=== PATIENT | female | born 1960 | race Caucasian/White ===

== ENCOUNTER → 2019-10-19 16:32 | Outpatient (CLI) | payer BC, SELFPAY ==
[2019-10-19 16:33] LABS: Adenovirus F 40/41, stool Not Detected (NotDetected); Astrovirus Not Detected (NotDetected); Campylobacter Not Detected (NotDetected); Clostridium Difficile A/B, PCR Not Detected (NotDetected); Cryptosporidium Not Detected (NotDetected); Cyclospora Cayetanesis Not Detected (NotDetected); Entamoeba histolytica Not Detected (NotDetected); Enteroaggregative E coli Not Detected (NotDetected); Enteropathogenic E coli Not Detected (NotDetected); Enterotoxigenic E coli Not Detected (NotDetected); Giardia lamblia Not Detected (NotDetected); Plesimonas Shigalloides, PCR Not Detected (NotDetected); Rotavirus A Not Detected (NotDetected); Salmonella, PCR Not Detected (NotDetected); Sapovirus Not Detected (NotDetected); Shiga-like toxin E coli Not Detected (NotDetected); Shigella Enterovasive E coli Not Detected (NotDetected); Vibrio Cholerae Not Detected (NotDetected); Vibrio, PCR Not Detected (NotDetected); Yersinia Entercolitica, PCR Not Detected (NotDetected)
[2019-10-19 19:49] LABS: Norovirus Detected (NotDetected)
== END ==
PROVIDERS: Visit Provider Family Medicine
DX: R19.7 Diarrhea, unspecified; A08.2 Adenoviral enteritis
CPT/HCPCS: 87507

== ENCOUNTER 2020-07-26 18:23 | Emergency (ER) | payer BC, SELFPAY ==
[2020-07-26 18:39] VITALS: BP 118/67; PULSE 72; RESP 18; O2SAT 98; BMI 28.3
--- NOTE | 2020-07-26 19:06 | HMH.EDUTC ---
[facility] [place] Clinical Impression: Medication side effects UTI (urinary tract infection) Qualifiers: Urinary tract infection type: site unspecified Hematuria presence: without hematuria Qualified Code(s): N39.0 - Urinary tract infection, site not specified Disposition: Home, Self-Care Condition on Discharge: Good Instructions: Urinary Tract Infection Additional Instructions: Drink plenty of fluids. Water would be best. Drink cranberry juice daily. Take tylenol for pain or fever. Return if you begin to have worsening symptoms. Follow up with your regular doctor. GO TO THE ER FOR ANY WORSENING SYMPTOMS OR CONCERNS Prescriptions: Cefdinir [Omnicef 300mg Capsule] 300 mg PO BID 7 Days #14 cap Transmission Status: Received by [employer] #[id number] Referrals: Benny Stokes MD [Primary Care Provider] - Time of Disposition: 19:23 Medical Decision Making - Medical Records Medical records reviewed: No: I reviewed the patient's medical records. - Pasha Inquiry Pt receiving controlled substance: No Vital Signs: 07/26/20 18:39 07/26/20 19:25 Temperature 98.0 F Temperature Source Oral Pulse Rate 72 Pulse Rate [Radial] 72 Respiratory Rate 18 18 Blood Pressure 118/60 Blood Pressure [Right Arm] 118/67 Blood Pressure Mean [Right Arm] 84 Blood Pressure Source Automatic Cuff Blood Pressure Source [Right Arm] Automatic Cuff Blood Pressure Position Sitting Blood Pressure Position [Right Arm] Sitting 02 Sat by Pulse Oximetry 98 Oxygen Delivery Method Room Air Room Air - Lab Data Lab results reviewed: Yes: I reviewed the patient's lab results. Lab Results 07/26/20 18:26: Urine Color Yellow, Urine Appearance Clear, Urine pH 5.5, Ur Specific [place] 1.015, Urine Protein Negative, Urine Glucose (UA) Negative, Urine Ketones Negative, Urine Blood Negative, Urine Nitrate Negative, Urine Bilirubin Negative, Urine Urobilinogen 0.2, Ur Leukocyte Esterase Negative [facility] [place] - General Stated complaint: pOSSIBLE uti Time Seen by Provider: 07/26/20 19:06 Mode of Arrival: Ambulatory Source of Information: Patient Limitations: No Limitations Description of Symptoms (Recalled from Triage Doc. by RN): possible uti. seen by doctor kike on wednesday and prescribed cipro. states the cipro has started making her sick so she called dr. stokes and they didn't change her medication. Here requesting a medication change HEENT Symptoms (Recalled from RN notes): No Resp Symptoms (Recalled from RN notes): No Skin Symptoms (Recalled from RN notes): No MS Symptoms (Recalled from RN notes): No Functional Status (Recalled from RN notes): wnl - History of Present Illness Provider Complaint: She is here requesting to have her medication switched. She has been on cipro for 2 days for a uti. She states that her uti symptoms are better, but the cipro is causing her to have nausea and vomiting. In the past she has taken cephalexin and did ok with it, so she would like to be switched to that if possible. - Related Data Previous Rx's Medication Instructions Recorded Cefdinir [Omnicef 300mg Capsule] 300 mg PO BID 7 Days #14 cap 07/26/20 Allergies Allergy/AdvReac Type Severity Reaction Status Date / Time acetaminophen [From PERCOCET] Allergy Intermediate I-HIVES Unverified 08/10/17 14:45 oxycodone [From PERCOCET] Allergy Intermediate I-HIVES Unverified 08/10/17 14:45 erythromycin base Allergy Unknown NA-DIARRHEA Unverified 08/10/17 14:45 [ERYTHROMYCIN BASE] morphine [MORPHINE] Allergy Unknown NA-HALLUCIN Unverified 08/10/17 14:45 ATIONS Sulfa (Sulfonamide Allergy Unknown NA-NAUSEA/V Unverified 08/10/17 14:45 Antibiotics) OMITING [SULFA (SULFONAMIDE ANTIBIOTICS)] ciprofloxacin [From Cipro] AdvReac Vomiting Verified 07/26/20 18:44 nitrofurantoin AdvReac Vomiting Verified 07/26/20 18:44 [From Macrobid] - Worker's Comp Is this a Worker's Comp case?: No H
[2020-07-26 19:25] VITALS: BP 118/60; PULSE 72; RESP 18; TEMP 36.7; O2SAT 98
[2020-07-26 19:40] LABS: Apearance,Urine Clear (Clear); Bilirubin,Urine Negative (Negative); Blood, Urine Negative (Negative); Color,Urine Yellow (Yellow); Glucose,Urine (UA) Negative (Negative); Ketones,Urine Negative (Negative); PH,Urine 5.5 (5.0-8.5); Protein,Urine Negative (Negative); Specific Gravity, Urine 1.015 (1.005-1.030)
[2020-07-26 19:41] LABS: UTC Leukocyte Esterase,Urine Negative (Negative); UTC Nitrate,Urine Negative (Negative); Urobilinogen,Urine 0.2 EU/dl (0.2)
== END 2020-07-26 19:26 | disposition home or self-care (01) ==
PROVIDERS: Emergency Provider Nurse Practitioner Family; PCP Family Medicine
DX: N30.00 Acute cystitis without hematuria (principal); R11.2 Nausea with vomiting, unspecified; T36.8X5A Adverse effect of other systemic antibiotics, initial encounter; Z88.2 Allergy status to sulfonamides; Z88.5 Allergy status to narcotic agent; Z88.8 Allergy status to other drugs, medicaments and biological substances
CPT/HCPCS: 81003; 99201

== ENCOUNTER 2021-01-26 15:29 | Emergency (ER) | payer BC, SELFPAY ==
[2021-01-26 15:31] VITALS: BP 197/97; PULSE 74; RESP 22; TEMP 36.5; O2SAT 99; BMI 29.1
--- NOTE | 2021-01-26 15:58 | ECG_ITS ---
APPROVED REPORT Exam: Resting ECG HR:68 bpm ECG Measurements Heart Rate 68 AXES ME 146 P 75 QRSd 68 QRS -4 QT 402 T 15 QTc 427 Conclusion Normal sinus rhythm Nonspecific ST abnormality Abnormal ECG Electronically signed by : Benny Paredes, 01/28/2021 22:05:01
--- NOTE | 2021-01-26 16:03 | HMH.EDGENADL ---
ED Disposition Clinical Impression: Essential hypertension Headache Qualifiers: Headache type: unspecified Headache chronicity pattern: acute headache Intractability: not intractable Qualified Code(s): R51.9 - Headache, unspecified Disposition: Home, Self-Care Condition on Discharge: Good Instructions: DI for Headache Additional Instructions: See your primary care provider tomorrow for further management of your blood pressure. Fioricet as needed for headache. Additional instructions for HEADACHE: See your physician as soon as possible for further evaluation. Return immediately if worsening headache, vomiting, problems with vision or speech, fever, numbness or weakness of the extremities, neck pain or stiffness. Prescriptions: Butalb/Acetaminophen/Caffeine [Fioricet 50-300-40 mg Capsule] 1 each PO Q6HP PRN #8 capsule PRN Reason: Headache Transmission Status: Received by [employer] #[id number] Referrals: Benny Guerrier MD [Primary Care Provider] - - Critical Care Critical Care Time: No Attestation: On 01/26/21, the high probability of a clinically significant, sudden or life threatening deterioration of the following system(s) required my full and direct attention, intervention and personal management. The time I documented below is in addition to time spent performing reported procedures but includes the following listed in this critical care notation. Medical Decision Making - Pasha Inquiry Pt receiving controlled substance: Yes Pasha was queried for this patient: Yes Risks and benefits of using a controlled substance: were discussed with pt by me Vital Signs: 01/26/21 15:31 01/26/21 16:43 Temperature 97.7 F Temperature Source Oral Pulse Rate 64 Pulse Rate [Right] 74 Respiratory Rate 22 16 Blood Pressure 164/81 H Blood Pressure [Right Arm] 197/97 H Blood Pressure Mean 106 Blood Pressure Mean [Right Arm] 130 Blood Pressure Source [Right Arm] Automatic Cuff Blood Pressure Position [Right Arm] Supine 02 Sat by Pulse Oximetry 99 98 Oxygen Delivery Method Room Air - Lab Data Lab Results 01/26/21 16:05: WBC 8.7, RBC 4.41, Hgb 12.1 L, Hct 36.4 L, MCV 82.6, MCH 27.5, MCHC 33.3, RDW 13.1, Plt Count 266, MPV 7.8, Neut % (Auto) 60.3, Lymph % (Auto) 30.6, [place] % (Auto) 3.2, Eos % (Auto) 4.7, Baso % (Auto) 1.2, Neut # (Auto) 5.3, Lymph # (Auto) 2.7, [place] # (Auto) 0.3, Eos # (Auto) 0.4, Baso # (Auto) 0.1 01/26/21 16:05: Sodium 139, Potassium 4.0, Chloride 106, Carbon Dioxide 28, Anion Gap 9.0, BUN 11, Creatinine 0.50 L, Estimated Creat Clear 154, Estimated GFR 127, Est GFR ( Amer) 153, Glucose 88, Calcium 8.7, Total Bilirubin 0.4, AST 24, ALT 21, Alkaline Phosphatase 56, Troponin I < 0.01, Total Protein 6.6, Albumin 4.0, Globulin 2.6, Albumin/Globulin Ratio 1.5 Result diagrams: 01/26/21 16:05 01/26/21 16:05 Orders (Tests/Meds): ED MEDICATIONS Discontinued Medications Generic Name Dose Route Start Last Admin Trade Name Freq PRN Reason Stop Dose Admin Butorphanol Tartrate 0.5 mg 01/26/21 16:49 01/26/21 16:57 Butorphanol Tartrate 1 Mg/Ml Vial IV 01/26/21 16:50 0.5 mg ONCE ONE Administration Ondansetron HCl 4 mg 01/26/21 16:55 01/26/21 16:57 Ondansetron 4mg/2ml Vial IV 01/26/21 16:56 4 mg ONCE ONE Administration ORDERS Category Date Time Status Troponin I Q3H Lab 01/26/21 19:00 Ordered Troponin I Q3H Lab 01/26/21 22:00 Ordered - CT Data CT Scan: Head Time Received: 17:[address] Reviewed: Yes: I have viewed the radiologist's interpretation Findings Narrative: PROCEDURE INFORMATION: Exam: CT Head Without Contrast Exam date and time: 01/26/2021 4:08 PM Age: 60 years old Clinical indication: Pain; Other: Blood pressure 186/88; Patient HX: Headache since noon today. Elevated blood pressure. TECHNIQUE: Imaging protocol: Computed tomography of the head without contrast. Radiation optimization: All CT scans at this [facility]
--- NOTE | 2021-01-26 16:08 | CT_ITS ---
PROCEDURE INFORMATION: Exam: CT Head Without Contrast Exam date and time: 01/26/2021 4:08 PM Age: 60 years old Clinical indication: Pain; Other: Blood pressure 186/88; Patient HX: Headache since noon today. Elevated blood pressure. TECHNIQUE: Imaging protocol: Computed tomography of the head without contrast. Radiation optimization: All CT scans at this facility use at least one of these dose optimization techniques: automated exposure control; mA and/or kV adjustment per patient size (includes targeted exams where dose is matched to clinical indication); or iterative reconstruction. COMPARISON: No relevant prior studies available. FINDINGS: Brain: Normal. Cerebral ventricles: No ventriculomegaly. Paranasal sinuses: Visualized sinuses are unremarkable. No fluid levels. Mastoid air cells: Normal as visualized. Bones/joints: Normal. Soft tissues: Unremarkable. IMPRESSION: No acute intracranial abnormality.
[2021-01-26 16:17] LABS: Basophils # 0.1 K/mm3 (0-0.2); Basophils % 1.2 % (0.1-2.0); Eosinophils # 0.4 K/mm3 (0.0-0.4); Eosinophils % 4.7 % (0.1-12.0); Hematocrit 36.4 % (37.0-47.0); Hemoglobin 12.1 g/dL (12.2-16.2); Lymphocytes # 2.7 K/mm3 (0.7-4.5); Lymphocytes % 30.6 % (10-50); Mean Corpuscular HGB Conc 33.3 g/dL (31.8-35.4); Mean Corpuscular Hemoglobin 27.5 pg (27.0-31.2); Mean Corpuscular Volume 82.6 fl (81-99); Mean Platelet Volume 7.8 fl (7.4-10.4); Monocytes # 0.3 K/mm3 (0.1-1.0); Monocytes % 3.2 % (1.7-9.3); Neutrophils # 5.3 K/mm3 (1.8-7.8); Neutrophils % 60.3 % (37.0-80.0); Platelet Count 266 K/mm3 (142-424); Red Blood Count 4.41 M/mm3 (4.20-5.40); Red Cell Distribution Width 13.1 % (11.5-17.5); White Blood Count 8.7 K/mm3 (4.8-10.8)
[2021-01-26 16:26] LABS: Alanine Aminotransferase 21 U/L (12-78); Albumin/Globulin Ratio 1.5 (1.1-1.8); Alkaline Phosphatase 56 U/L (38-126); Aspartate Amino Transferase 24 U/L (14-36); Bilirubin,Total 0.4 mg/dl (0.2-1.3); Blood Urea Nitrogen 11 mg/dl (7-17); Calcium 8.7 mg/dl (8.4-10.2); Carbon Dioxide 28 mmol/L (22.0-30.0); Chloride 106 mmol/L (98-107); Creatinine Clearance Estimated 154 mL/min (50-200); Estimated Glomerular Filt Rate 127 ml/min (>60); GFR (African American) 153 ML/MIN (>60); Globulin 2.6 g/dL (1.3-3.2); Glucose 88 mg/dl (74-100); Sodium 139 mmol/L (136-145); Total Protein,Serum 6.6 g/dl (6.3-8.2)
[2021-01-26 16:39] LABS: Troponin I < 0.01 ng/ml (0.00-0.034)
[2021-01-26 16:43] VITALS: BP 164/81; PULSE 64; RESP 16; O2SAT 98
[2021-01-26 17:45] VITALS: BP 153/89; PULSE 67; RESP 16; TEMP 36.6; O2SAT 98
== END 2021-01-26 17:46 | disposition home or self-care (01) ==
PROVIDERS: Emergency Provider Emergency Medicine; PCP Family Medicine
DX: R51.9 Headache, unspecified (principal); I10 Essential (primary) hypertension; Z88.2 Allergy status to sulfonamides; Z88.5 Allergy status to narcotic agent; Z79.899 Other long term (current) drug therapy
CPT/HCPCS: 70450; 80053; 84484; 85025; 93005; 96374; 96375; 99282; J0595; J2405

== ENCOUNTER → 2021-05-15 15:26 | Outpatient (CLI) | payer BC, SELFPAY ==
--- NOTE | 2021-05-15 15:30 | XR_ITS ---
PROCEDURE: XR CHEST 2V CLINICAL HISTORY: CHEST WALL PAIN COMPARISON: No exams were available for comparison FINDINGS: The cardiomediastinal silhouette and pulmonary vascularity are within normal limits. The lungs are clear without infiltrates, suspicious nodules, or pleural effusions. There is calcified granuloma in the left suprahilar region. No acute bony findings. No pleural effusion. No evidence of pneumothorax. IMPRESSION: No acute findings. Dictated by: Roderick Sellers MD 05/16/2021 16:09 Roderick Sellers MD in [place] 05/16/2021 16:09
== END ==
PROVIDERS: PCP Nurse Practitioner Family; Visit Provider Nurse Practitioner Family
DX: R07.89 Other chest pain (principal)
CPT/HCPCS: 71046

== ENCOUNTER 2021-05-16 21:56 | Emergency (ER) | payer BC, SELFPAY ==
[2021-05-16 22:18] VITALS: RESP 16; TEMP 36.7; O2SAT 99; BMI 29.9
--- NOTE | 2021-05-16 22:26 | CT_ITS ---
PROCEDURE INFORMATION: Exam: CT Abdomen And Pelvis With Contrast Exam date and time: 05/16/2021 10:26 PM Age: 60 years old Clinical indication: Abdominal pain; Localized; Right upper quadrant (ruq); Additional info: Ruq pain TECHNIQUE: Imaging protocol: Computed tomography of the abdomen and pelvis with contrast. Total images: 318 Radiation optimization: All CT scans at this facility use at least one of these dose optimization techniques: automated exposure control; mA and/or kV adjustment per patient size (includes targeted exams where dose is matched to clinical indication); or iterative reconstruction. Contrast material: ISOVUE; Contrast volume: 75 ml; Contrast route: IV; COMPARISON: CR XR CHEST 2V 05/15/2021 3:42 PM FINDINGS: Lungs: Visualized lung bases are clear. Heart: Heart size normal. Mediastinal space: The visualized distal esophagus is largely contracted without gross abnormality. Liver: Granulomatous calcifications in the liver. Well-circumscribed low-density hepatic lesions demonstrating benign CT features consistent with hepatic cysts. No further imaging evaluation is required based on current consensus criteria. No mass lesions. No intrahepatic biliary ductal dilatation. Gallbladder and bile ducts: Question possible small gallstones in the gallbladder. No overdistention of the gallbladder or gross gallbladder wall thickening was seen. Consider sonographic assessment as clinically indicated. Nondilated bile ducts. Pancreas: Normal. No inflammatory changes or ductal dilation. Spleen: Granulomatous calcifications in the spleen without acute splenic abnormality. Adrenal glands: Normal. No adrenal mass. Kidneys and ureters: No acute abnormalities. No hydronephrosis or hydroureter. No urinary tract stones are identified. Stomach and bowel: The stomach is unremarkable. The small bowel is nondilated with no gross abnormality. Severe diverticulosis involving the distal colon without evidence of acute diverticulitis. Appendix: The appendix is not identified. No secondary signs of appendicitis. Intraperitoneal space: No free fluid or air. Vasculature: Mild atherosclerotic aortoiliac calcification without aneurysm. Lymph nodes: No adenopathy. Urinary bladder: Unremarkable as visualized. Reproductive: Prior hysterectomy. Bones/joints: No acute osseous abnormalities. Soft tissues: Small fatty umbilical hernia . No evidence of associated bowel herniation or strangulation. IMPRESSION: 1. Suspect small gallstones in the gallbladder lumen without gross each changes of cholecystitis. Nondilated bile ducts. Consider sonographic assessment as clinically indicated. 2. Severe distal colonic diverticulosis without evidence of diverticulitis. 3. Additional nonemergent findings detailed above.
[2021-05-16 22:30] VITALS: BP 154/56; PULSE 65; O2SAT 99
[2021-05-16 22:33] LABS: Basophils # 0.1 K/mm3 (0-0.2); Basophils % 1.2 % (0.1-2.0); Eosinophils # 0.4 K/mm3 (0.0-0.4); Eosinophils % 3.6 % (0.1-12.0); Hematocrit 41.1 % (37.0-47.0); Hemoglobin 13.1 g/dL (12.2-16.2); Lymphocytes # 3.4 K/mm3 (0.7-4.5); Mean Corpuscular HGB Conc 31.9 g/dL (31.8-35.4); Mean Corpuscular Hemoglobin 27.7 pg (27.0-31.2); Mean Platelet Volume 8.5 fl (7.4-10.4); Monocytes # 0.4 K/mm3 (0.1-1.0); Monocytes % 4.4 % (1.7-9.3); Neutrophils # 5.7 K/mm3 (1.8-7.8); Neutrophils % 56.7 % (37.0-80.0); Platelet Count 300 K/mm3 (142-424); Red Blood Count 4.72 M/mm3 (4.20-5.40)
[2021-05-16 22:39] LABS: Alanine Aminotransferase 18 U/L (12-78); Albumin Level 4.1 g/dl (3.5-5.0); Albumin/Globulin Ratio 1.2 (1.1-1.8); Alkaline Phosphatase 67 U/L (38-126); Amylase 74 U/L (30-110); Anion Gap 15.1 mEq/L (5-15); Aspartate Amino Transferase 24 U/L (14-36); Bilirubin,Total 0.2 mg/dl (0.2-1.3); Blood Urea Nitrogen 20 mg/dl (7-17); Carbon Dioxide 30 mmol/L (22.0-30.0); Chloride 99 mmol/L (98-107); Creatinine Clearance Estimated 132 mL/min (50-200); Estimated Glomerular Filt Rate 103 ml/min (>60); GFR (African American) 124 ML/MIN (>60); Globulin 3.3 g/dL (1.3-3.2); Glucose 106 mg/dl (74-100); Lipase 206 U/L (23-300); Potassium 3.1 mmoL/L (3.5-5.1); Sodium 141 mmol/L (136-145); Total Protein,Serum 7.4 g/dl (6.3-8.2)
[2021-05-16 22:51] LABS: Troponin I < 0.01 ng/ml (0.00-0.034)
[2021-05-16 23:00] VITALS: BP 138/71; PULSE 61; O2SAT 98
--- NOTE | 2021-05-16 23:09 | HMH.EDNVD ---
ED Disposition Clinical Impression: Abdominal pain Qualifiers: Abdominal location: right upper quadrant Qualified Code(s): R10.11 - Right upper quadrant pain Cholelithiasis Qualifiers: Cholelithiasis location: gallbladder Cholecystitis presence: without cholecystitis Biliary obstruction: without biliary obstruction Qualified Code(s): K80.20 - Calculus of gallbladder without cholecystitis without obstruction Disposition: Home, Self-Care Condition on Discharge: Good Instructions: DI for Acute Abdominal Pain, DI for Gallstones Additional Instructions: see pcp for eval and more testing Referrals: Benny Guerrier MD [Primary Care Provider] - - Critical Care Critical Care Time: No Attestation: On 05/16/21, the high probability of a clinically significant, sudden or life threatening deterioration of the following system(s) required my full and direct attention, intervention and personal management. The time I documented below is in addition to time spent performing reported procedures but includes the following listed in this critical care notation. Medical Decision Making - Medical Records Medical records reviewed: Yes: I reviewed the patient's medical records. - Pasha Inquiry Pt receiving controlled substance: No Vital Signs: 05/16/21 22:18 05/16/21 22:30 05/16/21 23:00 Temperature 98.1 F Temperature Source Oral Pulse Rate 65 61 Respiratory Rate 16 Blood Pressure 154/56 H 138/71 02 Sat by Pulse Oximetry 99 99 98 Oxygen Delivery Method Room Air 05/16/21 23:30 Temperature Temperature Source Pulse Rate 60 Respiratory Rate Blood Pressure 148/73 H 02 Sat by Pulse Oximetry 98 Oxygen Delivery Method - Lab Data Lab results reviewed: Yes: I reviewed the patient's lab results. Lab Results 05/16/21 22:11: WBC 10.0, RBC 4.72, Hgb 13.1, Hct 41.1, MCV 87.0, MCH 27.7, MCHC 31.9, RDW 13.0, Plt Count 300, MPV 8.5, Neut % (Auto) 56.7, Lymph % (Auto) 34.0, [place] % (Auto) 4.4, Eos % (Auto) 3.6, Baso % (Auto) 1.2, Neut # (Auto) 5.7, Lymph # (Auto) 3.4, [place] # (Auto) 0.4, Eos # (Auto) 0.4, Baso # (Auto) 0.1 05/16/21 22:11: Sodium 141, Potassium 3.1 L, Chloride 99, Carbon Dioxide 30, Anion Gap 15.1 H, BUN 20 H, Creatinine 0.60, Estimated Creat Clear 132, Estimated GFR 103, Est GFR ( Amer) 124, Glucose 106 H, Calcium 9.0, Total Bilirubin 0.2, AST 24, ALT 18, Alkaline Phosphatase 67, Troponin I < 0.01, Total Protein 7.4, Albumin 4.1, Globulin 3.3 H, Albumin/Globulin Ratio 1.2, Amylase 74, Lipase 206 Result diagrams: 05/16/21 22:11 05/16/21 22:11 Orders (Tests/Meds): ED MEDICATIONS Discontinued Medications Generic Name Dose Route Start Last Admin Trade Name Freq PRN Reason Stop Dose Admin Iopamidol 75 ml 05/16/21 23:54 05/16/21 23:55 Iopamidol-370 (76%);100ml Bottle IV 05/16/21 23:55 75 ml ONCE ONE Administration Potassium Chloride 40 meq 05/16/21 23:05 05/16/21 23:06 Potassium Chloride 20meq Tab PO 05/16/21 23:06 40 meq ONCE ONE Administration Sodium Chloride 10 ml 05/16/21 23:54 05/16/21 23:55 Sodium Chloride 0.9% 10ml Syr (Rad Only) IV 05/16/21 23:55 10 ml ONCE ONE Administration ORDERS Category Date Time Status Troponin I Q3H Lab 05/17/21 01:30 Ordered Troponin I Q3H Lab 05/17/21 04:30 Ordered Urinalysis and Microscopic Stat Lab 05/16/21 22:25 Ordered - CT Data CT Scan: Abdomen, Pelvis Time Received: 00:[address] Reviewed: Yes: I have viewed the radiologist's interpretation Preliminary Findings: Abnormal (gallstones) - ECG Data Tracing #1 Normal Sinus Rhythm: Yes Ischemic changes: non-specific ST-T wave changes Medical Decision Narrative: tender rt upper abd with abn ct but stable exam Nausea/Vomiting/Diarrhea HPI - General Chief complaint: Abdominal Pain Stated complaint: pain R upper side and heart burn Time Seen by Provider: 05/16/21 23:00 Mode of Arrival: Family Vehicle Source of Information: Patient, Med
[2021-05-16 23:30] VITALS: BP 148/73; PULSE 60; O2SAT 98
--- NOTE | 2021-05-17 00:17 | ECG_ITS ---
APPROVED REPORT Exam: Resting ECG HR:61 bpm ECG Measurements Heart Rate 61 AXES [place] 152 P 44 QRSd 82 QRS 17 QT 430 T 43 QTc 432 Conclusion Normal sinus rhythm Normal ECG Electronically signed by : Benny Paredes MD 05/18/2021 20:54:47
[2021-05-17 00:29] LABS: Microscopic, Urine URINE MICROSCOPIC (MICROSCOPIC)
[2021-05-17 00:43] LABS: Appearance,Urine CLEAR (Clear); Bilirubin,Urine Negative (Negative); Blood, Urine Negative (Negative); Color,Urine YELLOW (Yellow); Glucose,Urine (UA) Negative (Negative); Ketones,Urine Negative (Negative); Leukocyte Esterase,Urine Negative (Negative); Nitrate,Urine Negative (Negative); PH,Urine 5.5 (5.0-8.5); Protein,Urine Negative (Negative); Urobilinogen,Urine 0.2 EU/dl (0.2)
[2021-05-17 01:17] VITALS: BP 138/67; PULSE 79; RESP 16; TEMP 36.7; O2SAT 98
== END 2021-05-17 01:19 | disposition home or self-care (01) ==
PROVIDERS: Emergency Provider Emergency Medicine; PCP Family Medicine
DX: K80.20 Calculus of gallbladder without cholecystitis without obstruction (principal); Z88.2 Allergy status to sulfonamides; Z88.5 Allergy status to narcotic agent
CPT/HCPCS: 74177; 80053; 81001; 82150; 83690; 84484; 85025; 93005; 96374; 96375; 99283; Q9967

== ENCOUNTER 2021-05-21 21:59 | Emergency (ER) | payer BC, SELFPAY ==
[2021-05-21 22:00] VITALS: BP 175/81; PULSE 73; RESP 16; TEMP 36.9; O2SAT 98; BMI 29.9
[2021-05-21 23:37] LABS: Microscopic, Urine URINE MICROSCOPIC (MICROSCOPIC)
[2021-05-21 23:39] LABS: Appearance,Urine SL CLOUDY (Clear); Bilirubin,Urine Negative (Negative); Blood, Urine Negative (Negative); Color,Urine YELLOW (Yellow); Glucose,Urine (UA) Negative (Negative); Ketones,Urine TRACE (Negative); Leukocyte Esterase,Urine Negative (Negative); Nitrate,Urine Negative (Negative); Protein,Urine Negative (Negative); Specific Gravity, Urine 1.025 (1.005-1.030); Urobilinogen,Urine 0.2 EU/dl (0.2)
[2021-05-21 23:40] LABS: Basophils # 0.1 K/mm3 (0-0.2); Basophils % 1.2 % (0.1-2.0); Eosinophils # 0.3 K/mm3 (0.0-0.4); Eosinophils % 2.6 % (0.1-12.0); Hematocrit 35.5 % (37.0-47.0); Hemoglobin 11.9 g/dL (12.2-16.2); Lymphocytes # 3.1 K/mm3 (0.7-4.5); Lymphocytes % 30.3 % (10-50); Mean Corpuscular HGB Conc 33.5 g/dL (31.8-35.4); Mean Corpuscular Hemoglobin 28.2 pg (27.0-31.2); Mean Corpuscular Volume 84.1 fl (81-99); Mean Platelet Volume 7.6 fl (7.4-10.4); Monocytes # 0.3 K/mm3 (0.1-1.0); Monocytes % 2.9 % (1.7-9.3); Neutrophils # 6.4 K/mm3 (1.8-7.8); Neutrophils % 63.1 % (37.0-80.0); Platelet Count 290 K/mm3 (142-424); Red Blood Count 4.22 M/mm3 (4.20-5.40); Red Cell Distribution Width 12.8 % (11.5-17.5); White Blood Count 10.2 K/mm3 (4.8-10.8)
[2021-05-21 23:46] LABS: Alanine Aminotransferase 16 U/L (12-78); Albumin Level 3.5 g/dl (3.5-5.0); Albumin/Globulin Ratio 1.2 (1.1-1.8); Alkaline Phosphatase 54 U/L (38-126); Amylase 62 U/L (30-110); Anion Gap 10.3 mEq/L (5-15); Aspartate Amino Transferase 19 U/L (14-36); Bilirubin,Total 0.2 mg/dl (0.2-1.3); Blood Urea Nitrogen 16 mg/dl (7-17); Calcium 8.1 mg/dl (8.4-10.2); Carbon Dioxide 27 mmol/L (22.0-30.0); Chloride 106 mmol/L (98-107); Creatinine Clearance Estimated 132 mL/min (50-200); Estimated Glomerular Filt Rate 103 ml/min (>60); GFR (African American) 124 ML/MIN (>60); Glucose 102 mg/dl (74-100); Lipase 137 U/L (23-300); Potassium 3.3 mmoL/L (3.5-5.1); Sodium 140 mmol/L (136-145); Total Protein,Serum 6.5 g/dl (6.3-8.2)
[2021-05-21 23:46] LABS: Bacteria,Urine Trace /lpf; RBC,Urine Occasional #/hpf (0-3)
[2021-05-21 23:51] LABS: C-Reactive Protein 5.1 mg/L (0-4)
--- NOTE | 2021-05-22 00:03 | HMH.EDNVD ---
ED Disposition Clinical Impression: Abdominal pain Qualifiers: Abdominal location: right upper quadrant Qualified Code(s): R10.11 - Right upper quadrant pain Cholelithiasis Qualifiers: Cholelithiasis location: gallbladder Cholecystitis presence: without cholecystitis Biliary obstruction: without biliary obstruction Qualified Code(s): K80.20 - Calculus of gallbladder without cholecystitis without obstruction Disposition: Home, Self-Care Condition on Discharge: Good Instructions: DI for Acute Abdominal Pain Additional Instructions: call pcp in am Referrals: Benny Guerrier MD [Primary Care Provider] - Benjamin Boucher MD [Staff Physician] - - Critical Care Critical Care Time: No Attestation: On 05/21/21, the high probability of a clinically significant, sudden or life threatening deterioration of the following system(s) required my full and direct attention, intervention and personal management. The time I documented below is in addition to time spent performing reported procedures but includes the following listed in this critical care notation. Medical Decision Making - Medical Records Medical records reviewed: Yes: I reviewed the patient's medical records. - Pasha Inquiry Pt receiving controlled substance: No Vital Signs: 05/21/21 22:00 Temperature 98.4 F Temperature Source Oral Pulse Rate [Right] 73 Respiratory Rate 16 Blood Pressure [Right Arm] 175/81 H Blood Pressure Mean [Right Arm] 112 02 Sat by Pulse Oximetry 98 - Lab Data Lab results reviewed: Yes: I reviewed the patient's lab results. Lab Results 05/21/21 23:24: Urine Color Yellow, Urine Appearance Sl cloudy, Urine pH 6.0, Ur Specific [place] 1.025, Urine Protein Negative, Urine Glucose (UA) Negative, Urine Ketones Trace, Urine Blood Negative, Urine Nitrate Negative, Urine Bilirubin Negative, Urine Urobilinogen 0.2, Ur Leukocyte Esterase Negative, Urine RBC Occasional, Urine WBC 3-5, Ur Squamous Epith Cells 5-10, Urine Bacteria Trace 05/21/21 23:30: WBC 10.2, RBC 4.22, Hgb 11.9 L, Hct 35.5 L, MCV 84.1, MCH 28.2, MCHC 33.5, RDW 12.8, Plt Count 290, MPV 7.6, Neut % (Auto) 63.1, Lymph % (Auto) 30.3, [place] % (Auto) 2.9, Eos % (Auto) 2.6, Baso % (Auto) 1.2, Neut # (Auto) 6.4, Lymph # (Auto) 3.1, [place] # (Auto) 0.3, Eos # (Auto) 0.3, Baso # (Auto) 0.1 05/21/21 23:30: Sodium 140, Potassium 3.3 L, Chloride 106, Carbon Dioxide 27, Anion Gap 10.3, BUN 16, Creatinine 0.60, Estimated Creat Clear 132, Estimated GFR 103, Est GFR ( Amer) 124, Glucose 102 H, Calcium 8.1 L, Total Bilirubin 0.2, AST 19, ALT 16, Alkaline Phosphatase 54, C-Reactive Protein 5.1 H, Total Protein 6.5, Albumin 3.5, Globulin 3.0, Albumin/Globulin Ratio 1.2, Amylase 62, Lipase 137 Result diagrams: 05/21/21 23:30 05/21/21 23:30 Orders (Tests/Meds): ED MEDICATIONS Generic Name Dose Route Start Last Admin Trade Name Freq PRN Reason Stop Dose Admin Sodium Chloride 1,000 mls @ 999 mls/hr 05/21/21 23:45 05/21/21 23:39 Sod Chlor 0.9% 1000ml Bag IV 05/22/21 00:45 999 mls/hr .Q1H1M RYAN Administration Sodium Chloride 8 ml 05/21/21 23:33 Sodium Chloride 0.9% 10ml Vial IV 06/20/21 23:32 NEEDED PRN dilute pepcid Discontinued Medications Generic Name Dose Route Start Last Admin Trade Name Freq PRN Reason Stop Dose Admin Famotidine 20 mg 05/21/21 23:33 05/21/21 23:36 Famotidine 20mg/2ml Vial IV 05/21/21 23:34 20 mg ONCE ONE Administration Ketorolac Tromethamine 30 mg 05/21/21 23:33 05/21/21 23:36 Ketorolac 30mg/Ml Vial IV 05/21/21 23:34 30 mg ONCE ONE Administration Metoclopramide HCl 10 mg 05/21/21 23:33 05/21/21 23:36 Metoclopramide Hcl 10mg/2ml Vial IVP 05/21/21 23:34 10 mg ONCE ONE Administration Ondansetron HCl 4 mg 05/21/21 23:33 05/21/21 23:36 Ondansetron 4mg/2ml Vial IV 05/21/21 23:34 4 mg ONCE ONE Administration ORDERS Category Date Time Status Amylase Stat Lab 05/21/21 23:30 Results
[2021-05-22 00:17] VITALS: BP 136/73; PULSE 63; RESP 16; TEMP 36.9; O2SAT 98
[2021-05-22 00:19] LABS: Procalcitonin < 0.030 ng/mL (0.0-2.0)
[2021-05-22 00:22] LABS: Erythrocyte Sedimentation Rate 26 mm/hr (0-30)
== END 2021-05-22 00:24 | disposition home or self-care (01) ==
PROVIDERS: Emergency Provider Emergency Medicine; PCP Family Medicine
DX: R10.11 Right upper quadrant pain (principal); K80.20 Calculus of gallbladder without cholecystitis without obstruction; Z88.1 Allergy status to other antibiotic agents; Z88.2 Allergy status to sulfonamides; Z88.5 Allergy status to narcotic agent; Z88.6 Allergy status to analgesic agent; Z79.899 Other long term (current) drug therapy; Z79.890 Hormone replacement therapy
CPT/HCPCS: 80053; 81001; 82150; 83690; 84145; 85025; 85651; 86140; 96365; 96375; 99283; J2405

== ENCOUNTER → 2021-05-23 08:10 | Outpatient (CLI) | payer BC, SELFPAY ==
--- NOTE | 2021-05-23 08:12 | US_ITS ---
PROCEDURE: US ABDOMEN LIMITED CLINICAL INDICATION: ABD PAIN COMPARISON: CT CT ABDOMEN PELVIS W CON from 05/16/2021 FINDINGS: PANCREAS: Pancreas is not well delineated due to overlying bowel gas. CT or MRI without and with contrast with pancreatic protocol may provide further evaluation if clinically desired. LIVER: There is a 15 x 14 mm cyst within the right hepatic lobe with a small septation inferiorly corresponding to the CT abnormality. Homogeneous echogenicity. No intrahepatic biliary ductal dilatation evident. There is appropriate direction of blood flow within a non dilated portal vein RIGHT KIDNEY: No hydronephrosis renal mass or perinephric fluid collection. GALLBLADDER: There are at least 2 gallstones present measuring approximately 2 cm each. No gallbladder wall thickening, pericholecystic fluid or biliary dilatation. Common bile duct is 3 mm. IMPRESSION: Cholelithiasis. Hepatic cyst Dictated by: Roderick Sellers MD 05/23/2021 15:47 Roderick Sellers MD in [place] 05/23/2021 15:47
== END ==
PROVIDERS: PCP Family Medicine; Visit Provider Nurse Practitioner Family
DX: R10.11 Right upper quadrant pain (principal); R11.2 Nausea with vomiting, unspecified
CPT/HCPCS: 76705

== ENCOUNTER 2021-06-26 17:10 | Emergency (ER) | payer BC, SELFPAY ==
[2021-06-26 18:20] VITALS: BP 156/61; PULSE 61; RESP 20; TEMP 36.7; O2SAT 97; BMI 26.6
[2021-06-26 18:27] LABS: Apearance,Urine Clear (Clear); Bilirubin,Urine Negative (Negative); Blood, Urine Negative (Negative); Color,Urine Yellow (Yellow); Glucose,Urine (UA) Negative (Negative); Ketones,Urine Negative (Negative); Protein,Urine Negative (Negative); UTC Leukocyte Esterase,Urine Negative (Negative); UTC Nitrate,Urine Negative (Negative); Urobilinogen,Urine 0.2 EU/dl (0.2)
--- NOTE | 2021-06-26 19:00 | HMH.EDUTC ---
[facility] Disposition Clinical Impression: Frequent urination Disposition: Home, Self-Care Condition on Discharge: Good Additional Instructions: Follow up with Family Doctor if symptoms continue Return if needed Straight to ER if any life threatening symptoms Referrals: Layne Munroe APRN [Primary Care Provider] - As needed Time of Disposition: 19:11 Medical Decision Making - Pasha Inquiry Pt receiving controlled substance: No Pasha was queried for this patient: No Vital Signs: 06/26/21 18:20 Temperature 98.1 F Temperature Source Oral Pulse Rate [Right Brachial] 61 Respiratory Rate 20 Blood Pressure [Left Arm] 156/61 H Blood Pressure Mean [Left Arm] 92 Blood Pressure Source [Left Arm] Automatic Cuff Blood Pressure Position [Left Arm] Sitting 02 Sat by Pulse Oximetry 97 Oxygen Delivery Method Room Air - Lab Data Lab results reviewed: Yes: I reviewed the patient's lab results. Lab Results 06/26/21 18:23: Urine Color Yellow, Urine Appearance Clear, Urine pH 6.0, Ur Specific [place] 1.020, Urine Protein Negative, Urine Glucose (UA) Negative, Urine Ketones Negative, Urine Blood Negative, Urine Nitrate Negative, Urine Bilirubin Negative, Urine Urobilinogen 0.2, Ur Leukocyte Esterase Negative [facility] HPI - General Stated complaint: frequent urniation, pain Time Seen by Provider: 06/26/21 19:00 Mode of Arrival: Ambulatory Source of Information: Patient Limitations: No Limitations Description of Symptoms (Recalled from Triage Doc. by RN): PATIENT C/O FREQUENT URINATION THAT STARTED LAST NIGHT HEENT Symptoms (Recalled from RN notes): No Resp Symptoms (Recalled from RN notes): No Skin Symptoms (Recalled from RN notes): No MS Symptoms (Recalled from RN notes): No Functional Status (Recalled from RN notes): WNL - History of Present Illness Provider Complaint: Patient states that she started having frequent urination yesterday and had a few cephalexin and has taken them States that she is suppose to have surgery next week to remove her gallbladder and she wanted to get checked to make sure she didnt have UTI so it would not delay her surgery denies fever denies abdominal pain reports feeling like she is urinating more frequently than normal - Related Data Home Medications Medication Instructions Recorded Confirmed Buspirone HCl [Buspirone 7.5mg 7.5 mg PO DAILY 01/26/21 05/21/21 tablets] Nebivolol HCl [Bystolic] 10 mg PO DAILY 01/26/21 05/21/21 Omeprazole [Omeprazole 20mg 20 mg PO DAILY 01/26/21 05/21/21 Capsule] estradioL [Estradiol] 1 mg PO DAILY 01/26/21 05/21/21 hydroCHLOROthiazide [HCTZ 25mg 25 mg PO DAILY 01/26/21 05/21/21 tab] Hyoscyamine Sulfate [Levsin] 0.125 mg PO DAILY 05/21/21 05/21/21 Previous Rx's Medication Instructions Recorded Butalb/Acetaminophen/Caffeine 1 each PO Q6HP PRN #8 cap 01/26/21 [Fioricet 50-300-40 mg Capsule] Allergies Allergy/AdvReac Type Severity Reaction Status Date / Time acetaminophen [From PERCOCET] Allergy Intermediate I-HIVES Verified 01/26/21 15:58 oxycodone [From PERCOCET] Allergy Intermediate I-HIVES Verified 01/26/21 15:58 erythromycin base Allergy Unknown NA-DIARRHEA Verified 01/26/21 15:58 [ERYTHROMYCIN BASE] morphine [MORPHINE] Allergy Unknown NA-HALLUCIN Verified 01/26/21 15:58 ATIONS Sulfa (Sulfonamide Allergy Unknown NA-NAUSEA/V Verified 01/26/21 15:58 Antibiotics) OMITING [SULFA (SULFONAMIDE ANTIBIOTICS)] ciprofloxacin [From Cipro] AdvReac Vomiting Verified 01/26/21 15:58 nitrofurantoin AdvReac Vomiting Verified 01/26/21 15:58 [From Macrobid] - Worker's Comp Is this a Worker's Comp case?: No [facility] History - Hepatitis A Screen Drug use history?: No High risk sexual behaviors?: No History of sexually transmitted infection?: No Currently employed?: No Childcare worker?: No Do you have indoor plumbing?: Yes Do you have electricity?: Yes Attestation statement:: This patient has
[2021-06-26 19:07] VITALS: BP 156/61; PULSE 61; RESP 20; TEMP 36.7; O2SAT 97
== END 2021-06-26 19:19 | disposition home or self-care (01) ==
PROVIDERS: Emergency Provider Nurse Practitioner; PCP Nurse Practitioner Family
DX: R35.0 Frequency of micturition (principal)
CPT/HCPCS: 81003; 99202; G0463

== ENCOUNTER 2021-07-07 18:17 | Emergency (ER) | payer BC, SELFPAY ==
[2021-07-07 19:23] VITALS: BP 197/84; PULSE 68; RESP 18; TEMP 36.9; O2SAT 97; BMI 29.9
--- NOTE | 2021-07-07 20:11 | HMH.EDUTC ---
[facility] [place] Clinical Impression: Otitis media Qualifiers: Otitis media type: unspecified Laterality: left Qualified Code(s): H66.92 - Otitis media, unspecified, left ear Disposition: Home, Self-Care Condition on Discharge: Good Instructions: Sore Throat, Middle Ear Infection Additional Instructions: *Monitor Temp, Over the counter Motrin or Tylenol as directed/as needed Tylenol every 4 hours and Motrin every 6 hours (as long as your family doctor has told you that you can take it) for fever or pain. and straight to ER if unable to lower temp less than 101.0 after medication given *Warm salt water gargles may help to soothe the throat *Throat Lozenges *Warm fluids like tea with honey may help to soothe the throat *Sleep elevated *Humidifier/Vaporizer Your throat swab was sent for culture. Those results are typically sent to your primary care. Be sure to follow up in 2-3 days with your family doctor/primary care physician if no improvement so they can review those result and treat if necessary. If you don?t have a primary care doctor, I recommend you get one but in the mean time, you will have to return to a walk in clinic Follow up IMMEDIATELY for new or worsening symptoms or no Noticeable improvement over the next 48-72 hours. 911 for difficulty breathing or swallowing Prescriptions: Amoxicillin [Amoxicillin 500mg Cap] 500 mg PO TID #21 cap Transmission Status: Pending to [facility] # Fluticasone Propionate [Flonase 50mcg nasal spray 16gm] 1 spr NS DAILY #1 each Transmission Status: Pending to [facility] # Referrals: Benny Guerrier MD [Primary Care Provider] - Medical Decision Making - Pasha Inquiry Pt receiving controlled substance: No Pasha was queried for this patient: No Vital Signs: 07/07/21 19:23 Temperature 98.4 F Temperature Source Oral Pulse Rate [Left] 68 Respiratory Rate 18 Blood Pressure [Right Arm] 197/84 H Blood Pressure Mean [Right Arm] 121 02 Sat by Pulse Oximetry 97 - Lab Data Lab results reviewed: Yes: I reviewed the patient's lab results. Lab Results 07/07/21 20:16: Strep Scn Rapid Clinic Negative Medical Decision Narrative: Patient states that she has taken amoxicillin in the past without complications or reactions [facility] [place] - General Stated complaint: diego EAR PAIN Time Seen by Provider: 07/07/21 20:11 Mode of Arrival: Ambulatory Source of Information: Patient Limitations: No Limitations Description of Symptoms (Recalled from Triage Doc. by RN): pt c/o L ear pain and a DIEGO since yesterday. HEENT Symptoms (Recalled from RN notes): Yes (L ear pain and DIEGO) Resp Symptoms (Recalled from RN notes): No Skin Symptoms (Recalled from RN notes): No MS Symptoms (Recalled from RN notes): No Functional Status (Recalled from RN notes): na - History of Present Illness Provider Complaint: Patient states that she had her gallbladder removed last week and is doing good fromthat but since then she has started to have sore throat, pain in her left ear and headache States that she was worried that she may have strep or ear infection so she came in to get checked - Related Data Home Medications Medication Instructions Recorded Confirmed Buspirone HCl [Buspirone 7.5mg 7.5 mg PO DAILY 01/26/21 05/21/21 tablets] Nebivolol HCl [Bystolic] 10 mg PO DAILY 01/26/21 05/21/21 Omeprazole [Omeprazole 20mg 20 mg PO DAILY 01/26/21 05/21/21 Capsule] estradioL [Estradiol] 1 mg PO DAILY 01/26/21 05/21/21 hydroCHLOROthiazide [HCTZ 25mg 25 mg PO DAILY 01/26/21 05/21/21 tab] Hyoscyamine Sulfate [Levsin] 0.125 mg PO DAILY 05/21/21 05/21/21 Previous Rx's Medication Instructions Recorded Butalb/Acetaminophen/Caffeine 1 each PO Q6HP PRN #8 cap 01/26/21 [Fioricet 50-300-40 mg Capsule] Amoxicillin [Amoxicillin 500mg 500 mg PO TID #21 cap 07/07/21 Cap] Fluticasone Propionate [Flonase 1 spr NS DAILY #1 each 07/07/21 50mcg nasal
[2021-07-07 20:29] LABS: UTC Strep Screen (Rapid) Negative (Negative)
[2021-07-07 20:39] VITALS: BP 168/71; PULSE 72; RESP 18; TEMP 36.9
== END 2021-07-07 20:41 | disposition home or self-care (01) ==
PROVIDERS: Emergency Provider Nurse Practitioner; PCP Family Medicine
DX: H66.92 Otitis media, unspecified, left ear (principal); J02.9 Acute pharyngitis, unspecified; Z88.2 Allergy status to sulfonamides
CPT/HCPCS: 87880; 99202; G0463

== ENCOUNTER 2022-10-04 20:51 | Emergency (ER) | payer BC, SELFPAY ==
[2022-10-04 21:10] VITALS: BMI 29.9
--- NOTE | 2022-10-04 21:11 | ECG_ITS ---
APPROVED REPORT Exam: Resting ECG HR:72 bpm ECG Measurements Heart Rate 72 AXES NJ 153 P 48 QRSd 78 QRS 51 QT 386 T 35 QTc 411 Conclusion SINUS RHYTHM NORMAL ECG UNCONFIRMED REPORT Electronically signed by : Benny Paredes MD 10/05/2022 19:50:10
--- NOTE | 2022-10-04 21:11 | XR_ITS ---
PROCEDURE INFORMATION: Exam: XR Chest Exam date and time: 10/04/2022 9:09 PM Age: 62 years old Clinical indication: Chest wall pain; Additional info: Bilateral pleuratic pain TECHNIQUE: Imaging protocol: Radiologic exam of the chest. Views: 2 views. COMPARISON: CR XR CHEST 2V 05/15/2021 3:42 PM FINDINGS: Lungs: Subtle interstitial haziness could reflect interstitial pneumonia. No consolidation. Pleural spaces: Unremarkable. No pleural effusion. No pneumothorax. Heart/Mediastinum: Unremarkable. No cardiomegaly. Bones/joints: Unremarkable. IMPRESSION: Subtle interstitial haziness could reflect interstitial pneumonia. Correlate clinically.
[2022-10-04 21:14] VITALS: BP 145/67; PULSE 77; RESP 18; TEMP 37.1; O2SAT 96; BMI 29.9
--- NOTE | 2022-10-04 21:18 | PC.NURSE ---
Pt walked to [facility] at this time.
[2022-10-04 21:30] VITALS: BP 149/72; PULSE 69; O2SAT 95
[2022-10-04 21:49] LABS: Basophils # 0.1 K/mm3 (0-0.2); Basophils % 1.1 % (0.1-2.0); Eosinophils # 0.2 K/mm3 (0.0-0.4); Eosinophils % 1.6 % (0.1-12.0); Hematocrit 39.8 % (37.0-47.0); Hemoglobin 13.3 g/dL (12.2-16.2); Lymphocytes # 1.3 K/mm3 (0.7-4.5); Lymphocytes % 12.4 % (10-50); Mean Corpuscular HGB Conc 33.4 g/dL (31.8-35.4); Mean Corpuscular Hemoglobin 27.2 pg (27.0-31.2); Mean Corpuscular Volume 81.3 fl (81-99); Mean Platelet Volume 8.2 fl (7.4-10.4); Monocytes # 0.2 K/mm3 (0.1-1.0); Neutrophils # 8.9 K/mm3 (1.8-7.8); Neutrophils % 82.8 % (37.0-80.0); Platelet Count 308 K/mm3 (142-424); White Blood Count 10.8 K/mm3 (4.8-10.8)
--- NOTE | 2022-10-04 21:55 | PC.NURSE ---
While entering patients meds it was noted that she had a recent rx for an antibiotic. Patient was asked about it and she said that she forgot that she had been being treated for a sore throat and runny nose. notified.
[2022-10-04 21:56] LABS: Anion Gap 9.9 mEq/L (5-15); Blood Urea Nitrogen 12 mg/dl (7-17); Calcium 8.6 mg/dl (8.4-10.2); Carbon Dioxide 26 mmol/L (22.0-30.0); Chloride 106 mmol/L (98-107); Creatinine Clearance Estimated 154 mL/min (50-200); Estimated Glomerular Filt Rate 126 ml/min (>60); GFR (African American) 152 ML/MIN (>60); Glucose 101 mg/dl (74-100); Magnesium 1.6 mg/dl (1.6-2.3); Potassium 3.9 mmoL/L (3.5-5.1); Sodium 138 mmol/L (136-145)
[2022-10-04 22:01] VITALS: BP 148/76; PULSE 72; O2SAT 97
[2022-10-04 22:01] LABS: C-Reactive Protein 2.2 mg/L (0-4)
[2022-10-04 22:10] LABS: Troponin I < 0.01 ng/ml (0.00-0.034)
[2022-10-04 22:13] LABS: Erythrocyte Sedimentation Rate 21 mm/hr (0-30)
[2022-10-04 22:17] LABS: Procalcitonin < 0.030 ng/mL (0.0-2.0)
--- NOTE | 2022-10-04 22:43 | CT_ITS ---
PROCEDURE INFORMATION: Exam: CT Abdomen And Pelvis With Contrast Exam date and time: 10/04/2022 11:02 PM Age: 62 years old Clinical indication: Abdominal pain; Additional info: Abd pain TECHNIQUE: Imaging protocol: Computed tomography of the abdomen and pelvis with contrast. Radiation optimization: All CT scans at this facility use at least one of these dose optimization techniques: automated exposure control; mA and/or kV adjustment per patient size (includes targeted exams where dose is matched to clinical indication); or iterative reconstruction. Contrast material: ISOVUE; Contrast volume: 75 ml; Contrast route: IV; Other protocol: This patient has received 0 known CTs and 0 known cardiac nuclear medicine studies in the 12 months prior to the current study. COMPARISON: CT ABDOMEN PELVIS W CON 05/16/2021 11:45 PM FINDINGS: Liver: Tiny simple cyst right lobe of the liver 5 mm. Tiny probable cyst in the left lobe of the liver. Gallbladder and bile ducts: Cholecystectomy. Pancreas: Normal. No ductal dilation. Spleen: Normal. No splenomegaly. Adrenal glands: Normal. No mass. Kidneys and ureters: Normal. No hydronephrosis. Stomach and bowel: Diverticulosis without diverticulitis. No colitis or small bowel obstruction. Appendix: No evidence of appendicitis. Intraperitoneal space: Unremarkable. No free air. No significant fluid collection. Vasculature: Unremarkable. No abdominal aortic aneurysm. Lymph nodes: Unremarkable. No enlarged lymph nodes. Urinary bladder: Unremarkable as visualized. Reproductive: Hysterectomy. Bones/joints: Unremarkable. No acute fracture. Soft tissues: Unremarkable. IMPRESSION: No acute findings.
--- NOTE | 2022-10-04 22:44 | HMH.EDGENADL ---
Discharge Plan Disposition Patient Disposition: Home, Self-Care Chief Complaint: PAIN Prescriptions Prescriptions: No Action prednisone 10 mg tablet 10 mg PO DAILY Label Comments: TAKE 1 TABLET BY MOUTH ONCE DAILY IN AM WITH FOOD colestipol 1 gram tablet 1 g PO DAILY amoxicillin-pot clavulanate 875-125 mg tablet 1 tab PO BID Label Comments: TAKE 1 TABLET BY MOUTH EVERY 12 HOURS FOR 10 DAYS OR UNTIL DIRECTED TO STOP levocetirizine 5 mg tablet 5 mg PO DAILY estradiol 1 MG tablet 1 mg PO DAILY hydrochlorothiazide 25 MG tablet 25 mg PO DAILY nebivolol 10 MG tablet 10 mg PO DAILY Referrals Follow up/Referrals: Hansa Momin DO [Primary Care Provider] - See instructions Clinical Impressions Clinical Impression: Abdominal pain Instructions Patient Instructions: DI for Abdominal Pain-Adult Discharge ED Provider: Keerthi (ED)[facility] HPI General Chief complaint: PAIN Stated complaint: UPPER ABD AROUND TO R SIDE BACK Time Seen by Provider: 10/04/22 22:44 Mode of Arrival: Ambulatory Source of Information: Patient and Medical Record Limitations: No Limitations Description of Symptoms (Recalled from ER Triage Doc. by RN): Patient arrives to er via pov. C/O bilateral chest pain under breasts for prior week. States that the pain in the right side radiates into her right upper back for prior week, states that it was mild until two days ago. States that the pain is now a 7/10 with ambulation and a 10/10 when laying flat. Denies any other symptoms. Denies any known injury. Does report she was recently diagnosed with osteoarthritis and started on prednisone 2 days ago. History of Present Illness HPI narrative: pt with upper abd pain under ribs over the last week pt on steroids - denied sob or pleurisy - Onset (ago): day(s) Location: abdomen Severity: moderate Associated symptoms: denies other symptoms Related Data Home Medications Medication Instructions Recorded Confirmed estradiol 1 mg tablet 1 mg PO DAILY hormones 01/26/21 10/04/22 hydrochlorothiazide 25 mg tablet 25 mg PO DAILY Hypertension 01/26/21 10/04/22 nebivolol 10 mg tablet 10 mg PO DAILY Hypertension 01/26/21 10/04/22 amoxicillin 875 mg-potassium 1 tab PO BID upper respiratory 10/04/22 10/04/22 clavulanate 125 mg tablet infection colestipol 1 gram tablet 1 g PO DAILY diarrhea 10/04/22 10/04/22 levocetirizine 5 mg tablet 5 mg PO DAILY Allergy symptoms 10/04/22 10/04/22 prednisone 10 mg tablet 10 mg PO DAILY arthritis pain 10/04/22 10/04/22 Allergies Allergy/AdvReac Type Severity Reaction Status Date / Time acetaminophen [From PERCOCET] Allergy Intermediate I-HIVES Verified 01/26/21 15:58 oxycodone [From PERCOCET] Allergy Intermediate I-HIVES Verified 01/26/21 15:58 erythromycin base Allergy Unknown NA-DIARRHEA Verified 01/26/21 15:58 [ERYTHROMYCIN BASE] morphine [MORPHINE] Allergy Unknown NA-HALLUCIN Verified 01/26/21 15:58 ATIONS Sulfa (Sulfonamide Allergy Unknown NA-NAUSEA/V Verified 01/26/21 15:58 Antibiotics) OMITING [SULFA (SULFONAMIDE ANTIBIOTICS)] ciprofloxacin [From Cipro] AdvReac Vomiting Verified 01/26/21 15:58 nitrofurantoin AdvReac Vomiting Verified 01/26/21 15:58 [From Macrobid] PFSH [facility] Disclaimer: The information contained in this section may have been updated after the patient was seen, as this information can be updated by other users. Social History Smoking Status: Current every day smoker alcohol intake: never current occupational status: other Travel in the last 8 weeks: None ROS Obtained: Yes All systems reviewed & no additional complaints except as documented Physical Exam General General appearance: alert Head Head exam: normocephalic Eye Eye exam: Present PERRL and EOMI; Absent scleral icterus ENT ENT exam: Present mucous membranes moist Neck Neck exam: Present trachea midline Chest Chest i
[2022-10-05 00:25] VITALS: BP 145/72; PULSE 70; RESP 18; TEMP 36.6; O2SAT 98
[2022-10-05 00:28] LABS: Amylase 49 U/L (30-110); Lipase 91 U/L (23-300)
== END 2022-10-05 00:41 | disposition home or self-care (01) ==
PROVIDERS: Emergency Provider Emergency Medicine; PCP Family Medicine
DX: R07.89 Other chest pain (principal); M54.6 Pain in thoracic spine; F17.210 Nicotine dependence, cigarettes, uncomplicated
CPT/HCPCS: 71046; 74177; 80048; 82150; 83690; 83735; 84145; 84484; 85025; 85651; 86140; 93005; 96374; 96375; 99285; Q9967

== ENCOUNTER → 2023-01-15 23:30 | Outpatient (CLI) | payer BC, SELFPAY | PROVIDERS: PCP Student in an Organized Health Care Education/Training Program; Visit Provider Student in an Organized Health Care Education/Training Program | DX: N39.0 Urinary tract infection, site not specified (principal) | CPT/HCPCS: 87086 ==

== ENCOUNTER 2024-04-16 17:03 | Emergency (ER) | payer BC, SELFPAY ==
--- NOTE | 2024-04-16 17:42 | EXP.UTC ---
Discharge Plan Disposition Patient Disposition: Home, Self-Care Condition: Good Prescriptions Prescriptions: New Emverm 100 mg tablet,chewable 100 mg PO BID 3 Days Qty: 6 0RF Zyrtec 10 mg capsule 10 mg PO DAILY 30 Days Qty: 30 5RF No Action omeprazole 20 mg capsule,delayed release(DR/EC) 20 mg PO DAILY Patient Comments: TAKE 1 CAPSULE BY MOUTH EVERY DAY nebivolol [Bystolic] 5 mg tablet 5 mg PO DAILY 30 Days Qty: 30 6RF desvenlafaxine succinate 50 mg tablet extended release 24 hr 50 mg PO DAILY Qty: 30 2RF hydroxyzine HCl 25 mg tablet 25 mg PO BID PRN (Reason: anxiety) Qty: 60 0RF levocetirizine 5 mg tablet 5 mg PO DAILY estradiol 1 MG tablet 1 mg PO DAILY hydrochlorothiazide 25 MG tablet 25 mg PO DAILY Referrals Follow up/Referrals: Layne Munroe APRN [Primary Care Provider] - See instructions Activity Restrictions/Add. Instructions Additional Instructions/Restrictions: Drink plenty of fluids. Take tylenol or ibuprofen for pain or fever. Take the medications as directed. Follow up with your regular doctor. GO TO THE ER FOR ANY WORSENING SYMPTOMS Clinical Impressions Clinical Impression: Pinworms, Serous otitis media Instructions Patient Instructions: Mebendazole, Cetirizine Print Language Print Language: [place] Zealander Discharge ED Provider: Navid Parks [facility] General Stated complaint: worms in bowel movement Time Seen by Provider: 04/16/24 17:42 History of Present Illness Provider Complaint: She has been exposed to pinworms in her home by a family member having it. Yesterday she states that she noted small white worms in her stool. Related Data Home Medications ?Medication ?Instructions ?Recorded ?Confirmed estradiol 1 mg tablet 1 mg PO DAILY hormones 01/26/21 04/13/23 hydrochlorothiazide 25 mg tablet 25 mg PO DAILY Hypertension 01/26/21 04/13/23 levocetirizine 5 mg tablet 5 mg PO DAILY Allergy symptoms 10/04/22 04/13/23 omeprazole 20 mg capsule,delayed 20 mg PO DAILY 01/26/24 01/26/24 release Previous Rx's ?Medication ?Instructions ?Recorded Bystolic 5 mg tablet (nebivolol) 5 mg PO DAILY 30 days #30 tabs 01/26/24 desvenlafaxine succinate 50 mg 50 mg PO DAILY #30 tabs 02/29/24 tablet,extended release 24 hr hydroxyzine HCl 25 mg tablet 25 mg PO BID PRN anxiety #60 tabs 03/31/24 cetirizine 10 mg capsule (Zyrtec) 10 mg PO DAILY 30 days #30 caps 04/16/24 mebendazole 100 mg chewable tablet 100 mg PO BID 3 days #6 tabs 04/16/24 (Emverm) Allergies Allergy/AdvReac Type Severity Reaction Status Date / Time acetaminophen [From PERCOCET] Allergy Intermediate I-HIVES Verified 01/26/24 11:56 oxycodone [From PERCOCET] Allergy Intermediate I-HIVES Verified 01/26/24 11:56 erythromycin base Allergy Unknown NA-DIARRHEA Verified 01/26/24 11:56 [ERYTHROMYCIN BASE] morphine [MORPHINE] Allergy Unknown NA-HALLUCIN Verified 01/26/24 11:56 ATIONS Sulfa (Sulfonamide Allergy Unknown NA-NAUSEA/V Verified 01/26/24 11:56 Antibiotics) OMITING [SULFA (SULFONAMIDE ANTIBIOTICS)] ciprofloxacin [From Cipro] AdvReac Vomiting Verified 01/26/24 11:56 nitrofurantoin AdvReac Vomiting Verified 01/26/24 11:56 [From Macrobid] PFSH [facility] Disclaimer: The information contained in this section may have been updated after the patient was seen, as this information can be updated by other users. Social History Smoking Status: Current every day smoker alcohol intake: never current occupational status: other Travel in the last 8 weeks: None ROS Obtained: Yes All systems reviewed & no additional complaints except as documented Constitutional Constitutional: Denies chills and Denies fever(s) Eyes Eyes: Denies eye discharge ENT Ears, Nose, Mouth, and Throat: Denies dizziness, Denies otalgia and Denies sore throat Cardiovascular Cardiovascular: Denies chest
[2024-04-16 17:44] VITALS: BP 143/69; PULSE 84; RESP 16; TEMP 37.1; O2SAT 100; BMI 22.6
[2024-04-16 18:05] VITALS: BP 143/69; PULSE 84; RESP 16; TEMP 37.1; O2SAT 100
== END 2024-04-16 18:06 | disposition home or self-care (01) ==
PROVIDERS: Emergency Provider Nurse Practitioner Family; PCP Nurse Practitioner Family
DX: B80 Enterobiasis (principal)
CPT/HCPCS: 99212; 99214; G0463

== ENCOUNTER 2024-07-27 15:31 | Emergency (ER) | payer BC, SELFPAY ==
--- NOTE | 2024-07-27 15:40 | ED_ITS ---
<Statement entered by Jordan Milner MD - 07/27/24 23:14> I was consulted by the EMMA, and we discussed the complexity of the problems being addressed. I approved the treatment and management plan for this patient's care in the emergency department, thus performing a substantive portion of the medical decision making. Jordan Milner MD, JANIA, FACEP Discharge Plan Disposition Patient Disposition: Home, Self-Care Condition: Good Prescriptions Prescriptions: No Action omeprazole 20 mg capsule,delayed release(DR/EC) 20 mg PO DAILY Patient Comments: TAKE 1 CAPSULE BY MOUTH EVERY DAY nebivolol [Bystolic] 5 mg tablet 5 mg PO DAILY 30 Days Qty: 30 6RF nicotine 21 mg/24 hr patch 24 hour 1 patch transdermal DAILY Qty: 28 0RF methylprednisolone [Medrol (Forest)] 4 mg tablets,dose pack 4 mg PO DAILY Qty: 21 0RF Rx Instructions: Take as directed desvenlafaxine succinate 50 mg tablet extended release 24 hr 50 mg PO DAILY Qty: 30 2RF hydroxyzine HCl 25 mg tablet See Rx Instructions .ROUTE .COMPLEX Qty: 60 0RF Dose Instruction: TAKE 1 TABLET BY MOUTH TWICE DAILY NEEDED FOR ANXIETY Rx Instructions: TAKE 1 TABLET BY MOUTH TWICE DAILY NEEDED FOR ANXIETY levocetirizine 5 mg tablet 5 mg PO DAILY estradiol 1 MG tablet 1 mg PO DAILY hydrochlorothiazide 25 MG tablet 25 mg PO DAILY Zyrtec 10 mg capsule 10 mg PO DAILY 30 Days Qty: 30 5RF albendazole 200 mg tablet 400 mg PO ONCE 1 Days Qty: 4 0RF Rx Instructions: take 400mg (2 tablets) now and repeat dosing in 2 weeks Referrals Follow up/Referrals: Layne Munroe APRN [Primary Care Provider] - See instructions Activity Restrictions/Add. Instructions Additional Instructions/Restrictions: As we discussed if you have no improvement changing or worsening symptoms follow-up with your PCP or return to the ER as needed. Continue to stay hydrated. Clinical Impressions Clinical Impression: Abdominal pain, right lower quadrant Print Language Print Language: German Discharge ED Provider: Jordan Milner General Adult HPI General Chief complaint: Urogenital-Female Stated complaint: frequent urination abd pain Time Seen by Provider: 07/27/24 15:39 History of Present Illness HPI narrative: Patient presents for evaluation of dysuria. Patient reports that she has been having right lower quadrant pain and feeling of inadequate voiding and having to strain to void. She denies any fever chills hemoptysis hematochezia melena nausea vomiting diarrhea hematuria. Related Data Home Medications ?Medication ?Instructions ?Recorded ?Confirmed estradiol 1 mg tablet 1 mg PO DAILY hormones 01/26/21 07/27/24 hydrochlorothiazide 25 mg tablet 25 mg PO DAILY Hypertension 01/26/21 07/27/24 levocetirizine 5 mg tablet 5 mg PO DAILY Allergy symptoms 10/04/22 07/27/24 omeprazole 20 mg capsule,delayed 20 mg PO DAILY 01/26/24 07/27/24 release Previous Rx's ?Medication ?Instructions ?Recorded Bystolic 5 mg tablet (nebivolol) 5 mg PO DAILY 30 days #30 tabs 01/26/24 cetirizine 10 mg capsule (Zyrtec) 10 mg PO DAILY 30 days #30 caps 04/16/24 albendazole 200 mg tablet 400 mg (2 x 200 mg) PO ONCE 1 day 04/17/24 #4 tabs methylprednisolone 4 mg tablets in 4 mg PO DAILY #21 tabs 05/24/24 a dose pack (Medrol (Forest)) nicotine 21 mg/24 hr daily 1 patch transdermal DAILY #28 ea 05/24/24 transdermal patch desvenlafaxine succinate 50 mg 50 mg PO DAILY #30 tabs 06/05/24 tablet,extended release 24 hr hydroxyzine HCl 25 mg tablet See Rx Instructions .Route 07/03/24 .COMPLEX #60 tabs Allergies Allergy/AdvReac Type Severity Reaction Status Date / Time acetaminophen (From PERCOCET) Allergy Intermediate I-HIVES Verified 05/24/24 13:19 oxycodone (From PERCOCET) Allergy Intermediate I-HIVES Verified 05/24/24 13:19 erythromycin base Allergy Unknown NA-DIARRHEA Verified 05/24/24 13:19 (ERYTHROMYCIN BASE) morphine (MORPHINE) Allergy Unknown NA-HALLUCIN Verified 05/24/24 13:19 ATIONS Sulfa (Sulfonamide Allergy Unknown NA-NAUSEA/V Verified 05/24/24 13:19 Antibiotics) (SULFA OMITING (SULFONAMIDE ANTIBIOTICS)) ciprofloxacin (From Cipro) AdvReac Vomiting Verified 05/24/24 13:19 nitrofurantoin (From AdvReac Vomiting Verified 05/24/24 13:19 Macrobid) [facility] Disclaimer: The information contained in this section may have been updated after the patient was seen, as this information can be updated by other users. Medical History (Updated 07/27/24 @ 17:44 by ROJELIO Ding) Otitis media Abdominal pain Medication side effects UTI (urinary tract infection) Pinworms Serous otitis media Social History Smoking Status: Former smoker alcohol intake: never current occupational status: other Travel in the last 8 weeks: None Other Medical History Have you received the Flu Vaccine for this season: Yes Have you received the Pneumonia Vaccine: Yes ROS Obtained: Yes Systems reviewed as appropriate & no additional complaints except as documented Physical Exam General General appearance: alert and in no apparent distress ENT ENT exam: Absent TM's normal bilaterally Chest Chest inspection: Present tenderness Respiratory Respiratory exam: Present normal lung sounds bilaterally and respiratory distress Cardiovascular Cardiovascular exam: Present regular rate; Absent JVD Neurological Exam Neurological exam: Present alert Medical Decision Making Medical Records Medical records reviewed: Yes I reviewed the patient's medical records. Screening: Per USPSTF and CDC recommendations, given the prevalence of disease in our region, it is our hospital?s policy to screen for HIV and viral Hepatitis for all patients aged 18 and over and those with ongoing risk factors. [place]asha Inquiry Pt receiving controlled substance: No Vital Signs: 07/27/24 15:45 07/27/24 15:48 07/27/24 16:17 Temperature 98.0 F Temperature Source Oral Pulse Rate 70 62 Pulse Rate [Left Brachial] 71 Respiratory Rate 16 Blood Pressure 172/82 H Blood Pressure [Left Arm] 158/79 H Blood Pressure Mean [Left Arm] 105 Blood Pressure Source Blood Pressure Source [Left Arm] Automatic Cuff Blood Pressure Position Blood Pressure Position [Left Arm] Sitting 02 Sat by Pulse Oximetry 97 98 100 Oxygen Delivery Method Room Air 07/27/24 16:45 07/27/24 17:30 07/27/24 17:46 Temperature 98.0 F Temperature Source Oral Pulse Rate 65 61 62 Pulse Rate [Left Brachial] Respiratory Rate 16 Blood Pressure 148/66 H 133/70 133/70 Blood Pressure [Left Arm] Blood Pressure Mean [Left Arm] Blood Pressure Source Automatic Cuff Blood Pressure Source [Left Arm] Blood Pressure Position Sitting Blood Pressure Position [Left Arm] 02 Sat by Pulse Oximetry 100 100 Oxygen Delivery Method Room Air Lab Data Lab results reviewed: Yes I reviewed the patient's lab results. Lab Results 07/27/24 15:40: Urine Color Yellow, Urine Appearance Clear, Urine pH 6.5, Ur Specific [place] 1.015, Urine Protein Negative, Urine Glucose (UA) Negative, Urine Ketones Negative, Urine Blood Negative, Urine Nitrate Negative, Urine Bilirubin Negative, Urine Urobilinogen 0.2, Ur Leukocyte Esterase Negative, Urine RBC None, Urine WBC Occasional, Ur Squamous Epith Cells 3-5, Urine Bacteria Trace 07/27/24 16:00: WBC 6.6, RBC 4.44, Hgb 12.5, Hct 37.5, MCV 84.5, MCH 28.1, MCHC 33.3, RDW 14.2, Plt Count 259, MPV 7.8, Neut % (Auto) 64.3, Lymph % (Auto) 28.8, Thomas % (Auto) 3.6, Eos % (Auto) 2.1, Baso % (Auto) 1.2, Neut # (Auto) 4.3, Lymph # (Auto) 1.9, Thomas # (Auto) 0.2, Eos # (Auto) 0.1, Baso # (Auto) 0.1, Sodium 139, Potassium 4.0, Chloride 107, Carbon Dioxide 29, Anion Gap 7.0, BUN 18 H, Creatinine 0.70, Estimated Creat Clear 54, Estimated GFR 85, Est GFR ( Amer) 103, Glucose 79, Calcium 8.9, Total Bilirubin 0.4, AST 36, ALT 46, Alkaline Phosphatase 58, Total Protein 6.6, Albumin 4.0, Globulin 2.6, Albumin/Globulin Ratio 1.5 07/27/24 16:00 07/27/24 16:00 Orders (Tests/Meds): ED MEDICATIONS Discontinued Medications Generic Name Dose Route Start Last Admin Trade Name Freq PRN Reason Stop Dose Admin Iopamidol 75 ml 07/27/24 16:50 07/27/24 16:51 Iopamidol-370 (76%);100ml Bottle IV 07/27/24 16:51 75 ml ONCE ONE Administration Ketorolac Tromethamine 15 mg 07/27/24 15:43 07/27/24 16:14 Ketorolac 30mg/Ml Vial IV 07/27/24 15:44 15 mg ONCE ONE Administration Ondansetron HCl 4 mg 07/27/24 15:43 07/27/24 16:13 Ondansetron 4mg/2ml Vial IV 07/27/24 15:44 4 mg ONCE ONE Administration Sodium Chloride 10 ml 07/27/24 16:50 07/27/24 16:51 Sodium Chloride 0.9% 10ml Syr (Rad Only) IV 07/27/24 16:51 10 ml ONCE ONE Administration ORDERS Category Date Time Status CT abdomen pelvis w con Stat Cat Scan 07/27/24 15:43 Completed CBC w/Auto Diff [Complete Blood Count Auto Diff] Stat Lab 07/27/24 16:00 Completed CMP [Comprehensive Metabolic Panel] Stat Lab 07/27/24 16:00 Completed HIV (1&2) Antibody Rapid Stat Lab 07/27/24 16:00 Received Hep C Ab with Reflex to RNA Stat Lab 07/27/24 16:00 Received UA [Urinalysis and Microscopic] Stat Lab 07/27/24 15:40 Completed Medical Decision Narrative: In summary patient is a 64-year-old female who presents to the emergency department for evaluation of right lower quadrant pain and dysuria. Patient is hemodynamically stable upon arrival, afebrile. Physical exam is remarkable for mild right lower quadrant/suprapubic tenderness on palpation without rebound or guarding or rigidity. Patient is a status post appendectomy. Differential diagnosis includes cystitis versus constipation versus complicated urinary tract infection etc. Initial workup will be conducted with hematologic labs urinalysis CT scan abdomen pelvis. Initial interventions include Toradol Tylenol. Initial workup reviewed by me shows her hematologic labs are nonactionable including normal white count with no shift normal chemistries GFR and creatinine and her urinalysis shows nitrite negative leukocyte Estrace negative protein negative on the dipstick and microscopic shows no red blood cells occasional white blood cells 3-5 squamous epithelial cells and trace bacteria and my informal interpretation of her CT scan abdomen pelvis no acute processes in the abdomen including any that could explain her symptoms.. Upon repeat evaluation patient actually reported improvement in her symptoms after initial intervention. Given this patient is appropriate for discharge with follow-up with her PCP and strict return precautions. Procedures Risk/Benefits of Procedure(s) Were Explained: Yes Critical Care Critical Care Time Critical Care Time: No
--- NOTE | 2024-07-27 15:43 | CT_ITS ---
PROCEDURE INFORMATION: Exam: CT Abdomen And Pelvis With Contrast Exam date and time: 07/27/2024 4:50 PM Age: 64 years old Clinical indication: Nausea and vomiting; Abdominal pain; Additional info: Dysuria nausea vomiting flank pain TECHNIQUE: Imaging protocol: Computed tomography of the abdomen and pelvis with contrast. Radiation optimization: All CT scans at this facility use at least one of these dose optimization techniques: automated exposure control; mA and/or kV adjustment per patient size (includes targeted exams where dose is matched to clinical indication); or iterative reconstruction. Contrast material: ISOVUE; Contrast volume: 75 ml; Contrast route: IV; COMPARISON: CT ABDOMEN PELVIS W CON 10/04/2022 11:02 PM FINDINGS: Lungs: Lung bases are clear. Liver: Small hypodensity right lobe of the liver likely benign otherwise liver is unremarkable. Gallbladder and biliary ducts: Gallbladder has been removed. Bile ducts are not appreciably dilated. Pancreas: Unremarkable. Main pancreatic duct is not significantly dilated. Spleen: There are scattered calcified granulomas within the spleen, longstanding, otherwise spleen is unremarkable. Adrenal glands: Normal. No mass. Kidneys and ureters: Normal. No hydronephrosis. Stomach and bowel: There are multiple diverticuli throughout the large bowel without evidence of diverticulitis. Appendix: No evidence of appendicitis. Intraperitoneal space: Unremarkable. No free air. No significant fluid collection. Vasculature: Scattered atherosclerotic changes of the abdominal aorta and iliac vessels. No aortic aneurysm. Lymph nodes: Unremarkable. No enlarged lymph nodes. Urinary bladder: Unremarkable as visualized. Reproductive: Uterus has been removed. Bones/joints: Unremarkable. No acute fracture. Soft tissues: Unremarkable. IMPRESSION: No acute findings within the abdomen and pelvis. Vacuum effect (Anette foot can break
--- OUTSIDE RECORDS SUMMARY | 2024-07-27 15:43 | XMS_ITS | Encounter Summary ---
Author Organization [facility] Address [address] [place] [address] Care Team Providers Care Talent Acquisition Associate Name Role Phone MunroeLayne miller ALYSSA Primary Care Provider Encounter Details Date Type Department Care Team (Late st Contact Info) Description 07/19/2024 Telephone [facility] OBGYN [address] [facility] [address] [place], [place] [id number] Shayy Shin MD [address] [place] [address] Social History Tobacco Use Types Packs/Day Years [...] on file documented as of this encounter Miscellaneous Notes * Telephone Encounter - Kourtney Aguirre RN - 07/19/2024 1:47 PM EST Informed pt that I have sent a message to Dr. Shin to review her labs. Pt notified that she will hear from us as soon as Dr. Shin reviews them. Pt v/u. * Telephone Encounter - Kandi Crandall - 07/19/2024 1:34 PM EST Pt called in request to review lab results documented in this encounter Plan of Treatment Not on file documented as of this encounter Visit Diagnoses Not on filedocumented in this encounter Care Teams Talent Acquisition Associate Relationship Specialty Start Date End Date Layne Munroe APRN [address] [place] [address] PCP - General Internal Medicine 05/23/24 documented as of this encounter
--- OUTSIDE RECORDS SUMMARY | 2024-07-27 15:43 | XMS_ITS | Encounter Summary ---
[facility] Address [address] [place] [address] Care Team Providers Care Steel Handler Name Role Phone Layne Munroe APRN Primary Care Provider [phone] Reason for Referral * Diagnostic Imaging (Routine) - Closed Specialty Diagnoses / Procedures Referred By Contac t Referred To Contact Diagnoses Breast cancer screening by mammogram Procedures Mammo Screening Digital Tomosynthesis Bilateral With CAD Shayy Shin MD [address] [facility] [address] [place] [address] Phone: tel: fax: [facility] [address] [place] [address] Phone: tel: fax: Referral ID Status Reason Start Date Expiration Date Visits Re quested Visits Authorized [id number] Closed 07/17/2024 07/17/2025 1 1 Reason for Visit * Reason Comments Gynecologic Exam Encounter Details Date Type Department Care Team (Late st Contact Info) Description 07/17/2024 1:00 PM EST Office Visit [facility] [address] [place] [address] Shayy Shin MD [address] [facility] [address] [place] [address] Encounter for gynecological examination without abnormal finding (Primary Dx); Breast cancer screening by mammogram; Encounter for repeat Pap smear due to previous insufficient cervical cells; Other fatigue; Lipid screening; Thyroid disorder screen; Diabetes mellitus screening Social History Tobacco Use Types Packs/Day Years [...] on file documented as of this encounter Last Filed Vital Signs Vital Sign Reading Time Taken Comments Blood Pressure 118/70 07/17/2024 1:21 PM EST Pulse - - Temperature - - Respiratory Rate - - Oxygen Saturation - - Inhaled Oxygen Concentration - - Weight 58.9 kg (129 lb 12.8 oz) 07/17/2024 1:21 PM EST Height 165.1 cm (5' 5 ) 07/17/2024 1:21 PM EST Body Mass Index 21.6 07/17/2024 1:21 PM EST documented in this encounter Progress Notes * Shayy Shin MD - 07/17/2024 1:00 PM EST Images from the original note were not included. Gynecologic Annual Exam Note CC - Here for Annual Exam. Subjective HPI Aleja Figueroa is a 64 y.o. female, , who presents for annual well woman exam. She is postmenopausal and has had a hysterectomy. Patient reports problems with: none. Partner Status: MaritalStatus: . New Partners since last visit: no. She Denies vasomotor symptoms. She denies issues with urinary incontinence. Patient would like refill of HRT. The patient c/o skin tags in groin area that get irritated. She has concerns about domestic violence: no. 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 03/23/2022 Negative, HPV- Last Completed Pap Smear Ordered - PAP SMEAR (Every 2 Years) Ordered on 07/17/2024 05/03/2023 LIQUID-BASED PAP SMEAR WITH HPV GENOTYPING IF ASCUS ([facility]) 03/23/2022 LIQUID-BASED PAP SMEAR, [facility] ([facility]) 03/20/2021 Pap IG, Rfx HPV ASCU 01/01/2020 Done - in [place] (negative) Last mammogram: 2023 Done at [facility]. No report in chart. Per Patient results were normal Last Completed Mammogram Ordered - MAMMOGRAM (Every 2 Years) Ordered on 07/17/2024 05/12/2023 SCANNED - MAMMO 05/12/2023 SCANNED - MAMMO 02/04/2021 SCANNED - MAMMO Last colonoscopy: has had a colonoscopy 2 year(s) ago. Repeat in 10 years Last Completed Colonoscopy This patient has no relevant Health Maintenance data. Last DEXA: 09/03/2023 Normal Tobacco Usage?: No OB History 4 Para 3 Term 3 AB 1 Living SAB 1 IAB Ectopic Molar Multiple Live Births Health Maintenance Topic Date Due COLORECTAL CANCER SCREENING Never done ZOSTER VACCINE (1 of 2) Never done HEPATITIS C SCREENING Never done ANNUAL PHYSICAL Never done INFLUENZA VACCINE 02/21/2024 COVID-19 Vaccine ( season) 2024 PAP SMEAR 05/03/2025 MAMMOGRAM 05/12/2025 Annual Gynecologic Pelvic and Breast Exam 07/18/2025 TDAP/TD VACCINES (2 - Td or Tdap) 03/30/2033 Pneumococcal Vaccine 0-64 Aged Out The additional following portions of the patient's history were reviewed and updated as appropriate: allergies, current medications, past family history, past medical history, past social history, past surgical history, and problem list. Past Medical History: Diagnosis Date Anxiety Glaucoma suspected, not yet diagnosed 2021 Hypertension Past Surgical History: Procedure Laterality Date APPENDECTOMY OPEN BILATERAL BREAST REDUCTION BILATERAL SALPINGO OOPHORECTOMY COLONOSCOPY HERNIA REPAIR LAPAROSCOPIC TUBAL LIGATION VAGINAL HYSTERECTOMY WISDOM TOOTH EXTRACTION WRIST SURGERY Review of Systems All other systems reviewed and are negative. I have reviewed and agree with the HPI, ROS, and historical information as entered above. Shayy Shin MD Objective BP 118/70 Ht 165.1 cm (65 ) Wt 58.9 kg (129 lb 12.8 oz) BMI 21.60 kg/m?? Physical Exam Vitals and nursing note reviewed. Exam conducted with a auto salvage worker present. Constitutional: General: She is awake. Appearance: Normal appearance. HENT: Head: Normocephalic and atraumatic. Neck: Thyroid: No thyroid mass, thyromegaly or thyroid tenderness. Cardiovascular: Rate and Rhythm: Normal rate and regular rhythm. Heart sounds: Normal heart sounds. No murmur heard. No friction rub. No gallop. Pulmonary: Effort: Pulmonary effort is normal. No respiratory distress or retractions. Breath sounds: Normal breath sounds. No stridor. No wheezing, rhonchi or rales. Chest: Chest wall: No mass. Breasts: Right: Normal. No swelling, bleeding, mass, nipple discharge, skin change or tenderness. Left: Normal. No swelling, bleeding, mass, nipple discharge, skin change or tenderness. Abdominal: General: There is no distension. Palpations: Abdomen is soft. There is no mass. Tenderness: There is no abdominal tenderness. There is no guarding or rebound. Genitourinary: Exam position: Lithotomy position. Pubic Area: No rash. Labia: Right: No rash, tenderness, lesion or injury. Left: No rash, tenderness, lesion or injury. Urethra: No prolapse, urethral pain, urethral swelling or urethral lesion. Vagina: No vaginal discharge, erythema, tenderness, bleeding or lesions. Uterus: Absent. Adnexa: Right adnexa normal and left adnexa normal. Right: No mass, tenderness or fullness. Left: No mass, tenderness or fullness. Rectum: No external hemorrhoid. Comments: Cervix Absent Musculoskeletal: Cervical back: Normal range of motion. Lymphadenopathy: Upper Body: Right upper body: No supraclavicular or axillary adenopathy. Left upper body: No supraclavicular or axillary adenopathy. Lower Body: No right inguinal adenopathy. No left inguinal adenopathy. Skin: General: Skin is warm. Findings: No lesion or rash. Neurological: Mental Status: She is alert and oriented to person, place, and time. Psychiatric: Mood and Affect: Mood and affect normal. Speech: Speech normal. Gynecologic Procedure Note Indications: The patient is a 64 y.o. , who presents today for removal of skin tags. The patient was noted to have a 2 mm size skin tags on the vulva and genitocrural fold. After being presented with the risk, benefits, and specific detail of the procedure, the patient wished to proceed. Verbal consent was obtained from patient. A time out was performed. Procedure Details The patient was placed in the dorsal lithotomy position and the areas were prepped with betadine. The skin tag was grasped with pickups and the base was transected with the scissors. The same procedure was repeated on the second skin tag. The specimens were not sent to pathology for evaluation. Silver nitrate was applied to the biopsy site to control bleeding. Hemostasis was adequate. There was minimal bleeding. The patient tolerated the procedure well. Complications: none. Shayy Shin MD 07/17/2024 Assessment & Plan Assessment Problem List Items Addressed This Visit None Visit Diagnoses Encounter for gynecological examination without abnormal finding - Primary Relevant Orders CBC & Differential (Completed) Comprehensive Metabolic Panel (Completed) Breast cancer screening by mammogram Relevant Orders Mammo Screening Digital Tomosynthesis Bilateral With CAD Encounter for repeat Pap smear due to previous insufficient cervical cells Relevant Orders LIQUID-BASED PAP SMEAR WITH HPV GENOTYPING IF ASCUS ([facility]) Other fatigue Relevant Orders Vitamin D,25-Hydroxy (Completed) Iron Profile (Completed) Ferritin (Completed) Lipid screening Relevant Orders Lipid Panel (Completed) Thyroid disorder screen Relevant Orders TSH (Completed) T4, Free (Completed) Diabetes mellitus screening Relevant Orders Hemoglobin A1c (Completed) Plan Reviewed monthly self breast exams. Instructed to call with lumps, pain, or breast discharge. Yearly mammograms ordered. Ordered mammogram today. Recommended use of Vitamin D and getting adequate calcium in her diet. (1500mg) Reviewed exercise as a preventative health measures. RTC in 1 year or PRN with problems. Shayy Shin MD 07/17/2024 * Shayy Shin MD - 07/17/2024 1:00 PM EST Please call patient about results. Normal thyroid. Her ALT (liver function) is slightly high. Will need to repeat this in few months. Her cholesterol and LDL are slightly elevated--continue healthy diet, low saturated fats, lots of veggies. Her Vit D is too high, needs to stop her supplementation for a while and repeat this level as well. Her ferritin is high--stop iron supplements and repeat in 3 months. She is not diabetic documented in this encounter Plan of Treatment Scheduled Orders Name Type Priority Associated Diagnoses Orde r Schedule Mammo Screening Digital Tomosynthesis Bilateral With CAD Imaging Routine Breast cancer screening by mammogram Expected: 07/17/2025, Expires: 07/17/2025 LIQUID-BASED PAP SMEAR WITH HPV GENOTYPING IF ASCUS ([facility]) Pathology and Cytology Routine Encounter for repeat Pap smear due to previous insufficient cervical cells Expected: 07/17/2024 (Approximate), Expires: 07/17/2025 documented as of this encounter Procedures Procedure Name Priority Date/Time Associated Diagnosis Comments IRON PROFILEC Routine 07/17/2024 2:26 PM EST Other fatigue VITAMIN D,25-HYDROXY Routine 07/17/2024 2:26 PM EST Other fatigue CBC AND DIFFERENTIAL Routine 07/17/2024 2:26 PM EST Encounter for gynecological examination without abnormal finding TSH Routine 07/17/2024 2:26 PM EST Thyroid disorder screen T4, FREE Routine 07/17/2024 2:26 PM EST Thyroid disorder screen HEMOGLOBIN A1C Routine 07/17/2024 2:26 PM EST Diabetes mellitus screening FERRITIN Routine 07/17/2024 2:26 PM EST Other fatigue LIPID PANEL Routine 07/17/2024 2:26 PM EST Lipid screening COMPREHENSIVE METABOLIC PANEL Routine 07/17/2024 2:26 PM EST Encounter for gynecological examination without abnormal finding documented in this encounter Results * (ABNORMAL) Ferritin (07/17/2024 2:26 PM EST) Ferritin 161(H) 15 - 150 ng/mL [facility] Blood 07/17/2024 2:26 PM EST 07/17/2024 Narrative [facility] (AMBULATORY) - 07/18/2024 1:09 PM EST Performed at: ??01 - [facility] [address] [place] [address] ??[id number] Retail Cashier Associate: Norris iLm PhD, Phone: ??[phone] Patient Fasting: ??N Shayy Shin MD LAB BLOOD ORDERABLES Final Resul t Performing Organization Address [facility] Co de Phone Number [facility] (AMBULATORY) [address] [place] [address], [place] [phone] [facility] [address] [place] [address], [place] [phone] * Iron Profile (07/17/2024 2:26 PM EST) TIBC 311 250 - 450 ug/dL [facility] UIBC 228 118 - 369 ug/dL [facility] Iron 83 27 - 139 ug/dL [facility] Iron Saturation 27 15 - 55 % [facility] Blood 07/17/2024 2:26 PM EST 07/17/2024 Narrative [facility] ([facility]) - 07/18/2024 1:09 PM EST Performed at: ??01 - [facility] [address] [place], [place] ??[id number] Retail Cashier Associate: Norris Lim PhD, Phone: ??[phone] Patient Fasting: ??N Shayy Shin MD LAB BLOOD ORDERABLES Final Resul t Performing Organization Address [facility] Co de Phone Number [facility] (AMBULATORY) [address] [place] [address], [place] [phone] [facility] [address] [place] [address], * Hemoglobin A1c (07/17/2024 2:26 PM EST) Pathologist [facility] Hemoglobin A1C 5.1 4.8 - 5.6 % [facility] Comment: ? Prediabetes: 5.7 - 6.4 ? Diabetes: >6.4 ? Glycemic control for adults with diabetes: <7.0 Blood 07/17/2024 2:26 PM EST 07/17/2024 Narrative [facility] (AMBULATORY) - 07/18/2024 1:09 PM EST Performed at: ??01 - [address] ??[id number] Retail Cashier Associate: Norris Lim PhD, Phone: ??[phone] Patient Fasting: ??N us Shayy Shin MD LAB BLOOD ORDERABLES Final Resul t [facility] [address] [place] [address], [facility] [address] [place] [address], * (ABNORMAL) Lipid Panel (07/17/2024 2:26 PM EST) Pathologist [facility] Total Cholesterol 218(H) 100 - 199 mg/dL [facility] Triglycerides 72 0 - 149 mg/dL [facility] HDL Cholesterol 47 >39 mg/dL [facility] VLDL Cholesterol Deep 13 5 - 40 mg/dL [facility] LDL Chol Calc (NIH) 158(H) 0 - 99 mg/dL [facility] Blood 07/17/2024 2:26 PM EST 07/17/2024 Narrative [facility] (AMBUL[facility]ORY) - 07/18/2024 1:09 PM EST Performed at: ??01 - [facility] ??[id number] Retail Cashier Associate: Norris Lim PhD, Phone: ??[phone] Patient Fasting: ??N Shayy Shin MD LAB BLOOD ORDERABLES Final Resul t Performing Organization Address [facility] Co de Phone Number [facility] (AMBULATORY) [address] [place] [address], [place] [phone] [facility] [address] [place] [address], [place] [phone] * T4, Free (07/17/2024 2:26 PM EST) Free T4 1.23 0.82 - 1.77 ng/dL [facility] Blood 07/17/2024 2:26 PM EST 07/17/2024 Narrative [facility] ([facility]) - 07/18/2024 1:09 PM EST Performed at: ??01 - [facility] [address] ??[id number] Retail Cashier Associate: Norris Lim PhD, Phone: ??[phone] Patient Fasting: ??N Shayy Shin MD LAB BLOOD ORDERABLES Final Resul t Performing Organization Address [facility] Co de Phone Number [facility] (AMBULATORY) [address] [place] [address], [place] [phone] [facility] [address] [place] [address], [place] [phone] * TSH (07/17/2024 2:26 PM EST) TSH 3.350 0.450 - 4.500 uIU/mL [facility] Blood 07/17/2024 2:26 PM EST 07/17/2024 Narrative [facility] ([facility]) - 07/18/2024 1:09 PM EST Performed at: ??01 - [facility] [address] [place] [address] ??[id number] Retail Cashier Associate: Norris Lim PhD, Phone: ??[phone] Patient Fasting: ??N Shayy Shin MD LAB BLOOD ORDERABLES Final Resul t [facility] [address] [place] [address], [facility] [address] [place] [address], * (ABNORMAL) Vitamin D,25-Hydroxy (07/17/2024 2:26 PM EST) 25 Hydroxy, Vitamin D 149.0(H) 30.0 - 100.0 ng/mL [facility] Comment: Vitamin D deficiency has been defined by the [place] of Medicine and an Endocrine Society practice guideline as a level of serum 25-OH vitamin D less than 20 ng/mL (1,2). The Endocrine Society went on to further define vitamin D insufficiency as a level between 21 and 29 ng/mL (2). 1. IOM ([place] of Medicine). 2010. Dietary reference ?? intakes for calcium and D. [place]: The ?? [employer]. 2. Brooke MF, Dulce NC, Adalgisa BACA, et al. ?? Evaluation, treatment, and prevention of vitamin D ?? deficiency: an Endocrine Society clinical practice ?? guideline. JCEM. 2011 Feb; 96(7):1911-30. Blood 07/17/2024 2:26 PM EST 07/17/2024 Narrative [facility] (AMBULATORY) - 07/18/2024 1:09 PM EST Performed at: ??01 - [facility] [address] ??[id number] Retail Cashier Associate: Norris Lim PhD, Phone: ??[phone] Patient Fasting: ??N Shayy Shin MD LAB BLOOD ORDERABLES Final Resul t Performing Organization Address City/[facility]/ZIP Co de Phone Number [facility] [address] [place] [address], [place] [phone] [facility] [address] [place] [address], * (ABNORMAL) Comprehensive Metabolic Panel (07/17/2024 2:26 PM EST) Glucose 67(L) 70 - 99 mg/dL [facility] BUN 20 8 - 27 mg/dL [facility] Creatinine 0.59 0.57 - 1.00 mg/dL [facility] EGFR Result 102 >59 mL/min/1.7 3 [facility] BUN/Creatinine Ratio 34(H) 12 - 28 [facility] Sodium 142 134 - 144 mmol/L [facility] Potassium 4.2 3.5 - 5.2 mmol/L [facility] Chloride 104 96 - 106 mmol/L [facility] Total CO2 26 20 - 29 mmol/L [facility] Calcium 9.3 8.7 - 10.3 mg/dL [facility] Total Protein 6.5 6.0 - 8.5 g/dL [facility] Albumin 4.1 3.9 - 4.9 g/dL [facility] Globulin 2.4 1.5 - 4.5 g/dL [facility] Total Bilirubin 0.3 0.0 - 1.2 mg/dL [facility] Alkaline Phosphatase 57 44 - 121 IU/L [facility] AST (SGOT) 22 0 - 40 IU/L [facility] ALT (SGPT) 38(H) 0 - 32 IU/L [facility] Blood 07/17/2024 2:26 PM EST 07/17/2024 Narrative [facility] - 07/18/2024 1:09 PM EST Performed at: ??01 - [facility] [address] ??[id number] Retail Cashier Associate: Norris Lim PhD, Phone: ??[phone] Patient Fasting: ??N us Shayy Shin MD LAB BLOOD ORDERABLES Final Resul t [facility] (AMBULATORY) [address] [place] [address], [facility] [address] [place] [address], * (ABNORMAL) CBC & Differential (07/17/2024 2:26 PM EST) WBC 6.6 3.4 - 10.8 x10E3/uL [facility] Comment: Effective July 24, 2024 profile [id number] WBC will be made ??non-orderable as a stand-alone order code. RBC 4.60 3.77 - 5.28 x10E6/uL [facility] Hemoglobin 12.4 11.1 - 15.9 g/dL [facility] Hematocrit 39.5 34.0 - 46.6 % [facility] MCV 86 79 - 97 fL [facility] MCH 27.0 26.6 - 33.0 pg [facility] MCHC 31.4(L) 31.5 - 35.7 g/dL [facility] RDW 12.7 11.7 - 15.4 % [facility] Platelets 262 150 - 450 x10E3/uL [facility] Neutrophil Rel % 62 Not Estab. % [facility] Lymphocyte Rel % 29 Not Estab. % [facility] Monocyte Rel % 7 Not Estab. % [facility] Eosinophil Rel % 1 Not Estab. % [facility] Basophil Rel % 1 Not Estab. % [facility] Neutrophils Absolute 4.1 1.4 - 7.0 x10E3/uL [facility] Lymphocytes Absolute 1.9 0.7 - 3.1 x10E3/uL [facility] Monocytes Absolute 0.4 0.1 - 0.9 x10E3/uL [facility] Eosinophils Absolute 0.1 0.0 - 0.4 x10E3/uL [facility] Basophils Absolute 0.1 0.0 - 0.2 x10E3/uL [facility] Immature Granulocyte Rel % 0 Not Estab. % [facility] Immature Grans Absolute 0.0 0.0 - 0.1 x10E3/uL [facility] Blood 07/17/2024 2:26 PM EST 07/17/2024 Narrative [facility] ([facility]) - 07/18/2024 1:09 PM EST Performed at: ??01 - [facility] [address] ??[id number] Retail Cashier Associate: Norris Lim PhD, Phone: ??[phone] Patient Fasting: ??N us Shayy Shin MD LAB BLOOD ORDERABLES Final Resul t [facility] ([facility]) [address] [place] [address], [place] [phone] [facility] [address] [place] [address], [place] [phone] documented in this encounter Visit Diagnoses Diagnosis Encounter for gynecological examination without abnormal finding- Primary Breast cancer screening by mammogram Encounter for repeat Pap smear due to previous insufficient cervical cells Other fatigue Lipid screening Screening for lipoid disorders Thyroid disorder screen Screening for thyroid disorder Diabetes mellitus screening Screening for diabetes mellitus documented in this encounter Care Teams Steel Handler Relationship Specialty Start Date End Date Layne Munroe APRN [address] [place] [address] PCP - General Internal Medicine 05/23/24 documented as of this encounter
--- OUTSIDE RECORDS SUMMARY | 2024-07-27 15:43 | XMS_ITS | Encounter Summary ---
[facility] Address [address] [place] [address] Care Team Providers Care Microbiology Lab Technician Name Role Phone Layne Munroe PAPER CUTTING MACHINE OPERATOR Primary Care Provider [phone] Encounter Details Date Type Department Care Team (Late st Contact Info) Description 07/24/2024 Telephone [facility] OBGYN [address] [place] [phone] Shayy Shin MD [address] [place] [address] Social History Tobacco Use Types Packs/Day Years [...] encounter Miscellaneous Notes * Telephone Encounter - Kandy García MA - 07/24/2024 3:[address] Shin: We did not check B12 levels. I would stop vit d and iron for a few months and when normal, can restart a lower dose. It would be lab only visit for us. Labs in 3 months. Just let Pamella know about the interaction. S/w pt she v/u and states she will come back to the office for repeat labs in 3 months. * Telephone Encounter - Shayy Shin MD - 07/24/2024 2:15 PM EST We did not check B12 levels. I would stop vit d and iron for a few months and when normal, can restart a lower dose. It would be lab only visit for us. Labs in 3 months. Just let Pamella know about the interaction. * Telephone Encounter - Kandy García MA - 07/24/2024 1:[address] Shin pt. S/w pt she v/u lab results and Dr. Shin recommendations. Patient states she s/w someone from our office earlier this morning trying to speak with someone about her lab results and that person was rude to her and told the patient everyone was busy and did not know when she would receive a call back. (There is no telephone encounter in regards to that phone call) Pt. Did want to know if she should still be taking Vitamin B12 injections? Should she completely stop taking Vitamin D supplements and iron supplements? Do you want the patient to come back to the office for SEAM STAYER follow up visit with labs or just come back for labs only? When would you like for her to come? I told the patient I would discuss this with Dr. Shin and CB with plan of care. She v/u * Telephone Encounter - Kandi Crandall - 07/24/2024 1:17 PM EST Pt called to review labs documented in this encounter Plan of Treatment Not on file documented as of this encounter Visit Diagnoses Not on filedocumented in this encounter Care Teams Microbiology Lab Technician Relationship Specialty Start Date End Date Layne Munroe APRN [address] [place] [address] PCP - General Internal Medicine 05/23/24 documented as of this encounter
--- OUTSIDE RECORDS SUMMARY | 2024-07-27 15:43 | XMS_ITS | Encounter Summary ---
Author Organization [facility] Address [address] [place] [address] Care Team Providers Care Fence Erector Supervisor Name Role Phone Lucille Momin APRN Primary Care Provider [phone] Reason for Visit * Reason Comments Med Refill Encounter Details Date Type Department Care Team (Late st Contact Info) Description 11/29/2023 Refill [facility] OBGYN [address] [place] [address] Shayy Shin MD [address] [place] [address] Hormone replacement therapy (HRT) Social History Tobacco Use Types Packs/Day Years [...] documented as of this encounter Visit Diagnoses Diagnosis Hormone replacement therapy (HRT) documented in this encounter Care Teams Fence Erector Supervisor Relationship Specialty Start Date End Date Lucille Momin, ALYSSA [address] [place] [phone] PCP - General Nurse Practitioner 03/22/23 05/22/24 documented as of this encounter
--- OUTSIDE RECORDS SUMMARY | 2024-07-27 15:43 | XMS_ITS | Encounter Summary ---
Author Organization [facility] Address [address] [place] [address] Care Team Providers Care Ibm Websphere Commerce Developer Name Role Phone Layne Munroe APRN Primary Care Provider [phone] Encounter Details Date Type Department Care Team (Latest Contact Info) Description 07/17/2024 Travel Social History Tobacco Use Types Packs/Day Years [...] on filedocumented in this encounter Care Teams Ibm Websphere Commerce Developer Relationship Specialty Start Date End Date Layne Munroe APRN [address] [place] [address] [place] [phone] PCP - General Internal Medicine 05/23/24 documented as of this encounter
--- OUTSIDE RECORDS SUMMARY | 2024-07-27 15:43 | XMS_ITS | Encounter Summary ---
[facility] Organization [facility] Address [address] [place] [address] Care Team Providers Care Pastry Sous Chef Name Role Phone Layne Munroe APRN Primary Care Provider [phone] Reason for Visit * Reason Comments Med Refill Encounter Details Date Type Department Care Team (Late st Contact Info) Description 05/23/2024 Refill [facility] OBGYN [address] [place] [address] [place] [address] [place] [address] Hormone replacement therapy (HRT) Social History Tobacco [...] (HRT) documented in this encounter Care Teams Pastry Sous Chef Relationship Specialty Start Date End Date Layne Munroe APRN [facility] [place] [address] [place] [address] PCP - General Internal Medicine 05/23/24 documented as of this encounter
--- OUTSIDE RECORDS SUMMARY | 2024-07-27 15:43 | XMS_ITS | Encounter Summary ---
[facility] Organization [facility] Address [address] [place] [address] Care Team Providers Care Wireless Manager Name Role Phone Layne Munroe ALYSSA Primary Care Provider [phone] Encounter Details Date Type Department Care Team (Late st Contact Info) Description 07/19/2024 Telephone [facility] OBGYN [address] [place] [phone] Shayy Shin MD [address] [place] [address] Social History Tobacco Use Types Packs/Day Years [...] Encounter - Kourtney Aguirre RN - 07/19/2024 10:46 AM EST Informed pt that Dr. Shin has not reviewed her labs yet but as soon as she does, she will get a call from someone from our office. Pt v/u. * Telephone Encounter - Alyson Kaye RegSched Rep - 07/19/2024 10:41 AM EST PT CALLED ASKING TO SPEAK WITH A NURSE TO GO OVER HER TEST RESULTS documented in this encounter Plan of Treatment Not on file documented as of this encounter Visit Diagnoses Not on filedocumented in this encounter Care Teams Wireless Manager Relationship Specialty Start Date End Date Layne Munroe APRN [facility] [place] [address] PCP - General Internal Medicine 05/23/24 documented as of this encounter
--- OUTSIDE RECORDS SUMMARY | 2024-07-27 15:43 | XMS_ITS | Encounter Summary ---
[facility] Organization [facility] Address [address] [place] [address] Care Team Providers Care Hospitality Ambassador Name Role Phone Layne Munroe PLUM PACKER Primary Care Provider [phone] Reason for Visit * Reason Onset Date Comments Results 07/24/2024 Encounter Details Date Type Department Care Team (Late st Contact Info) Description 07/24/2024 Telephone [facility] OBGYN [address] [place] [address] Shayy Mike MD [address] [place] [address] Results Social History Tobacco Use Types Packs/Day Years [...] encounter Miscellaneous Notes * Telephone Encounter - Snow Goldsmith MA - 07/24/2024 1:36 PM EST See other TE * Telephone Encounter - Nguyen Ross RegSched Rep - 07/24/2024 11:26 AM EST Caller: Aleja Figueroa Relationship: Self Best call back number: [phone] Caller requesting test results: YES What test was performed: BLOOD TEST RESULTS When was the test performed: 07-17 Where was the test performed: [address] Additional notes: SEE OFFICE NOTES LOOKS LIKE DR. MIKE UPDATED THE NOTES TO CALL PT ABOUT RESULTS documented in this encounter Plan of Treatment Not on file documented as of this encounter Visit Diagnoses Not on filedocumented in this encounter Care Teams Hospitality Ambassador Relationship Specialty Start Date End Date Layne Munroe APRN [address] [place] [address] [place] [address] PCP - General Internal Medicine 05/23/24 documented as of this encounter
--- OUTSIDE RECORDS SUMMARY | 2024-07-27 15:43 | XMS_ITS | Encounter Summary ---
[facility] Address [address] [place] [address] Care Team Providers Care Hearings Reporter Name Role Phone Layne Munroe APRN Primary Care Provider [phone] Reason for Visit * Reason Comments Med Refill Encounter Details Date Type Department Care Team (Late st Contact Info) Description 06/24/2024 Refill [facility] OBGYN [address] [place] [address] [place] [address] [place] [address] Hormone replacement therapy (HRT) Social History Tobacco [...] (HRT) documented in this encounter Care Teams Hearings Reporter Relationship Specialty Start Date End Date Layne Munroe APRN [facility]0 [place] [address] [place] [address] PCP - General Internal Medicine 05/23/24 documented as of this encounter
--- OUTSIDE RECORDS SUMMARY | 2024-07-27 15:43 | XMS_ITS | Encounter Summary ---
Author Organization [facility] Address [address] [place] [address] Care Team Providers Care Process Machine Operator Name Role Phone Kodi Mominlayne Khoury APRN Primary Care Provider [phone] Reason for Visit * Reason Onset Date Comments DR. MIKE- RESULTS 09/08/2023 Encounter Details Date Type Department Care Team (Late st Contact Info) Description 09/08/2023 Telephone [facility] OBGYN [address] [address] Shayy Mike MD [address] [place] [phone] MIKE- RESULTS Social History Tobacco Use Types Packs/Day Years [...] Telephone Encounter - Snow Goldsmith MA - 09/08/2023 4:00 PM EST Patient returned call- reviewed recommendations with patient. She verified and voiced understanding * Telephone Encounter - Snow Goldsmith MA - 09/08/2023 3:43 PM EST [facility] Recommendations are for 1200 mg Calcium and 800-1,000 IU of Vitamin D per Dexa report * Telephone Encounter - Daniela Shah RegSched Rep - 09/08/2023 11:10 AM EST Caller: Aleja Figueroa Relationship to patient: Self Best call back number: [phone] Patient is needing: PT IS EST W/ DR. MIKE. HAD BONE DENSITY SCAN ON 09/03/23. PT RECEIVED RESULTS THROUGH [facility] ON THE NOTES THERE WAS A SUGGESTION FOR PATIENT TO TAKE CALCIUM AND VITAMIN D3.SHE HAS QUESTIONS ABOUT WHICH CALCIUM SUPPLEMENT TO TAKE documented in this encounter Plan of Treatment Not on file documented as of this encounter Visit Diagnoses Not on filedocumented in this encounter Care Teams Process Machine Operator Relationship Specialty Start Date End Date Lucille Momin APRN [address] [place], [place] [id number] PCP - General Nurse Practitioner 03/22/23 05/22/24 documented as of this encounter
--- OUTSIDE RECORDS SUMMARY | 2024-07-27 15:43 | XMS_ITS | Clinical Summary ---
Author Organization [facility] Address [address] [place] [address] Care Team Providers Care Ground Crewman Aircraft Support Name Role Phone MunroeLayne ALYSSA Primary Care Provider [phone] Allergies Active Allergy Reactions Criticality Noted Date Comments Erythromycin Diarrhea Low 01/14/2007 Fentanyl GI Intolerance,Hallucinations Low 11/01/2018 Hydrocodone-Acetaminophen Hallucinations Low Nitrofurantoin Macrocrystal GI Intolerance Low 10/21 Morphine GI Intolerance,Hallucinations Low 11/01/2018 Oxycodone-Acetaminophen Itching Low 07/01/2011 Sulfa Antibiotics GI Intolerance Low Medications omeprazole (priLOSEC) 20 MG capsule Take 1 capsule by mouth Every Morning Before Breakfast. 1 Active levocetirizine (XYZAL) 5 MG tablet Take 1 tablet by mouth Daily. 1 Active hydroCHLOROthia zide (HYDRODIURIL) 25 MG tablet Take 1 tablet by mouth 2 (Two) Times a Day. 1 Active Acetaminophen (TYLENOL ARTHRITIS EXT RELIEF PO) Tylenol Arthritis Pain 650 mg tablet,extended release Daily Active desvenlafaxine (PRISTIQ) 50 MG 24 hr tablet Take 1 tablet by mouth Daily. 3 Active estradiol (ESTRACE) 1 MG tabletIndicatio ns:Hormone replacement therapy (HRT) TAKE 1 AND 1/2 TABLETS BY MOUTH EVERY OTHER NIGHT THEN TAKE 1 TABLET ON ALTERNATE NIGHTS 45 tablet 4 Active nebivolol (BYSTOLIC) 5 MG tablet Take 1 tablet by mouth Daily. 4 Active hydrOXYzine (ATARAX) 25 MG tablet Take 1 tablet by mouth 2 (Two) Times a Day As Needed. for anxiety 4 Active Tirzepatide (Mounjaro) 10 MG/0.5ML solution auto-injector Inject 10 mg under the skin into the appropriate area as directed Every 7 (Seven) Days. Active Bystolic 10 MG tablet Take 1 tablet by mouth Daily. 1 024 Discontin ued(*Ther apy completed ) Active Problems No known active problems Encounters Date Type Department Care Team Description 07/24/2024 [facility] OBGYN [address] [address] Shayy Mike MD 07/24/2024 [facility] OBGYN [address] [place] [phone] Shayy Mike MD Results 07/19/2024 [facility] OBGYN [address] [address] Shayy Mike MD 07/19/2024 [facility] OBGYN [address] [address] Shayy Mike MD 07/17/2024 1:00 PM EST Office Visit [facility] OBGYN [address] [place] [phone] Shayy Mike MD Encounter for gynecological examination without abnormal finding (Primary Dx); Breast cancer screening by mammogram; Encounter for repeat Pap smear due to previous insufficient cervical cells; Other fatigue; Lipid screening; Thyroid disorder screen; Diabetes mellitus screening 07/17/2024 Travel 06/24/2024 [facility] OBGYN [address] [place] [address] Shayy Mike MD Hormone replacement therapy (HRT) 05/23/2024 [facility] OBGYN [address] [place] [address] Shayy Mike MD Hormone replacement therapy (HRT) 05/20/2024 Refill [facility] OBGYN [address] [place] [address] Shayy Mike MD Hormone replacement therapy (HRT) from Last 3 Months Family History Medical History Relation Name Comments Diabetes Father Hypertension Father Stroke Father Lung cancer Mother Ovarian cancer Mother Thyroid disease Mother Relation Name Status Comments Father Mother Social History Tobacco Use Types Packs/Day Years Used Date Smoking Tobacco: Former Cigarettes Smokeless Tobacco: Never Tobacco Cessation:Counseling Given: Not Answered Alcohol Use Standard Drinks/Week Comments Never 0 [...] on file Sexual Orientation Not on file Last Filed Vital Signs Vital Sign Reading Time Taken Comments Blood Pressure 118/70 07/17/2024 1:21 PM EST Pulse 69 11/01/2018 10:54 PM EDT Temperature 36.3 ??C (97.4 ??F) 11/01/2018 1 0:54 PM EDT Respiratory Rate 18 11/01/2018 10:5 4 PM EDT Oxygen Saturation 96% 11/01/2018 10: 54 PM EDT Inhaled Oxygen Concentration - - Weight 58.9 kg (129 lb 12.8 oz) 07/17/2024 1:21 PM EST Height 165.1 cm (5' 5 ) 07/17/2024 1:21 PM EST Body Mass Index 21.6 07/17/2024 1:21 PM EST Plan of Treatment Health Maintenance Due Date Last Done Comments COLOGUARD 1960 COLON CANCER SCREENING 5 YEAR SIGMOIDOSCOPY 1960 COLONOSCOPY 1962 [address]AL CANCER SCREENING 1962 CT COLONOGRAPHY 1960 FECAL OCCULT BLOOD TEST 1960 FIT Testing (1 year) 1960 ZOSTER VACCINE (1 of 2) 2012 ANNUAL PHYSICAL 11/07/2020 HEPATITIS C SCREENING 11/07/2020 INFLUENZA VACCINE 02/21/2024 05/01/2022, , 05/03/2020, Additional history exists COVID-19 Vaccine ( season) 2024 11/21/2021, 05/22/2021, 11/21/2020, Additional history exists PAP SMEAR 05/03/2025 05/03/2023, 0808/2021, 03/20/2021, Additional history exists MAMMOGRAM 05/12/2025 05/12/2023, 04/24, 02/04/2021 Annual Gynecologic Pelvic and Breast Exam 07/18/2025 07/17/2024 TDAP/TD VACCINES (2 - Td or Tdap) 03/30/2033 03/30/2023 Pneumococcal Vaccine 0-64 Aged Out No longer eligible based on patient's age to complete this topic Procedures Procedure Name Priority Date/Time Associated Diagnosis Comments CBC AND DIFFERENTIAL Routine 07/17/2024 2:26 PM EST Encounter for gynecological examination without abnormal finding FERRITIN Routine 07/17/2024 2:26 PM EST Other fatigue IRON PROFILEC Routine 07/17/2024 2:26 PM EST Other fatigue HEMOGLOBIN A1C Routine 07/17/2024 2:26 PM EST Diabetes mellitus screening LIPID PANEL Routine 07/17/2024 2:26 PM EST Lipid screening T4, FREE Routine 07/17/2024 2:26 PM EST Thyroid disorder screen TSH Routine 07/17/2024 2:26 PM EST Thyroid disorder screen VITAMIN D,25-HYDROXY Routine 07/17/2024 2:26 PM EST Other fatigue COMPREHENSIVE METABOLIC PANEL Routine 07/17/2024 2:26 PM EST Encounter for gynecological examination without abnormal finding SCANNED - MAMMO 05/12/2023 LIQUID-BASED PAP SMEAR WITH HPV GENOTYPING IF ASCUS, [facility]) Routine 05/03/2023 11:01 AM EDT Encounter for gynecological examination without abnormal finding from Last 3 Months or Most Recently Relevant to Health Maintenance Results * Iron Profile (07/17/2024 2:26 PM EST) TIBC 311 250 - 450 ug/dL [facility] UIBC 228 118 - 369 ug/dL [facility] Iron 83 27 - 139 ug/dL [facility] Iron Saturation 27 15 - 55 % [facility] Blood 07/17/2024 2:26 PM EST 07/17/2024 Narrative [facility] (AMBULATORY) - 07/18/2024 1:09 PM EST Performed at: ??01 - [facility] [address] ??[id number] Examination Supervisor: Norris Lim PhD, Phone: ??[phone] Patient Fasting: ??N us Shayy Mike MD LAB BLOOD ORDERABLES Final Resul t [facility] [address] [place] [address], [facility] [address] [place] [address], * (ABNORMAL) Vitamin D,25-Hydroxy (07/17/2024 2:26 PM EST) 25 Hydroxy, Vitamin D 149.0(H) 30.0 - 100.0 ng/mL [facility] Comment: Vitamin D deficiency has been defined by the [place] of Medicine and an Endocrine Society practice guideline as a level of serum 25-OH vitamin D less than 20 ng/mL (1,2). The Endocrine Society went on to further define vitamin D insufficiency as a level between 21 and 29 ng/mL (2). 1. IOM ([place] of Medicine). 2010. Dietary reference ?? intakes for calcium and D. [place]: The ?? National Academies Press. 2. Brooke MF, [place], Adalgisa BACA, et al. ?? Evaluation, treatment, and prevention of vitamin D ?? deficiency: an Endocrine Society clinical practice ?? guideline. JCEM. 2010; 96(7):1911-30. Blood 07/17/2024 2:26 PM EST 07/17/2024 Narrative [facility] (AMBULATORY) - 07/18/2024 1:09 PM EST Performed at: ??01 - [address] ??[id number] Examination Supervisor: Norris Lim PhD, Phone: ??[phone] Patient Fasting: ??N us Shayy Mike MD LAB BLOOD ORDERABLES Final Resul t [facility] (AMBULATORY) [address] [place] [address], [place] [phone] [facility] [address] [place] [address], * (ABNORMAL) CBC & Differential (07/17/2024 2:26 PM EST) WBC 6.6 3.4 - 10.8 x10E3/uL [facility] Comment: Effective July 24, 2024 profile [id number] WBC will be made ??non-orderable as a [...] - 07/18/2024 1:09 PM EST Performed at: ?? - [address] ??[id number] Examination Supervisor: Norris Lim PhD, Phone: ??[phone] Patient Fasting: ??N us Shayy Mike MD LAB BLOOD ORDERABLES Final Resul t [facility] ([facility]) [address] [place] [address], [facility] [address] [place] [address], * TSH (07/17/2024 2:26 PM EST) TSH 3.350 0.450 - 4.500 uIU/mL [facility] Blood 07/17/2024 2:26 PM EST 07/17/2024 Narrative [facility] ([facility]ORY) - 07/18/2024 1:09 PM EST Performed at: ??01 - [facility] [place] [address] [place], [place] ??[id number] Examination Supervisor: Norris Lim PhD, Phone: ??[phone] Patient Fasting: ??N Shayy Mike MD LAB BLOOD ORDERABLES Final Resul t Performing Organization Address [facility] de Phone Number [facility] [address] [place] [address], [facility] [address] [place] [address], * T4, Free (07/17/2024 2:26 PM EST) Free T4 1.23 0.82 - 1.77 ng/dL [facility] Blood 07/17/2024 2:26 PM EST 07/17/2024 Narrative [facility] (AMBULATORY) - 07/18/2024 1:09 PM EST Performed at: ??01 - [facility] [place] [address] [place], [place] ??[id number] Examination Supervisor: Norris Lim PhD, Phone: ??[phone] Patient Fasting: ??N Shayy Mike MD LAB BLOOD ORDERABLES Final Resul t Performing Organization Address [facility] de Phone Number [facility] [address] [place] [address], [facility] [address] [place] [address], * Hemoglobin A1c (07/17/2024 2:26 PM EST) Hemoglobin A1C 5.1 4.8 - 5.6 % [facility] Comment: ? Prediabetes: 5.7 - 6.4 ? Diabetes: >6.4 ? Glycemic control for adults with diabetes: <7.0 Blood 07/17/2024 2:26 PM EST 07/17/2024 Narrative [facility] ([facility]) - 07/18/2024 1:09 PM EST Performed at: ??01 - [facility] [place] [address] [place], [place] ??[id number] Examination Supervisor: Norris Lim PhD, Phone: ??[phone] Patient Fasting: ??N Shayy Mike MD LAB BLOOD ORDERABLES Final Resul t Performing Organization Address [facility] de Phone Number [facility] (AMBULATORY) [address] [place] [address], [facility] [address] [place] [address], [place] [phone] * (ABNORMAL) Ferritin (07/17/2024 2:26 PM EST) Pathologist [facility] Ferritin 161(H) 15 - 150 ng/mL [facility] Blood 07/17/2024 2:26 PM EST 07/17/2024 Narrative [facility] ([facility]) - 07/18/2024 1:09 PM EST Performed at: ??01 - [facility] [address] [place] [address] ??[id number] Examination Supervisor: Norris Lim PhD, Phone: ??[phone] Patient Fasting: ??N Shayy Mike MD LAB BLOOD ORDERABLES Final Resul t Performing Organization Address [facility] de Phone Number [facility] (AMBULATORY) [address] [place] [address], [place] [phone] [facility] [address] [place] [address], [place] [phone] * (ABNORMAL) Lipid Panel (07/17/2024 2:26 PM EST) Total Cholesterol 218(H) 100 - 199 mg/dL [facility] Triglycerides 72 0 - 149 mg/dL [facility] HDL Cholesterol 47 >39 mg/dL [facility] VLDL Cholesterol Deep 13 5 - 40 mg/dL [facility] LDL Chol Calc (NIH) 158(H) 0 - 99 mg/dL [facility] Blood 07/17/2024 2:26 PM EST 07/17/2024 Narrative [facility] (AMBULATORY) - 07/18/2024 1:09 PM EST Performed at: ??01 - [facility] [address] [facility], [place], [place] ??[id number] Examination Supervisor: Norris Lim PhD, Phone: ??[phone] Patient Fasting: ??N us Shayy Mike MD LAB BLOOD ORDERABLES Final Resul t [facility] (AMBULATORY) [address] [place] [address], [place] [phone] [facility] [address] [place] [address], * (ABNORMAL) Comprehensive Metabolic Panel (07/17/2024 2:26 [...] 07/17/2024 2:26 PM EST 07/17/2024 Narrative [facility] (AMBULATORY) - 07/18/2024 1:09 PM EST Performed at: ??01 - [facility] [place] [address] [facility], [place], [place] ??[id number] Examination Supervisor: Norris Lim PhD, Phone: ??[phone] Patient Fasting: ??N Shayy Mike MD LAB BLOOD ORDERABLES Final Resul t [facility] (AMBULATORY) [address] [place] [address], [facility] [address] [place] [address], * SCANNED - MAMMO (05/12/2023) Anatomical Region Laterality Modality Other Shayy Mike MD CHART REVIEW TABS Final Resul t * LIQUID-BASED PAP SMEAR WITH HPV GENOTYPING IF ASCUS ([facility]) (05/03/2023 11:01 AM EDT) Reference Lab Report [facility] [address] ?[place], [place] ??[address] or [phone] Kristopher Zamorano M.D., Felt Finisher PATIENT NAME ? LABORATORY NO. 651 ?? ALEJA HOPSON. ?[id number] ? AGE ? SEX ?? SSN ?CLIENT REF # [facility] ?60 ?1960 ?F ? [id number] ?[id number] Patricia KRISHNAMURTHY ?REQUESTING M.D. ? ATTENDING M.D. ? COPY TO. [place], [place] [address] ? SHAYY MIKE DATE COLLECTED ?DATE RECEIVED ?DATE REPORTED 05/03/2023 ?05/03/2023 ? 05/10/2023 ThinPrep Pap with Cytyc Imaging DIAGNOSIS: Nondiagnostic specimen. ??No charge has been made for this test. Professional interpretation rendered by Kristopher Zamorano M.D., F.C.A.P. at [facility], Anne Fogarty, [address] [place] [address]. RECOMMENDATION: ?Follow up as clinically appropriate SPECIMEN ADEQUACY: ??UNSATISFACTORY FOR EVALUATION Specimen processed and examined, but unsatisfactory for evaluation of epithelial abnormality due to insufficient squamous cells. SOURCE OF SPECIMEN: ? VAGINAL CUFF THIN PREP SLIDES: ??1 CLINICAL HISTORY: ??Encounter for gynecological examination without abnormal finding Post Menopausal, HRT NURSING INSTRUCTOR: ? SDS, CT (ASCP) ?REVIEWED, DIAGNOSED AND ELECTRONICALLY SIGNED BY: Kristopher Zamorano M.D., F.C.A.P. CPT CODES: ??[id number], [id number] 05/10/2023 5:34 AM EDT [facility] ThinPrep Vial Collection / Unknown 05/03/2023 11:01 AM EDT 05/03/2023 11:01 AM EDT us Shayy Mike MD PATHOLOGY/CYTOLOGY ORDERABLES Fi nal Result [facility]
[address] [place] [address], [place] [phone] from Last 3 Months or Most Recently Relevant to Health Maintenance Insurance [facility] PPO Care Teams Ground Crewman Aircraft Support Relationship Specialty Start Date End Date Layne Munroe APRN [address] [facility] [address] [place] [address] [place] [address] PCP - General Internal Medicine 05/23/24
--- OUTSIDE RECORDS SUMMARY | 2024-07-27 15:43 | XMS_ITS | Encounter Summary ---
[facility] Address [address] [place] [address] Care Team Providers Care System Safety Engineer Name Role Phone Layne Munroe SENIOR FIRMWARE ENGINEER Primary Care Provider [phone] Reason for Visit * Reason Comments Med Refill Encounter Details Date Type Department Care Team (Late st Contact Info) Description 05/20/2024 Refill [facility] OBGYN [address] [place] [address] Shayy Shin MD [address] [place] [address] Hormone replacement therapy (HRT) Social History Tobacco [...] encounter Miscellaneous Notes * Telephone Encounter - Carola Nelson MA - 05/23/2024 8:54 AM EDT Patient needs appt for annual * Telephone Encounter - Yoli Armenta MA - 05/22/2024 9:23 AM EDT LVM documented in this encounter Plan of Treatment Not on file documented as of this encounter Visit Diagnoses Diagnosis Hormone replacement therapy (HRT) documented in this encounter Care Teams System Safety Engineer Relationship Specialty Start Date End Date Layne Munroe APRN [address] [place] [address] PCP - General Internal Medicine 05/23/24 documented as of this encounter
--- OUTSIDE RECORDS SUMMARY | 2024-07-27 15:44 | XMS_ITS | Encounter Summary ---
[facility] [address] [place] [address] Care Team Providers Care Banquet Pilot Name Role Phone Lucille Momin APRN Primary Care Provider [phone]- [phone] Encounter Details Date Type Department Care Team (Late st Contact Info) Description 03/22/2023 Telephone [facility] OBGYN [address] [facility] [address] [place], [place] [phone] Shayy Shin MD [address] [facility] [address] [place] [address] Social History Tobacco Use Types Packs/Day Years Used Date Smoking Tobacco: Some Days Smokeless Tobacco: Never Alcohol Use Standard Drinks/Week [...] encounter Miscellaneous Notes * Telephone Encounter - Ramandeep Howard RN - 03/22/2023 4:22 PM EDT Patient has annual scheduled with Dr Shin on 04/12/23 and is needing refills until then. One refillsent. Pt notified via voicemail message. -Ramandeep,RN * Telephone Encounter - Joyce Pisano RegSched Rep - 03/22/2023 3:45 PM EDT Caller: Aleja Figueroa Relationship: Self Best call back number: [phone] Requested Prescriptions: ESTRACE 1 MG Requested Prescriptions No prescriptions requested or ordered in this encounter Pharmacy where request should be sent: [id number] - [address] AT [address] - [phone] - [phone] FX Last office visit with prescribing clinician: 03/23/2022 Last telemedicine visit with prescribing clinician: Visit date not found Next office visit with prescribing clinician: 04/12/2023 Additional details provided by patient: JUST NEEDS REFILL UNTIL ANNUAL Does the patient have less than a 3 day supply: [] Yes [x] No Would you like a call back once the refill request has been completed: [x] Yes [] No If the office needs to give you a call back, can they leave a voicemail: [x] Yes [] No Kerri Moore 03/22/23 15:46 EDT documented in this encounter Plan of Treatment Not on file documented as of this encounter Visit Diagnoses Diagnosis Hormone replacement therapy (HRT) documented in this encounter Care Teams Banquet Pilot Relationship Specialty Start Date End Date Lucille Momin APRN [address] [place] [id number] PCP - General Nurse Practitioner 03/22/23 05/22/24 documented as of this encounter
--- OUTSIDE RECORDS SUMMARY | 2024-07-27 15:44 | XMS_ITS | Encounter Summary ---
[facility] [address] [place] [address] Care Team Providers Care Legal Director Name Role Phone Kodi Mominlie Iraida SHAH Primary Care Provider [phone]- [phone] Reason for Visit * Reason Onset Date Comments WOLFGANG RAMIREZ 07/26/2023 Encounter Details Date Type Department Care Team (Late st Contact Info) Description 07/26/2023 Telephone [facility] OBGYN [address] [address] Wolfgang Shin MD [address] [place] [address] WOLFGANG RAMIREZ Social History Tobacco Use Types Packs/Day Years [...] encounter Miscellaneous Notes * Telephone Encounter - Mary Ellen Avina RegSched Rep - 07/26/2023 12:48 PM EST Hub staff attempted to follow warm transfer process and was unsuccessful Caller: Aleja Figueroa Relationship to patient: Self Best call back number: [phone] Patient is needing: PATIENT IS NEEDING TO BE RESCHEDULED FOR HER DEXA SCAN. PLEASE CALL TO SCHEDULE. [facility] NOT SCHEDULING FOR THIS OFFICE RIGHT NOW. OK TO CALL ANYTIME OK TO [facility] documented in this encounter Plan of Treatment Not on file documented as of this encounter Visit Diagnoses Not on filedocumented in this encounter Care Teams Legal Director Relationship Specialty Start Date End Date Lucille Momin APRN [address] [place] [id number] PCP - General Nurse Practitioner 03/22/23 05/22/24 documented as of this encounter
--- OUTSIDE RECORDS SUMMARY | 2024-07-27 15:44 | XMS_ITS | Encounter Summary ---
[facility] [address] [place] [address] Care Team Providers Care Supervisor Telephone Clerks Name Role Phone Kristopher Parnell MD Primary Care Provider Un available Encounter Details Date Type Department Care Team (Late st Contact Info) Description 04/10/2016 4:20 PM EDT Lab [facility] AT [address] [address] Dermatophytosis of nail (Primary Dx) Social History Tobacco Use Types Packs/Day Years Used Date Smoking Tobacco: Never Assessed Comments Unknown Sex and Gender Information Value Date Recorded Sex Assigned at Not on file Legal Sex Female 10:16 AM EDT Gender Identity Not on file Sexual Orientation Not on file documented as of this encounter Plan of Treatment Not on file documented as of this encounter Procedures Procedure Name Priority Date/Time Associated Diagnosis Comments HEPATIC FUNCTION PANEL Routine 04/10/2016 4:41 PM EDT Dermatophytosis of nail documented in this encounter Results * Hepatic function panel (04/10/2016 4:41 PM EDT) Total Protein 7.2 5.7 - 8.2 g/dL 04/10/2016 7:36 PM EDT [facility] Albumin 4.20 3.20 - 4.80 g/dL 04/10/2016 7:36 PM EDT [facility] ALT (SGPT) 13 7 - 40 U/L 04/10/2016 7:36 PM EDT [facility] AST (SGOT) 13 0 - 33 U/L 04/10/2016 7:36 PM EDT [facility] Alkaline Phosphatase 63 25 - 100 U/L 04/10/2016 7:36 PM EDT [facility] Total Bilirubin 0.3 0.3 - 1.2 mg/dL 04/10/2016 7:36 PM EDT [facility] Bilirubin, Direct 0.1 0.0 - 0.2 mg/dL 04/10/2016 7:36 PM EDT [facility] Bilirubin, Indirect 0.2 0.1 - 1.1 mg/dL 04/10/2016 7:36 PM EDT [facility] Blood Venipuncture / Unknown 04/10/2016 4:41 PM EDT 04/10/2016 4:41 PM EDT Bret Jerez DPM LAB BLOOD ORDERAB LES Final Result [facility]
[address] [place] [address], documented in this encounter Visit Diagnoses Diagnosis Dermatophytosis of nail- Primary documented in this encounter Care Teams Supervisor Telephone Clerks Relationship Specialty Start Date End Date Kristopher Parnell MD PCP - General Division Director 04/10/16 03/21/23 documented as of this encounter
--- OUTSIDE RECORDS SUMMARY | 2024-07-27 15:44 | XMS_ITS | Encounter Summary ---
Author Organization [employer] Address [address] [place] [address] Care Team Providers Care Eeg Tech Name Role Phone Unavailable Primary Care Provider Unavailabl e Encounter Details Date Type Department Care Team (Late st Contact Info) Description 11/03/2018 Transcribed Document [facility] [place] Family Medicine [address] [place] [address] ProviderZoey MD [address] [place] [id number] Social History Tobacco Use Types Packs/Day Years Used Date Smoking Tobacco: Never Assessed Comments Unknown Sex and Gender Information Value Date Recorded Sex Assigned at Not on file Legal Sex Female 4:10 PM CDT Gender Identity Not on file Sexual Orientation Not on file documented as of this encounter Miscellaneous Notes * [employer] Conversion Note - Zoey ProviderMD - 11/03/2018 4:27 PM CDT [address] [address] Patient Information Name: EMILIANA BENJAMIN THOMAS Age: 58 Years Date of : 1960 Arrival Time: 11/03/2018 13:35:00 Diagnosis Primary Care Physician: LATHA WHITNEY MD-[facility] Provider Information Primary Provider: Secondary Provider: BENJAMIN HOPSON has been given the following list of patient education materials, prescriptions and follow-up instructions: Follow-up Instructions: With: Address: When: AARTI RAY [address] [facility], [address] [place] [address] Business (1) Within 1 to 2 weeks With: Address: When: [facility] Within 2 to 3 days Comments: For further assistance with your Primary Care Physician please contact the Patient Resource Center at [phone]. Please follow up with Dr. Whitney. With: Address: When: LATHA WHITNEY [address] [place] [address] Business (1) Within 2 to 3 days Patient Education Materials: Lumbosacral Radiculopathy Introduction Lumbosacral radiculopathy is a condition that involves the spinal nerves and nerve roots in the low back and bottom of the spine. The condition develops when these nerves and nerve roots move out of place or become inflamed and cause symptoms. What are the causes? This condition may be caused by:??? Pressure from a disk that bulges out of place (herniated disk). A disk is a plate of cartilage that separates bones in the spine. ??? Disk degeneration. ??? A narrowing of the bones of the lower back (spinal stenosis). ??? A tumor. ??? An infection. ??? An injury that places sudden pressure on the disks that cushion the bones of your lower spine. What increases the risk? This condition is more likely to develop in:??? Males aged 30?50 years. ??? Females aged 50?60 years. ??? People who lift improperly. ??? People who are overweight or live a sedentary lifestyle. ??? People who smoke. ??? People who perform repetitive activities that strain the spine. What are the signs or symptoms? Symptoms of this condition include:??? Pain that goes down from the back into the legs (sciatica). This is the most common symptom. The pain may be worse with sitting, coughing, or sneezing. ??? Pain and numbness in the arms and legs. ??? Muscle weakness. ??? Tingling. ??? Loss of bladder control or bowel control. How is this diagnosed? This condition is diagnosed with a physical exam and medical history. If the pain is lasting, you may have tests, such as:??? MRI scan. ??? X-ray. ??? CT scan. ??? Myelogram. ??? Nerve conduction study. How is this treated? This condition is often treated with:??? Hot packs and ice applied to affected areas. ??? Stretches to improve flexibility. ??? Exercises to strengthen back muscles. ??? Physical therapy. ??? Pain medicine. ??? A steroid injection in the spine. In some cases, no treatment is needed. If the condition is long-lasting (chronic), or if symptoms are severe, treatment may involve surgery or lifestyle changes, such as following a weight loss plan. Follow these instructions at home: Medicines??? Take medicines only as directed by your health care provider. ??? Do notdrive or operate heavy machinery while taking pain medicine. Injury care??? Apply a heat pack to the injured area as directed by your health care provider. ??? Apply ice to the affected area:? Put ice in a plastic bag. ? Place a towel between your skin and the bag. ? Leave the ice on for 20?30 minutes, every 2 hours while you are awake or as needed. Or, leave the ice on for as long as directed by your health care provider. Other Instructions??? If you were shown how to do any exercises or stretches, do them as directed by your health care provider. ??? If your health care provider prescribed a diet or exercise program, follow it as directed. ??? Keep all follow-up visits as directed by your health care provider. This is important. Contact a health care provider if: ??? Your pain does not improve over time even when taking pain medicines. Get help right away if: ??? Your develop severe pain. ??? Your pain suddenly gets worse. ??? You develop increasing weakness in your legs. ??? You lose the ability to control your bladder or bowel. ??? You have difficulty walking or balancing. ??? You have a fever. This information is not intended to replace advice given to you by your health care provider. Make sure you discuss any questions you have with your health care provider. Document Released: 08/09/2006 Document Revised: 01/14/2017 Document Reviewed: 08/05/2015 ? 2017 Elsevier Allergies: acetaminophen-oxyCODONE; morphine; erythromycin Medication Information: Prescription Display cyclobenzaprine (cyclobenzaprine 10 mg oral tablet) 1 Tab, Oral, Tab, TID, PRN as needed for spasm, X 10 Day(s), # 30 Tab, 1 Refill(s) dextromethorphan-promethazine (dextromethorphan-promethazine 15 mg-6.25 mg/5 mL oral syrup) 5 mL, Oral, Q6H, X 5 Day(s), # 100 mL, 1 Refill(s) Laboratory or Other Results This Visit (last charted value for your 11/03/2018 visit) Hematology 11/03/18 14:13:00 WBC: 8.7 K/uL -- Normal range between ( 4.5 and 10.5 ) RBC: 4.67 Million/uL -- Normal range between ( 3.93 and 5.22 ) Hct: 37.7 % -- Normal range between ( 34.1 and 44.9 ) Hgb: 12.2 g/dL -- Normal range between ( 11.2 and 15.7 ) Platelet Count: 261 K/uL -- Normal range between ( 163 and 369 ) MCH: 26.1 pg -- Normal range between ( 25.6 and 32.2 ) MCHC: 32.4 Gram/dL -- Normal range between ( 32.2 and 36.5 ) MCV: 80.7 fL -- Normal range between ( 79.0 and 94.8 ) Slide Review: No Eos %: 3.3 % -- Normal range between ( 0.0 and 7.0 ) [place] #: 0.42 K/uL -- Normal range between ( 0.16 and 1.00 ) Eos #: 0.29 x10(3)/uL -- Normal range between ( 0.00 and 0.80 ) [place] %: 4.8 % -- Normal range between ( 3.0 and 9.0 ) Baso %: 0.6 % -- Normal range between ( 0.0 and 1.5 ) Baso #: 0.05 x10(3)/uL -- Normal range between ( 0.00 and 0.20 ) RDW: 12.3 % -- Normal range between ( 11.7 and 14.9 ) Neut %: 63.5 % -- Normal range between ( 34.0 and 71.0 ) Neut #: 5.51 K/uL -- Normal range between ( 1.56 and 6.13 ) Lymph %: 27.5 % -- Normal range between ( 19.3 and 53.1 ) Lymph #: 2.39 x10(3)/uL -- Normal range between ( 1.00 and 3.90 ) MPV: 9.8 fL -- Normal range between ( 9.4 and 12.4 ) IG#: 0.03 x10(3)/uL -- Normal range between ( 0.00 and 0.05 ) IG%: 0.30 % -- Normal range between ( 0.00 and 0.60 ) Urinalysis 11/03/18 14:13:00 Urine Nitrite: Negative Urine Leukocyte Esterase: Negative Urine Appearance: Clear Urine Glucose Dipstick: Negative Urine Blood Dipstick: Negative Urine Type: U CleanCatch Urine Urobilinogen Dipstick: 0.2 EU/dL Urine Protein Dipstick: Negative Urine Color: Yellow Urine Ketones Dipstick: Negative Urine pH Dipstick: 6.5 -- Normal range between ( 6.0 and 8.0 ) Urine Bilirubin Dipstick: Negative Urine Specific [place]: 1.016 -- Normal range between ( 1.005 and 1.030 ) General Chemistry 11/03/18 14:13:00 Creatinine Level: 0.70 mg/dL -- Normal range between ( 0.55 and 1.02 ) Sodium Level: 138 mmol/L -- Normal range between ( 136 and 146 ) Potassium Level: 3.0 mmol/L -- Normal range between ( 3.5 and 5.1 ) Chloride Level: 101 mmol/L -- Normal range between ( 102 and 112 ) Carbon Dioxide Level: 27 mmol/L -- Normal range between ( 21 and 32 ) Anion Gap: 13 -- Normal range between ( 9 and 20 ) Bun/Creatinine: 21.4 -- Normal range between ( 8.0 and 20.0 ) Calcium Level: 8.5 mg/dL -- Normal range between ( 8.4 and 10.1 ) eGFR : >60 mL/min/1.73m2 eGFR NonAfrican: >60 mL/min/1.73m2 Glucose Level: 133 mg/dL -- Normal range between ( 74 and 106 ) Blood Urea Nitrogen: 15 mg/dL -- Normal range between ( 7 and 22 ) Medication Comment: Procedures: Laboratory Orders Name Status AutoDiff Completed BMP Completed CBCD Completed UAMICIND Completed Radiology Orders Name Status MRI Spine Lumbar WO Ordered Cardiology Orders No cardiology orders were placed. This statement is to verify that BENJAMIN HOPSON was seen at [facility] Emergency Department on ,11/03/2018 16:27:30. This is not a work excuse, if a work excuse was needed it will be in addition to this statement as a separate form. IMPORTANT: The examination and treatment you have received in the Emergency Department has been done to provide an appropriate evaluation and stabilizing treatment on an emergency basis only. Given the limited resources, it is not meant to be a substitute for complete medical care. The follow-up doctor you named will receive a copy of your records and all test reports. IT IS IMPORTANT THAT YOU SCHEDULE A FOLLOW-UP APPOINTMENT AND ARE RE-EVALUATED. You should report any new complaints, symptoms, or remaining problems at that time. IT IS IMPOSSIBLE FOR THE EMERGENCY DEPARTMENT TO RECOGNIZE AND TREAT ALL ELEMENTS OF INJURY OR ILLNESS IN A SINGLE VISIT. If you have been referred to a specialist physician, it means that we believe you may have a condition that requires the expertise of a specialist. KEEP IN MIND THAT THE SPECIALIST HAS HIS/HER OWN OFFICE POLICIES WHICH MAY REQUIRE PROPER INSURANCE OR PAYMENT UP FRONT BEFORE THE SPECIALIST WILL SEE YOU. It is your responsibility to call the specialist physician to make an appointment. We do not have the ability to identify specialists/physicians that work with specific insurance companies. Please be advised that all financial charges or billing practices are determined by that practice, not the hospital. If your insurance company requires that you see a specialist from their approved list, it is your responsibility to contact your insurance company to make those arrangements. It is also your responsibility to follow any other requirements of your insurance company necessary to obtain coverage for claims submitted. If you had special tests, such as EKG???s or X-rays, the interpretation of your tests given to you by the Emergency Dept. Physician is a preliminary report. Some fractures and illnesses fail to show up on preliminary tests. We will review them again within 24-48 hours. We will call you if there are any new suggestions. If your symptoms continue notify your physician. After you leave, you should follow the instructions below. In all events, you may obtain a copy of your Emergency Department visit from Medical Records. Please call to be directed to this department. We will bill your insurance; however, you are responsible today for any co-pay amounts. You will receive a separate bill for any services you may have received including: emergency, radiology, or pathology physicians. Please be sure we have an accurate contact phone number and address, should we need to call you for any reason. CIGARETTE SMOKING: The facts are clear; cigarette smoking will shorten your life. Smoking can cause many illnesses along the way. As a healthcare provider, [facility] recommends that you stop smoking. Assistance with quitting is available by contacting 7-876-QFHP-NOW. This is a free resource providing counseling, support, and referral. Or you may contact your personal physician. As part of your treatment plan, your physician may have prescribed a limited course of a controlled substance. This medication may be given to help people with moderate or severe pain or for other medical conditions, but there are risks involved with treatment. Common side effects may include nausea, constipation, drowsiness, sweating, itching, dry mouth, and rash. More serious side effects may include cognitive and motor impairment, like problems with thinking, concentrating, alertness, and movement (e.g. slowed reflexes), and driving and operating heavy machinery can be dangerous. It is important for you to talk to your physician if you have these side effects or questions. These controlled substances can produce physical dependence and be habit-forming if taken for an extended period of time, which means that the body has gotten used to them and may experience withdrawal symptoms if they are abruptly stopped. Withdrawal symptoms can include runny nose, sweating, goose bumps, diarrhea, abdominal cramping, rapid heartbeat, difficulty sleeping, and nervousness. The home medications listed are only as accurate as the information you provided. Please continue taking all of your medications prescribed by your Primary Care Provider unless specifically told to change or discontinue the medication. Please direct any questions regarding your home medications to your Primary Care Provider. YOU ARE THE MOST IMPORTANT FACTOR IN YOUR RECOVERY. ?? Follow your instructions carefully ?? Take your medicines as prescribed ?? Most important, see a provider as discussed. If you do not have a provider, we can provide a list of clinics Confidential This message and accompanying documents are covered by Electronic Communications Privacy Act 18 U.S.C. ???Sections 7524-2837,?? and contain information intended for the specified individual(s) only. This information is confidential. If you are not the intended recipient or an agent responsible for delivering it to the intended recipient, you are hereby notified that you have received the document in error and that any review, dissemination, copying, or the taking of any action based on the contents of this information is strictly prohibited. If you have received this communication in error, please notify us immediately by email, and delete the original message. 4 WAYS TO GET AHEAD OF SEPSIS SEPSIS is a MEDICAL EMERGENCY. Time matters! Infections put you and your family at risk for a life-threatening condition called sepsis. Sepsis is the body???s extreme response to an infection. It is life-threatening, and without timely treatment, sepsis can rapidly lead to tissue damage, organ failure, and . Sepsis happens when an infection you already have???in your skin, lungs, urinary tract or somewhere else???triggers a chain reaction throughout your body. 1 PREVENT INFECTIONS Take good care of chronic conditions. Talk to your doctor about getting the recommended vaccines. 2 PRACTICE GOOD HYGIENE Wash your hands frequently. Keep cuts or open sores clean and covered until they are healed. 3 KNOW THE SYMPTOMS Confusion or disorientation Shortness of breath High heart rate Fever, shivering, or feeling very cold Extreme pain or discomfort Clammy or sweaty skin 4 ACT FAST Get medical care IMMEDIATELY if you suspect sepsis or if you have an infection that???s not getting better or is getting worse. To learn more about sepsis and how to prevent infections, visit www.cdc.gov/sepsis. STROKE is an EMERGENCY Every Minute Counts ACT F.A.S.T! FACE ?? Facial droop ?? Uneven smile ARM ?? Arm numbness ?? Arm weakness SPEECH ?? Slurred speech ?? Difficulty speaking or understanding TIME ?? Call 911 and get to the hospital immediately Have the ambulance go to the nearest stroke center. STROKE Risk Factors High blood pressure High cholesterol Heart Disease Diabetes Smoking Heavy alcohol use Physical inactivity and obesity Atrial Fibrillation (irregular heartbeat) Family history of stroke Acknowledgment I hereby acknowledge receipt of these instructions and information above. I understand that I have received Emergency Treatment only which is not a substitute for complete medical care and acknowledge that all of my medical problems may not be known, identified, or treated prior to my release. I UNDERSTAND THE NEED TO ARRANGE FOLLOW-UP CARE WITH THE PHYSICIAN INDICATED. I UNDERSTAND THAT I SHOULD CONTACT MY PHYSICIAN IMMEDIATELY OR RETURN TO THE EMERGENCY DEPARTMENT IF MY CONDITION WORSENS, FAILS TO IMPROVE, OR NEW SYMPTOMS APPEAR. Vital Signs B/P PULSE RESP. RATE TEMPERATURE PULSE OX Signature of Emergency Provider Date / Time Signature of Emergency Nurse Date / Time Reminder: Be sure to sign up for the My [facility] patient portal, which gives you 15/03 access to your medical information ??? including these discharge instructions ??? using your computer, smartphone, or tablet. Just go to Night [employer] to get started. Questions? Call . Acknowledgment I hereby acknowledge receipt of these instructions and information above. I understand that I have received Emergency Treatment only which is not a substitute for complete medical care and acknowledge that all of my medical problems may not be known, identified, or treated prior to my release. I UNDERSTAND THE NEED TO ARRANGE FOLLOW-UP CARE WITH THE PHYSICIAN INDICATED. I UNDERSTAND THAT I SHOULD CONTACT MY PHYSICIAN IMMEDIATELY OR RETURN TO THE EMERGENCY DEPARTMENT IF MY CONDITION WORSENS, FAILS TO IMPROVE, OR NEW SYMPTOMS APPEAR. Signature of Patient / Responsible Person Date / Time Please provide a telephone number where you can be reached. The best time to call is between: It is permissable to leave a message if no answer: Yes____ No____ Nurse Providing Instructions: Emergency Physician: Electronically signed by French, [facility] [employer] at 12/09/2022 8:06 AM CDT documented in this encounter Plan of Treatment Not on file documented as of this encounter Visit Diagnoses Not on filedocumented in this encounter
--- OUTSIDE RECORDS SUMMARY | 2024-07-27 15:44 | XMS_ITS | Encounter Summary ---
[facility] Organization [facility] Address [address] [place] [address] Care Team Providers Care Manager Card Name Role Phone Kristopher Parnell MD Primary Care Provider Un available Reason for Visit * Reason Comments Gynecologic Exam Encounter Details Date Type Department Care Team (Late st Contact Info) Description 03/17/2021 1:00 PM EDT Office Visit [facility] OBGYN [address] [place] [address] Shayy Shin MD [address] [place] [address] Encounter for gynecological examination without abnormal finding (Primary Dx); Breast cancer screening by mammogram; Encounter for gynecological examination; Hormone replacement therapy (HRT) Social History Tobacco [...] Sign Reading Time Taken Comments Blood Pressure 126/72 03/17/2021 1:16 PM EDT Pulse - - Temperature - - Respiratory Rate - - Oxygen Saturation - - Inhaled Oxygen Concentration - - Weight 87.3 kg (192 lb 6.4 oz) 03/17/2021 1:16 P M EDT Height 165.1 cm (5' 5 ) 03/17/2021 1:16 PM EDT Body Mass Index 32.02 03/17/2021 1:16 PM EDT documented in this encounter Patient Instructions * Patient Instructions* Shayy Shin MD - 03/17/2021 1:00 PM EDT Images from the original note were not included. Breast Self-Awareness Breast self-awareness is knowing how your breasts look and feel. Doing breast self-awareness is important. It allows you to catch a breast problem early while it is still small and can be treated. All women should do breast self-awareness, including women who have had breast implants. Tell your doctor if you notice a change in your breasts. What you need: ?? A mirror. ?? A well-lit room. How to do a breast self-exam A breast self-exam is one way to learn what is normal for your breasts and to check for changes. Todo a breast self-exam: Look for changes 1. Take off all the clothes above your waist. 2. paid internship front of a mirror in a room with good lighting. 3. Put your hands on your hips. 4. Push your hands down. 5. Look at your breasts and nipples in the mirror to see if one breast or nipple looks different from the other. Check to see if: ? The shape of one breast is different. ? The size of one breast is different. ? There are wrinkles, dips, and bumps in one breast and not the other. 6. Look at each breast for changes in the skin, such as: ? Redness. ? Scaly areas. 7. Look for changes in your nipples, such as: ? Liquid around the nipples. ? Bleeding. ? Dimpling. ? Redness. ? A change in where the nipples are. Feel for changes 1. Lie on your back on the floor. 2. Feel each breast. To do this, follow these steps: ? Pick a breast to feel. ? Put the arm closest to that breast above your head. ? Use your other arm to feel the nipple area of your breast. Feel the area with the pads of your three middle fingers by making small circles with your fingers. For the first round valley, press lightly. For the second round valley, press harder. For the third round valley, press even harder. ? Keep making circles with your fingers at the different pressures as you move down your breast. Stop when you feel your ribs. ? Move your fingers a little toward the center of your body. ? Start making circles with your fingers again, this time going up until you reach your collarbone. ? Keep making up-and-down circles until you reach your armpit. Remember to keep using the three pressures. ? Feel the other breast in the same way. 3. Sit or in flight crew member the tub or shower. 4. With soapy water on your skin, feel each breast the same way you did in step 2 when you were lying on the floor. Write down what you find Writing down what you find can help you remember what to tell your doctor. Write down: ?? What is normal for each breast. ?? Any changes you find in each breast, including: ? The kind of changes you find. ? Whether you have pain. ? Size and location of any lumps. ?? When you last had your menstrual period. General tips ?? Check your breasts every month. ?? If you are , the best time to check your breasts is after you feed your baby or after you use a breast pump. ?? If you get menstrual periods, the best time to check your breasts is 5-7 days after your menstrual period is over. ?? With time, you will become comfortable with the self-exam, and you will begin to know if there are changes in your breasts. Contact a doctor if you: ?? See a change in the shape or size of your breasts or nipples. ?? See a change in the skin of your breast or nipples, such as red or scaly skin. ?? Have fluid coming from your nipples that is not normal. ?? Find a lump or thick area that was not there before. ?? Have pain in your breasts. ?? Have any concerns about your breast health. Summary ?? Breast self-awareness includes looking for changes in your breasts, as well as feeling for changes within your breasts. ?? Breast self-awareness should be done in front of a mirror in a well-lit room. ?? You should check your breasts every month. If you get menstrual periods, the best time to check your breasts is 5-7 days after your menstrual period is over. ?? Let your doctor know of any changes you see in your breasts, including changes in size, changes on the skin, pain or tenderness, or fluid from your nipples that is not normal. This information is not intended to replace advice given to you by your health care provider. Make sure you discuss any questions you have with your health care provider. Document Revised: 03/28/2019 Document Reviewed: 03/28/2019 [employer] Patient Education ?? 2020 [employer]. 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 Subjective HPI Aleja Figueroa is a 60 y.o. female, , who presents for annual well woman exam. She has hada hysterectomy. Patient reports problems with: none. Partner Status: Marital Status: . New Partners since last visit: no. She reports vasomotor symptoms. She denies issues with urinary incontinence. The patient does not have any complaints today. She exercises regularly: yes. She has concerns about domestic violence: no. 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 Colonoscopy: Had polyps, to repeat in 5 years, pt unsure of date done; Dr. Cortez Last DEXA: 2013 -normal Exercises Regularly: yes Feelings of Anxiety or Depression: yes - pt states is somewhat controlled Tobacco Usage?: Yes Aleja Figueroa reports that she has been smoking. She has never used smokeless tobacco.. I have educated her on the risk of diseases from using tobacco products such as cancer, COPD and heart disease. I advised her to quit and she is not willing to quit. I OB History 4 Para 3 Term 3 AB 1 Living SAB 1 TAB Ectopic Molar Multiple Live Births Health Maintenance Topic Date Due ??? Annual Gynecologic Pelvic and Breast Exam Never done ??? COLORECTAL CANCER SCREENING Never done ??? ANNUAL PHYSICAL Never done ??? Pneumococcal Vaccine 0-64 (1 of 2 - PPSV23) Never done ??? TDAP/TD VACCINES (1 - Tdap) Never done ??? ZOSTER VACCINE (1 of 2) Never done ??? HEPATITIS C SCREENING Never done ??? INFLUENZA VACCINE 05/23/2021 ??? PAP SMEAR 12/31/2021 ??? MAMMOGRAM 02/04/2023 ??? COVID-19 Vaccine Completed The additional following portions of the patient's history were reviewed and updated as appropriate: allergies, current medications, past family history, past medical history, past social history, past surgical history and problem list. Past Medical History: Diagnosis Date ??? Anxiety ??? Hypertension Past Surgical History: Procedure Laterality Date ??? APPENDECTOMY OPEN ??? BILATERAL BREAST REDUCTION ??? BILATERAL SALPINGO OOPHORECTOMY ??? COLONOSCOPY ??? HERNIA REPAIR ??? LAPAROSCOPIC TUBAL LIGATION ??? VAGINAL HYSTERECTOMY ??? WISDOM TOOTH EXTRACTION ??? WRIST SURGERY Review of Systems All other systems reviewed and are negative. I have reviewed and agree with the HPI, ROS, and historical information as entered above. Shayy Shin MD Objective BP 126/72 (BP Location: Left arm, Patient Position: Sitting, Cuff Size: Adult) Ht 165.1 cm (65 ) Wt 87.3 kg (192 lb 6.4 oz) No BMI 32.02 kg/m?? Physical Exam Vitals and nursing note reviewed. Exam conducted with a business dean present. Constitutional: General: She is awake. Appearance: [...] Mood and affect normal. Speech: Speech normal. Assessment/Plan Assessment Problem List Items Addressed This Visit None Visit Diagnoses Encounter for gynecological examination without abnormal finding - Primary Breast cancer screening by mammogram Relevant Orders Mammo Screening Digital Tomosynthesis Bilateral With CAD Encounter for gynecological examination Relevant Orders Pap IG, Rfx HPV ASCU Hormone replacement therapy (HRT) Relevant Medications estradiol (ESTRACE) 1 MG tablet Plan 1. Reviewed monthly self breast exams. Instructed to call with lumps, pain, or breast discharge. Yearly mammograms ordered. 2. Ordered mammogram today. 3. Recommended use of Vitamin D and getting adequate calcium in her diet. (1500mg) 4. Reviewed exercise as a preventative health measures. 5. Reviewed BMI and weight loss as preventative health measures. 6. Symptoms of menopausal transition reviewed with patient. 7. RTC in 1 year or PRN with problems. 8. Patient with increasing vasomotor symptoms and is having moderate to severe night sweats 2-3 times a week. We will try increasing her estradiol to 1.5 mg every other day and 1 mg daily on alternate days. Patient is to try this for a few weeks and see if this improves her symptoms and will call us back and let us know. We can adjust her prescription as needed. Shayy Shin MD 03/17/2021 documented in this encounter Plan of Treatment Not on file documented as of this encounter Procedures Procedure Name Priority Date/Time Associated Diagnosis Comments PAP IG, RFX HPV ASCU ([facility]) Routine 03/20/2021 11:54 AM EDT Encounter for gynecological examination documented in this encounter Results * Pap IG, Rfx HPV ASCU (03/20/2021 11:54 AM EDT) ThinPrep Vial Specimen from cervix or vagina / Unknown us Shayy Shin MD PATHOLOGY/CYTOLOGY ORDERABLES Fi nal Result [facility]
[address] [place] [address], documented in this encounter Visit Diagnoses Diagnosis Encounter for gynecological examination without abnormal finding- Primary Breast cancer screening by mammogram Encounter for gynecological examination Hormone replacement therapy (HRT) documented in this encounter Care Teams Manager Card Relationship Specialty Start Date End Date Kristopher Parnell MD PCP - General Surgical Garment Fitter 8/19/16 7/30/23 documented as of this encounter
--- OUTSIDE RECORDS SUMMARY | 2024-07-27 15:44 | XMS_ITS | Encounter Summary ---
Author Organization [facility] Address [address] [place] [address] Care Team Providers Care Quality Assurance Name Role Phone Kodi Mominlie Iraida SHAH Primary Care Provider [phone] Reason for Visit * Reason Comments Gynecologic Exam Encounter Details Date Type Department Care Team (Late st Contact Info) Description 05/03/2023 9:40 AM EDT Office Visit [facility] OBGYN [address] [place] [address] Wolfgang Mike MD [address] [place] [address] Encounter for gynecological examination without abnormal finding (Primary Dx); Breast cancer screening by mammogram; Hormone replacement therapy (HRT); Obesity (BMI 30-39.9) Social History Tobacco Use Types Packs/Day Years [...] Sign Reading Time Taken Comments Blood Pressure 128/75 05/03/2023 10:05 AM EDT Pulse - - Temperature - - Respiratory Rate - - Oxygen Saturation - - Inhaled Oxygen Concentration - - Weight 84.6 kg (186 lb 9.6 oz) 05/03/2023 10:05 AM EDT Height 165.1 cm (5' 5 ) 05/03/2023 10:05 AM EDT Body Mass Index 31.05 05/03/2023 10:05 AM EDT documented in this encounter Progress Notes * Wolfgang Mike MD - 05/03/2023 9:40 AM EDT Images from the original note were not included. 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 HPI Benjamin Hopson is a 62 y.o. female, , who presents for annual well woman exam as a established patient. She is postmenopausal and has had a hysterectomy. Denies vaginal bleeding. Patient reports problems with: nothing . There were no changes to her medical or surgical history since her last visit.. Partner Status: Marital Status: . She is is sexually active. She has not had new partners.. STD testing recommendations have been explained to the patient and she does not desire STDtesting. 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 Results: negative. HPV: negative. Last Completed Pap Smear Ordered - PAP SMEAR (Every 2 Years) Ordered on 05/03/2023 03/23/2022 LIQUID-BASED PAP SMEAR, [facility] ([facility]) 03/20/2021 Pap IG, Rfx HPV ASCU 01/01/2020 Done - in [place] (negative) History of abnormal Pap smear: no Family history of uterine, colon, breast, or ovarian cancer: yes - mother- ovarian cancer Performs monthly Self-Breast Exam: yes Last mammogram: 2021. Done at [facility]-normal per patient- has one scheduled for 05/11/23. Last Completed Mammogram This patient has no relevant Health Maintenance data. Last colonoscopy: has had a colonoscopy 1 year(s) ago. Last Completed Colonoscopy This patient has no relevant Health Maintenance data. Last bone density scan (DEXA): On 12/2013 and results were Normal Exercises Regularly: yes- walking Feelings of Anxiety or Depression: no not since starting on Pristiq Tobacco Usage?: No Current Outpatient Medications: Acetaminophen (TYLENOL ARTHRITIS EXT RELIEF PO), Tylenol Arthritis Pain 650 mg tablet,extended release Daily, Disp: , Rfl: Bystolic 10 MG tablet, Take 1 tablet by mouth Daily., Disp: , Rfl: desvenlafaxine (PRISTIQ) 50 MG 24 hr tablet, Take 1 tablet by mouth Daily., Disp: , Rfl: estradiol (ESTRACE) 1 MG tablet, Take 1.5 tablets PO every other night, take 1 tablet the other nights., Disp: 45 tablet, Rfl: 4 hydroCHLOROthiazide (HYDRODIURIL) 25 MG tablet, Take 1 tablet by mouth 2 (Two) Times a Day., Disp: , Rfl: levocetirizine (XYZAL) 5 MG tablet, Take 1 tablet by mouth Daily., Disp: , Rfl: omeprazole (priLOSEC) 20 MG capsule, Take 1 capsule by mouth Every Morning Before Breakfast., Disp:, Rfl: Patient needs refills on her Estradiol. OB History 4 Para 3 Term 3 AB 1 Living SAB 1 IAB Ectopic Molar Multiple Live Births Past Medical History: Diagnosis Date Anxiety Glaucoma suspected, not yet diagnosed 2021 Hypertension Past Surgical History: Procedure Laterality Date APPENDECTOMY OPEN BILATERAL BREAST REDUCTION BILATERAL SALPINGO OOPHORECTOMY COLONOSCOPY HERNIA REPAIR LAPAROSCOPIC TUBAL LIGATION VAGINAL HYSTERECTOMY WISDOM TOOTH EXTRACTION WRIST SURGERY Health Maintenance Topic Date Due BMI FOLLOWUP Never done COLORECTAL CANCER SCREENING Never done ZOSTER VACCINE (1 of 2) Never done DXA SCAN 12/27/2015 HEPATITIS C SCREENING Never done ANNUAL PHYSICAL Never done MAMMOGRAM 02/04/2023 INFLUENZA VACCINE 05/23/2023 PAP SMEAR 03/23/2024 Annual Gynecologic Pelvic and Breast Exam 05/04/2024 TDAP/TD VACCINES (2 - Td or Tdap) 03/30/2033 COVID-19 Vaccine Completed Pneumococcal Vaccine 0-64 Aged Out The additional following portions of the patient's history were reviewed and updated as appropriate: allergies, current medications, past family history, past medical history, past social history, and past surgical history. Review of Systems I have reviewed and agree with the HPI, ROS, and historical information as entered above. Objective BP 128/75 Ht 165.1 cm (65 ) Wt 84.6 kg (186 lb 9.6 oz) BMI 31.05 kg/m?? Physical Exam Vitals and nursing note reviewed. Exam conducted with a director of home care hospice present. Constitutional: General: She is awake. Appearance: [...] Mood and affect normal. Speech: Speech normal. 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 Reviewed monthly self breast exams. Instructed to call with lumps, pain, or breast discharge. Yearly mammograms ordered. Ordered mammogram today. Patient expressing interest in help with weight loss. Despite her efforts with diet and exercise she is still having difficulty losing weight. We did discuss to continue efforts following a healthy diet and try to incorporate at least 30 minutes of daily activity, such as walking. We will begin medical therapy and have her follow-up to assess her response. Patient denies personal or family history of medullary thyroid cancer or multiple endocrine neoplasia. We did review side effects such as nausea, vomiting, pancreatitis, fatigue and increased risks for endocrine cancers. Patient consideringbeginning medical therapy. She will call us back if she would like to proceed. Return in about 1 year (around 05/03/2024) for Annual physical. Wolfgang Mike MD 05/03/2023 * Wolfgang Mike MD - 05/03/2023 9:40 AM EDT Please call patient about results. Insufficient pap. She had normal pap with HPV neg last year, so doesn't need to repeat. documented in this encounter Plan of Treatment Not on file documented as of this encounter Procedures Procedure Name Priority Date/Time Associated Diagnosis Comments LIQUID-BASED PAP SMEAR WITH HPV GENOTYPING IF ASCUS, [facility] ([facility]) Routine 05/03/2023 11:01 AM EDT Encounter for gynecological examination without abnormal finding documented in this encounter Results * LIQUID-BASED PAP SMEAR WITH HPV GENOTYPING IF ASCUS ([facility]) (05/03/2023 11:01 AM EDT) Reference Lab Report [facility] [address] ?[place], [place] ??[address] or [phone] Kristopher Zamorano M.D., Typing Pool Supervisor PATIENT NAME ? LABORATORY NO. [id number] ?? BENJAMIN HOPSON. ?[id number] ? AGE ? SEX ?? SSN ?CLIENT REF # [facility] ?62 ?1960 ?F ? [id number] ?[id number] [address] [place] [address] ?REQUESTING M.D. ? ATTENDING M.D. ? COPY TO. MADELEINE HERNANDES [id number] ? WOLFGANG MIKE DATE COLLECTED ?DATE RECEIVED ?DATE REPORTED 05/03/2023 ?05/03/2023 ? 05/10/2023 ThinPrep Pap with Cytyc Imaging DIAGNOSIS: Nondiagnostic specimen. ??No charge has been made for this test. Professional interpretation rendered by Kristopher Zamorano M.D., [facility], [facility], [address] [facility] [place], [place] [address]. RECOMMENDATION: ?Follow up as clinically appropriate SPECIMEN ADEQUACY: ??UNSATISFACTORY FOR EVALUATION Specimen processed and examined, but unsatisfactory for evaluation of epithelial abnormality due to insufficient squamous cells. SOURCE OF SPECIMEN: ? 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 SDS, CT (ASCP) ?REVIEWED, DIAGNOSED AND ELECTRONICALLY SIGNED BY: Kristopher Zamorano M.D., [place] CPT CODES: ??[id number], [id number] 05/10/2023 5:34 AM EDT [facility] ThinPrep Vial Collection / Unknown 05/03/2023 11:01 AM EDT 05/03/2023 11:01 AM EDT us Wolfgang Mike MD PATHOLOGY/CYTOLOGY ORDERABLES Fi nal Result [facility]
[address] [place] [address], [place] [phone] documented in this encounter Visit Diagnoses Diagnosis Encounter for gynecological examination without abnormal finding- Primary Breast cancer screening by mammogram Hormone replacement therapy (HRT) Obesity (BMI 30-39.9) documented in this encounter Care Teams Quality Assurance Relationship Specialty Start Date End Date Lucille Momin, NANOTECHNOLOGY ENGINEERING TECHNOLOGIST [address] [place] [id number] PCP - General Nurse Practitioner 03/22/23 05/22/24 documented as of this encounter
--- OUTSIDE RECORDS SUMMARY | 2024-07-27 15:44 | XMS_ITS | Encounter Summary ---
Author Organization [facility] Address [address] [place] [address] Care Team Providers Care Personal Vehicle Advisor Name Role Phone Unavailable Primary Care Provider Unavailabl e Encounter Details Date Type Department Care Team (Late st Contact Info) Description 11/03/2018 Transcribed Document [facility] [place] [facility] [address] ProviderZoey MD [address] [place] [address] Social History Tobacco Use Types Packs/Day [...] Zoey ProviderMD - 11/03/2018 4:27 PM CDT [address] [place] [address] PERSON INFORMATION Name BENJAMIN HOPSON Age 58 Years 1960 Sex Female Language Mohawk PCP LATHA WHITNEY MD-[facility] Marital Status Med Service Emergency Medicine Acct# Arrival 11/03/2018 13:35:00 Visit Reason Back pain; LOWER BACK PAIN Acuity 3 - Urgent LOS 000 02:52 Depart Date: 11/03/18 04:27 PM Address: [place] [address] Comment: PROVIDER INFORMATION Provider Role Assigned Unassigned GLENN SILVER MD ED Physician 11/03/2018 13:44:19 Danya Monte PA ED Physician 11/03/2018 13:44:21 11/03/2018 13:44:34 Caterina Medeiros, vp ad sales west Nurse 11/03/2018 14:16:12 DIAGNOSIS PHYS DOC NOTES VITALS INFORMATION Vital Sign Triage Latest Temp Source Oral Oral Temp Mode Fahrenheit Fahrenheit Temp Fahrenheit 98.3 Deg F 97.8 Deg F Temp Celsius 02 Sat 98 % 97 % Respiratory Rate 16 Breaths/Min 18 Breaths/Min Peripheral Pulse Rate 77 bpm 80 bpm Apical Heart Rate Blood Pressure 179 mmHg / 82 mmHg 134 mmHg / 76 mmHg Comment: MEDICAL INFORMATION Allergy Info: acetaminophen-oxyCODONE; morphine; erythromycin Medications: Prescription Display cyclobenzaprine (cyclobenzaprine 10 mg oral tablet) 1 Tab, Oral, Tab, TID, PRN as needed for spasm, X 10 Day(s), # 30 Tab, 1 Refill(s) dextromethorphan-promethazine (dextromethorphan-promethazine 15 mg-6.25 mg/5 mL oral syrup) 5 mL, Oral, Q6H, X 5 Day(s), # 100 mL, 1 Refill(s) Comment: DISCHARGE INFORMATION Discharge Disposition: Home Discharge Location: PATIENT EDUCATION INFORMATION Instructions: Lumbosacral Radiculopathy Follow up: With: Address: When: AARTI RAY [address] [place] [address], [id number] [place] [id number] [place] (1) Within 1 to 2 weeks With: Address: When: [facility] Within 2 to 3 days Comments: For further assistance with your Primary Care Physician please contact the Patient Resource Center at [phone]. Please follow up with Dr. Whitney. With: Address: When: LATHA WHITNEY [address] [place] [address] [facility] (1) Within 2 to 3 days Comment: documented in this encounter Plan of Treatment Not on file documented as of this encounter Visit Diagnoses Not on filedocumented in this encounter
--- OUTSIDE RECORDS SUMMARY | 2024-07-27 15:44 | XMS_ITS | Referral Summary ---
Author Organization [employer] Address [address] [place] [address] Care Team Providers Care Illuminator Name Role Phone Unavailable Primary Care Provider Unavailabl e Social History Tobacco Use Types Packs/Day Years Used Date Smoking Tobacco: Never Assessed Comments Unknown Sex and Gender Information Value Date Recorded Sex Assigned at Not on file Legal Sex Female 4:10 PM CDT Gender Identity Not on file Sexual Orientation Not on file Plan of Treatment Not on file
--- OUTSIDE RECORDS SUMMARY | 2024-07-27 15:44 | XMS_ITS | Encounter Summary ---
Author Organization [facility] Address [address] [place] [address] Care Team Providers Care Electrician Wiring Name Role Phone Kristopher Parnell MD Primary Care Provider Un available Encounter Details Date Type Department Care Team (Late st Contact Info) Description 11/07/2020 Telephone [facility] OBGYN [address] [facility] [address] [place] [phone] Shayy Shin MD [address] [facility] [address] [place] [address] Social History Tobacco Use Types Packs/Day Years Used Date Smoking Tobacco: Never Assessed Comments Unknown Sex and Gender Information Value Date Recorded Sex Assigned at Not on file Legal Sex Female 10:16 AM EDT Gender Identity Not on file Sexual Orientation Not on file documented as of this encounter Miscellaneous Notes * Telephone Encounter - Sang Pendleton RN - 11/07/2020 4:02 PM EDT Taking Estradiol 1mg * Telephone Encounter - Sang Pendleton RN - 11/07/2020 3:50 PM EDT Call [facility] to schedule her mamm February 2021 * Telephone Encounter - Truman Ventura RegSched Rep - 11/07/2020 11:52 AM EDT Patient states she is to receive second round Pfizer COVID vaccine. Patient due in December for mammogram. Wants to know if she needs to postpone mammogram due to COVID vaccine. documented in this encounter Plan of Treatment Not on file documented as of this encounter Visit Diagnoses Not on filedocumented in this encounter Care Teams Electrician Wiring Relationship Specialty Start Date End Date Kristopher Parnell MD PCP - General Shingles Roofer 04/10/16 03/21/23 documented as of this encounter
--- OUTSIDE RECORDS SUMMARY | 2024-07-27 15:44 | XMS_ITS | Encounter Summary ---
Author Organization [employer] Address [address] [place] [address] Care Team Providers Care Entertainment Manager Name Role Phone Unavailable Primary Care Provider Unavailabl e Encounter Details Date Type Department Care Team (Late st Contact Info) Description 11/03/2018 Transcribed Document [facility] [place] [facility] [place] [address] ProviderZoey MD [address] [place] [address] [id number] Social History Tobacco Use Types Packs/Day Years Used Date Smoking Tobacco: Never Assessed Comments Unknown Sex and Gender Information Value Date Recorded Sex Assigned at Not on file Legal Sex Female 4:10 PM CDT Gender Identity Not on file Sexual Orientation Not on file documented as of this encounter Miscellaneous Notes * Cerner Conversion Note - Zoey ProviderMD - 11/03/2018 1:35 PM CDT ED Assessment Entered On: 11/03/2018 13:55 EDT Performed On: 11/03/2018 13:50 EDT by Caterina Medeiros Rn ED Quick Look Assessment Level of Consciousness : Alert, Awake Affect/Behavior : Appropriate, Calm, Cooperative Orientation : Oriented x 4 Skin Temperature : Warm Skin Description : Normal for ethnicity Caterina Medeiros Rn - 11/03/2018 13:50 EDT ED General-Functional Assess Information Obtained From : Patient Communication Barrier : None Primary Language : Setswana Any Spiritual/Cultural Needs or Requests : No Currently in Unsafe Situation : No Caterina Medeiros Rn - 11/03/2018 13:50 EDT Social Habits Smoking Status : Never (less than 100 in lifetime; none in last 30 days) Smokeless Tobacco Status : Never Desires Tobacco Cessation Calc : 0 Caterina Medeiros Rn - 11/03/2018 13:50 EDT Social History (As Of: 11/03/2018 13:55:52 EDT) Tobacco: Smoking Status Never smoker. (Last Updated: 10/19/2017 17:51:45 EST by ALIE DELANEY MD) Alcohol: Alcohol Use History No. (Last Updated: 10/19/2017 17:51:45 EST by ALIE DELANEY MD) Substance Abuse: Drug Use Hx: No. (Last Updated: 10/19/2017 17:51:45 EST by ALIE DELANEY MD) Cardiovascular ASMT, ED Cardiovascular Assessment WDL : Caterina Uribe Rn - 11/03/2018 13:50 EDT Musculoskeletal Musculoskeletal Assessment WDL : WDL with exceptions (Comment: pt c/o lower back pain that radiates down the back of L leg behind left knee and into heel. pt denies numbness and tingling. pt bent over Wednesday night states she heard a pop . pt has history of lumbar disc herniatioin. last MRI last year. pt states loss of bladder wednesday night but denies any loss of bowel and bladder since. [Caterina Medeiros Rn - 11/03/2018 13:50 EDT] ) Caterina Medeiros Rn - 11/03/2018 13:50 EDT Neurologic ASMT, ED Neurologic Assessment WDL : Caterina Uribe Rn - 11/03/2018 13:50 EDT documented in this encounter Plan of Treatment Not on file documented as of this encounter Visit Diagnoses Not on filedocumented in this encounter
--- OUTSIDE RECORDS SUMMARY | 2024-07-27 15:44 | XMS_ITS | Clinical Summary ---
Author Organization [employer] Address [address] [place] [address] Care Team Providers Care Security Nurse Name Role Phone Unavailable Primary Care Provider [...]
--- OUTSIDE RECORDS SUMMARY | 2024-07-27 15:44 | XMS_ITS | Encounter Summary ---
Author Organization [employer] Address [address] [place] [address] Care Team Providers Care Director Of Nursing Name Role Phone Unavailable Primary Care Provider Unavailabl e Encounter Details Date Type Department Care Team (Late st Contact Info) Description 11/03/2018 Transcribed Document [facility] Family Medicine [facility] [place] [address] ProviderZoey MD [address] [place] [address] [id number] Social History Tobacco Use Types Packs/Day Years Used Date Smoking Tobacco: Never Assessed Comments Unknown Sex and Gender Information Value Date Recorded Sex Assigned at Not on file Legal Sex Female 4:10 PM CDT Gender Identity Not on file Sexual Orientation Not on file documented as of this encounter Miscellaneous Notes * Cerner Conversion Note - Zoey ProviderMD - 11/03/2018 1:57 PM CDT Patient: BENJAMIN HOPSON Age: 58 years Sex: Female : 1960 Associated Diagnoses: Back pain Author: GLENN SILVER MD Basic Information Additional information: Chief Complaint from Nursing Triage Note : Chief Complaint 11/03/2018 13:44 EDT Chief Complaint from [facility] w.c/o lower back pain since Wed., when pt bent over and was unable to straighten; reports new stress incontinence; has been seen by in the past, last MRI @16mo ago; Hx HTN, chronic back pain . History of Present Illness The patient presents with 58-year-old female with exacerbation of low back pain 2 days ago while bending over. Patient reports that the pain radiates down the lateral side of her left leg and into the heel of her left foot. Patient has a history of a herniated disc 16 months ago but did not have surgery at that time. Patient also denies any falls or other trauma to her back. Patient denies diabetes, fever, chest pain, shortness of breath, dysuria.. The onset was 2 days ago. The course/duration of symptoms is worsening. Type of injury: bending. The location where the incident occurred was at home. The character of symptoms is sharp. The degree at onset was severe. The degree at present is severe. There are exacerbating factors including movement and changing position. Risk factors consist of none. Prior episodes: occasional. Therapy today: none. Associated symptoms: denies bowel dysfunction. Review of Systems Constitutional symptoms: No fever, no chills. Skin symptoms: No jaundice, Eye symptoms: Vision unchanged. ENMT symptoms: No ear pain, Cardiovascular symptoms: No chest pain, Gastrointestinal symptoms: No abdominal pain, Genitourinary symptoms: No dysuria, Musculoskeletal symptoms: Back pain. Neurologic symptoms: No dizziness, Endocrine symptoms: No polyuria, Additional review of systems information: All other systems reviewed and otherwise negative. Health Status Allergies: Allergic Reactions (Selected) Severity Not Documented Acetaminophen-oxyCODONE- No reactions were documented. Erythromycin- No reactions were documented. Morphine- No reactions were documented.. Past Medical/ Family/ Social History Surgical history: No active procedure history items have been selected or recorded.. Family history: No family history items have been selected or recorded.. Social history: Social & Psychosocial Habits Alcohol 10/19/2017 Alcohol Use History, Social Habits No Substance Abuse 10/19/2017 Recreational Drug Use History No Tobacco 10/19/2017 Smoking Status Never smoker . Physical Examination Vital Signs Measurements 11/03/2018 13:44 EDT Height Source Stated Height Entry Format [place] Height/Length, AMHARIC (ft) 5 ft Height/Length AMHARIC 5 Inch CLINICALHEIGHT 165.1 cm [place] Body Weight 56.59 kg Weight Source, ED Critical estimated dosing weight Weight Entry Format [place] Weight Bhutanese lb 180 lb CLINICALWEIGHT 81.82 kg Body Surface Area (BSA) 1.89 m2 Body Mass Index 30 kg/m2 HI . Oxygen Saturation 11/03/2018 13:44 EDT Oxygen Saturation 98 % . General: Alert, moderate distress. Skin: Warm, dry. Head: Atraumatic. Neck: Supple, no tenderness. Eye: Pupils are equal, round and reactive to light, extraocular movements are intact. Cardiovascular: Regular rate and rhythm. Respiratory: Lungs are clear to auscultation. Gastrointestinal: Soft, Non distended. Back: Normal alignment. Neurological: Alert and oriented to person, place, time, and situation, No focal neurological deficit observed, Patient reluctant to move her left leg secondary to pain in her back. No tenderness over the L-spine.. Psychiatric: Cooperative. Reexamination/ Reevaluation Time: 11/03/2018 16:08:00 . Notes: Patient was unable to tolerate MRI. Patient refused sedation for MRI and also refuses narcotic pain medications. Plan to discharge patient with prescription for outpatient open MRI and Flexeril and Phenergan with eczema to or fan for cough.. Impression and Plan Diagnosis Complaint of Back pain - Reason For Visit, Emergency medicine, Medical Plan Condition: Unchanged. Disposition: Discharged Admit/Transfer/Discharge: Discharge (Order): Start: 11/03/2018 16:09 EDT, Discharge to: Home. Prescriptions: Prescription [facility]: dextromethorphan-promethazine 15 mg-6.25 mg/5 mL oral syrup (Prescribe): 5 mL, Oral, Q6H, for 5 Day(s), 100 mL, 1 Refill(s) cyclobenzaprine 10 mg oral tablet (Prescribe): 1 Tab, Oral, TID, for 10 Day(s), PRN: as needed for spasm, 30 Tab, 1 Refill(s). Patient was given the following educational materials: Lumbosacral Radiculopathy. Follow up with: Patient Resource Center Within 2 to 3 days For further assistance with your Primary Care Physician please contact the Patient Resource Center at [phone]. Please follow up with Dr. Whitney.; LATHA WHITNEY Within 2 to 3 days, [facility] Within 2 to 3 days For further assistance with your Primary Care Physician please contact the Patient Resource Center at [phone]. Please follow up with Dr. Whitney.; LATHA WHITNEY Within 2 to 3 days; AARTI RAY Within 1 to 2 weeks. documented in this encounter Plan of Treatment Not on file documented as of this encounter Visit Diagnoses Not on filedocumented in this encounter
--- OUTSIDE RECORDS SUMMARY | 2024-07-27 15:44 | XMS_ITS | Encounter Summary ---
[facility] Address [address] [place] [address] Care Team Providers Care Sap Security Consultant Name Role Phone Kristopher Parnell MD Primary Care Provider Un available Encounter Details Date Type Department Care Team (Late st Contact Info) Description 05/02/2021 Telephone [facility] OBGYN [address] [facility] [address] [place] [phone] Shayy Shin MD [address] [facility] [address] [place] [address] Social History Tobacco Use Types Packs/Day Years [...] encounter Miscellaneous Notes * Telephone Encounter - Viviana Valladares RN - 05/02/2021 1:18 PM EDT Pt. Is to take 1.5 tablets every other day and it was not called in this way. Will send in correct dose * Telephone Encounter - Amara Bennett - 05/02/2021 1:12 PM EDT Pt lvm stating she is needing a refill on her Estradiol. documented in this encounter Plan of Treatment Not on file documented as of this encounter Visit Diagnoses Diagnosis Hormone replacement therapy (HRT) documented in this encounter Care Teams Sap Security Consultant Relationship Specialty Start Date End Date Kristopher Parnell MD PCP - General Lead Nuclear Medicine Technologist 04/10/16 03/21/23 documented as of this encounter
--- OUTSIDE RECORDS SUMMARY | 2024-07-27 15:44 | XMS_ITS | Encounter Summary ---
Author Organization [facility] Address [address] [place] [address] Care Team Providers Care Spinneret Cleaner Name Role Phone Kristopher Parnell MD Primary Care Provider Un available Encounter Details Date Type Department Care Team (Late st Contact Info) Description 06/30/2021 1:00 PM EST Pre-Admission Testing [facility] T [address] [place] [phone] Social History Tobacco Use Types Packs/Day Years [...] on file documented as of this encounter OR Notes * Georgie Hill RN - 06/30/2021 1:00 PM EST The following information and instructions were given: Nothing to eat or drink after midnight except sips of water with routine prescribed medication (except blood thinner, certain blood pressure medications, diabetes, or weight reducing medication) unless otherwise instructed by your physician. Do not eat, drink, smoke or chew gum after midnight the night before surgery. This also includes no mints. EXCEPTION: ERAS patients Patient instructed to drink 20 ounces (or until full) of Gatorade and it needs to be completed 1 hour before given arrival time on the day of surgery. (NO RED Gatorade) Patient verbalized understanding. DO NOT shave for two days before your procedure. Do not wear makeup. DO NOT wear fingernail irish (gel/regular) and/or acrylic/artificial nails on the day of surgery. If a patient had recent manicure and would rather not remove irish or artificial nails, then the minimum requirement is that the irish/artificial nails must be removed from the middle finger on eachhand. If patient was having surgery on an upper extremity, then the patient was instructed that fingernail irish/artificial fingernails must be removed for surgery. NO EXCEPTIONS. If patient was having surgery on a lower extremity, then the patient was instructed that toenail irish on both extremities must be removed for surgery. NO EXCEPTIONS. Remove all jewelry (advised to go to jeweler if unable to remove). Jewelry especially rings can no longer be taped for surgery. Leave anything you consider valuable at home. Bring the following with you (if applicable) -picture ID and insurance cards -Co-pay/deductible required by insurance -Medications in the original bottles (not a list) including all [id number] meds Education booklet, brochure, and/or given to patient. Patient must have a local combination truck driver for transportation home after procedure. It must be an adult that will take responsibility for care for 24 hours after surgery. EKG in chart. covid test completed here documented in this encounter Plan of Treatment Not on file documented as of this encounter Procedures Procedure Name Priority Date/Time Associated Diagnosis Comments ECG 12-LEAD Routine 06/30/2021 12:11 PM EST COVID-19, APTIMA PANTHER DANIELLE IN-HOUSE ICER MACHINE OPERATOR/OP SWAB IN UTM/VTM/SALINE TRANSPORT MEDIA 24-48 HR TAT Routine 06/30/2021 11:51 AM EST COVID PRE-OP / PRE-PROCEDURE SCREENING ORDER (NO ISOLATION) Routine 06/30/2021 11:51 AM EST CBC (NO DIFF) Routine 06/30/2021 11:51 AM EST BASIC METABOLIC PANEL Routine 06/30/2021 11:51 AM EST documented in this encounter Results * ECG 12 Lead (06/30/2021 12:11 PM EST) QT Interval 440 ms ECG QTC Interval 442 ms ECG 06/30/2021 12:1 1 PM EST 06/30/2021 4:28 PM EST Narrative ECG - 06/30/2021 4:28 PM EST Test Reason : PAT Blood Pressure : ?? */* ?? mmHG Vent. Rate : ??61 BPM ? Atrial Rate : ??61 BPM ?? P-R Int : 156 ms ?QRS Dur : ??84 ms ?QT Int : 440 ms ? P-R-T Axes : ??47 ??14 ??38 degrees ?? QTc Int : 442 ms Normal sinus rhythm Normal ECG When compared with ECG of 03-FEB-2015 14:20, No significant change was found Confirmed by NAGA RICO ([id number]) on 06/30/2021 4:28:32 PM Referred By: PAGE ? Confirmed By: NAGA RICO Procedure Note Naga Rico MD - 06/30/2021 Test Reason : PAT Blood Pressure : */* mmHG Vent. Rate : 61 BPM Atrial Rate : 61 BPM P-R Int : 156 ms QRS Dur : 84 ms QT Int : 440 ms P-R-T Axes : 47 14 38 degrees QTc Int : 442 ms Normal sinus rhythm Normal ECG When compared with ECG of 03-FEB-2015 14:20, No significant change was found Confirmed by NAGA RICO ([id number]) on 06/30/2021 4:28:32 PM Referred By: PAGE Confirmed By: NAGA RICO Dustin Kirkpatrick MD ECG ORDERABLES Final Result ECG * COVID-19, APTIMA PANTHER DANIELLE IN-HOUSE ICER MACHINE OPERATOR/OP SWAB IN UTM/VTM/SALINE TRANSPORT MEDIA 24HR TAT - Swab,Nasopharynx (06/30/2021 11:51 AM EST) Pathologist [facility] [place] COVID19 Not Detected Not Detected - Ref. Range HOLOGIC PANTHER 06/30/2021 4:23 PM EST [facility] Swab Nasopharyngeal structure / Unknown Collection / Unknown 06/30/2021 11:51 AM EST 06/30/2021 12:18 PM EST [facility] - 06/30/2021 4:23 PM EST Fact sheet for providers: https://www.fda.gov/media/947223/download Fact sheet for patients: https://www.fda.gov/media/665588/download Test performed by RT PCR. Dustin Kirkpatrick MD MICROBIOLOGY - GENERAL ORDERAB LES Final Result [facility]
[address] [place] [address], * Basic Metabolic Panel (06/30/2021 11:51 AM EST) Pathologist [facility] [place] Glucose 87 65 - 99 mg/dL 06/30/2021 1:44 PM EST [facility] BUN 13 6 - 20 mg/dL 06/30/2021 1:44 PM EST [facility] Creatinine 0.61 0.57 - 1.00 mg/dL 06/30/2021 1:44 PM EST [facility] Sodium 138 136 - 145 mmol/L 06/30/2021 1:44 PM EST [facility] Potassium 3.8 3.5 - 5.2 mmol/L 06/30/2021 1:44 PM EST [facility] Chloride 100 98 - 107 mmol/L 06/30/2021 1:44 PM EST [facility] CO2 26.0 22.0 - 29.0 mmol/L 06/30/2021 1:44 PM EST [facility] Calcium 9.1 8.6 - 10.5 mg/dL 06/30/2021 1:44 PM EST [facility] eGFR Non Amer 101 >60 mL/min/1.7 3 06/30/2021 1:44 PM [facility] BUN/Creatinine Ratio 21.3 7.0 - 25.0 06/30/2021 1:44 PM EST [facility] Anion Gap 12.0 5.0 - 15.0 mmol/L 06/30/2021 1:44 PM [facility] Blood Venipuncture / Unknown 06/30/2021 11:51 AM EST 06/30/2021 12:15 PM EST [facility] - 06/30/2021 1:44 PM EST GFR Normal >60 Chronic Kidney Disease <60 Kidney Failure <15 Dustin Kirkpatrick MD LAB BLOOD ORDERABLES Final Res ult [facility]
[address] [place] [address], * (ABNORMAL) CBC (No Diff) (06/30/2021 11:51 AM EST) WBC 8.25 3.40 - 10.80 10*3/mm3 06/30/2021 12:27 PM [facility] RBC 4.43 3.77 - 5.28 10*6/mm3 06/30/2021 12:27 PM [facility] Hemoglobin 12.1 12.0 - 15.9 g/dL 06/30/2021 12:27 PM [facility] Hematocrit 37.7 34.0 - 46.6 % 06/30/2021 12:27 PM [facility] MCV 85.1 79.0 - 97.0 fL 06/30/2021 12:27 PM EST [facility] MCH 27.3 26.6 - 33.0 pg 06/30/2021 12:27 PM EST [facility] MCHC 32.1 31.5 - 35.7 g/dL 06/30/2021 12:27 PM EST [facility] RDW 11.8(L) 12.3 - 15.4 % 06/30/2021 12:27 PM EST [facility] RDW-SD 36.2(L) 37.0 - 54.0 fl 06/30/2021 12:27 PM EST [facility] MPV 10.0 6.0 - 12.0 fL 06/30/2021 12:27 PM EST [facility] Platelets 289 140 - 450 10*3/mm3 06/30/2021 12:27 PM EST [facility] Blood Venipuncture / Unknown 06/30/2021 11:51 AM EST 06/30/2021 12:15 PM EST Dustin Kirkpatrick MD LAB BLOOD ORDERABLES Final Res ult [facility]
[address] [place] [address], documented in this encounter Visit Diagnoses Not on filedocumented in this encounter Additional Health Concerns Infection Onset Date Last Indicated Resolved Time COVID Screen (preop/placement) 06/30/2021 06/30/2021 06/30/2021 4:23 PM EST documented as of this encounter Care Teams Spinneret Cleaner Relationship Specialty Start Date End Date Kristopher Parnell MD PCP - General Chef Instructor 04/10/16 03/21/23 documented as of this encounter
--- OUTSIDE RECORDS SUMMARY | 2024-07-27 15:44 | XMS_ITS | Encounter Summary ---
Author Organization [employer] [facility] [employer] Address [address] [place] [address] Care Team Providers Care Waybill Clerk Name Role Phone Unavailable Primary Care Provider Unavailabl e Encounter Details Date Type Department Care Team (Late st Contact Info) Description 11/03/2018 Transcribed Document [facility] [place] Family Medicine [address] [place] [address] ProviderZoey MD [address] [place] [id number] Social History Tobacco Use Types Packs/Day Years Used Date Smoking Tobacco: Never Assessed Comments Unknown Sex and Gender Information Value Date Recorded Sex Assigned at Not on file Legal Sex Female 4:10 PM CDT Gender Identity Not on file Sexual Orientation Not on file documented as of this encounter Miscellaneous Notes * Cerner Conversion Note - Historical ProviderMD - 11/03/2018 4:25 PM CDT ED Discharge Vital Signs Entered On: 11/03/2018 16:26 EDT Performed On: 11/03/2018 16:25 EDT by Wero Andrade, CHIEF PASSENGER SHIP STEWARD/STEWARDESS Discharge Vital Signs Temperature Source : Oral Temperature Mode : Fahrenheit Temperature, Fahrenheit : 97.8 Deg F Clinical Temperature, C : 36.6 Deg C Peripheral Pulse Rate : 80 bpm Respiratory Rate : 18 Breaths/Min Systolic Blood Pressure : 134 mmHg Diastolic Blood Pressure : 76 mmHg Oxygen Saturation : 97 % Wero Andrade, RN - 11/03/2018 16:25 EDT documented in this encounter Plan of Treatment Not on file documented as of this encounter Visit Diagnoses Not on filedocumented in this encounter
--- OUTSIDE RECORDS SUMMARY | 2024-07-27 15:44 | XMS_ITS | Encounter Summary ---
Author Organization [facility] Address [address] [place] [address] Care Team Providers Care Binder Selector Name Role Phone Kristopher Parnell MD Primary Care Provider Un available Reason for Visit * Reason Comments Back Pain Encounter Details Date Type Department Care Team (Late st Contact Info) Description 11/02/2018 12:41 AM EDT - 11/02/2018 2:03 AM EDT Emergency [facility] [address] [place] [phone] Discharge Disposition: Left Without Being Seen Social History Tobacco Use Types Packs/Day Years Used Date Smoking Tobacco: Never Assessed Comments Unknown Sex and Gender Information Value Date Recorded Sex Assigned at Not on file Legal Sex Female 10:16 AM EDT Gender Identity Not on file Sexual Orientation Not on file documented as of this encounter Last Filed Vital Signs Vital Sign Reading Time Taken Comments Blood Pressure 163/77 11/01/2018 10:54 PM EDT Pulse 69 11/01/2018 10:54 PM EDT Temperature 36.3 ??C (97.4 ??F) 11/01/2018 10:54 PM E DT Respiratory Rate 18 11/01/2018 10:54 PM EDT Oxygen Saturation 96% 11/01/2018 10:54 PM EDT Inhaled Oxygen Concentration - - Weight 81.6 kg (180 lb) 11/01/2018 10:54 PM EDT Height 165.1 cm (5' 5 ) 11/01/2018 10:54 PM EDT Body Mass Index 29.95 11/01/2018 10:54 PM EDT documented in this encounter Plan of Treatment Not on file documented as of this encounter Visit Diagnoses Not on filedocumented in this encounter Care Teams Binder Selector Relationship Specialty Start Date End Date Kristopher Parnell MD PCP - General Supervisor Dairy Sanitation 04/10/16 03/21/23 documented as of this encounter
--- OUTSIDE RECORDS SUMMARY | 2024-07-27 15:44 | XMS_ITS | Encounter Summary ---
Author Organization [facility] [employer] [facility] Address [address] [place] [address] Care Team Providers Care Clerical Support Specialist Name Role Phone Unavailable Primary Care Provider Unavailabl e Encounter Details Date Type Department Care Team (Late st Contact Info) Description 11/03/2018 Transcribed Document [facility] [place] Medicine [facility]ly [facility] [place] [address] ProviderZoey MD [address] [place] [id number] Social History Tobacco Use Types Packs/Day Years [...] ProviderMD - 11/03/2018 1:35 PM CDT ED Triage Entered On: 11/03/2018 13:48 EDT Performed On: 11/03/2018 13:44 EDT by ALANIS ORNELAS RN ED Triage Across the Room Triage Date/Time : 11/03/2018 13:44 EDT Chief Complaint : from lob w.c/o lower back pain since Wed., when pt bent over and was unable to straighten; reports new stress incontinence; has been seen by in the past, last MRI @16mo ago; Hx HTN, chronic back pain ALANIS ORNELAS RN - 11/03/2018 13:44 EDT DCP GENERIC CODE Tracking Acuity : 3 - Urgent Tracking Group : [facility] ED ALANIS ORNELAS RN - 11/03/2018 13:44 EDT Mode of Arrival : Ambulatory Transported to ED by : Private vehicle To Room Via : Ambulate Accompanied By : Spouse ED Vital Signs : Document Height & Weight : Document ED Allergies : Document ED Reason for Visit : Document ALANIS ORNELAS RN - 11/03/2018 13:44 EDT Infectious Disease History Infectious Disease History : Chicken pox/Shingles, Influenza Fever/Chills Last 48 Hours : No Travel To Regions with Travel Advisories : No Travel Outside [place] Within Last 30 Days : No Contact With Traveler to Advisory Region : No Tuberculosis Symptoms : None ALANIS ORNELAS RN - 11/03/2018 13:44 EDT Vital Signs ED Temperature Source : Oral Temperature Mode : Fahrenheit Temperature, Fahrenheit : 98.3 Deg F Clinical Temperature, C : 36.8 Deg C Oxygen Therapy Mode : Room air Peripheral Pulse Rate : 77 bpm Respiratory Rate : 16 Breaths/Min Systolic Blood Pressure : 179 mmHg (HI) Diastolic Blood Pressure : 82 mmHg Oxygen Saturation : 98 % ALANIS ORNELAS RN - 11/03/2018 13:44 EDT Allergy (As Of: 11/03/2018 13:48:33 EDT) Allergies (Active) acetaminophen-oxyCODONE Estimated Onset Date: Unspecified ; Created By: JULIAN HAILE; Reaction Status: Active ; Category: Drug ; Substance: acetaminophen-oxyCODONE ; Type: Allergy ; Updated By: JULIAN HAILE; Reviewed Date: 11/03/2018 13:48 EDT erythromycin Estimated Onset Date: Unspecified ; Created By: JULIAN HAILE; Reaction Status: Active ; Category: Drug ; Substance: erythromycin ; Type: Allergy ; Updated By: JULIAN HAILE; Reviewed Date: 11/03/2018 13:48 EDT morphine Estimated Onset Date: Unspecified ; Created By: JULINA HAILE; Reaction Status: Active ; Category: Drug ; Substance: morphine ; Type: Allergy ; Updated By: JULIAN HAILE; Reviewed Date: 11/03/2018 13:48 EDT Diagnosis Control ED (As Of: 11/03/2018 13:48:33 EDT) Problems(Active) Chronic low back pain (SNOMED CT :876097010 ) Name of Problem: Chronic low back pain ; Recorder: ALIE DELANEY MD; Confirmation: Confirmed ; Classification: Medical ; Code: [id number] ; Contributor System: [facility] ; Last Updated: 10/19/2017 17:35 EST ; Life Cycle Date: 10/19/2017 ; Life Cycle Status: Active ; Responsible Provider: ALIE DELANEY MD; Vocabulary: SNOMED CT HTN (hypertension) (SNOMED CT :1197458115 ) Name of Problem: HTN (hypertension) ; Recorder: DANI SANCHEZ RN; Confirmation: Confirmed ; Classification: Medical ; Code: [id number] ; Contributor System: [facility] ; Last Updated: 10/19/2017 13:39 EST ; Life Cycle Date: 10/19/2017 ; Life Cycle Status: Active ; Vocabulary: SNOMED CT Diagnoses(Active) Back pain Date: 11/03/2018 ; Diagnosis Type: Reason For Visit ; Confirmation: Complaint of ; Clinical Dx: Back pain ; Classification: Medical ; Clinical Service: Emergency medicine ; Code: PNED ; Probability: 0 ; Diagnosis Code: [id number] ED Height and Weight Height Source : Stated Height Entry Format : [place] Height, Feet : 5 ft(Converted to: 152 cm, 60 Inch) Height, Inches : 5 Inch(Converted to: 0 ft 5 Inch, 12.70 cm) Clinical Height : 165.1 cm Weight Source, ED : Critical estimated dosing weight Weight Entry Format : [place] Weight, Pounds : 180 lb Clinical Dosing Weight : 81.82 kg Body Surface Area (BSA) : 1.89 m2 Body Mass Index : 30 kg/m2 (HI) [place] Body Weight (IBW) : 56.59 kg ALANIS ORNELAS RN - 11/03/2018 13:44 EDT documented in this encounter Plan of Treatment Not on file documented as of this encounter Visit Diagnoses Not on filedocumented in this encounter
--- OUTSIDE RECORDS SUMMARY | 2024-07-27 15:44 | XMS_ITS | Encounter Summary ---
Author Organization [facility] Address [address] [place] [address] Care Team Providers Care Routing Clerk Name Role Phone Kristopher Parnell MD Primary Care Provider Un available Reason for Visit * Reason Comments Gynecologic Exam annual Encounter Details Date Type Department Care Team (Late st Contact Info) Description 03/23/2022 2:[address] PM EDT Office Visit [facility] O[facility] [address] [place] [address] Wolfgang Mike MD [address] [place] [address] Well woman exam with routine gynecological exam (Primary Dx); Breast cancer screening by mammogram; Hormone replacement therapy (HRT); Urinary tract infection without hematuria, site unspecified Social History Tobacco Use Types Packs/Day Years [...] Sign Reading Time Taken Comments Blood Pressure 138/68 03/23/2022 2:11 PM EDT Pulse - - Temperature - - Respiratory Rate - - Oxygen Saturation - - Inhaled Oxygen Concentration - - Weight 85.9 kg (189 lb 6.4 oz) 03/23/2022 2:11 P M EDT Height 165.1 cm (5' 5 ) 03/23/2022 2:11 PM EDT Body Mass Index 31.52 03/23/2022 2:11 PM EDT documented in this encounter Progress Notes * Wolfgang Mike MD - 03/23/2022 2:00 PM EDT Images from the original note were not included. 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 HPI Benjamin Hopson is a 61 y.o. female, , who presents for annual well woman exam as a established patient. She is postmenopausal. Denies vaginal bleeding. Patient reports problems with: none. There were no changes to her medical or surgical history since her last visit.. Partner Status: Marital Status: . She is is sexually active. She has not had new partners.. STD testing recommendations have been explained to the patient and she does not desire STD testing. 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 Yes. Details: estradiol Last Pap : 03/17/21 vaginal cuff. Results: negative. HPV: not done Last Completed Pap Smear Ordered - PAP SMEAR (Every 2 Years) Ordered on 03/23/2022 03/20/2021 Pap IG, Rfx HPV ASCU 01/01/2020 Done - in [place] (negative) History of abnormal Pap smear: no Family history of uterine, colon, breast, or ovarian cancer: yes - ovarian cancer Performs monthly Self-Breast Exam: yes Last mammogram: 2021 normal per pt . Done at [facility]. Last Completed Mammogram Ordered - MAMMOGRAM (Every 2 Years) Ordered on 03/23/2022 02/04/2021 SCANNED - MAMMO Last colonoscopy: has had a colonoscopy 5 year(s) ago. pt states that she has one scheduled Last Completed Colonoscopy This patient has no relevant Health Maintenance data. Last bone density scan (DEXA): 2014 Exercises Regularly: yes Feelings of Anxiety or Depression: no Tobacco Usage?: Yes Benjamin Hopson reports that she has been smoking. She has never used smokeless tobacco.. I have educated her on the risk of diseases from using tobacco products such as cancer,COPD and heart disease. I advised her to quit and she is not willing to quit. Current Outpatient Medications: ??? Acetaminophen (TYLENOL ARTHRITIS EXT RELIEF PO), Tylenol Arthritis Pain 650 mg tablet,extended release Daily, Disp: , Rfl: ??? Bystolic 10 MG tablet, Take 10 mg by mouth Daily., Disp: , Rfl: ??? estradiol (ESTRACE) 1 MG tablet, Take 1.5 tablets PO every other night, take 1 tablet the othernights., Disp: 45 tablet, Rfl: 11 ??? hydroCHLOROthiazide (HYDRODIURIL) 25 MG tablet, Take 25 mg by mouth 2 (Two) Times a Day., Disp:, Rfl: ??? levocetirizine (XYZAL) 5 MG tablet, Take 5 mg by mouth Daily., Disp: , Rfl: ??? omeprazole (priLOSEC) 20 MG capsule, Take 20 mg by mouth Every Morning Before Breakfast., Disp:, Rfl: OB History 4 Para 3 Term 3 AB 1 Living SAB 1 IAB Ectopic Molar Multiple Live Births Past Medical History: Diagnosis Date ??? Anxiety ??? Hypertension Past Surgical History: Procedure Laterality Date ??? APPENDECTOMY OPEN ??? BILATERAL BREAST REDUCTION ??? BILATERAL SALPINGO OOPHORECTOMY ??? COLONOSCOPY ??? HERNIA REPAIR ??? LAPAROSCOPIC TUBAL LIGATION ??? VAGINAL HYSTERECTOMY ??? WISDOM TOOTH EXTRACTION ??? WRIST SURGERY Health Maintenance Topic Date Due ??? COLORECTAL CANCER SCREENING Never done ??? ANNUAL PHYSICAL Never done ??? Pneumococcal Vaccine 0-64 (1 - PCV) Never done ??? TDAP/TD VACCINES (1 - Tdap) Never done ??? ZOSTER VACCINE (1 of 2) Never done ??? HEPATITIS C SCREENING Never done ??? INFLUENZA VACCINE 05/23/2022 ??? MAMMOGRAM 02/04/2023 ??? PAP SMEAR 03/20/2023 ??? Annual Gynecologic Pelvic and Breast Exam 03/24/2023 ??? COVID-19 Vaccine Completed The additional following portions of the patient's history were reviewed and updated as appropriate: allergies, current medications, past family history, past medical history, past social history, past surgical history and problem list. Review of Systems I have reviewed and agree with the HPI, ROS, and historical information as entered above. Wolfgang Mike MD Objective BP 138/68 Ht 165.1 cm (65 ) Wt 85.9 kg (189 lb 6.4 oz) No BMI 31.52 kg/m?? Physical Exam Vitals and nursing note reviewed. Exam conducted with a environmental restoration planner present. Constitutional: General: She is awake. Appearance: [...] No swelling, bleeding, mass, nipple discharge, skin change, tenderness, axillary adenopathy or supraclavicular adenopathy. Left: Normal. No swelling, bleeding, mass, nipple discharge, skin change, tenderness, axillary adenopathy or supraclavicular adenopathy. Abdominal: General: There is no distension. 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 2. Reviewed monthly self breast exams. Instructed to call with lumps, pain, or breast discharge. Yearly mammograms ordered. 3. Ordered mammogram today. 4. RTC in 1 year or PRN with problems. 5. Pt did trial without HRT and had severe VMS, resumed HRT. We plan to continue for now. 6. Return in about 1 year (around 03/23/2023) for Annual physical. 7. Currently on antibiotics for UTI and still symptomatic. She is only on day 2. She would like to recheck her urine and I have told her to return to the office after she completes her course of antibiotics for a urinalysis. Wolfgang Mike MD 03/23/2022 documented in this encounter Plan of Treatment Not on file documented as of this encounter Procedures Procedure Name Priority Date/Time Associated Diagnosis Comments LIQUID-BASED PAP SMEAR, [facility] ([facility]) Routine 03/23/2022 2:49 PM EDT Well woman exam with routine gynecological exam documented in this encounter Results * LIQUID-BASED PAP SMEAR, [facility] ([facility]) (03/23/2022 2:49 PM EDT) Reference Lab Report [facility] [address] ?[place], [place] ??[address] or [phone] Kristopher Zamorano M.D., Healthcare Consultant PATIENT NAME ? LABORATORY NO[id number] ??BENJAIMN HOPSON. ?[id number] ? AGE ? SEX ??SSN ? CLIENT REF # [facility] ([facility] ?61 ?1960 ??F ?[id number] ?? [id number] Patricia KRISHNAMURTHY ?REQUESTING M.D. ? ATTENDING M.D. ? [place] [address] ? WOLFGANG MIKE DATE COLLECTED ?DATE RECEIVED ?DATE REPORTED 03/23/2022 ?03/23/2022 ? 03/25/2022 ThinPrep Pap with Cytyc Imaging DIAGNOSIS: Negative for intraepithelial lesion or malignancy Multiple factors can influence accuracy of Pap tests; therefore, screening at regular intervals is necessary for early cancer detection. SPECIMEN ADEQUACY: ??SATISFACTORY FOR EVALUATION SOURCE OF SPECIMEN: ??VAGINAL SLIDES: ??1 CLINICAL HISTORY: ??Well woman exam with routine gynecological exam Post Menopausal HPV HR-HPV POOL: Negative The Aptima HPV assay is an in vitro nucleic acid amplification test for the qualitative detection of E6/E7 viral messenger RNA from 14 high risk types of HPV in cervical specimens. The high risk HPV types detected include: 16, 18, 31, 33, 35, 39, 45, 51, 52, 56, 58, 59, 66, 68 KISS MIXER: ?KEW, CT (ASCP) CPT CODES: ??85377, 54561 03/25/2022 11:43 AM EDT [facility] ThinPrep Vial Cervix uteri structure / Unknown Collection / Unknown 03/23/2022 2:49 PM EDT 03/23/2022 2:49 PM EDT us Wolfgang Mike MD PATHOLOGY/CYTOLOGY ORDERABLES nal Result [facility]
[address] [place] [address], documented in this encounter Visit Diagnoses Diagnosis Well woman exam with routine gynecological exam- Primary Routine gynecological examination Breast cancer screening by mammogram Hormone replacement therapy (HRT) Urinary tract infection without hematuria, site unspecified documented in this encounter Care Teams Routing Clerk Relationship Specialty Start Date End Date Kristopher Parnell MD PCP - General Boilermaker [employer] 04/10/16 03/21/23 documented as of this encounter
--- OUTSIDE RECORDS SUMMARY | 2024-07-27 15:44 | XMS_ITS | Encounter Summary ---
Author Organization [facility] Address [address] [place] [address] Care Team Providers Care Cop Winder Name Role Phone Lucille Momin APRN Primary Care Provider [phone] Reason for Referral * Diagnostic Imaging (Routine) - Closed Specialty Diagnoses / Procedures Referred By Contact Referred To Contact Obstetrics and Gynecology Diagnoses Screening for osteoporosis Procedures DEXA Bone Density Axial Shayy Shin MD [address] [facility] [address] [place] [address] Phone: tel: fax: [facility] [address] [place] [phone] Phone: tel: fax: Referral ID Status Reason Start Date Expiration Date Visits Re quested Visits Authorized [id number] Closed 07/26/2023 07/25/2024 1 1 Reason for Visit * Diagnostic Imaging (Routine) - Closed Specialty Diagnoses / Procedures Referred By Contact Referred To Contact Obstetrics and Gynecology Diagnoses Screening for osteoporosis Procedures DEXA Bone Density Axial Shayy Shin MD [address] [facility] [address] [place] [address] Phone: tel: fax: [facility] [address] [place] [address] [address] [place] [address] Phone: tel: fax: Referral ID Status Reason Start Date Expiration Date Visits Re quested Visits Authorized [id number] Closed 07/26/2023 07/25/2024 1 1 Encounter Details Date Type Department Care Team (Latest Contact Info) Description 09/03/2023 11:00 AM EST Hospital Encounter [facility] [address] [place] [address] Screening for osteoporosis Social History Tobacco Use [...] osteoporosis documented in this encounter Care Teams Cop Winder Relationship Specialty Start Date End Date Lucille Momin APRN [address] [place] [id number] PCP - General Nurse Practitioner 03/22/23 05/22/24 documented as of this encounter
--- OUTSIDE RECORDS SUMMARY | 2024-07-27 15:44 | XMS_ITS | Encounter Summary ---
Author Organization [facility] [employer] Address [address] [place] [address] Care Team Providers Care It Systems Analyst Consultant Name Role Phone Unavailable Primary Care Provider Unavailabl e Encounter Details Date Type Department Care Team (Late st Contact Info) Description 11/03/2018 Transcribed Document [facility] [place] [address] [place] [address] ProviderZoey MD [address] [place] [id number] Social History Tobacco Use Types Packs/Day Years Used Date Smoking Tobacco: Never Assessed Comments Unknown Sex and Gender Information Value Date Recorded Sex Assigned at Not on file Legal Sex Female 4:10 PM CDT Gender Identity Not on file Sexual Orientation Not on file documented as of this encounter Miscellaneous Notes * Cerner Conversion Note - Historical ProviderMD - 11/03/2018 4:12 PM CDT Electronically signed by José Miguel Braswell Conversion Continuity Coordinator Cerner at 12/09/2022 8:12 AM CDT documented in this encounter Plan of Treatment Not on file documented as of this encounter Visit Diagnoses Not on filedocumented in this encounter
--- OUTSIDE RECORDS SUMMARY | 2024-07-27 15:44 | XMS_ITS | Encounter Summary ---
Author Organization [employer] Address [address] [place] [address] Care Team Providers Care Wood Setter Name Role Phone Unavailable Primary Care Provider Unavailabl e Encounter Details Date Type Department Care Team (Late st Contact Info) Description 11/03/2018 Historic Encounter [facility] [address] [place] [address] ProviderDeborah Historical Social History Tobacco Use Types Packs/Day Years [...] Name Priority Date/Time Associated Diagnosis Comments CBC W/ AUTO DIFF ([facility] DATA CONV) Routine 11/03/2018 2:13 PM EDT AUTOMATED DIFFERENTIAL ([facility] DATA CONV) Routine 11/03/2018 2:13 PM EDT BMP BASIC METABOLIC PANEL ([facility] DATA CONV) Routine 11/03/2018 2:13 PM EDT URINALYSIS WITH MICROSCOPIC IF INDICATED Routine 11/03/2018 2:13 PM EDT documented in this encounter Results * Urinalysis with Microscopic If Indicated (11/03/2018 2:13 PM EDT) Urine Type U CleanCatch 11/03/2018 5:57 PM EDT Urine Color Yellow 11/03/2018 6:24 PM EDT Comment: Substances that cause HIGHLY abnormal urine color may affect the accuracy of URINE CHEMISTRY reagent strip results due to colorimetric interference. ??These include visible levels of blood or bilirubin, drugs containing dyes, and some antibiotics such as nitrofurantoin and riboflavin which can cause markedly abnormal urine coloration. Urine Appearance Clear 11/04/19 6:24 PM EDT Urine Specific [place] 1.016 1.005 - 1.030 11/03/2018 6:24 PM EDT Urine pH Dipstick 6.5 6.0 - 8.0 11/03/2018 6:24 PM EDT Urine Leukocyte Esterase Negative Negative 11/03/2018 6:24 PM EDT Urine Nitrite Negative Negative 11/03/2018 6:24 PM EDT Urine Protein Dipstick Negative Negative 11/03/2018 6:24 PM EDT Comment:Use of urine preserv atives may elevate protein results and reduce bilirubin, blood and nitrite results. Urine Glucose Dipstick Negative Negative 11/03/2018 6:24 PM EDT Urine Ketones Dipstick Negative Negative 11/03/2018 6:24 PM EDT Urine Urobilinogen Dipstick 0.2 EU/dL 11/03/2018 6:24 PM EDT Urine Bilirubin Dipstick Negative Negative 11/03/2018 6:24 PM EDT Urine Blood Dipstick Negative Negative 11/03/2018 6:24 PM EDT Urine 11/03/2018 2:13 PM EDT 11/03/2018 6:18 PM EDT [facility] Historical Provider URINE ORDERABLES Final Result [facility] [address] [phone] * (ABNORMAL) BMP BASIC METABOLIC PANEL ([facility]KR DATA CONV) (11/03/2018 2:13 PM EDT) Glucose Level 133(H) 74 - 106 mg/dL 11/03/2018 6:35 PM EDT Comment: [employer] (now [employer] has become aware of sulfasalazine and sulfapyridine drug interference in the assays ALT, AST, T4, CKMB, glucose, and ammonia. The probability of misinterpretation of results for the assays is remote and would be limited to scenarios where a patient has taken the drug and had a blood sample drawn before clearance of the drug to a level that does not interfere with laboratory testing. Venipuncture should occur prior to administration of the drug. Blood Urea Nitrogen 15 7 - 22 mg/dL 11/03/2018 6:35 PM EDT Creatinine Level 0.70 0.55 - 1.02 mg/dL 11/03/2018 6:35 PM EDT Sodium Level 138 136 - 146 mmol/L 11/03/2018 6:35 PM EDT Potassium Level 3.0(L) 3.5 - 5.1 mmol/L 11/03/2018 6:35 PM EDT Chloride Level 101(L) 102 - 112 mmol/L 11/03/2018 6:35 PM EDT Carbon Dioxide Level 27 21 - 32 mmol/L 11/03/2018 6:35 PM EDT Anion Gap 13 9 - 20 11/03/2018 6:35 PM EDT Calcium Level 8.5 8.4 - 10.1 mg/dL 11/03/2018 6:35 PM EDT Bun/Creatinine 21.4(H) 8.0 - 20.0 11/03/2018 6:35 PM EDT eGFR NonAfrican >60 >=60 mL/min/1. 73m2 11/03/2018 6:35 PM EDT Comment: GFR <60 suggests chronic kidney disease, if found over 3 month period. GFR <15 indicates renal failure. eGFR >60 >=60 mL/min/1. 73m2 11/03/2018 6:35 PM EDT Comment: GFR <60 suggests chronic kidney disease, if found over 3 month period. GFR <15 indicates renal failure. Blood 11/03/2018 2:13 PM EDT 11/03/2018 6:17 PM EDT [facility] Historical Provider LAB BLOOD ORDERABLES Fi nal Result [facility] [address] [place] [address], [facility] [phone] * CBC W/ AUTO DIFF ([facility]KR DATA CONV) (11/03/2018 2:13 PM EDT) WBC 8.7 4.5 - 10.5 K/uL 11/03/2018 6:21 PM EDT RBC 4.67 3.93 - 5.22 Million/uL 11/03/2018 6:21 PM EDT Hgb 12.2 11.2 - 15.7 g/dL 11/03/2018 6:21 PM EDT Hct 37.7 34.1 - 44.9 % 11/03/2018 6:21 PM EDT MCV 80.7 79.0 - 94.8 fL 11/03/2018 6:21 PM EDT MCH 26.1 25.6 - 32.2 pg 11/03/2018 6:21 PM EDT MCHC 32.4 32.2 - 36.5 Gram/dL 11/03/2018 6:21 PM EDT RDW 12.3 11.7 - 14.9 % 11/03/2018 6:21 PM EDT Platelet Count 261 163 - 369 K/uL 11/03/2018 6:21 PM EDT MPV 9.8 9.4 - 12.4 fL 11/03/2018 6:21 PM EDT Slide Review No 11/03/2018 6:34 PM EDT Blood 11/03/2018 2:13 PM EDT 11/03/2018 6:17 PM EDT [facility] Historical Provider LAB BLOOD ORDERABLES nal Result [facility] [address] [place] [address] * AUTOMATED DIFFERENTIAL ([facility]KR DATA CONV) (11/03/2018 2:13 PM EDT) Neut% 63.5 34.0 - 71.0 % 11/03/2018 6:21 PM EDT Lymph% 27.5 19.3 - 53.1 % 11/03/2018 6:21 PM EDT [place]% 4.8 3.0 - 9.0 % 11/03/2018 6: 21 PM EDT Eos% 3.3 0.0 - 7.0 % 11/03/2018 6: 21 PM EDT Baso% 0.6 0.0 - 1.5 % 11/03/2018 6: 21 PM EDT IG% 0.30 0.00 - 0.60 % 11/03/2018 6:21 PM EDT Neut# 5.51 1.56 - 6.13 K/uL 11/03/2018 6:21 PM EDT Lymph# 2.39 1.00 - 3.90 x10(3)/uL 11/03/2018 6:21 PM EDT [place]# 0.42 0.16 - 1.00 K/uL 11/03/2018 6:21 PM EDT Eos# 0.29 0.00 - 0.80 x10(3)/uL 11/03/2018 6:21 PM EDT Baso# 0.05 0.00 - 0.20 x10(3)/uL 11/03/2018 6:21 PM EDT IG# 0.03 0.00 - 0.05 x10(3)/uL 11/03/2018 6:21 PM EDT Blood 11/03/2018 2:13 PM EDT 11/03/2018 6:17 PM EDT Narrative [facility] - 11/03/2018 6:34 PM EDT Added by Discern Expert [facility] Historical Provider LAB BLOOD ORDERABLES Fi nal Result [facility] [address] [phone] documented in this encounter Visit Diagnoses Not on filedocumented in this encounter
--- OUTSIDE RECORDS SUMMARY | 2024-07-27 15:44 | XMS_ITS | Encounter Summary ---
[facility] Organization [facility] Address [address] [place] [address] Care Team Providers Care Top Lift Scourer Name Role Phone Unavailable Primary Care Provider Unavailabl e Encounter Details Date Type Department Care Team (Late st Contact Info) Description 12/26/2013 3:12 PM EDT - 12/26/2013 11:59 PM EDT Hospital Encounter [facility] [address] [place] [address] Patti Jauregui MD [address] [facility] [address] [place], [place] [id number] Social History Tobacco Use Types Packs/Day Years [...] Diagnosis Comments DEXA BONE DENSITY AXIAL Routine 12/26/2013 3:14 PM EDT documented in this encounter Results * DEXA BONE DENSITY AXIAL (12/26/2013 3:14 PM EDT) Anatomical Region Laterality Modality Wrist, Hip, L-spine N/A Radiographic Imaging 12/26/2013 3:14 PM EDT Narrative 12/27/2013 12:30 PM EDT DUAL-ENERGY X-RAY ABSORPTIOMETRY (DXA): INDICATION: ??53-year-old postmenopausal patient. Patient does give a history of having taken steroids. She states she currently takes vitamin D and calcium supplements and is on hormonal replacement therapy. COMPARISON: None. PROCEDURE: ??A DXA scan was performed using a Hologic densitometer. The lumbar spine was evaluated as well as both total hips. The T-score compares the patient's bone mineral density with the peak bone mass of young normal patients. ??According to criteria established by the World Health Organization, patients with T-scores ??between 1.0 and 2.5 standard deviations BELOW the mean are osteopenic (low bone mass). ??Patients with T-scores EQUAL TO OR GREATER than 2.5 standard deviations below the mean are osteoporotic. The Z-score compares the patient bone mineral density with age and sex matched peers. ??According to the International Society for Clinical Densitometry's 2007 consensus conference: ??In women prior to menopause and men less than age 50, Z-scores, not T-scores are preferred. ??A Z-score of -2.0 or lower is defined as below the expected range for age and a Z-score above -2.0 is within the expected range for age. The WHO diagnostic criteria may be applied in women in the menopausal transition. ??Osteoporosis cannot be diagnosed in men under age 50 on the basis of BMD alone. TECHNICAL QUALITY: ??The study is of good technical quality. RESULTS: ??Lumbar Spine: ??The BMD measured in the L1 through L4 region is 1.294 g/cm2. ??The average T-score is 2.2. ??The Z-score is 3.1. Left Total Hip: ??The BMD measured at the left total proximal femur is 1.149 g/cm2. ??The T-score is 1.7. ??The Z-score is 2.2. Left Femoral Neck: ??The BMD measured at the left femoral neck is 0.959 g/cm2. ??The T-score is 1.0. ??The Z-score is 1.8. Right Total Hip: ??The BMD measured at the right total proximal femur is 1.106 g/cm2. ??The T-score is 1.3. ??The Z-score is 1.9. Right Femoral Neck: ??The BMD measured at the right femoral neck is 0.948 g/cm2. ??The T-score is 0.9. ??The Z-score is 1.7. IMPRESSION- ??The patient has normal bone mass. All the treatment decisions require clinical judgment and consideration of individual patient factors, including patient preferences, co-morbidities, previous drug use, risk factors not captured in the FRAX model (frailty, falls, vitamin D deficiency, increased bone turnover, interval significant decline in bone density) and possible under or over estimation of fracture risk by FRAX. Approaches to reduce osteoporosis related fracture risk include optimizing calcium and vitamin D status, appropriate weight bearing exercises and fall-prevention measurements. The National Osteoporosis Foundation recommends (http://www.nof.org/hcp/practice/kmfodgya-cil-udvlqfqu-guidelines/clinic ians-guide) that FDA-approved medical therapies be considered in postmenopausal women and men aged equal or greater than 50 years with : a) hip or vertebral (clinical or morphometric) fracture; b) T-score of -2.5 or less at the spine or hip; c) Ten-year fracture probability by FRAX of greater than 3% for hip fracture of greater than 20% for major osteoporotic fracture. ?? Secondary causes of bone loss should be evaluated if clinically indicated since the etiology of low BMD cannot be determined by BMD measurement alone. FOLLOWUP: Consider repeating the study in 2-3 years to reassess the patient's status or sooner if there is some new clinical indication. INTERVAL CHANGE: ?? This was the patient's baseline exam.. ?? At this facility, the least significant change in the BMD at the hip with 95% confidence is 0.877536 gm/cm2 and and 0.793540 g/cm2 at the lumbar spine. ? Lab Support Tech- MANJIT LINDSAY ? Reading Radiologist- SRAVANI PIERSON ? Releasing Radiologist- SRAVANI PIERSON ? Released Date Time- 12/28/13 1036 us Patti Jauregui MD IMG DXA ORDERABLES Final Resu lt documented in this encounter Visit Diagnoses Not on filedocumented in this encounter
--- OUTSIDE RECORDS SUMMARY | 2024-07-27 15:44 | XMS_ITS | Encounter Summary ---
Author Organization [facility] Address [address] [place] [address] Care Team Providers Care Offset Assistant Press Operator Name Role Phone Unavailable Primary Care Provider Unavailabl e Encounter Details Date Type Department Care Team (Late st Contact Info) Description 02/05/2015 8:14 AM EDT - 02/05/2015 4:00 PM EDT Hospital Encounter [facility] DEPARTMENT [address] [id number] Wolfgang Mike MD [address] [facility] [address] [place] [address] Discharge Disposition: Home or Self Care Social History Tobacco Use Types Packs/Day Years Used Date Smoking Tobacco: Never Assessed Comments Unknown Sex and Gender Information Value Date Recorded Sex Assigned at Not on file Legal Sex Female 10:16 AM EDT Gender Identity Not on file Sexual Orientation Not on file documented as of this encounter OR Notes * Op Note - Interface, See Report - 02/05/2015 8:14 AM EDT [facility] [address] [place] [id number] OPERATIVE REPORT PATIENT NAME: BENJAMIN HOPSON ROOM NUMBER: [id number] VISIT NUMBER: [id number] DATE OF : 1960 DATE OF OPERATION: 02/05/2015 ADMITTING PHYSICIAN/SURGEON: Wolfgang Mike MD PREOPERATIVE DIAGNOSES: 1. Bilateral ovarian cysts. 2. Pelvic pain. 3. Family history of ovarian cancer. POSTOPERATIVE DIAGNOSES: 1. Bilateral ovarian cysts. 2. Pelvic pain. 3. Family history of ovarian cancer. 4. Dense adhesive disease. PROCEDURES PERFORMED: 1. Laparoscopic bilateral salpingo-oophorectomy. 2. Adhesiolysis. 3. Cystoscopy. FINDINGS: 1. Bilateral ovarian cysts with normal fallopian tubes. 2. There were dense adhesions of the left adnexa to the pelvic sidewall and lateral to the area of the vaginal cuff. 3. There were dense adhesions of the bowel to the vaginal cuff. 4. There were also adhesions of the bowel to the left pelvic sidewall and filmy adhesions to the bladder flap. INDICATIONS FOR PROCEDURE: The patient is a 54-year-old female who was seen in our office in 04/2014 and was noted to have bilateral ovarian cysts. The patient did not followup for repeat ultrasound until recently when she had an episode of right lower quadrant pain that was acute. Repeat ultrasound at that time revealed stable bilateral ovarian cysts. CA-125 was normal both in 04/2014 and preoperatively. Due to the patient's family history of ovarian cancer and persistent ovarian cysts, we proceeded with bilateral salpingo-oophorectomy. The patient understood that she would be menopausal if was not already. After removal of her ovaries, we discussed the pros and cons of hormone replacement therapy, as well as well as the risks, including DVT, pulmonary embolism, stroke, heart attack, and . DESCRIPTION OF PROCEDURE: The patient was taken to the operating room, where she underwent placement of anesthesia. She was then placed in the dorsal lithotomy position using Roderick stirrups and was prepped and draped in the normal sterile fashion. A sponge stick was placed into the vagina. A Gusman catheter was placed. We then proceeded with the abdominal portion of the case. The infraumbilical tissues were injected with 0.5% Marcaine with epinephrine and a vertical infraumbilical incision was made with a scalpel. The 12 mm Optiview port was then placed under direct visualization without complication on the first attempt. The patient was then placed in Trendelenburg and CO2 gas was used to insufflate the cavity. The underlying bowel was inspected and was normal in appearance. We then proceeded with placement of two 5-mm lateral port sites. The appropriate location was identified and the overlying skin was injected with Marcaine. A transverse skin incision was then made and 5 mm ports were placed under direct visualization without complication bilaterally. We then inspected the pelvis. The patient was noted to have distended bowel, consistent with constipation. She was also noted to have a right elongated ovarian cyst and normal fallopian tube. The right adnexa was freely mobile. The patient was also noted to be status post hysterectomy. There were filmy and moderate adhesions of the bowel to the left pelvic sidewall, as well as the vaginal cuff. At this point, we were unable to view the left ovary. We proceeded with adhesiolysis using the CASPER Harmonic scalpel. These filmy adhesions were easily taken down; however, we then turned our attention to the denser bowel adhesions along left pelvic sidewall and were able to take these down using the CASPER as well. After some adhesiolysis, we were able to visualize a portion of the left ovary. The left ovary was immobile and was noted to have dense adhesions to the peritoneum just superior to the vaginal cuff. There were dense bowel adhesions to the vaginal cuff. We were able to visualize bilateral ureters. On the right, this was well away from the plane of dissection for the oophorectomy, and on the left, the ureter was noted to be low in the pelvis and away from the infundibulopelvic ligament. The left ovary was adhesed to the lateral sidewall at some point and to the left of the vaginal cuff. In these areas, there were dense adhesions. We proceeded with adhesiolysis using the CASPER Harmonic scalpel. Throughout the dissection, we took care to visualize the ureter away from the planes of dissection as well as the bladder. This dissection was very difficult, due to the denseness of the adhesions, and the area of involvement. We were able to find a plane and open up this base and were able to visualize the ureter low in the pelvis and away from this area, and the bladder was away so we proceeded with transection of the thick scar tissue that was present. Once this was done, the ovary was freed from the adhesions and was mobile in the adnexa. We then proceeded with bilateral salpingo-oophorectomy. The ovary and tube were grasped and elevated and the infundibulopelvic ligament transected with the CASPER Harmonic scalpel. This was done bilaterally and without complication. We proceeded with placement of a suprapubic port site. A 5 mm port was placed as previously described without complication. We added this to aid with retraction and dissection of the left adnexa. We then extended this suprapubic port site to a 10 mm to allow placement of the Endo Catch bag and bilateral adnexa were placed in the Endo Catch bag and this was externalized. The bag was opened outside of the body and one of the cysts drained to allow removal of the bag intact. There was no intraperitoneal spillage of contents. All was retained within the Endo Catch bag externally. After removal of the bag, we closed the fascia suprapubically using a 0-Vicryl. We then inspected the pelvis and copiously irrigated. All points of dissection were hemostatic. Bilateral ureters were inspected and the right was noted to have peristalsis; however, there was minimal peristalsis noted on the left. Due to the density of the adhesions and complexity of adhesiolysis, we proceeded with cystoscopy to evaluate the bladder and the left ureter. The Gusman catheter was removed and the cystoscope placed and the bladder visualized. We distended with normal saline to approximately 300 mL and this was discontinued. The bladder was intact without evidence of disruption or bleeding. The trigone and bilateral ureteral orifices were identified and excellent peristalsis of urine was noted bilaterally. We then removed. The cystoscope and drained the bladder with the catheter, and the catheter was removed again. We then proceeded with closure of the port sites after deflation of the abdomen. This was done with 3-0 Vicryl in a running subcuticular fashion and Sure+Close was applied to these sites. The patient tolerated the procedure well. There were no immediate complications. All sponge, lap, and needle counts were correct x2. The patient was extubated and taken to the PACU in stable condition. Of note, the majority of this case time was adhesiolysis. We spent approximately 1-1/2 hours with adhesiolysis and the bilateral salpingo-oophorectomy was approximately 5 minutes. ESTIMATED BLOOD LOSS: Less than 50 mL. DRAINS: None. PATHOLOGY: Bilateral fallopian tubes and ovaries. COMPLICATIONS: None. Wolfgang Mike MD* PRERNA/rxsmj Voice Rec. ID #[id number] Original Voice Rec. ID #[id number] Doc ID #[id number] Revision Count: 0 cc: Wolfgang Mike MD* <start header> [place] [address] OPERATIVE REPORT PATIENT NAME: BENJAMIN HOPSON ROOM NUMBER: [id number] VISIT NUMBER: [id number] DATE OF : 1960 <end header> DO NOT TEXT EDIT THIS LINE :SALON SALES CONSULTANT:[id number]: Authenticated by WOLFGANG MIKE MD On 03/06/2015 10:12:31 AM documented in this encounter Plan of Treatment Not on file documented as of this encounter Procedures Procedure Name Priority Date/Time Associated Diagnosis Comments CONVERTED (HISTORICAL) SURGICAL PATHOLOGY Routine 02/05/2015 8:14 AM EDT SCANNED EKG 02/05/2015 ESTRADIOL Routine 02/03/2015 2:10 PM EDT CBC AND DIFFERENTIAL Routine 02/03/2015 2:10 PM EDT LUTEINIZING HORMONE Routine 02/03/2015 2 :10 PM EDT FOLLICLE STIMULATING HORMONE Routine 02/03/2015 2:10 PM EDT COMPREHENSIVE METABOLIC PANEL Routine 02/03/2015 2:10 PM EDT documented in this encounter Results * Converted Surgical Pathology (02/05/2015 8:14 AM EDT) 02/05/2015 8:14 AM EDT Narrative [facility] - 02/06/2015 10:50 [place] [address] SURGICAL PATHOLOGY REPORT Patient Name: BENJAMIN HOPSON MR#: [id number] : 1960 Gender: F Ordering Physician: WOLFGANG MIKE Copy To: ?? Location: [facility]- Collected: 02/05/2015 Received: 02/05/2015 Reported: 02/06/2015 Clinical Diagnosis and History The working history is ovarian cyst, family history ovarian cancer. Final Diagnosis RIGHT AND LEFT OVARIES AND FALLOPIAN TUBES, BILATERAL SALPINGO-OOPHORECTOMY: ? Bilateral serous cystadenomas of the ovaries with unremarkable fallopian tubes. B/sm Amendments: Electronically Signed Out By SOFIA JEAN-BAPTISTE Specimen(s) Received: Ovary +/- tube, neoplastic Gross Description Received in formalin labeled bilateral fallopian tubes and ovaries consists of two ovaries with adherent fallopian tubes. One of the ovaries measures 4.5 x 3.0 x 2.0 cm and the adherent fallopian tube measures 5 x 1.0 cm with a 1 cm paratubal cyst. The second ovary measures 4.2 x 3.0 x 2.5 cm and the adherent fallopian tube segment measures 4 x 0.8 cm. Sectioning through the first ovary it consists of a thin walled cyst without excrescences. No suspicious lesions are seen. This specimen is sectioned and submitted in toto in A-F. On sectioning through the second ovary, it also shows a thin walled 2 cm cyst without excrescences. Except for the adhesions, no suspicious areas are seen. This is serially sectioned and submitted in toto in G-K. B/ Microscopic Description The entirely submitted ovaries and fallopian tubes show no evidence of malignancy. The ovarian cysts are lined by follicle cells in some areas and a simple columnar epithelium compatible with serous origin in others. No stratification or cytologic atypia is seen. A small paratubal cyst is also identified. A few serosal adhesions are seen. The second ovary shows a similar serous cyst with a few fibrous nodules in this cystic lesion. No stratification or cytologic atypia is identified. ??B/sm Procedures/Addenda us See Report Interface PATHOLOGY/CYTOLOGY ORDERABL ES Final Result [facility] [address] [place] [address], * SCANNED EKG (02/05/2015) [facility] Onbase ECG ORDERABLES Final Result * Follicle stimulating hormone (02/03/2015 2:10 PM EDT) FSH 7.3 mIU/mL [facility] ANUPAMA [facility] Comment: DF by IF @ 02/03/2015 14:53 Males (13-70 yrs): ??1.4-18.1 mIU/mL Adult Female: ?Follicular Phase ?2.5-10.2 mIU/mL ?Midcycle Peak ? 3.4-33.4 mIU/mL ?Luteal Phase ?1.5-9.1 mIU/mL ? Less than 0.3 mIU/mL ?Postmenopausal ?23.0-116.3 mIU/mL ? Blood specimen (specimen) 02/03/2015 2:10 PM EDT Narrative [facility] - 02/03/2015 2:53 PM EDT Specimen Type: Blood us Wolfgang Mike MD LAB BLOOD ORDERABLES Final Resul t [facility] [address] [place] [address], * Estradiol (02/03/2015 2:10 PM EDT) Estradiol 160 pg/mL [facility] Comment: DF by IF @ 02/03/2015 14:53 Males: ?0.0-52.0 pg/mL Adult Female: ?Follicular Phase ? 11.0-165.0 pg/mL ?Midcycle ?146.0-526.0 pg/mL ?Luteal Phase ? 33.0-196.0 pg/mL ?Postmenopausal ?ND-37.0 pg/mL Blood specimen (specimen) 02/03/2015 2:10 PM EDT Narrative [facility] - 02/03/2015 2:53 PM EDT Specimen Type: Blood Wolfgang Mike MD LAB BLOOD ORDERABLES Final Resul t Performing Organization Address [facility] de Phone Number [facility] [address] [place] [address], * Luteinizing hormone (02/03/2015 2:10 PM EDT) LH 10.90 mIU/mL [facility] Comment: DF by IF @ 02/03/2015 14:53 LH: Adult Males: ? 1.5-9.3 mIU/mL Adult Females: ?Follicular Phase ?? 1.9-12.5 mIU/mL ?Midcycle Peak ?8.7-76.3 mIU/mL ?Luteal Phase ?0.5-16.9 mIU/mL ?Postmenopausal ?15.9-54.0 mIU/mL ? Less than 0.1-1.5 mIU/mL Blood specimen (specimen) 02/03/2015 2:10 PM EDT [facility] - 02/03/2015 2:53 PM EDT Specimen Type: Blood Wolfgang Mike MD LAB BLOOD ORDERABLES Final Resul t Performing Organization Address [facility] [place] [address], * (ABNORMAL) Comprehensive metabolic panel (02/03/2015 2:10 PM EDT) Glucose 93 70 - 100 mg/dL [facility] BUN 14 9 - 23 mg/dL [facility] Creatinine 0.6 0.6 - 1.3 mg/dL [facility] Sodium 139 132 - 146 mmol/L [facility] Potassium 3.4(L) 3.5 - 5.5 mmol/L [facility] Chloride 101 99 - 109 mmol/L [facility] CO2 32(H) 20 - 31 mmol/L [facility] Calcium 8.9 8.7 - 10.4 mg/dL [facility] Alkaline Phosphatase 88 25 - 100 Units/L [facility] AST (SGOT) 18 0 - 33 Units/L [facility] ALT (SGPT) 18 7 - 40 Units/L [facility] Total Bilirubin 0.4 0.3 - 1.2 mg/dL [facility] Total Protein 6.6 5.7 - 8.2 g/dL [facility] Albumin 4.0 3.2 - 4.8 g/dL [facility] eGFR 107 ml/min/1.7 32 [facility] Comment: DF by IF @ 02/03/2015 14:45 ?? National Kidney [employer] Guidelines ?Stage ? Description ?GFR ?1 ?Normal or High ? 90+ ?2 ?Mild decrease ? 60-89 ?3 ?Moderate decrease ?30-59 ?4 ?Severe decrease ?15-29 ?5 ?Kidney failure ?<15 Anion Gap 6 3 - 11 mmol/L [facility] Blood specimen (specimen) 02/03/2015 2:10 PM EDT Narrative [facility] - 02/03/2015 2:45 PM EDT Specimen Type: Blood us Wolfgang Mike MD LAB BLOOD ORDERABLES Final Resul t [facility] [address] [place] [address], * (ABNORMAL) CBC and Differential (02/03/2015 2:10 PM EDT) WBC 8.69 3.50 - 10.80 [facility] RBC 4.37 3.89 - 5.14 /[facility] Hemoglobin 11.7 11.5 - 15.5 g/dL [facility] Hematocrit 36.5 34.5 - 44.0 % [facility] MCV 83.5 80.0 - 99.0 fL [facility] MCH 26.8(L) 27.0 - 31.0 pg [facility] MCHC 32.1 32.0 - 36.0 g/dL [facility] RDW-CV 13.4 11.3 - 14.5 % [facility] Platelets 285 150 - 450 [facility] Neutrophils Absolute 5.74 1.50 - 8.30 [facility] Lymphocytes Absolute 2.08 0.60 - 4.80 [facility] Monocytes Absolute 0.48 0.00 - 1.00 [facility] Eosinophils Absolute 0.29 0.10 - 0.30 [facility] Basophils Absolute 0.04 0.00 - 0.20 [facility] Neutrophil Rel % 66.1 41.0 - 71.0 % [facility] Lymphocyte Rel % 23.9(L) 24.0 - 44.0 % [facility] Monocyte Rel % 5.5 0.0 - 12.0 % [facility] Eosinophil Rel % 3.3(H) 0.0 - 3.0 % [facility] Basophil Rel % 0.5 0.0 - 1.0 % [facility] Immature Granulocyte Rel % 0.7(H) 0.0 - 0.6 % [facility] Blood specimen (specimen) 02/03/2015 2:10 PM EDT Narrative [facility] - 02/03/2015 2:27 PM EDT Specimen Type: Blood us Wolfgang Mike MD LAB BLOOD ORDERABLES Final Resul t Performing Organization Address City/State/[facility] Co de Phone Number [facility] [address] [place] [address], documented in this encounter Visit Diagnoses Not on filedocumented in this encounter
--- OUTSIDE RECORDS SUMMARY | 2024-07-27 15:44 | XMS_ITS | Encounter Summary ---
Author Organization [facility] Address [address] [place] [address] Care Team Providers Care Tenter Frame Back Tender Name Role Phone Kristopher Parnell MD Primary Care Provider Un available Reason for Visit * Reason Onset Date Comments Med Refill 01/13/2021 Encounter Details Date Type Department Care Team (Late st Contact Info) Description 01/13/2021 Refill [facility] OBGYN [address] [phone] Shayy Shin MD 1700 [facility] [address] [place] [address] Social History Tobacco Use Types Packs/Day Years Used Date Smoking Tobacco: Never Assessed Comments Unknown Sex and Gender Information Value Date Recorded Sex Assigned at Not on file Legal Sex Female 10:16 AM EDT Gender Identity Not on file Sexual Orientation Not on file documented as of this encounter Miscellaneous Notes * Telephone Encounter - Irasema Quevedo RN - 01/13/2021 8:44 AM EDT Annual 03/17/2021 * Telephone Encounter - Kacy Wolf RegSched Rep - 01/13/2021 8:31 AM EDT Pt called stating she needs a refill of her estradioal medication. She won't be seen until February forher annual, but will need some for the month of january documented in this encounter Plan of Treatment Not on file documented as of this encounter Visit Diagnoses Not on filedocumented in this encounter Care Teams Tenter Frame Back Tender Relationship Specialty Start Date End Date Kristopher Parnell MD PCP - General Registered Diet Technician 04/10/16 03/21/23 documented as of this encounter
--- OUTSIDE RECORDS SUMMARY | 2024-07-27 15:44 | XMS_ITS | Encounter Summary ---
Author Organization [facility] Address [address] [place] [address] Care Team Providers Care Decal Applier Name Role Phone Unavailable Primary Care Provider Unavailabl e Encounter Details Date Type Department Care Team (Late st Contact Info) Description 11/03/2018 Transcribed Document [facility] [place] [address] [place] [address] ProviderZoey MD [address] [place] [address] Social History Tobacco Use Types Packs/Day Years Used Date Smoking Tobacco: Never Assessed Comments Unknown Sex and Gender Information Value Date Recorded Sex Assigned at Not on file Legal Sex Female 4:10 PM CDT Gender Identity Not on file Sexual Orientation Not on file documented as of this encounter Miscellaneous Notes * Cerner Conversion Note - Historical ProviderMD - 11/03/2018 4:26 PM CDT ED Discharge Entered On: 11/03/2018 16:27 EDT Performed On: 11/03/2018 16:26 EDT by Wero Andrade, lime kiln tender Process Patient Disposition : Discharge Personal Belongings With Patient : Yes Patient Education Completed : Yes Teaching Evaluation : Verbalizes understanding IV Discontinued : Yes Nursing Documentation Completed : Yes Wero Andrade RN - 11/03/2018 16:26 EDT ED Discharge Discharge To : Home with ambulatory/outpatient follow-up Mode Of Departure : Ambulatory Accompanied By : Care provider Discharge Instructions Reviewed With, Opportunity For Questions Given : Patient Wero Andrade RN - 11/03/2018 16:26 EDT documented in this encounter Plan of Treatment Not on file documented as of this encounter Visit Diagnoses Not on filedocumented in this encounter
--- OUTSIDE RECORDS SUMMARY | 2024-07-27 15:44 | XMS_ITS | Encounter Summary ---
Author Organization [facility] Address [address] [place] [address] Care Team Providers Care Auto Transmission Specialist Name Role Phone Lucille Momin APRN Primary Care Provider [phone]- [phone] Reason for Visit * Reason Comments Med Refill Encounter Details Date Type Department Care Team (Late st Contact Info) Description 03/22/2023 Refill [facility] OBGYN [address] [phone] Shayy Shin MD 1700 [facility] [address] [place] [address] Hormone replacement therapy (HRT) Social History Tobacco [...] (HRT) documented in this encounter Care Teams Auto Transmission Specialist Relationship Specialty Start Date End Date Lucille Momin APRN [address] [place] [id number] PCP - General Nurse Practitioner 03/22/23 05/22/24 documented as of this encounter
[2024-07-27 15:45] VITALS: PULSE 70; O2SAT 97
--- OUTSIDE RECORDS SUMMARY | 2024-07-27 15:45 | XMS_ITS | Data Portability ---
Author Organization [facility] JOHNATHAN Dennis BANNING CLOSED Address [address] [place] [address] Care Team Providers Care Children'S Tutor Name Role Phone HEAVENLY DAO Licensed Appraiser ARGENTINA CUI Primary Care Provider Assessment No assessment recorded. Plan of Treatment Reminders Order Date Submit Date Provider Last Modified By Organization Details Last Modified Time Details Appointments FOLLOW UP DAK 2024 11:00A No BLACKBURN MD Not available Not available Not available Lab None recorded. Referral None recorded. Procedures None recorded. Surgeries None recorded. Imaging None recorded. Medication Orders tretinoin 0.025 % topical cream [email or web address] [id number], [address], [id number], 08/24/2023 15:53:39 betametha sone valerate 0.1 % topical cream 2023 024 [email or web address] [id number], [address], [id number], 10/07/2023 13:57:12 ipratropi um bromide 42 mcg (0.06 %) nasal spray 2023 024 [email or web address] [facility] #[id number], [address], [id number], 06/02/2024 12:54:27 Patient TargetsNo targets recorded. Patient Instructions Encounter Date Encounter Id Patient Instructions Last Modified By Organization Details Last Modified Time 09/24/2023 [id number] 1. Bilateral cerumenectomy performed. Full risks, complications, and benefits of non-operative intervention have been thoroughly discussed. Understanding was expressed, informed consent given, and we will proceed with the discussed treatment plan. There were no questions for me at the end of the office visit. 2. Rx-Betamethasone cream- place topically in both ear canals 1-2 times per month 3. Consider using saline rinse daily 4. F/u in 4 months for routine cerumenectomy nstaton Not available 09/24/2023 11:04:31 cleaned dry hard wax and squamous debris from both canals today; encouraged her to use the betamethasone cream on a more regular basis to help with the dry OE/eczema in her canals; saline rinse for her rhinitis issues since she can't use medicated sprays because of glaucoma; follow up in four months to check her progress rvanmetre Not available 09/24/2023 11:12:52 02/01/2024 [id number] 1. Bilateral cerumenectomy performed. Full risks, complications, and benefits of non-operative intervention have been thoroughly discussed. Understanding was expressed, informed consent given, and we will proceed with the discussed treatment plan. There were no questions for me at the end of the office visit. 2. Continue using Betamethasone cream in both ears monthly 3. Consider using saline rinse daily 4. 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 Pearl wheatley 3 yr dkbill Not available 03/16/2024 11:58:54 06/02/2024 [id number] 1. Rx- Ipratropi um Amado 2. Recommended cease use of Flonase 3. F/U PRN [id number] Not available 06/02/2024 11:36:22 ETD likely relat ed to some rhinitis so discussed some things to work on; will try prn atrovent; assured her the neck pain is musculoskeletal and not related to her ears rvanmetre Not available 06/02/2024 11:39:09 Reason for Referral None Reported. Results Created Date Observation Date Name Description Value Unit Range Abnormal Flag Note LastModifiedBy Organization Detail LastModifiedTime 08/03/2008/04/2023 GROUP A COMPL ETE STREP , RAPID grp A B-hemolytic strep NEGATI VE negati ve normal Group A beta- hemol ytic strep is S. pyoge adrian. Not Available [facility] [address] [place], [address], 08/04/2023 08:48:34 08/03/20 23 08/04/2023 GROUP A COMPL ETE STREP , RAPID grp C/g B-hemolytic strep NEGATI VE negati ve normal Group C/G beta- hemol ytic strep is S. dysga lacti ae. The Solan a Strep Compl ete assay does not disti nguis h betwe en viabl e and non-v iable organ isms and may produ ce a posit taylor resul t in the absen ce of livin g organ isms. The assay does not diffe renti ate asymp tomat ic scott ers of S. pyoge adrian or S. dysga lacti ae from those exhib iting strep tococ columba infec tion. Posit taylor resul ts do not rule out the possi bilit y of co-in fecti on with other patho gens, inclu ding other forms of Group C or G Strep tococ ci, such as S. canis or S. equi. Not Available [facility] [address] [place], [address], 08/04/2023 08:48:34 08/03/20 23 08/03/2023 rapid strep group A, throa t Negative? Order Group A Complete Strep, Rapid Yes Not Available [facility] [address], [place], [address], 08/03/2023 16:02:38 06/09/20 24 06/08/2024 MAMMO , scree caity, tomos ynthe sis, bilat eral, w/ CAD [address] [address] Pablo barriga Name: BENJAMIN barriga : 1959 Age: 63 years Patisammy t 7 Orderi ng Provid er: ARGENTINA Nichols EXAM DATE: 2023 EXAM: MG SCREEN ING HUMERA MAMMOG KYE INDICA TION: Routin e screen ing. Histor y of breast reduct ion. 50 pound weight loss since last year. PROCED URE: Multis lice imagin g of both breast s was perfor med in standa rd projec tions using Hologi c Seleni a Dimens ions tomosy nthesi s equipm ent (3D mammog lakhwinder) . 2D images were create d from the 3D datase t using C-View softwa re. The study was read with the assist ance of Comput er Aided Detect ion (CAD) softwa re. COMPAR SANJEEV: This was compar ed with previo us mammog cornell dated 2022, 2021, 2020 FINDIN GS: The breast s are hetero geneou sly dense, which may obscur e small masses . There is no suspic ious mass, suspic ious microc alcifi cation s or kika ectura l distor tion. Benign findin gs noted. There has been no signif icant change . IMPRES NIDIA: BI-RAD S catego ry 2, Benign . There is no eviden ce of malign pricilla. Screen ing mammog cornell are recomm ended in one year. Result s were mailed or given to the patien t. Interp reted By: Nakul López Electr onical ly Signed By: Nakul López on 2023 11:37 AM [email or web address] [facility] [address] [place], [address], 06/09/2024 11:47:15 Result Notes None recorded. Problems Name Problem SNOMED Code Status Onset Date Resolution Date Notes Provider Name and Address Organization Details Recorded Time Headache 71806935 Active 2021 Gregoria shi, [facility] 2 12:14:17 Environment al allergy 523960682 Active 2021 [place] [address] [place] [address], [address], [facility] 2 11:03:45 Joint pain 96998272 Active 2021 CARMELLA WOOD, DO [address] [place] [address], [address] 1, [facility] 2 11:03:57 Gastroesoph ageal reflux disease 226400520 Active 2021 CARMELLA WOOD, DO [address] [place] [address], [address] 1, [facility] 2 11:03:52 Hypertensiv e disorder 00708989 Active 2021 CARMELLA WOOD DO [address] [place] [address], [address] 1, [facility] 2 11:03:39 Suspected bilateral glaucoma 2612866581249 9102 Active 2021 CARMELLA WOOD DO [address] [place] [address], [address] 1, [facility] 2 11:03:55 Acute dermatitis 88334383 Active 2021 TYLER SIFUENTES MD [address] [place] [address], [address] 1, [facility] 2 09:16:01 Diverticulo sis of colon 056500694 Active 2022 [place] [address] [place] [address], [address] 1, [facility] 3 13:07:50 Essential hypertensio n 02961012 Active 2022 CARMELLA WOOD, DO [address] [place], [address], [facility] 3 16:30:24 Has a sore throat 041675159 Active 2022 [place] [address] [place] [address], [address] 1, [facility] 3 08:05:32 Posterior rhinorrhea 94151155 Active 2022 CARMELLA WOOD, DO [address] [place], [address], [facility] 3 08:05:40 Excess skin of bilateral eyelids 9143670753882 9106 Active 2023 HEAVENLY DAO MD [address] [place] [address], [address] 1, [facility] 4 11:56:58 Presbyopia 34491116 Active 2023 HEAVENLY DAO MD [address] [place] [address], [address] 1, [facility] 4 11:56:54 Problem Notes Documentation Provider Name and Address Organization Details Recorded Time Dermatology Consult : [facility] ? ? [address] [address] [address]NKEVQBUZ, Debra F (id #[id number], : 1960) [facility] [address] [place] [address] Date: 4RE: Benjamin Hopson, : 1960, PT ID #[id number] S Jones DO, I would like to thank you for referring Benjamin Hopson to our practice for consultation and evaluation. I have enclosed a copy of the office evaluation for your records. Sincerely, Electronically Signed by: NIRMAL [facility] Reason/Date Full Skin Check 08/24/2023 - 02:40PM - [facility] [place] History of Present IllnessI am here for a skin exam. I have a few places on my face. milia. I have a few places on my chest, they itch.Review of SystemsNone recordedPhysical ExamConstitutional: Patient is in no apparent distress and appears in good general healthNeurological: Alert and oriented to person, place, and timePsychiatric: Pleasant and cooperative Total body skin exam was performed: The areas examined include: scalp, hair, face, eyelids, lips, ears, neck, chest, breasts, abdomen, back, right upper extremity, left upper extremity, buttocks, external genitalia, right lower extremity, left lower extremity, digits and nails. Any detailed findings documented below: Evenly pigmented brown maculesStuck-on brown papules and plaquesCherry red papulesTan maculesInflamed verrucoid, papule with erythema and crusting- Right Chesterythematous macule- ChestFirm papule with hyperpigmentation- R Posterior Lower LegDiffuse areas of telangectasia, dermal atrophy and nodularity consistent with moderate-severe solar damage- faceProcedure DocumentationDestruction BN Lesions:Destruction BN Lesion(s): After discussion of the risks and benefits, 1 inflamed seborrheic keratosis were identified on the chest and treated with liquid nitrogen cryotherapy.Destruction Premalignant Lesion(s):Destruction Premalignant Lesions: Following detailed verbal informed consent, 1 actinic keratosis was/were identified on the Right Chest. Each were treated with liquid nitrogen cryotherapy. Assessment/Plan1. Multiple benign melanocytic nevi- Self-Limited/Minor -- Benign lesions seen on exam today- SPF 30 or higher broad-spectrum sunscreen recommended with re-application every 2 hours- Discussed sun protection measures, including wide-brimmed hat, sun-protective clothing, and avoidance of sun during peak hours of 10am-4pm- Avoid tanning beds as these can increase the chances of all 3 types of skin cancer- Instructed to monitor for changes and to call us for appointment with any changing or worrisome qivtjfaZ67.5: Melanocytic nevi of trunk 2. Seborrheic keratosis- Self-Limited/Minor - Benign overgrowths of skin TjvbuaerntM25.1: Other seborrheic keratosis 3. Senile angioma- Self-Limited/Minor - Benign blood vessel growths ErhjhrxjeoJ39.1: Nevus, non-neoplastic 4. Solar lentigo- Self-Limited/Minor - Benign brown spots Sun-zjfuthzM13.4: Other melanin hyperpigmentation 5. Actinic keratosis-Ln2 today, no wound careFup with change or oewawajqT49.0: Actinic keratosis 6. Inflamed seborrheic keratosis-Ln2 today, no wound careFup with change or tjllddgkM10.0: Inflamed seborrheic keratosis 7. Dermatofibroma-Nature of the diagnosis discussedFup with change or qhkntkxqU16.71: Other benign neoplasm of skin of right lower limb, including hip 8. Solar degeneration-Nature of the diagnosis discussedRx tretinoin zkubkgqhP63.8: Other skin changes due to chronic exposure to nonionizing radiation tretinoin 0.025 % topical cream - pea size amount to clean dry face qhs ? Qty: (1)?20 gram tube ? Refills: 11 ? Pharmacy: [facility] #[id number] ? Note to Pharmacy: cosmetic, no PA Return to Office JACKY SHAFER MD for FOLLOW UP DAK at [facility] on 08/24/2023 at 11:10 AM RUBI SOL MD for RECHECK at [facility] on 09/24/2023 at 10:20 AM HEAVENLY DAO MD for LEVEL 2 at [facility] on 01/27/2024 at 10:00 AM NIRMAL BLACKBURN MD for FOLLOW UP DAK at [facility] on 08/29/2024 at 11:00 AM Hortencia Bar [facility] 08/27/2023 13:07:12 Ent Consult Note : [facility] ? ? [address] [address]SLHMYFOP, Debra F (id #[id number], : 1960) [facility] [address] [place] [address] Date: 4RE: Benjamin Hopson, : 1960, PT ID #[id number] S Jones DO, I would like to thank you for referring Benjamin Hopson to our practice for consultation and evaluation. I have enclosed a copy of the office evaluation for your records. Sincerely, Electronically Signed by: RUBI SOL MDEncounter Reason/DateNone recorded 09/24/2023 - 10:20AM - [place] [facility] History of Present IllnessDetamara returns today for routine cerumenectomy. She last had the ears debrided in May 2023. She does suffer with chronic rhinitis and not currently using a medicated nasal spray. She has been told to avoid steroid nasal sprays as she has concerns regarding glaucoma. Both of her ears tend to itch, and has been prescribed Betamethasone cream in the past, but not currently. Benjamin is doing well otherwise.Review of Systems Patient reports no hearing loss, no difficulty hearing, no ear pain, no vertigo, no tinnitus, no ear pressure, and no drainage/discharge;ears feel full; ears itch. She reportsnasal congestion and nose/sinus problemsbut reports no frequent nosebleeds, no rhinorrhea, no sinus pressure, and no blockage/obstruction. She reports no fatigue, no fever, no significant weight loss, and no significant weight gain. She reports no double vision, no eye itching, and no eye pain. She reports no sore throat, no bleeding gums, no snoring, no dry mouth, no mouth ulcers, no teeth problems, no difficulty swallowing, no post nasal drip, and no hoarseness. She reports no fainting, no frequent headaches, no seizures, no numbness, and no weakness. She reports no loss of consciousness and no weakness. She reports no chest pain, no h/o murmur, no dyspnea on exertion, no palpitations, and no edema. She reports no wheezing, no shortness of breath, no hemoptysis, and no sputum production. She reports no vomiting, no painful swallowing, no heartburn, and normal appetite. She reports no swollen glands, no abnormal bruising, and no bleeding problems. She reports no depression and no anxiety. She reports no muscle aches and no joint pain/arthralgias. She reports no rash, no skin itching, no dry skin, and no growths/lesions. She reports no endocrine symptoms and no increased thirst. She reports no sneezing and no runny nose. She reports no difficulty urinating, no pain during urination, no urinary retention, no incontinence, no hematuria, and no increased frequency. Physical ExamConstitutional:General Appearance: healthy-appearing;patient is alert and oriented. Head/Face:Inspection: no masses or lesions. Eyes:Pupils: PERRLA. Ears:Right External auditory canal:canal occluded by cerumen(- External canal appears dry). Left External auditory canal:canal occluded by cerumen(- External canal appears dry). Right Tympanic membrane: landmarks clear. Left Tympanic membrane: landmarks clear. Nose:Nasal Mucosa:pale, swollen, edematous. Septum: not markedly deformed. Turbinates: normal size and confrontation. Oral Cavity/Mouth:Oral Mucosa: normal and moist. Tonsils: normal tonsils. Posterior pharynx: normal. Hypopharynx: normal hypopharynx. Nasopharynx: normal. Neck:Neck: symmetrical. Thyroid: symmetric. Lymph Nodes:Cervical: no palpable lymph node enlargement. Neurological System:Mood and affect: normal mood and affect.Procedure DocumentationCerumen removal - Instruments, Bilateral:Cerumen removal: Bilateral external auditory canals were cleaned thoroughly under microscopic exam using suction with instruments. Cerumen plugging and squamous debris were removed with out difficulty. Both ear canal appear dry. The tympanic membranes were noted to be normal. The patient tolerated the procedure well.Assessment/Plan1. Impacted cerumen of bilateral earsH61.23: Impacted cerumen, bilateral 2. Chronic eczema of external auditory lqrnqP27.8X3: Other otitis externa, bilateral betamethasone valerate 0.1 % topical cream - Apply topically in both ear canals 1-2 times per month, prn ? Qty: (1)?45 gram tube ? Refills: 2 ? Pharmacy: [facility] #[id number] 3. Chronic oomimtoqY58.0: Chronic rhinitis Patient Instructions1. Bilateral cerumenectomy performed. Full risks, complications, and benefits of non-operative intervention have been thoroughly discussed. Understanding was expressed, informed consent given, and we will proceed with the discussed treatment plan. There were no questions for me at the end of the office visit.2. Rx-Betamethasone cream- place topically in both ear canals 1-2 times per month3. Consider using saline rinse daily4. F/u in 4 months for routine cerumenectomyDiscussion Notescleaned dry hard wax and squamous debris from both canals today; encouraged her to use the betamethasone cream on a more regular basis to help with the dry OE/eczema in her canals; saline rinse for her rhinitis issues since she can't use medicated sprays because of glaucoma; follow up in four months to check her progress Return to Office RUBI SOL MD for RECHECK at [facility] on 01/25/2024 at 11:10 AM HEAVENLY DAO MD for LEVEL 2 at [facility] on 01/27/2024 at 10:00 AM NIRMAL BLACKBURN MD for FOLLOW UP DAK at [facility] on 08/29/2024 at 11:00 AM Hortencia Bar [facility] 10/01/2023 11:48:18 Ent Consult Note : [facility] ? ? [address] [facility] [facility] [address]DRVQKLPJ, Debra F (id #[id number], : 1960) [facility] [address] [facility] [address] [place] [address] Date: 4RE: Benjamin Henry, : 1960, PT ID #[id number] S Jones DO, I would like to thank you for referring Benjamin Amraymonshorty to our practice for consultation and evaluation. I have enclosed a copy of the office evaluation for your records. Sincerely, Electronically Signed by: RUBI SOL MDEncounter Reason/DateNone recorded 02/01/2024 - 03:00PM - [place] [facility] History of Present IllnessDebra returns today for routine cerumenectomy. She does suffer with chronic rhinitis and not currently using a medicated nasal spray. She has been told to avoid steroid nasal sprays as she has concerns regarding glaucoma. Both of her ears tend to itch, and has been prescribed Betamethasone cream. Pt states that she feels that her left ear itches more than the right. Pt states she uses Pataday and Hydroxyzine for allergy symptoms.Review of Systems Patient reportsdifficulty hearingbut reports no ear pain, no vertigo, no tinnitus, no ear pressure, and no drainage/discharge. She reportsnasal congestion, nose/sinus problems, and rhinorrheabut reports no frequent nosebleeds, no sinus pressure, and no blockage/obstruction. She reports no fatigue, no fever, no significant weight loss, and no significant weight gain. She reports no double vision, no eye itching, and no eye pain. She reports no sore throat, no bleeding gums, no snoring, no dry mouth, no mouth ulcers, no teeth problems, no difficulty swallowing, no post nasal drip, and no hoarseness. She reports no fainting, no frequent headaches, no seizures, no numbness, and no weakness. She reports no loss of consciousness and no weakness. She reports no chest pain, no h/o murmur, no dyspnea on exertion, no palpitations, and no edema. She reports no wheezing, no shortness of breath, no hemoptysis, and no sputum production. She reports no vomiting, no painful swallowing, no heartburn, and normal appetite. She reports no swollen glands, no abnormal bruising, and no bleeding problems. She reports no depression and no anxiety. She reports no muscle aches and no joint pain/arthralgias. She reports no rash, no skin itching, no dry skin, and no growths/lesions. She reports no endocrine symptoms and no increased thirst. She reports no sneezing and no runny nose. She reports no difficulty urinating, no pain during urination, no urinary retention, no incontinence, no hematuria, and no increased frequency. Physical ExamConstitutional:General Appearance: healthy-appearing;patient is alert and oriented. Head/Face:Inspection: no masses or lesions. Eyes:Pupils: PERRLA. Ears:Right External auditory canal:canal occluded by cerumen(- External canal appears dry). Left External auditory canal:canal occluded by cerumen(- External canal appears dry). Right Tympanic membrane: landmarks clear. Left Tympanic membrane: landmarks clear. Nose:Nasal Mucosa: normal and pink and moist. Septum: not markedly deformed. Turbinates: normal size and confrontation. Oral Cavity/Mouth:Oral Mucosa: normal and moist. Tonsils: normal tonsils. Posterior pharynx: normal. Hypopharynx: normal hypopharynx. Nasopharynx: normal. Neck:Neck: symmetrical. Thyroid: symmetric. Lymph Nodes:Cervical: no palpable lymph node enlargement. Neurological System:Mood and affect: normal mood and affect.Procedure DocumentationCerumen removal - Instruments, Bilateral:Cerumen removal: Bilateral external auditory canals were cleaned thoroughly under microscopic exam using suction with instruments. Cerumen plugging and squamous debris were removed with out difficulty. Both ear canal appear dry. The tympanic membranes were noted to be normal. The patient tolerated the procedure well.Assessment/Plan1. Impacted cerumen of bilateral earsH61.23: Impacted cerumen, bilateral 2. Chronic eczema of external auditory xamuuM53.8X3: Other otitis externa, bilateral 3. Chronic uuewbscmI51.0: Chronic rhinitis Patient Instructions1. Bilateral cerumenectomy performed. Full risks, complications, and benefits of non-operative intervention have been thoroughly discussed. Understanding was expressed, informed consent given, and we will proceed with the discussed treatment plan. There were no questions for me at the end of the office visit.2. Continue using Betamethasone cream in both ears monthly3. Consider using saline rinse daily4. F/u in 4 months for routine cerumenectomyDiscussion Notescleaned dry wax and squamous debris from both canals; betamethasone cream monthly has helped; chronic rhinitis and on hydroxazine; not able to medicated nasal sprays because of concerns about glaucoma; encouraged saline rinse; follow up in four months to check her progress Return to Office HEAVENLY DAO MD for LEVEL 3 at [facility] on 03/17/2024 at 09:30 AM RUBI SOL MD for RECHECK at [facility] on 06/02/2024 at 11:00 AM NIRMAL BLACKBURN MD for FOLLOW UP DAK at [facility] on 08/29/2024 at 11:00 AM [facility]/04/2024 13:31:55 Procedures Surgical History Date Name Laterality Status Provider Name and Address Organization Details Recorded Time 02/01/20 24 Cerumen removal - Instruments, Bilateral completed Christin Vaughan [facility] 01/31/2024 08:05:55 09/24/19 24 Cerumen removal - Instruments, Bilateral completed Christin Alexus [facility] 09/24/2023 11:01:25 08/24/19 24 Destruction Premalignant Lesion(s) completed Carie Shell [facility] 08/24/2023 15:07:27 08/24/19 24 Destruction BN Lesions completed Carie Shell [facility] 08/24/2023 15:04:54 05/28/20 23 Cerumen removal - Instruments, Bilateral completed Christin Alexus [facility] 05/28/2023 15:21:27 01/22/20 23 OCT/Nerve completed HEAVENLY DAO MD [address] [place], [address], [facility] 01/21/2023 09:43:25 01/13/20 23 Cerumen removal - Instruments, Bilateral completed RUBI SOL MD [address] [place], [address], [facility] 01/12/2023 15:11:53 09/21/19 23 Tympanogram completed GER ONTIVEROS, AUD [address] [place], [address], [facility] 09/21/2022 12:27:39 09/21/19 23 Audiogram completed GER ONTIVEROS, AUD [address] [place], [address], [facility] 09/21/2022 12:27:37 09/21/19 23 Cerumen removal - Instruments, Bilateral completed Brit Fonseca [facility] 09/21/2022 12:08:24 06/23/20 22 Cerumen removal - Instruments, Bilateral completed Asia Schwarz [facility] 06/23/2022 11:27:41 03/17/20 22 Cerumen removal - Instruments, Bilateral completed María Curtis [facility] 03/17/2022 15:36:36 11/26/19 22 Cerumen removal - Instruments, Unilateral completed María Curtis [facility] 11/25/2021 13:09:30 10/05/20 21 Cerumen removal - Instruments, Bilateral completed María Acevedo [facility] 05/27/2021 14:50:18 03/24/20 21 Date of Last Pap Smear completed Gregoriaskip Shen [facility] 11/25/2021 12:15:49 02/05/20 21 Cerumen removal - Instruments, Bilateral completed Christin Alexus [facility] 02/04/2021 16:55:01 01/22/20 21 Date of Last Mammogram completed [facility] 11/25/2021 12:16:08 09/11/19 21 Cerumen removal - Instruments, Bilateral completed María Acevedo [facility] 09/11/2020 15:13:57 04/17/20 20 Tympanogram completed HALLEY LAO [address] [place], [address], [facility] 04/17/2020 15:26:48 04/17/20 20 Audiogram completed HALLEY LAO [address] [place], [address], [facility] 04/17/2020 15:26:46 04/17/20 20 Cerumen removal - Instruments, Bilateral completed Christin Vaughan [facility] 04/17/2020 16:15:17 11/16/19 18 Electromyography (EMG) with Nerve Conduction Study (NCV) completed Christin Valladares (Nicky) [facility] 11/15/2017 14:16:02 Appendectomy completed Hannah Crawford [facility] 11/02/2017 09:24:56 Breast reconstruction completed Hannah Crawford [facility] 11/02/2017 09:25:10 Other completed Hannah Crawford [facility] 11/02/2017 09:25:56 procedure on gallbladder completed Gregoriaskip Shen [facility] 11/25/2021 12:02:32 Total Hysterectomy completed [facility] 11/25/2021 12:02:59 Imaging Results Imaging Date Name Status LastModified by Organiz ation Details LastModified Time 06/08/2024 MAMMO, screening, tomosynthe sis, bilateral, w/ CAD completed [email or web address] [facility] [address] [place], [address], 06/09/2024 11:47:15 Procedure Notes None recorded. Medical Equipment None Reported. Allergies Allergen ID Allergen Name Allergen Category Reaction Reaction Severity Criticality Documentation Date Start Date Code Code System Note Provider Name and Address Organization Details Recorded Time [id number] acetamino phen / oxycodone medicatio n itching Not available Not available 07/16/2016201018 3 RxNorm React ion: ITCHI NG; Comme nt: Creat ed By: Owen King thang Date: 2010 2:24: 41 PM; Not Available [facility] 6 11:47:26 [id number] E-Mycin medicatio n Not available Not available Not available 07/17/2016200660 8 RxNorm Comme nt: Creat ed By: Kimberlee Virk Creat ed Date: 2006 1:55: 10 PM; Not Available [facility] 6 03:43:01 [id number] acetamino phen / hydrocodo ne medicatio n Not available Not available Not available 11/02/201713089 2 [facility] 8 09:26:40 [id number] Substance with sulfonami de structure and antibacte rial mechanism of action (substanc e) medicatio n Not available Not available Not available 11/02/2017 05927 8003 SNOMED [facility] 8 09:26:49 [id number] Bactrim medicatio n Not available Not available Not available 06/02/2024 13401 9 RxNorm [facility]realyssa Sellers [facility] 4 11:11:10 Medications Name Sig Start Date Stop Date Status Note LastModified by Organization Details LastModified Time eye allergy itch rel 0.2% ophth iva 06/02 completed Not Available Not Available Not Available cyclobenza brenda 10 mg tablet take 1 tablet three times a day if needed 04/17 completed Not Available Not Available Not Available tretinoin 0.1 % topical cream APPLY TOPICALL Y AT BEDTIME. A PEA SIZED AMOUNT TO THE ENTIRE FACE. 03/02 completed Not Available Not Available Not Available amoxicilli n 500 mg capsule TAKE 1 CAPSULE BY MOUTH THREE TIMES DAILY FOR 7 DAYS 11/25 completed Not Available Not Available Not Available Levsin 0.125 mg tablet TAKE 1 TABLET BY MOUTH BEFORE A MEAL AND AT BEDTIME FOR 10 DAYS NEEDED 11/25 completed Not Available Not Available Not Available betamethas one valerate 0.1 % topical ointment APPLY A THIN LAYER TO THE AFFECTED AREA(S) BY TOPICAL ROUTE ONCE DAILY 11/25 completed Not Available Not Available Not Available promethazi ne-DM 6.25 mg-15 mg/5 mL oral syrup 04/17 completed Not Available Not Available Not Available neomycin-p olymyxin-h ydrocort 3.5 mg/mL-10,0 00 unit/mL-1 % ear solution 04/17 completed Not Available Not Available Not Available prednisone 10 mg tablet TAKE 1 TABLET BY MOUTH ONCE DAILY IN AM WITH FOOD 01/21 completed Not Available Not Available Not Available desoximeta sone 0.05 % topical cream Apply to both ear canals 1-2 times per month 2023 active Not Available Not Available Not Avai lable trazodone 50 mg tablet TAKE 1 TABLET BY MOUTH EVERY DAY AT BEDTIME 05/28 completed Not Available Not Available Not Available fexofenadi ne 60 mg tablet TAKE 1 TABLET BY MOUTH TWICE A DAY UNTIL DIRECTED TO STOP 11/25 completed Not Available Not Available Not Available cetirizine 10 mg tablet TAKE 1 TABLET ORALLY DAILY FOR 30 DAYS active Not Available Not Available No t Available fluconazol e 150 mg tablet TAKE 1 TABLET BY MOUTH 1 TIME FOR 1 DAY 01/21 completed Not Available Not Available Not Available benzonatat e 200 mg capsule 11/25 completed Not Available Not Available Not Available cephalexin 250 mg capsule TAKE 3 CAPSULES BY MOUTH TWICE A DAY FOR 7 DAYS 05/22 completed Not Available Not Available Not Available hydrocodon e 5 mg-acetami nophen 325 mg tablet TAKE 1 TABLET BY MOUTH EVERY 6 HOURS NEEDED 11/25 completed Not Available Not Available Not Available tretinoin 0.025 % topical cream APPLY PEA SIZED AMOUNT TOPICALL Y TO CLEAN DRY FACE EVERY NIGHT AT BEDTIME active Not Available Not Available No t Available fluconazol e 200 mg tablet TAKE 1 TABLET BY MOUTH WEEKLY FOR 8 WEEKS 09/21 completed Not Available Not Available Not Available Nicorette 2 mg gum Chew 1 piece of gum every 2 hours by oral route. 01/21 completed Not Available Not Available Not Available meloxicam 15 mg tablet take 1 tablet by mouth once daily 04/17 completed Not Available Not Available Not Available prednisone 20 mg tablet TAKE 1 TABLET BY MOUTH TWICE DAILY WITH FOOD OR MILK FOR 5 DAYS 03/02 completed Not Available Not Available Not Available Tylenol Arthritis Pain 650 mg tablet,ext ended release Daily 04/17 completed Frequen cy: daily;A lt Frequen cy: prn;Med ication Descrip tion: acetami nophen; Dosage: 2; Route:o ral; refills :0 Not Available Not Available Not Available sulindac 150 mg tablet TAKE 1 TABLET BY MOUTH TWICE DAILY WITH MEALS 03/02 completed Not Available Not Available Not Available ciprofloxa yung 250 mg tablet TAKE 1 TABLET BY MOUTH EVERY 12 HOURS FOR 3 DAYS 01/21 completed Not Available Not Available Not Available tretinoin 0.05 % topical cream APPLY EXTERNAL LY TO THE AFFECTED AREA DAILY 02/04 completed Not Available Not Available Not Available ciprofloxa yung 500 mg tablet TAKE 1 TABLET BY MOUTH TWICE DAILY FOR 7 DAYS 05/28 completed Not Available Not Available Not Available amoxicilli n 500 mg tablet TAKE 2 TABLETS BY MOUTH TWICE DAILY FOR 10 DAYS 04/17 completed Not Available Not Available Not Available meloxicam 7.5 mg tablet TAKE 1 TABLET BY MOUTH TWICE DAILY 01/21 completed Not Available Not Available Not Available ofloxacin 0.3 % ear drops INSTILL 10 DROPS INTO THE AFFECTED EAR DAILY FOR 7 DAYS 04/17 completed Not Available Not Available Not Available omeprazole 10 mg capsule,de layed release Take 1 capsule( s) every day by oral route. 08/03 completed Not Available Not Available Not Available lorazepam 0.5 mg tablet TAKE 1 TABLET BY MOUTH THREE TIMES DAILY NEEDED FOR ANXIETY 06/02 completed Not Available Not Available Not Available estradiol 1 mg tablet TAKE 1 AND 1/2 TABLETS BY MOUTH EVERY OTHER NIGHT THEN TAKE 1 TABLET ON ALTERNAT E NIGHTS active Not Available Not Available No t Available hydrocorti sone-aceti c acid 1 %-2 % ear drops 04/17 completed Not Available Not Available Not Available betamethas one valerate 0.1 % topical cream APPLY TO BOTH EAR CANALS 1 TO 2 TIMES A MONTH NEEDED 2023 active Not Available Not Available Not Avai lable Ear Wax Removal Drops 6.5 % PLACE 5 DROPS INTO AFFECTED EAR TWICE A DAY FOR 4 DAYS 04/17 completed Not Available Not Available Not Available cephalexin 500 mg capsule TAKE 1 CAPSULE BY MOUTH THREE TIMES DAILY FOR 7 DAYS 05/28 completed Not Available Not Available Not Available oseltamivi r 75 mg capsule TAKE 1 CAPSULE BY MOUTH DAILY 04/17 completed Not Available Not Available Not Available triamcinol one acetonide 0.1 % topical ointment APPLY TOPICALL Y TO THE AFFECTED AREA TWICE DAILY FOR 2 WEEKS 01/21 completed Not Available Not Available Not Available clotrimazo le-betamet hasone 1 %-0.05 % topical cream APPLY TOPICALL Y TO THE AFFECTED AREA TWICE DAILY FOR 10 DAYS 01/21 completed Not Available Not Available Not Available albendazol e 200 mg tablet TAKE 2 TABLETS BY MOUTH NOW AND REPEAT DOSING IN 2 WEEKS active Not Available Not Available No t Available hyoscyamin e 0.125 mg sublingual tablet TAKE 1 TABLET BY MOUTH EVERY 6 HOURS NEEDED 01/21 completed Not Available Not Available Not Available promethazi ne 25 mg tablet TAKE 1 TABLET BY MOUTH EVERY 6 HOURS NEEDED 04/17 completed Not Available Not Available Not Available polymyxin B sulfate 10,000 unit-trime thoprim 1 mg/mL eye drops INSTILL 2 DROPS IN BOTH EYES THREE TIMES DAILY FOR 7 TO 10 DAYS 09/21 completed Not Available Not Available Not Available nicotine 21 mg/24 hr daily transderma l patch APPLY 1 PATCH TRANSDER GERTRUDE DAILY active Not Available Not Available No t Available gabapentin 300 mg capsule Three times a day 04/17 completed Not Available Not Available Not Available buspirone 7.5 mg tablet TAKE 1 TABLET BY MOUTH TWICE DAILY 11/25 completed Not Available Not Available Not Available omeprazole 20 mg capsule,de layed release TAKE 1 CAPSULE BY MOUTH EVERY DAY 2023 active Not Available Not Available Not Avai lable budesonide 0.5 mg/2 mL suspension for nebulizati on Inhale 2 mL twice a day by nebuliza tion route. 03/17 completed Not Available Not Available Not Available lisinopril 20 mg-hydroch lorothiazi de 25 mg tablet take 1 tablet by mouth once daily 04/17 completed Not Available Not Available Not Available hydroxyzin e HCl 25 mg tablet TAKE 1 TABLET BY MOUTH TWICE DAILY NEEDED FOR ANXIETY active Not Available Not Available No t Available hydrochlor othiazide 25 mg tablet Take1 by mouth twice a day 08/03 completed Not Available Not Available Not Available mupirocin 2 % topical ointment APPLY TOPICALL Y TO THE AFFECTED AREA DAILY 01/21 completed Not Available Not Available Not Available gabapentin 100 mg capsule 04/17 completed Not Available Not Available Not Available lotepredno l etabonate 0.5 % eye drops,susp ension PLEASE SEE ATTACHED FOR DETAILED DIRECTIO NS 12/29 completed Not Available Not Available Not Available azelastine 137 mcg (0.1 %) nasal spray INHALE 2 SPRAYS INTO EACH NOSTRIL TWICE A DAY UNTIL DIRECTED TO STOP 03/02 completed Not Available Not Available Not Available methylpred nisolone 4 mg tablets in a dose pack TAKE 1 TABLET BY MOUTH DAILY DIRECTED active Not Available Not Available No t Available ipratropiu m bromide 42 mcg (0.06 %) nasal spray USE 2 SPRAYS IN EACH NOSTRIL TWICE DAILY active Not Available Not Available No t Available ondansetro n 4 mg disintegra ting tablet DISSOLVE 1 TABLET ON THE TONGUE FOUR TIMES DAILY NEEDED 07/03 completed Not Available Not Available Not Available cefdinir 300 mg capsule TAKE 1 CAPSULE BY MOUTH TWICE DAILY FOR 7 DAYS 01/21 completed Not Available Not Available Not Available dexamethas one sodium phosphate 10 mg/mL injection solution Take 10 mg by injectio n route. 09/11 completed Not Available Not Available Not Available fluticason e propionate 50 mcg/actuat ion nasal spray,susp ension SPRAY ONCE DAILY IN EACH NOSTRIL 11/25 completed Not Available Not Available Not Available colestipol 1 gram tablet TAKE 2 TABLETS BY MOUTH EVERY NIGHT AT BEDTIME 05/28 completed Not Available Not Available Not Available doxycyclin e hyclate 100 mg tablet TAKE 1 TABLET BY MOUTH TWICE DAILY FOR 10 DAYS 05/28 completed Not Available Not Available Not Available diazepam 5 mg tablet TAKE 1 TABLET BY MOUTH 1 HOUR PRIOR TO MRI 02/04 completed Not Available Not Available Not Available amoxicilli n 875 mg-potassi um clavulanat e 125 mg tablet TAKE 1 TABLET BY MOUTH EVERY 12 HOURS FOR 10 DAYS OR UNTIL DIRECTED TO STOP 09/21 completed Not Available Not Available Not Available amoxicilli n 500 mg-potassi um clavulanat e 125 mg tablet TAKE 1 TABLET BY MOUTH EVERY 12 HOURS FOR 5 DAYS 10/07 completed no longer taking 09/24/23 Not Available Not Available Not Available minocyclin e 100 mg tablet Daily 04/17 completed Frequen cy: daily;M edicati on Descrip tion: minocyc line; Dosage: 1; Route:o ral; refills :0 Not Available Not Available Not Available Premarin 0.625 mg tablet 04/17 completed Not Available Not Available Not Available Crestor 5 mg tablet Daily 04/17 completed Frequen cy: daily;M edicati on Descrip tion: rosuvas tatin; Dosage: 1; Route:o ral; refills :0 Not Available Not Available Not Available Claritin 09/11 completed Not Available Not Available Not Available hydrochlor othiazide 12.5 mg tablet TAKE 1 TABLET BY MOUTH EVERY DAY active Not Available Not Available No t Available levocetiri zine 5 mg tablet TAKE 1 TABLET BY MOUTH EVERY DAY 10/07 completed Not Available Not Available Not Available Xyzal 12/29 completed Not Available Not Available Not Available nebivolol 10 mg tablet TAKE ONE TABLET BY MOUTH ONCE A DAY active Not Available Not Available No t Available nebivolol 5 mg tablet TAKE 1 TABLET BY MOUTH DAILY active Not Available Not Available No t Available Bystolic 12/29 completed Not Available Not Available Not Available desvenlafa xine succinate ER 50 mg tablet,ext ended release 24 hr TAKE 1 TABLET BY MOUTH DAILY active Not Available Not Available No t Available Xifaxan 550 mg tablet TAKE 1 TABLET BY MOUTH THREE TIMES DAILY FOR 14 DAYS FOR IBS 01/21 completed Not Available Not Available Not Available butalbital -acetamino phen-caffe ine 50 mg-300 mg-40 mg capsule TAKE 1 CAPSULE BY MOUTH EVERY 6 HOURS NEEDED FOR HEADACHE 11/25 completed Not Available Not Available Not Available Suprep Bowel Prep Kit 17.5 gram-3.13 gram-1.6 gram oral solution MIX AND DRINK DIRECTED 11/25 completed Not Available Not Available Not Available vilazodone 20 mg tablet TAKE 1 TABLET BY MOUTH DAILY WITH FOOD; START AFTER FINISHIN G 10MG STRENGTH 01/04 completed Not Available Not Available Not Available vilazodone 10 mg tablet TAKE 1 TABLET BY MOUTH ONCE DAILY WITH FOOD FOR 7 DAYS THEN INCREASE TO 20 MG TABLET ONCE DAILY WITH FOOD 11/18 completed Not Available Not Available Not Available EpiCeram topical emulsion, extended release APPLY TO THE EAR CANALS DAILY 12/29 completed Not Available Not Available Not Available desvenlafa xine ER 50 mg tablet,ext ended release 24 hr Take 1 tablet every day by oral route for 30 days. 01/04 completed Not Available Not Available Not Available Contrave 8 mg-90 mg tablet,ext ended release TAKE DIRECTED ATTACHED DIRECTIO NS 11/25 completed Not Available Not Available Not Available Viibryd 10 mg (7)-20 mg (23) tablets in a dose pack Take 10 mg once daily with food x7 days then increase to 20 mg once daily with food 11/18 completed Not Available Not Available Not Available Shingrix (PF) 50 mcg/0.5 mL intramuscu lar suspension , kit inject 0.5 millilit er intramus cularly 04/17 completed Not Available Not Available Not Available Imvexxy Maintenanc e Pack 4 mcg vaginal insert 04/17 completed Not Available Not Available Not Available Fluarix Quad (PF) 60 mcg (15 mcg x 4)/0.5 mL IM syringe inject 0.5 millilit ers intramus cularly 04/17 completed Not Available Not Available Not Available Afluria Qd 2019- (36 mos up)(PF)60 mcg (15 mcg x4)/0.5 mL IM syringe ADM 0.5ML IM UTD 02/04 completed Not Available Not Available Not Available Vitals Date Recorded Body height Body mass index (BMI) Body weight Body temperature Heart rate Systolic blood pressure Diastolic blood pressure Provider Name and Address Organization Details Last Updated DateTime 4 165.1 cm 26.1 kg/m2 45974 g 97.3 [degF] 69 /min 123 mm[Hg] 85 mm[Hg] Lu Castle [facility] 4 10:44:36 Date Recorded Body height Body mass index (BMI) Body weight Heart rate Body temperature Systolic blood pressure Diastolic blood pressure Provider Name and Address Organization Details Last Updated DateTime 4 165.1 cm 24.1 kg/m2 28206.5 9 g 73 /min 98 [degF] 134 mm[Hg] 77 mm[Hg] Li Bronsonb [facility] 4 15:07:18 Date Recorded Body height Provider Name an d Address Organization Details Last Updated DateTime 03/16/2024 165.1 cm Nikki Wild [facility] 03/16/2024 11:07:23 Date Recorded Body height Body mass index (BMI) Body weight Body temperature Heart rate Respiratory rate Oxygen saturation Oxygen saturation in Arterial blood by Pulse oximetry Systolic blood pressure Diastolic blood pressure Provider Name and Address Organization Details Last Updated DateTime 4 165.1 cm 21.9 kg/m2 08153.7 g 97.9 [degF] 71 /min 14 /min 99 % 99 % 120 mm[Hg] 70 mm[Hg] Alex Sellers [facility] 4 11:10:41 Social History Question Answer Notes LastModified by Organizat ion Details LastModified Time Tobacco Smoking Status Current [facility]2021 09:38:17 Do You Have An Advance Directive? No Information not available 11/25/2021 What Is Your Level Of Alcohol Consumption? None Information not available 04/17/2020 Do You Wear A Helmet When Biking? No Information not available 11/25/2021 What Is Your Level Of Caffeine Consumption? Moderate Information not available 11/25/2021 Are You Deaf Or Do You Have Serious Difficulty Hearing? No Information not available 11/25/2021 What Type Of Diet Are You Following? CARBOHYDRATE Low Carb Information not available 11/25/2021 What Is The Highest Grade Or Level Of School You Have Completed Or The Highest Degree You Have Received? [id number] 2 Degrees Information not available 11/25/2021 Are There Any Guns Present In Your Home? No Information not available 11/25/2021 What Was The Date Of Your Most Recent Tobacco Screening? 11/10/2022 [email or web address] Information not available 11/10/2022 How Many Children Do You Have? 3 Information not available 11/25/2021 Do You Use Protection During Sex? No Information not available 11/25/2021 What Is Your Relationship Status? Information not available 11/25/2021 Do You Use Your Seat Belt Or Car Seat Routinely? Yes Information not available 11/25/2021 Are You Sexually Active? Yes Information not available 11/25/2021 Do You Have Smoke And Carbon Monoxide Detectors In Your Home? Yes Information not available 11/25/2021 Are There Any Smokers In Your House? Yes Information not available 11/25/2021 How Much Tobacco Do You Smoke? 0.5 PPD Information not available 04/17/2020 Do You Feel Stressed (tense, Restless, Nervous, Or Anxious, Or Unable To Sleep At Night)? [id number] Information not available 11/25/2021 Do You Use Any Illicit Or Recreational Drugs? No [email or web address] Information not available 05/27/2021 Do You Use Sunscreen Routinely? Yes Information not available 11/25/2021 Have You Recently Traveled Abroad? No [email or web address] Information not available 05/27/2021 Do You Or Have You Ever Used Any Other Forms Of Tobacco Or Nicotine? Yes [email or web address] Information not available 09/21/2022 Sex: Female Functional Status Question Answer Note LastModified by Organization D etails LastModified Time Are you able to care for yourself? Yes Information not available 11/25/2021 What is your exercise level? Moderate Information not available 11/25/2021 Mental Status None recorded. Family History Relationship Description Onset Age of this Age Resolved Age Notes LastModified by Organization Details LastModified Time Father Lazy eye [email or web address] Not available 02/09/2019 15:13:17 Father Heart disease Not available 2019 15:10:09 Father Hypertensive disorder Not available 2019 15:10:18 Father Diabetes mellitus Not available 2019 15:10:29 Father Myocardial infarction Not available 11/25 11:56:55 Father Hypercholest [email or web address] Not available 2021 11:57:40 Father Mental disorder Not available 2021 11:57:57 Father Disorder of stomach Not available 2021 11:58:12 Father Acute stroke Not availab le 11/25/2021 11:58:23 Mother Disorder of thyroid gland Not available 2019 15:09:54 Mother Family history of Thyroid disorder Not available 2021 11:58:51 Unspecified Relation Glaucoma cousin [email or web address] Not available 07/03/20 11:33:57 Medical History Condition Response Diabetes N Anxiety Disorder Y Allergies/Hayfever Y Bleeding Disorder N Arthritis Y Emphysema N Acid Reflux (GERD) Y Cancer N COPD N Asthma N Glaucoma Y High Cholesterol Y Anesthesia Complications N Heart Disease N Rheumatoid Arthritis N Headaches Y Hypertension Y Gynecological History Statement/Question Response Abnormal Pap N If Post Menopausal, Age at Menopause 52 Date of Last Mammogram 01/21/2021 Regular Cycles N Sexually Active? Y Menses Monthly N STIs/STDs N Date of Last Pap Smear 03/24/2021 Desired Control Method None Ovarian Cancer Screening? N Hormone Replacement Therapy Y Obstetrics History GPAL:G 3 P 3 0 0 3 Type Value Full Term 3 Living 3 Total 3 Immunizations Vaccine Type Date Status Provider Name and Address Organization Details Recorded Time Influenza, MDCK, quadrivalent, PF 05/01/2022 [facility] 12:31:10 Influenza, split virus, trivalent, PF 05/07/2017 completed Mary Ellen shi [facility] 09/01/2022 12:31:10 Influenza, split virus, quadrivalent, PF 05/03/2020 completed Mary Ellen Llanos [facility] 09/01/2022 12:31:10 COVID-19, mRNA, LNP-S, PF, 30 mcg/0.3 mL dose 05/22/2021 completed Mary Ellen Llanos [facility] 09/01/2022 12:31:10 COVID-19, mRNA, LNP-S, PF, 30 mcg/0.3 mL dose 10/24/2020 completed Mary Ellen Llanos [facility] 09/01/2022 12:31:10 Influenza, split virus, quadrivalent, preservative 04/08/2021 completed Mary Ellen Llanos [facility] 09/01/2022 12:31:10 Influenza, split virus, trivalent, PF 05/10/2016 completed Mary Ellen Llanos [facility] 09/01/2022 12:31:10 COVID-19, mRNA, LNP-S, PF, 30 mcg/0.3 mL dose 11/19/2020 completed Mary Ellen Llanos [facility] 09/01/2022 12:31:11 COVID-19, mRNA, LNP-S, PF, 30 mcg/0.3 mL dose, sriram-sucrose 11/21/2021 completed Mary Ellen Llanos [facility] 09/01/2022 12:31:11 pneumococcal polysaccharide PPV23 05/07/2017 completed Mary Ellen Llanos [facility] 09/01/2022 12:31:11 Tdap 03/30/2023 completed Gregoria Shen [facility] 08/03/2023 16:00:18 Past Encounters Encounter ID Performer Location Encounter Start Date Encounter Closed Date Diagnosis/Indication Diagnosis SNOMED-CT Code Diagnosis ICD10 Code [id number] [employer] [address] 11/23/2016 16:24:11 11/23/2016 16:24:11 [id number] [facility] [address] [place] [address] 11/02/2017 09:06:09 11/02/2017 10:14:59 Lumbar spondylosis 936289386 M47.006 [id number] Christin ([place]) [place] [facility] CLOSED [address] [place] [address] 11/15/2017 12:04:56 11/15/2017 15:25:54 Skin sensation disturbance 20975491 R20.9 Low back pain 449318625 M54.5 Pain in left knee 274130 1821 00738 M25.870 [id number] HEAVENLY DAO MD OPHTHALMO [facility] [address] [place] [address] DR,[address] [place] [address] 02/09/2019 14:51:22 02/10/2019 11:41:36 Myopia 97058265 H52.13 Regular astigmatism 6890 5002 H52.223 Presbyopia 15454739 H52. 4 [id number] RUBI SOL MD [place] ENT [address] [place] [address] 04/17/2020 14:46:59 04/17/2020 16:37:57 Hearing examination 221755013 Z01.10 Dysfunctio n of eustachian tube 60312171 H69.92 Impacted c erumen of bilateral ears 0239975381 009913 H61.23 Nasal muco sa edematous 94785741 R60.0 Hypertroph y of nasal turbinates 57646832 J34.3 Allergic rhinitis 635706 04 J30.9 Ear pressu re sensation 831876916 H93.8X9 Retraction of tympanic membrane 77871135 H73.534 [id number] HALLEY LAO [place] E[facility] [address] [place] [address] 04/17/2020 15:26:25 04/17/2020 15:39:54 Otalgia 27184673 H92.03 Bilateral tinnitus 77333 04219 102 H93.13 Dysfunctio n of eustachian tube 46895530 H69.92 [id number] RUBI SOL MD [place] ENT [address] [place] [address] 05/15/2020 15:30:08 05/15/2020 16:50:09 Dysfunction of eustachian tube 30237676 H69.92 Ear pressu re sensation 393166027 H93.8X9 Retraction of tympanic membrane 95698311 H73.899 Nasal muco sa edematous 19151115 R60.0 Hypertroph y of nasal turbinates 46964888 J34.3 Allergic rhinitis 506469 04 J30.9 [id number] RUBI SOL MD [facility] [address] [place] [address] 09/11/2020 14:58:07 09/11/2020 15:45:07 Dysfunction of eustachian tube 59748009 H69.92 Ear pressu re sensation 836427897 H93.8X9 Retraction of tympanic membrane 77609207 H73.899 Nasal muco sa edematous 23346328 R60.0 Hypertroph y of nasal turbinates 44579407 J34.3 Allergic rhinitis 466010 04 J30.9 Impacted c erumen of bilateral ears 6095529046 004839 H61.23 Eczema of external auditory canal 54118030 H60.997 [id number] MADDY SALES III, MD [facility] [address] [place] [address] 02/04/2021 15:04:06 02/05/2021 15:31:20 Impacted cerumen of bilateral ears 1814200881 899388 H61.23 [id number] SHIMA GORMAN MD [facility] [address] [place] [address] 05/27/2021 13:56:55 05/27/2021 15:47:24 Impacted cerumen of bilateral ears 2842519175 667457 H61.23 Eczema of external auditory canal 77478470 H60.549 Hypertroph y of nasal turbinates 14093381 J34.3 [id number] CARMELLA WOOD DO [facility] CLOSED [address] [facility] [place] [address] 11/25/2021 11:33:21 12/03/2021 14:51:29 Obesity 194687322 E66.9 Gastroesop hageal reflux disease without esophagitis 269130463 K21.9 Hypertensive disorder 38 358042 I10 Screening for malignant neoplasm of breast 967567137 Z12.39 Screening for malignant neoplasm of colon 735223923 Z12.11 Adult heal th examination 222352057 Z00.00 [id number] RUBI SOL MD RI ENT [facility] CLOSED [address] [place] [address] 11/25/2021 11:47:32 12/01/2021 14:03:37 Hypertrophy of nasal turbinates 87657467 J34.3 Impacted c erumen in right ear 3649448675 675731 H61.21 Chronic rhinitis 3051373 6 J31.0 Retraction of tympanic membrane 42965604 H73.899 Dysfunctio n of bilateral eustachian tubes 2687244083 023917 H69.93 [id number] DANIELA RIVERA MD [address] [place] [address] 12/23/2021 09:25:37 12/23/2021 12:28:13 Bilateral osteoarthritis of knees 5101748237 58298 M17.0 Chronic low back pain 27 3068155 M54.50 [id number] HEAVENLY DAO MD OPHTHALMO [place] [address] [address] 12/29/2021 14:33:38 12/29/2021 15:33:02 Allergic conjunctivitis 118391566 H10.12 Suspected bilateral glaucoma 7874993346 2880871 H40.997 [id number] CARMELLA WOOD DO [facility] CLOSED [address] [place] [address] 02/26/2022 13:02:46 03/19/2022 09:05:47 Hypertensive disorder 58912960 I10 [id number] HEAVENLY DAO MD OPHTHALMO [place] [address] [place] [address] 03/02/2022 13:39:15 03/02/2022 15:50:51 Suspected bilateral glaucoma 2210454363 8966502 H40.023 [id number] RUBI SOL MD RI ENT [facility] CLOSED [address] [place] [address] 03/17/2022 15:17:01 03/17/2022 16:00:37 Impacted cerumen of bilateral ears 1533511323 477789 H61.23 Eczema of external auditory canal 49349931 H60.543 Chronic rhinitis 9144177 6 J31.0 Dysfunctio n of bilateral eustachian tubes 5800213538 704402 H69.93 [id number] CARMELLA WOOD, [facility] CLOSED [address] [place] [address] 05/22/2022 11:01:15 05/22/2022 12:00:06 Acute sinusitis 28864932 J01.90 [id number] RUBI SOL MD [facility] CLOSED [address] [place] [address] 06/23/2022 11:13:25 06/23/2022 11:37:07 Impacted cerumen of bilateral ears 4025000723 993797 H61.23 Eczema of external auditory canal 42843824 H60.543 Chronic rhinitis 9924015 6 J31.0 Dysfunctio n of bilateral eustachian tubes 5063037104 906435 H69.93 [id number] HEAVENLY DAO MD OPHTHALMO [address] [place] [address] 07/03/2022 11:10:58 07/03/2022 12:00:22 Suspected bilateral glaucoma 4483787321 4262525 H40.023 [id number] SHIMA GORMAN MD RI ENT [facility] CLOSED [address] [place] [address] 09/21/2022 11:13:25 09/21/2022 15:15:29 Impacted cerumen of bilateral ears 1454908141 839702 H61.23 Eczema of external auditory canal 48387507 H60.543 Chronic rhinitis 5844956 6 J31.0 Bilateral earache 609863 003 H92.03 [id number] HALLEY ZAMARRIPA ENT [facility] CLOSED [address] [place] [address] 09/21/2022 12:13:18 09/21/2022 12:28:22 Bilateral earache 598838548 H92.03 Impacted c erumen of bilateral ears 7175324335 786722 H61.23 [id number] ANGIE DAVID APRN [address] [place] [address] 09/21/2022 15:47:03 09/24/2022 12:46:06 Bilateral osteoarthritis of knees 4716780977 74447 M17.0 Multiple joint pain 3567 8005 M25.50 Pain of bi lateral knee joints 3857460420 00314 M25.561 M25.562 Neck pain 96823301 M54.2 [id number] CARMELLA WOOD, [facility] CLOSED [address] [place] [address] 10/12/2022 13:33:42 10/12/2022 15:45:22 Abdominal pain 68891023 R10.9 Mixed anxi ety and depressive disorder 682714910 F41.8 Body mass index 30+ - obesity 319393622 Z68.30 Obesity 733546490 E66.9 [id number] ELVIA MITCHELL MD PAIN MEDICINE [address] [place] [address] 11/10/2022 14:53:47 11/11/2022 04:58:26 Osteoarthritis of multiple joints 757701642 M15.9 Pain of bi lateral knee joints 1013331772 99265 M25.561 M25.562 Bilateral shoulder joint pain 3384361686 3530260 M25.511 M25.512 Bilateral hip joint pain 4860905667 7363129 M25.551 M25.552 Chronic low back pain 27 7496545 M54.50 Lumbar spondylosis 19629 0009 M47.896 [id number] CARMELLA WOOD, DO [facility] CLOSED [address] [place] [address] 11/18/2022 11:10:57 11/19/2022 04:09:29 Mixed anxiety and depressive disorder 190356658 F41.8 [id number] CARMELLA WOOD, DO [facility] CLOSED [address] [place] [address] 01/04/2023 10:58:42 01/04/2023 13:23:34 Dysuria 05755248 R30.0 Insomnia 124558478 G47.0 0 [id number] RUBI SOL MD RI ENT [facility] CLOSED [address] [place] [address] 01/12/2023 14:38:56 01/12/2023 15:14:19 Impacted cerumen of bilateral ears 5549642464 559488 H61.23 Allergic rhinitis 522442 04 J30.9 [id number] HEAVENLY DAO MD OPHTHALMO [facility] [address] [place] [address],[address] [place] [address] 01/21/2023 08:52:02 01/21/2023 11:09:24 Suspected bilateral glaucoma 3772271110 5884219 H40.023 [id number] RUBI SOL MD [place] ENT [address] [place] [address] 05/28/2023 14:46:01 05/28/2023 16:15:20 Impacted cerumen of bilateral ears 9995620413 141560 H61.23 Chronic rhinitis 4104295 6 J31.0 [id number] CARMELLA WOOD, DO [facility] [address] [place] [address] 08/03/2023 15:38:36 08/03/2023 16:31:49 Has a sore throat 049122357 J02.9 Essential hypertension 89705748 I10 Posterior rhinorrhea 758 17864 R09.82 [id number] NIRMAL BLACKBURN MD [facility] [address] [place] [address] 08/24/2023 14:42:54 08/26/2023 14:10:30 Multiple benign melanocytic nevi 337200301 D22.5 Seborrheic keratosis 394 535232 L82.1 Senile angioma 5650530 I 78.1 Solar lentigo 07622311 L 81.4 Actinic keratosis 077056 007 L57.0 Inflamed s eborrheic keratosis 019053148 L82.0 Dermatofibroma 485297165 D23.71 Solar degeneration 81754 006 L57.8 [id number] RUBI SOL MD RI ENT [address] [facility] [place] [address] 09/24/2023 10:13:59 09/24/2023 11:11:37 Impacted cerumen of bilateral ears 4452657234 315357 H61.23 Chronic rhinitis 8304805 6 J31.0 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 683580222 H60.8X3 [id number] RUBI SOL MD RI ENT [facility] [address] [place] [address] 02/01/2024 15:00:34 02/01/2024 15:33:15 Impacted cerumen of bilateral ears 1135213236 908315 H61.23 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 586617727 H60.8X3 Chronic rhinitis 1369373 6 J31.0 [id number] HEAVENLY DAO MD OPHTHALMO LOGY [address] [place] [address] 03/16/2024 10:37:53 03/16/2024 12:04:51 Suspected bilateral glaucoma 7821106140 3605454 H40.023 Excess ski n of bilateral eyelids 5016269260 8181609 H02.31 H02.34 Presbyopia 41449307 H52. 4 [id number] RUBI SOL MD RI ENT [address] [facility] [place] [address] 06/02/2024 10:58:54 06/02/2024 12:01:19 Chronic eczema of external auditory canal 682449707 H60.8X3 Chronic rhinitis 4262280 6 J31.0 Dysfunctio n of eustachian tube 33127448 H69.92 Vasomotor rhinitis 73177 03 J30.0 Neck pain 02011657 M54.2 Health Concerns Section Related Observation LastModified by Organization Detai ls LastModified Time None Recorded Concern Status LastModified by Organization Details LastModified Time None Recorded Advance Directives Directive N: Payers Encounter Date Sequence Insurance Name Policy Number Policy Watkins Covered Member ID Watkins Member ID Guarantor Name 08/24/2023 1 [place] [place] [id number] Aarti Hopson [id number] Benjamin Willi Ampedro luis 09/24/2023 1 [place] [id number] Aarti Hopson [id number] Benjamin F Ammershorty 02/01/2024 1 [place] [id number] Aarti Hopson [id number] Benjamin F Ammerman 03/16/2024 1 [place] [id number] Aarti Hopson [id number] Benjamin F Ammershorty 06/02/2024 1 [place] [id number] Aarti Hopson [id number] Benjamin Willi Hopson Notes Date Note Type Note Provider Name and Address Organization Details Recorded Time 08/24/2023 text/html I am here for a skin exam. I have a few places on my face. milia. I have a few places on my chest, they itch. NIRMAL BLACKBURN MD [address] [place] [address], [phone], [facility] 08/24/2023 15:55:13 09/24/2023 text/html Benjamin returns to day for routine cerumenectomy. She last had the ears debrided in May 2023. She does suffer with chronic rhinitis and not currently using a medicated nasal spray. She has been told to avoid steroid nasal sprays as she has concerns regarding glaucoma. Both of her ears tend to itch, and has been prescribed Betamethasone cream in the past, but not currently. Benjamin is doing well otherwise. RUBI SOL MD [address] [place] [address], [phone], [facility] 09/24/2023 11:13:08 02/01/2024 text/html Benjamin returns to day for routine cerumenectomy. She does suffer with chronic rhinitis and not currently using a medicated nasal spray. She has been told to avoid steroid nasal sprays as she has concerns regarding glaucoma. Both of her ears tend to itch, and has been prescribed Betamethasone cream. Pt states that she feels that her left ear itches more than the right. Pt states she uses Pataday and Hydroxyzine for allergy symptoms. RUBI SOL MD [address] [place] [address], [phone], [facility] 02/01/2024 15:34:53 06/02/2024 text/html Benjamin returns to the office for a 4 month cerumen impaction.Pt states that a few weeks back she had Pneumonia and was treated with Amoxicillin and steroid dose pack. Pt states that she hears popping in her ears after being sick. RUBI SOL MD [address] [place] [address], [phone], [facility] 06/02/2024 11:39:21 OBGyn Episode No OBEpisode recorded.
[2024-07-27 15:47] LABS: Microscopic, Urine URINE MICROSCOPIC (MICROSCOPIC)
[2024-07-27 15:48] VITALS: BP 158/79; PULSE 71; RESP 16; TEMP 36.7; O2SAT 98; BMI 21.6
[2024-07-27 16:09] LABS: Basophils # 0.1 K/mm3 (0-0.2); Basophils % 1.2 % (0.1-2.0); Eosinophils # 0.1 K/mm3 (0.0-0.4); Eosinophils % 2.1 % (0.1-12.0); Hematocrit 37.5 % (37.0-47.0); Hemoglobin 12.5 g/dL (12.2-16.2); Lymphocytes # 1.9 K/mm3 (0.7-4.5); Lymphocytes % 28.8 % (10-50); Mean Corpuscular HGB Conc 33.3 g/dL (31.8-35.4); Mean Corpuscular Hemoglobin 28.1 pg (27.0-31.2); Mean Corpuscular Volume 84.5 fl (81-99); Mean Platelet Volume 7.8 fl (7.4-10.4); Monocytes # 0.2 K/mm3 (0.1-1.0); Monocytes % 3.6 % (1.7-9.3); Neutrophils # 4.3 K/mm3 (1.8-7.8); Neutrophils % 64.3 % (37.0-80.0); Platelet Count 259 K/mm3 (142-424); Red Blood Count 4.44 M/mm3 (4.20-5.40); Red Cell Distribution Width 14.2 % (11.5-17.5); White Blood Count 6.6 K/mm3 (4.8-10.8)
[2024-07-27] MEDS: ONDANSETRON 4MG/2ML VIAL 4 MG IV (16:13)
[2024-07-27] MEDS: KETOROLAC 30MG/ML VIAL 15 MG IV (16:14)
[2024-07-27 16:17] VITALS: BP 172/82; PULSE 62; O2SAT 100
[2024-07-27 16:17] LABS: Chloride 107 mmol/L (98-107)
[2024-07-27 16:17] LABS: Appearance,Urine CLEAR (Clear); Bilirubin,Urine Negative (Negative); Blood, Urine Negative (Negative); Color,Urine YELLOW (Yellow); Glucose,Urine (UA) Negative (Negative); Ketones,Urine Negative (Negative); Leukocyte Esterase,Urine Negative (Negative); Nitrate,Urine Negative (Negative); PH,Urine 6.5 (5.0-8.5); Protein,Urine Negative (Negative); Specific Gravity, Urine 1.015 (1.005-1.030); Urobilinogen,Urine 0.2 EU/dl (0.2)
[2024-07-27 16:18] LABS: Sodium 139 mmol/L (136-145)
[2024-07-27 16:20] LABS: Alanine Aminotransferase 46 U/L (12-78); Aspartate Amino Transferase 36 U/L (14-36); Blood Urea Nitrogen 18 mg/dl (7-17); Carbon Dioxide 29 mmol/L (22.0-30.0); Creatinine Clearance Estimated 54 mL/min (50-200); Estimated Glomerular Filt Rate 85 ml/min (>60); GFR (African American) 103 ML/MIN (>60)
[2024-07-27 16:21] LABS: Albumin/Globulin Ratio 1.5 (1.1-1.8); Alkaline Phosphatase 58 U/L (38-126); Bilirubin,Total 0.4 mg/dl (0.2-1.3); Calcium 8.9 mg/dl (8.4-10.2); Globulin 2.6 g/dL (1.3-3.2); Glucose 79 mg/dl (74-100); Total Protein,Serum 6.6 g/dl (6.3-8.2)
[2024-07-27 16:43] LABS: Bacteria,Urine Trace /lpf; WBC,Urine Occasional #/hpf (0-3)
[2024-07-27 16:45] VITALS: BP 148/66; PULSE 65; O2SAT 100
[2024-07-27] MEDS: IOPAMIDOL-370 (76%);100ML BOTTLE 75 ML IV (16:51)
[2024-07-27] MEDS: SODIUM CHLORIDE 0.9% 10ML SYR (RAD ONLY) 10 ML IV (16:51)
--- NOTE | 2024-07-27 16:54 | PC.NURSE ---
pt back form ct scan
[2024-07-27 17:30] VITALS: BP 133/70; PULSE 61; O2SAT 100
[2024-07-27 17:46] VITALS: BP 133/70; PULSE 62; RESP 16; TEMP 36.7; O2SAT 100
[2024-07-27 21:13] LABS: HIV (1&2) Antibody Rapid NONREACTIVE (NONREACTIVE)
[2024-07-28 05:11] LABS: HCV Ab Non Reactive (Non Reactive)
== END 2024-07-27 17:47 | disposition home or self-care (01) ==
PROVIDERS: Physician Assistant; Emergency Provider Student in an Organized Health Care Education/Training Program; PCP Nurse Practitioner Family
DX: R10.31 Right lower quadrant pain (principal); R30.0 Dysuria; R33.8 Other retention of urine
CPT/HCPCS: 74177; 80053; 81001; 85025; 86803; 87389; 96374; 96375; 99285; J1885; J2405; Q9967

== ENCOUNTER 2025-03-01 17:43 | Outpatient (CLI) | payer BC, SELFPAY ==
[2025-03-01 20:02] LABS: Coronavirus 19, PCR Not Detected (NotDetected); Influenza A, PCR Not Detected (NotDetected); Influenza B, PCR Not Detected (NotDetected)
--- OUTSIDE RECORDS SUMMARY | 2025-03-02 13:50 | XMS_ITS | Encounter Summary ---
Author Organization [employer] ([place], [place], [place], [place]) Address [address] [place] [address] Care Team Providers Care Forklift Technician Name Role Phone Unavailable Primary Care Provider Unavailabl e Encounter Details Date Type Department Care Team (Late st Contact Info) Description 11/03/2018 Transcribed Document [facility] [place] [facility] [place] [address] ProviderZoey MD [facility] [place] [address] Social History Tobacco Use Types Packs/Day [...] 11/03/2018 13:44 EDT Chief Complaint : from [facility] w.c/o lower back pain since Wed., when pt bent over and was unable to straighten; reports new stress incontinence; has been seen by in the past, last MRI @16mo ago; Hx HTN, chronic back pain ALANIS ORNELAS RN - 11/03/2018 13:44 EDT DCP GENERIC CODE Tracking Acuity : 3 - Urgent Tracking Group : [facility] ED ALANIS ORNELAS RN - 11/03/2018 13:44 [...] Problems(Active) Chronic low back pain (SNOMED CT :766804844 ) Name of Problem: Chronic low back pain ; Recorder: ALIE DELANEY MD; Confirmation: Confirmed ; Classification: Medical ; Code: [id number] ; Contributor System: Keelr ; Last Updated: 10/19/2017 17:35 EST ; Life Cycle Date: 10/19/2017 ; Life Cycle Status: Active ; Responsible Provider: ALIE DELANEY MD; Vocabulary: SNOMED CT HTN (hypertension) (SNOMED CT :6657042298 ) Name of Problem: HTN (hypertension) ; Recorder: DANI SANCHEZ RN; Confirmation: Confirmed ; Classification: Medical ; Code: [id number] ; Contributor System: Keelr ; Last Updated: 10/19/2017 13:39 EST ; Life Cycle Date: 10/19/2017 ; Life Cycle Status: Active ; Vocabulary: SNOMED CT Diagnoses(Active) Back pain Date: 11/03/2018 ; Diagnosis Type: Reason For Visit ; Confirmation: Complaint of ; Clinical Dx: Back pain ; Classification: Medical ; Clinical Service: Emergency medicine ; Code: PNED ; Probability: 0 ; Diagnosis Code: [id number] ED Height and Weight Height Source : Stated Height Entry Format : George Height, Feet : 5 ft(Converted to: 152 cm, 60 Inch) Height, Inches : 5 Inch(Converted to: 0 ft 5 Inch, 12.70 cm) Clinical Height : 165.1 cm Weight Source, ED : Critical estimated dosing weight Weight Entry Format : George Weight, Pounds : 180 lb Clinical Dosing Weight : 81.82 kg Body Surface Area (BSA) : 1.89 m2 Body Mass Index : 30 kg/m2 (HI) [place] Body Weight (IBW) : 56.59 kg ALANIS ORNELAS RN - 11/03/2018 13:44 EDT Electronically signed by José Miguel Braswell Conversion X Ray Equipment Mechanic Cerner at 12/09/2022 8:14 AM CDT documented in this encounter Plan of Treatment Not on file documented as of this encounter Visit Diagnoses Not on filedocumented in this encounter
--- OUTSIDE RECORDS SUMMARY | 2025-03-02 13:50 | XMS_ITS | Encounter Summary ---
Author Organization [employer] ([place], [place], [place], [place]) Address [address] [place] [address] Care Team Providers Care Cto Name Role Phone Unavailable Primary Care Provider Unavailabl e Encounter Details Date Type Department Care Team (Late st Contact Info) Description 11/03/2018 Transcribed Document [facility] [place] Family Medicine [address] [place] [address] ProviderZoey MD [address] [place] [address] Social History Tobacco Use Types [...] Zoey ProviderMD - 11/03/2018 4:27 PM CDT [place] [id number] Patient Information Name: BENJAMIN HOPSON Age: 58 Years Date of : 1960 Arrival Time: 11/03/2018 13:35:00 Diagnosis Primary Care Physician: LATHA WHITNEY MD-[facility] Provider Information Primary Provider: Secondary Provider: BENJAMIN HOPSON has been given the following list of patient education materials, prescriptions and follow-up instructions: Follow-up Instructions: With: Address: When: AARTI RAY [address] [place] [address], [address] [place] [address] Business (1) Within 1 to 2 weeks With: Address: When: [facility] Resource [facility] Within 2 to 3 days Comments: For further assistance with your Primary Care Physician please contact the Patient Resource Center at [phone]. Please follow up with Dr. Whitney. With: Address: When: LATHA WHITNEY [address] [place] [address] Business (1) Within 2 to 3 days [...] range between ( 0.0 and 7.0 ) Turner #: 0.42 K/uL -- Normal range between ( 0.16 and 1.00 ) Eos #: 0.29 x10(3)/uL -- Normal range between ( 0.00 and 0.80 ) Turner %: 4.8 % -- Normal range between [...] ) Urine Bilirubin Dipstick: Negative Urine Specific [place]: 1.016 -- Normal range between ( 1.005 [...] verify that BENJAMIN HOPSON was seen at [facility] Emergency Department on ,11/03/2018 16:27:30. This is [...] along the way. As a healthcare provider, [facility] recommends that you stop smoking. Assistance with quitting is available by contacting 6-639-NOWX-NOW. This is a free resource providing counseling, [...] Electronic Communications Privacy Act 18 U.S.C. ???Sections 1303-6149,?? and contain information intended for the specified [...] sure to sign up for the My [facility] patient portal, which gives you 15/03 access to your medical information ??? including these discharge instructions ??? using your computer, smartphone, or tablet. Just go to [employer] to get started. Questions? Call . Acknowledgment [...] Providing Instructions: Emergency Physician: Electronically signed by Interface, [facility] Conversion Video Game Producer Cerner at 12/09/2022 8:06 AM CDT documented in this encounter Plan of Treatment Not on file documented as of this encounter Visit Diagnoses Not on filedocumented in this encounter
--- OUTSIDE RECORDS SUMMARY | 2025-03-02 13:50 | XMS_ITS | Encounter Summary ---
Author Organization [employer] ([place], [place], [place], [place]) Address [address] [place] [address] Care Team Providers Care Fern Gatherer Name Role Phone Unavailable Primary Care Provider Unavailabl e Encounter Details Date Type Department Care Team (Late st Contact Info) Description 11/03/2018 Transcribed Document [facility] [place] Family Medicine [facility] [place] [address] ProviderZoey [place] [address] Social History Tobacco Use Types Packs/Day Years Used Date Smoking Tobacco: Never Assessed Comments Unknown Sex and Gender Information Value Date Recorded Sex Assigned at Not on file Legal Sex Female 4:10 PM CDT Gender Identity Not on file Sexual Orientation Not on file documented as of this encounter Miscellaneous Notes * Cerner Conversion Note - Zoey Mckeon MD - 11/03/2018 4:27 PM CDT [address] [place] [address] PERSON INFORMATION Name BENJAMIN HOPSON Age 58 Years 1960 Sex Female Language Maori PCP LATHA WHITNEY MD-[facility] Marital Status Med Service Emergency Medicine Acct# Arrival 11/03/2018 13:35:00 Visit Reason Back pain; LOWER BACK PAIN Acuity 3 - Urgent LOS 000 02:52 Depart Date: 11/03/18 04:27 PM Address: [place] [address] Comment: PROVIDER INFORMATION Provider Role Assigned Unassigned GLENN SILVER MD ED Physician 11/03/2018 13:44:19 Danya Monte PA ED Physician 11/03/2018 13:44:21 11/03/2018 13:44:34 Caternia Medeiros, lead technologist in cytogenetics Nurse 11/03/2018 14:16:12 DIAGNOSIS PHYS DOC NOTES [...] Follow up: With: Address: When: AARTI RAY [address] [place] [address], [address] [place] [id number] Upstream (1) Within 1 to 2 weeks With: Address: When: [facility] Within 2 to 3 days Comments: For further assistance with your Primary Care Physician please contact the Patient Resource Center at [phone]. Please follow up with Dr. Whitney. With: Address: When: LATHA WHITNEY [address] [place] [address] Upstream (1) Within 2 to 3 days Comment: Electronically signed by José Miguel Braswell Conversion Tool Grinding Machine Operator Cerner at 12/09/2022 8:04 AM CDT documented in this encounter Plan of Treatment Not on file documented as of this encounter Visit Diagnoses Not on filedocumented in this encounter
--- OUTSIDE RECORDS SUMMARY | 2025-03-02 13:50 | XMS_ITS | Encounter Summary ---
Author Organization [employer] ([place], [place], [place], [place]) Address [address] [place] [address] Care Team Providers Care Slasher Tender Helper Name Role Phone Unavailable Primary Care Provider Unavailabl e Encounter Details Date Type Department Care Team (Late st Contact Info) Description 11/03/2018 Transcribed Document [facility] [place] Family Medicine [address] [place] [address] ProviderZoey MD [address] [place] [address] Social History Tobacco Use Types [...] On: 11/03/2018 16:25 EDT by Wero Andrade, DAY CAMP UNIT LEADER Discharge Vital Signs Temperature Source : Oral Temperature Mode : Fahrenheit Temperature, Fahrenheit : 97.8 Deg F Clinical Temperature, C : 36.6 Deg C Peripheral Pulse Rate : 80 bpm Respiratory Rate : 18 Breaths/Min Systolic Blood Pressure : 134 mmHg Diastolic Blood Pressure : 76 mmHg Oxygen Saturation : 97 % Wero Andrade, RN - 11/03/2018 16:25 EDT Electronically signed by José Miguel Braswell Conversion Health And Safety Trainer Angelica at 12/09/2022 8:21 AM CDT documented in this encounter Plan of Treatment Not on file documented as of this encounter Visit Diagnoses Not on filedocumented in this encounter
--- OUTSIDE RECORDS SUMMARY | 2025-03-02 13:50 | XMS_ITS | Encounter Summary ---
Author Organization [employer] ([place], [place], [place], [place]) Address [address] [place] [address] Care Team Providers Care Plastic Process Technician Name Role Phone Unavailable Primary Care Provider Unavailabl e Encounter Details Date Type Department Care Team (Late st Contact Info) Description 11/03/2018 Transcribed Document [facility] Family Medicine [address] [place] [address] ProviderZoey MD [address] [place], [place] [address] Social History Tobacco Use Types Packs/Day Years [...] Performed On: 11/03/2018 16:26 EDT by Wero Andrade toe stapler Process Patient Disposition : Discharge Personal Belongings [...]
--- OUTSIDE RECORDS SUMMARY | 2025-03-02 13:50 | XMS_ITS | Encounter Summary ---
Author Organization [employer] ([place], [place], [place], [place]) Address [address] [place] [address] Care Team Providers Care Nurse Clinician Name Role Phone Unavailable Primary Care Provider Unavailabl e Encounter Details Date Type Department Care Team (Late st Contact Info) Description 11/03/2018 Transcribed Document [facility] [place] [facility] [place] [address] ProviderZoey MD [facility] [place] [address] Social History Tobacco Use Types [...] Communication Barrier : None Primary Language : Ukrainian Any Spiritual/Cultural Needs or Requests : No [...] Cardiovascular ASMT, ED Cardiovascular Assessment WDL : WDCaterina Quinn Rn - 11/03/2018 13:50 EDT Musculoskeletal Musculoskeletal [...] last year. pt states loss of bladder antwon night but denies any loss of bowel and bladder since. [Caterina Medeiros Rn - 11/03/2018 13:50 EDT] ) Caterina Medeiros Rn - 11/03/2018 13:50 EDT Neurologic ASMT, ED Neurologic Assessment WDL : WDCaterina Quinn Rn - 11/03/2018 13:50 EDT documented in this encounter Plan of Treatment Not on file documented as of this encounter Visit Diagnoses Not on filedocumented in this encounter
--- OUTSIDE RECORDS SUMMARY | 2025-03-02 13:50 | XMS_ITS | Encounter Summary ---
Author Organization [employer] ([place], [place], [place], [place]) Address [address] [place] [address] Care Team Providers Care Radiology Specialist Name Role Phone Unavailable Primary Care Provider Unavailabl e Encounter Details Date Type Department Care Team (Late st Contact Info) Description 11/03/2018 Transcribed Document [facility] [place] Family Medicine [address] [place] [address] ProviderZoey MD [address] [place] [address] Social History Tobacco Use Types [...] 11/03/2018 4:12 PM CDT Electronically signed by [facility] Conversion Telecommunications Professional Cerner at 12/09/2022 8:12 AM CDT documented in this encounter Plan of Treatment Not on file documented as of this encounter Visit Diagnoses Not on filedocumented in this encounter
--- OUTSIDE RECORDS SUMMARY | 2025-03-02 13:50 | XMS_ITS | Referral Summary ---
Author Organization [employer] ([place], [place], [place], [place]) Address [address] [place] [address] Care Team Providers Care Customer Specialist Name Role Phone Unavailable Primary Care [...]
--- OUTSIDE RECORDS SUMMARY | 2025-03-02 13:50 | XMS_ITS | Encounter Summary ---
Author Organization [employer] ([place], [place], [place], [place]) Address [address] [place] [address] Care Team Providers Care Recreation Center Director Name Role Phone Unavailable Primary Care Provider Unavailabl e Encounter Details Date Type Department Care Team (Late st Contact Info) Description 11/03/2018 Transcribed Document [facility] [place] Family Medicine [facility] [place] [address] ProviderZoey MD [address] [place] [address] Social History Tobacco Use Types Packs/Day Years Used Date Smoking Tobacco: Never Assessed Comments Unknown Sex and Gender Information Value Date Recorded Sex Assigned at Not on file Legal Sex Female 4:10 PM CDT Gender Identity Not on file Sexual Orientation Not on file documented as of this encounter Miscellaneous Notes * [employer]ner Conversion Note - Zoey Mckeon MD - 11/03/2018 1:57 PM CDT Patient: BENJAMIN HOPSON Age: 58 years Sex: Female : 1960 Associated Diagnoses: Back pain Author: GLENN SILVER MD Basic Information Additional information: Chief Complaint from Nursing Triage Note : Chief Complaint 11/03/2018 13:44 EDT Chief Complaint from [facility] w.c/o lower back pain since Wed., [...] EDT Height Source Stated Height Entry Format [place] Height/Length, SRI LANKAN (ft) 5 ft Height/Length SRI LANKAN 5 Inch CLINICALHEIGHT 165.1 cm [place] Body Weight 56.59 kg Weight Source, ED Critical estimated dosing weight Weight Entry Format [place] Weight Luxembourgish lb 180 lb CLINICALWEIGHT 81.82 kg Body [...] 16:09 EDT, Discharge to: Home. Prescriptions: Prescription [facility]: dextromethorphan-promethazine 15 mg-6.25 mg/5 mL oral [...] please contact the Patient Resource Center at [phone]. Please follow up with Dr. Whitney.; LATHA WHITNEY Within 2 to 3 days, Patient Resource Center Within 2 to 3 days For further assistance with your Primary Care Physician please contact the Patient Resource Center at [phone]. Please follow up with Dr. Whitney.; LATHA WHITNEY Within 2 to 3 days; AARTI RAY Within 1 to 2 weeks. documented in this encounter Plan of Treatment Not on file documented as of this encounter Visit Diagnoses Not on filedocumented in this encounter
--- OUTSIDE RECORDS SUMMARY | 2025-03-02 13:50 | XMS_ITS | Clinical Summary ---
Author Organization [employer] ([place], [place], [place], [place]) Address [address] [place] [address] Care Team Providers Care Consulting Hr Professional Name Role Phone Unavailable Primary Care Provider [...]
== END 2025-03-01 23:59 | disposition home or self-care (01) ==
LOC: LAB.DROPOF 03-02 13:48
PROVIDERS: PCP Nurse Practitioner; Visit Provider Nurse Practitioner
DX: R52 Pain, unspecified (principal)
CPT/HCPCS: 87636

== ENCOUNTER 2025-04-08 23:06 | Emergency (ER) | payer BC, SELFPAY ==
--- OUTSIDE RECORDS SUMMARY | 2023-09-03 12:00 | XMS_ITS | Encounter Summary ---
Author Organization [facility] Address [address] [place] [address] Care Team Providers Care Diesel Tractor Operator Name Role Phone Lucille Momin APRN Primary Care Provider [phone]- [phone] Reason for Referral * Diagnostic Imaging (Routine) - Closed Specialty Diagnoses / Procedures Referred By Contact Referred To Contact Obstetrics and Gynecology Diagnoses Screening for osteoporosis Procedures DEXA Bone Density Axial Shayy Shin MD [address] [facility] [address] [place] [id number] Phone: tel: fax: [facility] [address] [place] [phone] Phone: tel: fax: Referral ID Status Reason Start Date Expiration Date Visits Re quested Visits Authorized [id number] Closed 07/26/2023 07/25/2024 1 1 Reason for Visit * Diagnostic Imaging (Routine) - Closed Specialty Diagnoses / Procedures Referred By Contact Referred To Contact Obstetrics and Gynecology Diagnoses Screening for osteoporosis Procedures DEXA Bone Density Axial Shayy Shin MD [address] [facility] [address] [place] [id number] Phone: tel: fax: [facility] [address] [place] [address] [address] [place] [address] Phone: tel: fax: Referral ID Status Reason Start Date Expiration Date Visits Re quested Visits Authorized [id number] Closed 07/26/2023 07/25/2024 1 1 Encounter Details Date Type Department Care Team (Latest Contact Info) Description 09/03/2023 11:00 AM EST Hospital Encounter [facility] [address] [facility] [address] [place] [address] Screening for osteoporosis Social History Tobacco Use Types Packs/Day Years Used Date Smoking Tobacco: Former Cigarettes Smokeless Tobacco: Never Alcohol Use Standard Drinks/Week Comments Never 0 (1 standard drink = 0.6 oz pur e alcohol) AUDIT-C Answer Date Recorded Q1: How often do you have a drink containing alc ohol? Never 03/17/2021 Average Number of Drinks Not on file 021 Frequency of Binge Drinking Not on file 02/21 Comments No Sex and Gender Information Value Date Recorded Sex Assigned at Not on file Legal Sex Female 10:16 AM EDT Gender Identity Not on file Sexual Orientation Not on file documented as of this encounter Plan of Treatment Not on file documented as of this encounter Procedures Procedure Name Priority Date/Time Associated Diagnosis Comments DEXA BONE DENSITY AXIAL Routine 09/03/2023 11:29 AM EST Screening for osteoporosis documented in this encounter Results * DEXA Bone Density Axial (09/03/2023 11:29 AM EST) Anatomical Region Laterality Modality Wrist, Hip, L-spine N/A Bone Density Narrative 09/07/2023 10:37 AM EST Bone Density Scan Findings Consistent with Normal Would recommend Calcium , Vitamin D, and Weight Bearing Exercises Follow Up Repeat Study in 3-5 Years Shayy Shin MD us Shayy Shin MD IMG DXA ORDERABLES Final Result documented in this encounter Visit Diagnoses Diagnosis Screening for osteoporosis Special screening for osteoporosis documented in this encounter Care Teams Diesel Tractor Operator Relationship Specialty Start Date End Date Lucille Momin APRN [address] [place] [id number] PCP - General Nurse Practitioner 03/22/23 05/22/24 documented as of this encounter
[2025-04-08 23:09] VITALS: BP 163/74; PULSE 68; RESP 18; TEMP 36.1; O2SAT 98; BMI 21.9
--- OUTSIDE RECORDS SUMMARY | 2025-04-08 23:53 | XMS_ITS | Encounter Summary ---
[facility] Address [address] [place] [address] Care Team Providers Care Junior Automation Engineer Name Role Phone Layne Munroe APRN Primary Care Provider [phone] Reason for Visit * Reason Comments Med Refill Encounter Details Date Type Department Care Team (Late st Contact Info) Description 02/17/2025 Refill [facility] OBGYN [address] [place] [address] [place] [address] [place] [address] Hormone replacement therapy (HRT) Social History Tobacco [...] (HRT) documented in this encounter Care Teams Junior Automation Engineer Relationship Specialty Start Date End Date Layne Munroe APRN [facility] [place] [address] [place] [address] PCP - General Internal Medicine 05/23/24 documented as of this encounter
--- OUTSIDE RECORDS SUMMARY | 2025-04-08 23:53 | XMS_ITS | Encounter Summary ---
Author Organization [facility] Address [address] [place] [address] Care Team Providers Care Tree Fruit And Nut Farming Supervisor Name Role Phone Layne Munroe APRN Primary Care Provider [phone] Reason for Visit * Reason Comments Med Refill Encounter Details Date Type Department Care Team (Late st Contact Info) Description 05/23/[address] [facility] OBGYN [address] [place] [address] Shayy Shin MD [address] [place] [address] Hormone replacement therapy (HRT) Social History Tobacco [...] (HRT) documented in this encounter Care Teams Tree Fruit And Nut Farming Supervisor Relationship Specialty Start Date End Date Layne Munroe APRN [facility] [place] [address] [place] [address] PCP - General Internal Medicine 05/23/24 documented as of this encounter
--- OUTSIDE RECORDS SUMMARY | 2025-04-08 23:53 | XMS_ITS | Encounter Summary ---
Author Organization [employer] Address [address] [place] [address] Care Team Providers Care Wax Pourer Name Role Phone Layne Munroe APRN Primary Care Provider [phone] Reason for Visit * Reason Comments Med Refill Encounter Details Date Type Department Care Team (Late st Contact Info) Description 06/24/2024 Refill [facility] OBGYN [address] [place] [address] [place] [address] [place] [address] Hormone replacement therapy (HRT) Social History Tobacco [...] (HRT) documented in this encounter Care Teams Wax Pourer Relationship Specialty Start Date End Date Layne Munroe APRN [facility] [place] [address] [place] [address] PCP - General Internal Medicine 05/23/24 documented as of this encounter
--- OUTSIDE RECORDS SUMMARY | 2025-04-08 23:53 | XMS_ITS | Referral Summary ---
Author Organization [employer] ([place], [place], [place], [place]) Address [address] [place] [address] Care Team Providers Care Solar Maintenance Technician Name Role Phone Unavailable Primary Care [...]
--- OUTSIDE RECORDS SUMMARY | 2025-04-08 23:53 | XMS_ITS | Clinical Summary ---
Author Organization [employer] ([place], [place], [place], [place]) Address [address] [place] [address] Care Team Providers Care Product Manager E Commerce Name Role Phone Unavailable Primary Care Provider [...]
--- OUTSIDE RECORDS SUMMARY | 2025-04-08 23:53 | XMS_ITS | Clinical Summary ---
Author Organization [facility] Address [address] [place] [address] Care Team Providers Care Lombardi Developer Name Role Phone Layne Munroe ALYSSA Primary Care Provider Allergies Active Allergy Reactions Criticality Noted Date Comments Erythromycin Diarrhea Low 01/14/2007 Fentanyl GI Intolerance,Hallucinations Low 11/01/2018 Hydrocodone-Acetaminophen Hallucinations Low Nitrofurantoin Macrocrystal GI Intolerance Low 10/21 Morphine GI Intolerance,Hallucinations Low 11/01/2018 Oxycodone-Acetaminophen Itching Low 07/01/2011 Sulfa Antibiotics GI Intolerance Low Medications omeprazole (priLOSEC) 20 MG capsule Take 1 capsule by mouth Every Morning Before Breakfast. 02/25/20 21 Active levocetirizine (XYZAL) 5 MG tablet Take 1 tablet by mouth Daily. 03/07/20 21 Active hydroCHLOROthia zide (HYDRODIURIL) 25 MG tablet Take 1 tablet by mouth 2 (Two) Times a Day. 02/29/20 21 Active Acetaminophen (TYLENOL ARTHRITIS EXT RELIEF PO) Tylenol Arthritis Pain 650 mg tablet,extende d release Daily Active desvenlafaxine (PRISTIQ) 50 MG 24 hr tablet Take 1 tablet by mouth Daily. 03/09/20 23 Active nebivolol (BYSTOLIC) 5 MG tablet Take 1 tablet by mouth Daily. 04/26/20 24 Active hydrOXYzine (ATARAX) 25 MG tablet Take 1 tablet by mouth 2 (Two) Times a Day As Needed. for anxiety 07/03/20 24 Active Tirzepatide (Mounjaro) 10 MG/0.5ML solution auto-injector Inject 10 mg under the skin into the appropriate area as directed Every 7 (Seven) Days. Active estradiol (ESTRACE) 1 MG tabletIndicatio ns:Hormone replacement therapy (HRT) TAKE 1 AND 1/2 TABLET BY MOUTH EVERY OTHER NIGHT THEN TAKE 1 TABLET ON ALTERNATE NIGHTS 112 tablet 1 02/20/20 25 Active estradiol (ESTRACE) 0.1 MG/GM vaginal creamIndication s:Vaginal atrophy INSERT 2 GRAMS VAGINALLY AT BEDTIME FOR 2 WEEKS THEN INSERT 2 GRAMS VAGINALLY TWICE WEEKLY THEREAFTER 42.5 g 2 03/22/20 25 Active estradiol (ESTRACE VAGINAL) 0.1 MG/GM vaginal creamIndication s:Vaginal atrophy Insert 2 gram PV QHS x 2 weeks, then insert 2 grams PV twice weekly for duration of use 42.5 g 2 10/27/19 25 025 Discontinued Active Problems No known active problems Encounters Date Type Department Care Team Description 03/22/2025 Refill [facility] OBGYN [address] [facility] [address] [place] [id number] Wolfgang Mike MD Vaginal atrophy 02/17/2025 Refill [facility] OBGYN [address] [place] [address] Wolfgang Mike MD Hormone replacement therapy (HRT) from [...] Sign Reading Time Taken Comments Blood Pressure 120/70 10/26/2024 1:24 PM EST Pulse 69 11/01/2018 10:54 PM EDT Temperature 36.3 C (97.4 F) 11/01/2018 10:54 PM EDT Respiratory Rate 18 11/01/2018 10:54 PM EDT Oxygen Saturation 96% 11/01/2018 10:54 PM EDT Inhaled Oxygen Concentration - - Weight 61.2 kg (135 lb) 10/26/2024 1:24 PM EST Height 165.1 cm (5' 5 ) 10/26/2024 1:24 PM EST Body Mass Index 22.47 10/26/2024 1:24 PM EST Plan of Treatment Health Maintenance Due Date Last Done Comments COLOGUARD 2007 COLON CANCER SCREENING 5 YEA R SIGMOIDOSCOPY 2007 COLONOSCOPY 2007 COLORECTAL CANCER SCREENING 2007 CT COLONOGRAPHY 2007 FECAL OCCULT BLOOD TEST 2007 FIT Testing (1 year) 2007 ZOSTER VACCINE (1 of 2) 2012 Pneumococcal Vaccine 50+ (2 of 2 - PCV) 05/07/2018 05/07/2017 ANNUAL PHYSICAL 11/07/2020 HEPATITIS C SCREENING 11/07/2020 COVID-19 Vaccine (2023-2 5 season) 2024 11/21/2021, 05/22/2021, 11/21/2020, Additional history exists PAP SMEAR 05/03/2025 05/03/2023, 0808/2021, 03/20/2021, Additional history exists MAMMOGRAM 05/12/2025 05/12/2023, 04/24, 02/04/2021 INFLUENZA VACCINE 05/23/2025 05/01/2022, , 05/03/2020, Additional history exists Annual Gynecologic Pelvic an d Breast Exam 07/18/2025 07/17/2024 TDAP/TD VACCINES (2 - Td or Tdap) 03/30/2033 023 Procedures Procedure Name Priority Date/Time Associated Diagnosis Comments SCANNED - MAMMO 05/12/2023 LIQUID-BASED PAP SMEAR WITH HPV GENOTYPING IF ASCUS, [facility] ([facility]) Routine 05/03/2023 11:01 AM EDT Encounter for gynecological examination without abnormal finding from Last 3 Months or Most Recently Relevant to Health Maintenance Results * SCANNED - MAMMO (05/12/2023) Anatomical Region Laterality Modality Other us Wolfgang Mike MD CHART REVIEW TABS Final Resul t * LIQUID-BASED PAP SMEAR WITH HPV GENOTYPING IF ASCUS ([facility]) (05/03/2023 11:01 AM EDT) Reference Lab Report [facility] [address] [place] [address] or [phone] Kristopher Zamorano M.D., Distribution Operations Manager PATIENT NAME LABORATORY NO. BENJAMIN BROWNE [id number] AGE SEX SSN CLIENT REF # [id number] 62 1960 F [id number] [facility] YAMEL KRISHNAMURTHY REQUESTING Domenica [place] [address] WOLFGANG MIKE DATE COLLECTED DATE RECEIVED DATE REPORTED 05/03/2023 05/03/2023 05/10/2023 ThinPrep Pap with Cytyc Imaging DIAGNOSIS: Nondiagnostic specimen. No charge has been made for this test. Professional interpretation rendered by Kristopher Zamorano M.D., F.C.A.P. at [facility], [address] [place] [address]. RECOMMENDATION: Follow up as clinically appropriate SPECIMEN ADEQUACY: UNSATISFACTORY FOR EVALUATION Specimen processed and examined, but unsatisfactory for evaluation of epithelial abnormality due to insufficient squamous cells. SOURCE OF SPECIMEN: VAGINAL CUFF THIN PREP SLIDES: 1 CLINICAL HISTORY: Encounter for gynecological examination without abnormal finding Post Menopausal, HRT FISH CONSERVATIONIST: LICHA RAMOS (ASCP) REVIEWED, DIAGNOSED AND ELECTRONICALLY SIGNED BY: Kristopher Zamorano M.D., F.C.A.P. CPT CODES: [id number], [id number] 05/10/2023 5:34 AM EDT [facility] ThinPrep Vial Collection / Unknown 05/03/2023 11:01 AM EDT 05/03/2023 11:01 AM EDT us Wolfgang Mike MD PATHOLOGY/CYTOLOGY ORDERABLES Fi nal Result [facility]
[address] [place] [address], from Last 3 Months or Most Recently Relevant to Health Maintenance Insurance Care Teams Lombardi Developer Relationship Specialty Start Date End Date Layne Munroe APRN [address] [facility] [address] [place] [address] [place] [address] PCP - General Internal Medicine 05/23/24
--- OUTSIDE RECORDS SUMMARY | 2025-04-08 23:53 | XMS_ITS | Encounter Summary ---
Author Organization [employer] ([place], [place], [place], [place]) Address [address] [place] [address] Care Team Providers Care Mounter Automatic Name Role Phone Unavailable Primary Care Provider Unavailabl e Encounter Details Date Type Department Care Team (Late st Contact Info) Description 11/03/2018 Transcribed Document [facility] [place] [address] [place] [address] ProviderZoey MD [address] [place] [address] Social History Tobacco Use Types [...] On: 11/03/2018 16:25 EDT by Wero Andrade, SLIVER MACHINE OPERATOR Discharge Vital Signs Temperature Source : Oral [...] Electronically signed by José Miguel [facility] Conversion Hotel Front Office Manager Angelica at 12/09/2022 8:21 AM CDT documented in this encounter Plan of Treatment Not on file documented as of this encounter Visit Diagnoses Not on filedocumented in this encounter
--- OUTSIDE RECORDS SUMMARY | 2025-04-08 23:53 | XMS_ITS | Encounter Summary ---
Author Organization [employer] ([place], [place], [place], [place]) Address [address] [place] [address] Care Team Providers Care Auto Haulaway Driver Name Role Phone Unavailable Primary Care Provider Unavailabl e Encounter Details Date Type Department Care Team (Late st Contact Info) Description 11/03/2018 Transcribed Document [facility] [place] Family Medicine [facility] [place] [address] ProviderZoey MD [place] [address] Social History Tobacco Use Types [...] 11/03/2018 13:44 EDT Chief Complaint : from [facility] w.c/o lower back pain since Wed., when pt bent over and was unable to straighten; reports new stress incontinence; has been seen by in the past, last MRI @16mo ago; Hx HTN, chronic back pain ALANIS ORNELAS RN - 11/03/2018 13:44 EDT DCP GENERIC CODE Tracking Acuity : 3 - Urgent Tracking Group : [facility] ED ALANIS ORNELAS RN - 11/03/2018 [...] Problems(Active) Chronic low back pain (SNOMED CT :053977804 ) Name of Problem: Chronic low back pain ; Recorder: ALIE DELANEY MD; Confirmation: Confirmed ; Classification: Medical ; Code: [id number] ; Contributor System: [employer] ; Last Updated: 10/19/2017 17:35 EST ; Life Cycle Date: 10/19/2017 ; Life Cycle Status: Active ; Responsible Provider: ALIE DELANEY MD; Vocabulary: SNOMED CT HTN (hypertension) (SNOMED CT :9536615080 ) Name of Problem: HTN (hypertension) ; Recorder: DANI SANCHEZ RN; Confirmation: Confirmed ; Classification: Medical ; Code: [id number] ; Contributor System: [employer] ; Last Updated: 10/19/2017 13:39 EST ; Life Cycle Date: 10/19/2017 ; Life Cycle Status: Active ; Vocabulary: SNOMED CT Diagnoses(Active) Back pain Date: 11/03/2018 ; Diagnosis Type: Reason For Visit ; Confirmation: Complaint of ; Clinical Dx: Back pain ; Classification: Medical ; Clinical Service: Emergency medicine ; Code: PNED ; Probability: 0 ; Diagnosis Code: [id number] ED Height and Weight Height Source : Stated Height Entry Format : [place] Height, Feet : 5 ft(Converted to: 152 cm, 60 Inch) Height, Inches : 5 Inch(Converted to: 0 ft 5 Inch, 12.70 cm) Clinical Height : 165.1 cm Weight Source, ED : Critical estimated dosing weight Weight Entry Format : [place] Weight, Pounds : 180 lb Clinical Dosing Weight : 81.82 kg Body Surface Area (BSA) : 1.89 m2 Body Mass Index : 30 kg/m2 (HI) [place] Body Weight (IBW) : 56.59 kg ALANIS ORNELAS RN - 11/03/2018 13:44 EDT documented in this encounter Plan of Treatment Not on file documented as of this encounter Visit Diagnoses Not on filedocumented in this encounter
--- OUTSIDE RECORDS SUMMARY | 2025-04-08 23:53 | XMS_ITS | Encounter Summary ---
[facility] Address [address] [place] [address] Care Team Providers Care Back End Web Developer Name Role Phone Layne Munroe GUARD DANCE HALL Primary Care Provider [phone] Reason for Visit * Reason Comments Med Refill Encounter Details Date Type Department Care Team (Late st Contact Info) Description 03/22/2025 Refill [facility] OBGYN [address] [address] Shayy Shin MD [address] [facility] [address] [place] [address] Vaginal atrophy Social History Tobacco Use Types Packs/Day Years [...] encounter Miscellaneous Notes * Telephone Encounter - Kathleen Prince MA - 03/22/2025 11:16 AM EDT Refill sent annual up to date documented in this encounter Plan of Treatment Not on file documented as of this encounter Visit Diagnoses Diagnosis Vaginal atrophy Postmenopausal atrophic vaginitis documented in this encounter Care Teams Back End Web Developer Relationship Specialty Start Date End Date Layne Munroe APRN [address] [place] [address] PCP - General Internal Medicine 05/23/24 documented as of this encounter
--- OUTSIDE RECORDS SUMMARY | 2025-04-08 23:54 | XMS_ITS | Encounter Summary ---
[facility] Address [address] [place] [address] Care Team Providers Care Fruit Rancher Name Role Phone LudwigElizabethLaynezheng SHAH Primary Care Provider Reason for Visit * Reason Comments Med Refill Encounter Details Date Type Department Care Team (Late st Contact Info) Description 09/21/[address] [facility] OBGYN [address] [place] [id number] Hannah Corral HYDROLOGY PROFESSOR [address] [facility] [address] [place] [address] Hormone replacement therapy (HRT) Social History Tobacco [...] (HRT) documented in this encounter Care Teams Fruit Rancher Relationship Specialty Start Date End Date Layne Munroe APRN [facility] [place] [address] MADELEINE MELENDEZ [facility] PCP - General Internal Medicine 05/23/24 documented as of this encounter
--- OUTSIDE RECORDS SUMMARY | 2025-04-08 23:54 | XMS_ITS | Encounter Summary ---
Author Organization [employer] ([place], [place], [place], [place]) Address [address] [place] [address] Care Team Providers Care Vineyard Supervisor Name Role Phone Unavailable Primary Care Provider Unavailabl e Encounter Details Date Type Department Care Team (Late st Contact Info) Description 11/03/2018 Transcribed Document [facility] [place] Family Medicine [address] [place] [address] ProviderZoey MD [address] [place] [address] Social History Tobacco Use Types [...] 4:12 PM CDT Electronically signed by [facility] Conversion Home Lending Officer Cerner at 12/09/2022 8:12 AM CDT documented in this encounter Plan of Treatment Not on file documented as of this encounter Visit Diagnoses Not on filedocumented in this encounter
--- OUTSIDE RECORDS SUMMARY | 2025-04-08 23:54 | XMS_ITS | Encounter Summary ---
Author Organization [employer] ([place], [place], [place], [place]) Address [address] [place] [address] Care Team Providers Care Outcomes Analyst Name Role Phone Unavailable Primary Care Provider Unavailabl e Encounter Details Date Type Department Care Team (Late st Contact Info) Description 11/03/2018 Transcribed Document [facility] [place] [facility] Family Medicine [address] [place] [address] ProviderZoey MD [address] [place] [address] Social History Tobacco Use Types [...] Zoey ProviderMD - 11/03/2018 4:27 PM CDT [place] [id number] Patient Information Name: BENJAMIN HOPSON Age: 58 Years Date of : 1960 Arrival Time: 11/03/2018 13:35:00 Diagnosis Primary Care Physician: LATHA WHITNEY MD-[facility] [place] Provider Information Primary Provider: Secondary Provider: BENJAMIN HOPSON has been given the following list of patient education materials, prescriptions and follow-up instructions: Follow-up Instructions: With: Address: When: AARTI RAY [address] [place] [address], [address] [place] [address] Business (1) Within 1 to 2 weeks With: Address: When: [facility] Resource Center Within 2 to 3 days Comments: For further assistance with your Primary Care Physician please contact the Patient Resource Center at [phone]. Please follow up with Dr. Whitney. With: Address: When: LATHA WHITNEY [address] [place] [address] Business (1) Within 2 to 3 days [...] range between ( 0.0 and 7.0 ) [place] #: 0.42 K/uL -- Normal range between ( 0.16 and 1.00 ) Eos #: 0.29 x10(3)/uL -- Normal range between ( 0.00 and 0.80 ) [place] %: 4.8 % -- Normal range between [...] ) Urine Bilirubin Dipstick: Negative Urine Specific [place]: 1.016 -- Normal range between ( 1.005 [...] verify that BENJAMIN HOPSON was seen at [facility] Emergency Department on ,11/03/2018 16:27:30. This is [...] along the way. As a healthcare provider, [facility] recommends that you stop smoking. Assistance with quitting is available by contacting 0-770-BNPO-NOW. This is a free resource providing counseling, [...] Electronic Communications Privacy Act 18 U.S.C. ???Sections 5680-0615,?? and contain information intended for the specified [...] sure to sign up for the My [facility] patient portal, which gives you 15/03 access to your medical information ??? including these discharge instructions ??? using your computer, smartphone, or tablet. Just go to [employer] to get started. Questions? Call . Acknowledgment [...] Instructions: Emergency Physician: Electronically signed by Interface, [facility] Conversion Graphic Design Specialist Cerner at 12/09/2022 8:06 AM CDT documented in this encounter Plan of Treatment Not on file documented as of this encounter Visit Diagnoses Not on filedocumented in this encounter
--- OUTSIDE RECORDS SUMMARY | 2025-04-08 23:54 | XMS_ITS | Encounter Summary ---
Author Organization [employer] ([place], [place], [place], [place]) Address [address] [place] [address] Care Team Providers Care Aircraft Steel Fabricator Name Role Phone Unavailable Primary Care Provider Unavailabl e Encounter Details Date Type Department Care Team (Late st Contact Info) Description 11/03/2018 Transcribed Document [facility] [place] Family Medicine [facility] [place] [address] ProviderZoey MD [address] [place] [address] Social History Tobacco Use Types [...] Complaint 11/03/2018 13:44 EDT Chief Complaint from [facility] w.c/o lower back pain since Wed., [...] EDT Height Source Stated Height Entry Format [place] Height/Length, INDIAN (ft) 5 ft Height/Length INDIAN 5 Inch CLINICALHEIGHT 165.1 cm [place] Body Weight 56.59 kg Weight Source, ED Critical estimated dosing weight Weight Entry Format [place] Weight Afghan lb 180 lb CLINICALWEIGHT 81.82 kg Body [...] 16:09 EDT, Discharge to: Home. Prescriptions: Prescription [facility]: dextromethorphan-promethazine 15 mg-6.25 mg/5 mL oral [...] please contact the Patient Resource Center at [phone]. Please follow up with Dr. Whitney.; LATHA WHITNEY Within 2 to 3 days, Patient [facility] Within 2 to 3 days For further assistance with your Primary Care Physician please contact the Patient Resource Center at [phone]. Please follow up with Dr. Whitney.; LATHA WHITNEY Within 2 to 3 days; AARTI RAY Within 1 to 2 weeks. documented in this encounter Plan of Treatment Not on file documented as of this encounter Visit Diagnoses Not on filedocumented in this encounter
--- OUTSIDE RECORDS SUMMARY | 2025-04-08 23:54 | XMS_ITS | Encounter Summary ---
Author Organization [employer] ([place], [place], [place], [place]) Address [address] [place] [address] Care Team Providers Care Dinkey Driver Name Role Phone Unavailable Primary Care Provider Unavailabl e Encounter Details Date Type Department Care Team (Late st Contact Info) Description 11/03/2018 Transcribed Document [facility] Family Medicine [facility] [place] [address] ProviderZoey MD [facility] [place] [address] Social History Tobacco Use Types [...] Communication Barrier : None Primary Language : Cymro Any Spiritual/Cultural Needs or Requests : No [...] WDCaterina Quinn Rn - 11/03/2018 13:50 EDT Electronically signed by José Miguel Braswell Conversion Industrial Conveyor Belt Repairer Cerner at 12/09/2022 8:04 AM CDT documented in this encounter Plan of Treatment Not on file documented as of this encounter Visit Diagnoses Not on filedocumented in this encounter
--- OUTSIDE RECORDS SUMMARY | 2025-04-08 23:54 | XMS_ITS | Encounter Summary ---
Author Organization [employer] ([place], [place], [place], [place]) Address [address] [place] [address] Care Team Providers Care Water Quality Specialist Name Role Phone Unavailable Primary Care Provider Unavailabl e Encounter Details Date Type Department Care Team (Late st Contact Info) Description 11/03/2018 Transcribed Document [facility] Family Medicine [address] [place] [address] ProviderZoey MD [address] [place], [place] [address] Social History Tobacco Use Types Packs/Day Years [...] On: 11/03/2018 16:26 EDT by Wero Andrade printer small print shop Process Patient Disposition : Discharge Personal Belongings [...]
--- OUTSIDE RECORDS SUMMARY | 2025-04-08 23:54 | XMS_ITS | Encounter Summary ---
[facility] Address [address] [place] [address] Care Team Providers Care Payroll Administrative Assistant Name Role Phone Layne Munroe SHOCK ABSORBER INSTALLER Primary Care Provider Encounter Details Date Type Department Care Team (Late st Contact Info) Description 10/30/2024 Results Follow-Up [facility] [address] [id number] Shayy Shin MD [address] [place] [address] Social History Tobacco Use Types Packs/Day Years [...] on file documented as of this encounter Progress Notes * Shayy Shin MD - 10/30/2024 6:17 PM EDT Please call patient about results. LFTs normal documented in this encounter Plan of Treatment Not on file documented as of this encounter Visit Diagnoses Not on filedocumented in this encounter Care Teams Payroll Administrative Assistant Relationship Specialty Start Date End Date Layne Munroe APRN [facility] [place] [address] [place] [address] PCP - General Internal Medicine 05/23/24 documented as of this encounter
--- OUTSIDE RECORDS SUMMARY | 2025-04-08 23:54 | XMS_ITS | Encounter Summary ---
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 Phone Unavailable Primary Care Provider Unavailabl e Encounter Details Date Type Department Care Team (Late st Contact Info) Description 11/03/2018 Transcribed Document [facility] [place] Family Medicine [facility] [place] [address] ProviderZoey MD [facility] [place] [address] Social History Tobacco Use Types [...] Mckeon MD - 11/03/2018 4:27 PM CDT [address] [place] [address] PERSON INFORMATION Name BENJAMIN HOPSON Age 58 Years 1960 Sex Female Language Irish PCP LATHA WHITNEY MD-[facility] Marital Status Med Service Emergency Medicine Acct# Arrival 11/03/2018 13:35:00 Visit Reason Back pain; LOWER BACK PAIN Acuity 3 - Urgent LOS 000 02:52 Depart Date: 11/03/18 04:27 PM Address: [place] [id number] Comment: PROVIDER INFORMATION Provider Role Assigned Unassigned GLENN SILVER MD ED Physician 11/03/2018 13:44:19 Danya Monte PA ED Physician 11/03/2018 13:44:21 11/03/2018 13:44:34 Caterina Medeiros, director loan Nurse 11/03/2018 14:16:12 DIAGNOSIS PHYS DOC NOTES [...] Follow up: With: Address: When: AARTI RAY [address] [place] [address], [address] [place] [id number] Particle (1) Within 1 to 2 weeks With: Address: When: Patient Resource Center Within 2 to 3 days Comments: For further assistance with your Primary Care Physician please contact the Patient Resource Center at [phone]. Please follow up with Dr. Whitney. With: Address: When: LATHA WHITNEY [address] [place] [address] Particle (1) Within 2 to 3 days Comment: documented in this encounter Plan of Treatment Not on file documented as of this encounter Visit Diagnoses Not on filedocumented in this encounter
[2025-04-09 00:01] VITALS: BP 163/80; PULSE 66; RESP 16; TEMP 36.9; O2SAT 100
--- NOTE | 2025-04-09 00:25 | ED_ITS ---
Discharge Plan Disposition Patient Disposition: Home, Self-Care Condition: Good Prescriptions Prescriptions: New amoxicillin-pot clavulanate 875-125 mg tablet 1 tab PO BID Qty: 10 0RF No Action promethazine-DM 6.25-15 mg/5 mL syrup 5 ml PO Q4-6H PRN (Reason: cough) Qty: 118 0RF omeprazole 20 mg capsule,delayed release(DR/EC) 20 mg PO DAILY Qty: 30 2RF hydroxyzine HCl 25 mg tablet See Rx Instructions .ROUTE .COMPLEX Qty: 60 0RF Dose Instruction: TAKE 1 TABLET BY MOUTH TWICE DAILY NEEDED FOR ANXIETY Rx Instructions: TAKE 1 TABLET BY MOUTH TWICE DAILY NEEDED FOR ANXIETY hydrochlorothiazide 25 mg tablet 25 mg PO DAILY Qty: 30 0RF desvenlafaxine succinate 50 mg tablet extended release 24 hr See Rx Instructions .ROUTE .COMPLEX Qty: 30 0RF Dose Instruction: TAKE 1 TABLET BY MOUTH DAILY Rx Instructions: TAKE 1 TABLET BY MOUTH DAILY nebivolol 5 mg tablet See Rx Instructions .ROUTE .COMPLEX Qty: 30 0RF Dose Instruction: TAKE 1 TABLET BY MOUTH DAILY Rx Instructions: TAKE 1 TABLET BY MOUTH DAILY estradiol 1 MG tablet 1 mg PO DAILY Referrals Follow up/Referrals: Layne Munroe APRN [Primary Care Provider, Medical] - See instructions Activity Restrictions/Add. Instructions Additional Instructions/Restrictions: You were evaluated in the ER and are believed to be appropriate for discharge at this time. Take the prescribed antibiotics as directed, do not skip doses, do not stop taking them early. Keep the wound clean and dry, wash it with warm soapy water twice a day and then apply the bacitracin ointment over the wound. Use this ointment twice daily for 7 days. Take Tylenol or ibuprofen if needed for pain, do not exceed the recommended dose on the bottle. Drink water and eat a small snack each time you take these medications to avoid side effects. Follow-up with your primary care doctor for reevaluation in a few days. Return to the ER with any new, worsening, or otherwise concerning symptoms. Clinical Impressions Clinical Impression: Dog bite, Left ear pain Instructions Patient Instructions: Animal Bites Print Language Print Language: Citizen Of [place] Discharge ED Provider: Shira Locke Adult HPI General Chief complaint: Animal Bite Stated complaint: dog bite on thumb Time Seen by Provider: 04/09/25 00:12 Mode of Arrival: Ambulatory Source of Information: Patient Description of Symptoms (Recalled from ER Triage Doc. by RN): Pt presents with c/o dog bite to right thumb. Pt states the dog is new to the home. Shots are UTD on the dog. Pt also has c/o left ear pain x 3-4 days History of Present Illness HPI narrative: 64-year-old female presents to the ER with dog bite wound to right thumb. Patient reports she was trying to keep a small Pashto bulldog in the house when the dog lunged and bit her right thumb. She had bleeding at the time but that has stopped. She only has 1 single wound on the right thumb. She has no numbness, tingling, or weakness. Shots are completely up-to-date on the dog, rabies is good until May 2027. Patient does also complain of having 3 to 4 days of left ear pain stating it is down deep in the ear and she is worried she could potentially be developing ear infection. Patient is not up-to-date on her tetanus shot. She has no other complaints or concerns. No fevers, chills, difficulty breathing, chest pain, abdominal pain, vomiting, diarrhea, and no other injuries. Related Data Home Medications ?Medication ?Instructions ?Recorded ?Confirmed estradiol 1 mg tablet 1 mg PO DAILY hormones 01/2603/01/25 Previous Rx's ?Medication ?Instructions ?Recorded omeprazole 20 mg capsule,delayed 20 mg PO DAILY #30 ca ps 09/22/24 release promethazine-DM 6.25 mg-15 mg/5 mL 5 ml PO Q4-6H PRN c ough #118 mL 02/07/25 oral syrup hydroxyzine HCl 25 mg tablet See Rx Instructions .Rout e 03/19/25 .COMPLEX #60 tabs desvenlafaxine succinate 50 mg See Rx Instructions .Ro mitzi 03/23/25 tablet,extended release 24 hr .COMPLEX #30 tabs hydrochlorothiazide 25 mg tablet 25 mg PO DAILY #30 ta bs 03/23/25 nebivolol 5 mg tablet See Rx Instructions .Route 0 03/23/25 .COMPLEX #30 tabs amoxicillin 875 mg-potassium 1 tab PO BID #10 tabs clavulanate 125 mg tablet Allergies Allergy/AdvReac Type Severity Reaction Status Date / Time acetaminophen (From PERCOCET) Allergy Intermediate I-HIVES Verified 03/01/25 17:38 oxycodone (From PERCOCET) Allergy Intermediate I-HIVES Verified 03/01/25 17:38 morphine (MORPHINE) Allergy Unknown NA-HALLUCIN Verified 03/01/25 17:38 ATIONS Sulfa (Sulfonamide Allergy Unknown NA-NAUSEA/V Verified 03/01/25 17:38 Antibiotics) (SULFA OMITING (SULFONAMIDE ANTIBIOTICS)) azithromycin (From Zithromax AdvReac Intermediate Hives Verified 03/01/25 17:38 Z-Forest) nitrofurantoin (From AdvReac Vomiting Verified 03/01/25 17:38 Macrobid) [facility] Disclaimer: The information contained in this section may have been updated after the patient was seen, as this information can be updated by other users. Medical History (Updated 04/09/25 @ 00:23 by Shira Locke MD) Viral syndrome Sinusitis Otitis media Abdominal pain Medication side effects UTI (urinary tract infection) Pinworms Serous otitis media Social History Smoking Status: Never smoker alcohol intake: never current occupational status: other Travel in the last 8 weeks?: None Have you lived/traveled outside US in past 30 days?: No Contact w/someone who lives/traveled outside US past 30 days?: No Exposure to someone with infectious disease in past 14 days?: No Do you have a fever (greater than 100.4 F or 38 C)?: No Have you tested positive for COVID-19?: No Exposed to someone with COVID-19 in past 14 days?: No Do you have a sore throat?: No Do you have a cough?: No Do you have any weakness?: No Do you have any diarrhea?: No Are you experiencing any unusual bleeding?: No Do you have any muscle aches/pain?: No Do you have any abdominal pain?: No Are you experiencing loss of taste or smell?: No Other Medical History Have you received the Flu Vaccine for this season: Yes Have you received the Pneumonia Vaccine: Yes ROS Obtained: Yes Systems reviewed as appropriate & no additional complaints except as documented Per HPI Physical Exam General General appearance: alert and in no apparent distress Head Head exam: atraumatic and normocephalic Eye Eye exam: Present PERRL and EOMI ENT ENT exam: Present mucous membranes moist, TM's normal bilaterally, normal external ear exam and other (Unable to produce pain on exam) Neck Neck exam: Present normal inspection and full ROM; Absent lymphadenopathy Chest Chest inspection: Present symmetric chest wall rise Respiratory Respiratory exam: Present normal lung sounds bilaterally; Absent respiratory distress, wheezes or stridor Cardiovascular Cardiovascular exam: Present regular rate and normal rhythm Extremities Exam Extremities exam: Present full ROM Expanded Upper Extremity Exam Right: Hand exam: Present laceration (Small superficial puncture wound just distal to the IP joint of the right thumb on the palmar aspect. Neurovascularly intact, hemostatic, full range of motion) Neurological Exam Neurological exam: Present alert and oriented X3; Absent motor sensory deficit Psychiatric Psychiatric exam: Present normal affect and normal mood Skin Skin exam: Present warm and dry Medical Decision Making Medical Records Medical records reviewed: Yes I reviewed the patient's medical records. Screening: Per USPSTF and CDC recommendations, given the prevalence of disease in our region, it is our hospital?s policy to screen for HIV and viral Hepatitis for all patients aged 18 and over and those with ongoing risk factors. Pasha Inquiry Pt receiving controlled substance: No Vital Signs: 04/08/25 23:09 04/09/25 00:01 Temperature 97 F L 98.4 F Temperature Source Oral Pulse Rate 66 Pulse Rate [Right] 68 Respiratory Rate 18 16 Blood Pressure 163/80 H Blood Pressure [Right Arm] 163/74 H Blood Pressure Mean [Right Arm] 103 Blood Pressure Source [Right Arm] Automatic Cuff Blood Pressure Position [Right Arm] Sitting 02 Sat by Pulse Oximetry 98 100 Oxygen Delivery Method Room Air Room Air Orders (Tests/Meds): ED MEDICATIONS Generic Name Dose Route Start Last Admin Trade Name Freq PRN Reason Stop Dose Admin Amoxicillin/Clavulanate Potassium 1 each 04/09/25 00:22 Amoxicillin/Clavulanate Potassium 875/125mg Tablet PO 04/09/25 00:23 ONCE ONE Bacitracin 1 gm 04/09/25 00:22 Bacitracin Zinc Oint 30gm Tube TP 04/09/25 00:23 ONCE ONE Tetanus/Reduced Diphtheria/Acell Pertussis 0.5 ml 04/09/25 00:22 Tet/Diphth/Pert-Adult 0.5ml Syringe IM 04/09/25 00:23 .ONCE ONE Medical Decision Narrative: In summary, this 64-year-old female presents to the emergency department today with right thumb wound from dog bite earlier tonight, left ear pain that has been going on for a few days. On initial evaluation patient is hemodynamically stable, afebrile, physical exam is overall very reassuring, patient has no abnormalities of the ears, pain is not reproducible on exam, no evidence of otitis media though this was considered on my differential. I also considered cerumen impaction, otitis externa, among others but do not appreciate evidence of any of these. Regarding the dog bite, she has a small superficial puncture wound just distal to the IP joint on the right thumb that is hemostatic, well- appearing. No other injuries. Neurovascularly intact throughout with full range of motion. I was able to thoroughly examine the wound on the right thumb and there does not appear to be any foreign body or other abnormality. I do not believe patient requires any labs or imaging. Tdap booster was administered, Augmentin provided in the ER for dog bite infection prophylaxis, this would also treat any ear infection though there is not evidence of this clinically. Augmentin prescribed for outpatient management. Patient does not require rabies vaccines since the dog is fully up-to-date on vaccines, patient has vaccine records with her. Bacitracin applied to the wound after it was cleaned up. Bacitracin ointment was given to the patient for home use. She was given instructions on continued symptomatic monitoring and management, medication use, follow-up instructions, strict return precautions for the ER. She indicated understanding and the patient was discharged in stable condition. Critical Care Critical Care Time Critical Care Time: No
[2025-04-09 00:31] VITALS: BP 119/83; PULSE 63; RESP 18; TEMP 36.9; O2SAT 99
[2025-04-09] MEDS: AMOXICILLIN/CLAVULANATE POTASSIUM 875/125MG TABLET 1 EACH PO (00:38)
[2025-04-09] MEDS: TET/DIPHTH/PERT-ADULT 0.5ML SYRINGE 0.5 ML IM (00:39)
[2025-04-09] MEDS: BACITRACIN ZINC OINT 30GM TUBE TP (00:40)
== END 2025-04-09 00:48 | disposition home or self-care (01) ==
PROVIDERS: Emergency Provider Emergency Medicine; PCP Nurse Practitioner Family
DX: S61.051A Open bite of right thumb without damage to nail, initial encounter (principal); H92.02 Otalgia, left ear; W54.0XXA Bitten by dog, initial encounter
CPT/HCPCS: 90471; 90715; 99284

== ENCOUNTER 2025-06-15 10:36 | Outpatient (CLI) | payer BC, SELFPAY ==
--- OUTSIDE RECORDS SUMMARY | 2023-09-03 12:00 | XMS_ITS | Encounter Summary ---
Author Organization [facility] Address [address] [place] [address] Care Team Providers Care Business Unit Manager Name Role Phone Lucille Momin APRN Primary Care Provider [phone]- [phone] Reason for Referral * Diagnostic Imaging (Routine) - Closed Specialty Diagnoses / Procedures Referred By Contact Referred To Contact Obstetrics and Gynecology Diagnoses Screening for osteoporosis Procedures DEXA Bone Density Axial Shayy Shin MD [address] [facility] [address] [place] [phone] Phone: tel: fax: [facility] [address] [place] [phone] Phone: tel: fax: Referral ID Status Reason Start Date Expiration Date Visits Re quested Visits Authorized [id number] Closed 07/26/2023 07/25/2024 1 1 Reason for Visit * Diagnostic Imaging (Routine) - Closed Specialty Diagnoses / Procedures Referred By Contact Referred To Contact Obstetrics and Gynecology Diagnoses Screening for osteoporosis Procedures DEXA Bone Density Axial Shayy Shin MD [address] [facility] [address] [place] [address] Phone: tel: fax: [facility] [address] [place] [address] [address] [place] [address] Phone: tel: fax: Referral ID Status Reason Start Date Expiration Date Visits Re quested Visits Authorized [id number] Closed 07/26/2023 07/25/2024 1 1 Encounter Details Date Type Department Care Team (Latest Contact Info) Description 09/03/2023 11:00 AM EST Hospital Encounter [facility] [facility] [address] [place] [address] Screening for osteoporosis Social History Tobacco Use [...] osteoporosis documented in this encounter Care Teams Business Unit Manager Relationship Specialty Start Date End Date Lucille Momin APRN [address] [place] [id number] PCP - General Nurse Practitioner 03/22/23 05/22/24 documented as of this encounter
[2025-06-15 20:17] LABS: Coronavirus 19, PCR Not Detected (NotDetected); Influenza A, PCR Not Detected (NotDetected); Influenza B, PCR Not Detected (NotDetected)
--- OUTSIDE RECORDS SUMMARY | 2025-06-18 10:47 | XMS_ITS | Referral Summary ---
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
--- OUTSIDE RECORDS SUMMARY | 2025-06-18 10:47 | XMS_ITS | Clinical Summary ---
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
--- OUTSIDE RECORDS SUMMARY | 2025-06-18 10:48 | XMS_ITS | Continuity of Care Document ---
Author Organization [facility] Address [address] [place] [address] Care Team Providers Care Rn Medicare Name Role Phone HEAVENLY DAO Silver Recovery Operator ARGENTINA CUI Primary Care Provider [phone] ROD VALLES Audio Visual Secretary Assessment No assessment recorded. Plan of Treatment Reminders Order Date Submit Date Provider Last Modified By Organization Details Last Modified Time Details Appointments MAMMOGRA M 2024 02:45P M MAMMOGRAM Not available Not available Not available DERM VISIT 2024 03:00P M CHENG GONZALEZ PA-C Not available Not available Not available Lab None recorded . Referral None recorded . Procedures None recorded . Surgeries None recorded . Imaging None recorded . Medication Orders compound ed medicati on 2024 025 [facility], [address] [facility] [address], [place], [place], [id number], 04/24/2025 16:57:52 tretinoi n 0.05 % topical cream 2024 025 [id number], [address], [id number], 04/24/2025 16:52:05 Patient TargetsNo targets recorded. Patient Instructions Encounter Date Encounter Id Patient Instructions Last Modified By Organization Details Last Modified Time 04/24/2025 [id number] Risks/Benefits/O p tions/Side Effects of diagnosis and treatment discussed. UV protection and signs of skin cancer discussed mpircher Not available 04/24/2025 08:24:16 Reason for Referral None Reported. Problems Name Problem SNOMED Code Status Onset Date Resolution Date Notes Provider Name and Address Organization Details Recorded Time Headache 93744609 Active 2021 [facility] 12:14[facility] Environment al allergy 592716828 Active 2021 CARMELLA WOOD DO [address] [place] [address], [address], [facility] 2 11:03:45 Pain of joint 90187962 Active 2021 CARMELLA WOOD DO [address] [place] [address], [address], [facility] 2 11:03:57 Gastroesoph ageal reflux disease 760392562 Active 2021 CARMELLA WOOD DO [address] [place] [address], [address], [facility] 2 11:03:52 Hypertensiv e disorder 79435196 Active 2021 CARMELLA WOOD DO [address] [place] [address], [address], [facility] 2 11:03:39 Suspected bilateral glaucoma 0532842904822 9102 Active 2021 CARMELLA WOOD DO [address] [place] [address], [address], [facility] 2 11:03:55 Acute dermatitis 45073289 Active 2021 TYLER SIFUENTES MD [address] [place] [address], [address], [facility] 2 09:16:01 Diverticulo sis of colon 563883257 [place] 20[place] [address] [place] [address], [address], [facility] 3 13:07:50 Essential hypertensio n 38598947 Active 2022 CARMELLA ARLINE WOOD, DO [address] [place], [address], [facility] 3 16:30:24 Has a sore throat 331532296 Active 2022 CARMELLA ARLINE WOOD, DO [address] [place], [address], [facility] 3 08:05:32 Posterior rhinorrhea 60416893 Active 2022 CARMELLA ARLINE WOOD, DO [address] [place], [address], [facility] 3 08:05:40 Excess skin of bilateral eyelids 0644633386693 9106 Active 2023 HEAVENLY DAO MD [address] [place] [address], [address], [facility] 4 11:56:58 Presbyopia 47555804 Active 2023 HEAVENLY DAO MD [address] [place] [address], [address], [facility] 4 11:56:54 Posterior vitreous detachment 258525606 Active 2024 HEAVENLY DAO MD [address] [place] [address], [address], [facility] 5 16:33:01 Bilateral age-related nuclear cataracts 9826763260298 00 Active 2024 HEAVENLY DAO MD [address] [place] [address], [address], [facility] 5 14:50:11 Problem Notes None recorded. Procedures Surgical History Date Name Laterality Status Provider Name and Address Organization Details Recorded Time 04/24/20 25 Destruction BN Lesions completed Jackelin Frias [facility] 04/24/2025 15:08:26 11/16/19 Cerumen removal - Instruments, Unilateral completed DEANNA RICO, BETTING AGENCY COUNTER CLERK [address] [place] [address], [address], [facility] 11/15/2024 10:18:12 09/25/19 25 Ophthalmoscopy, Ext Retinal completed HEAVENLY DAO MD [address] [place], [address], [facility] 09/25/2024 16:32:56 02/01/20 24 Cerumen removal - Instruments, Bilateral completed Christin Alexus [facility] 01/31/2024 08:05:55 09/24/19 24 Cerumen removal - Instruments, Bilateral completed Christin Alexus [facility] 09/24/2023 11:01:25 08/24/19 24 Destruction Premalignant Lesion(s) completed Carie Shell [facility] 08/24/2023 15:07:27 08/24/19 24 Destruction BN Lesions completed Carie Shell [facility] 08/24/2023 15:04:54 05/28/20 23 Cerumen removal - Instruments, Bilateral completed Christin Alexus [facility] 05/28/2023 15:21:27 01/22/20 23 OCT/Nerve completed HEAVENLY DAO MD [address] [place], [address], [facility] 01/21/2023 09:43:25 01/13/20 23 Cerumen removal - Instruments, Bilateral completed AC SOL MD [address] [place], [address], [facility] 01/12/2023 15:11:53 09/21/19 23 Tympanogram completed GER ONTIVEROS, AUD [address] [place], [address], [facility] 09/21/2022 12:27:39 09/21/19 23 Audiogram completed GER ONTIVEROS, AUD [address] [place], [address], [facility] 09/21/2022 12:27:37 09/21/19 23 Cerumen removal - Instruments, Bilateral completed Brit Fonseca [facility] 09/21/2022 12:08:24 06/23/20 22 Cerumen removal - Instruments, Bilateral completed Asia Schwarz [facility] 06/23/2022 11:27:41 03/17/20 22 Cerumen removal - Instruments, Bilateral completed María Curtis [facility] 03/17/2022 15:36:36 11/26/19 22 Cerumen removal - Instruments, Unilateral completed María Curtis [facility] 11/25/2021 13:09:30 05/27/20 21 Cerumen removal - Instruments, Bilateral completed María Curtis [facility] 05/27/2021 14:50:18 03/24/20 21 Date of Last Pap Smear completed Gregoria Ray [facility] 11/25/2021 12:15:49 02/05/20 21 Cerumen removal - Instruments, Bilateral completed Christin Alexus [facility] 02/04/2021 16:55:01 01/22/20 21 Date of Last Mammogram completed Gregoria Ray [facility] 11/25/2021 12:16:08 09/11/19 21 Cerumen removal - Instruments, Bilateral completed María Curtis [facility] 09/11/2020 15:13:57 04/17/20 20 Tympanogram completed MAYRA EDWARDS, AUD [address] [place], [address], [facility] 04/17/2020 15:26:48 04/17/20 20 Audiogram completed MAYRA EDWARDS, AUD [address] [place], [address], [facility] 04/17/2020 15:26:46 04/17/20 20 Cerumen removal - Instruments, Bilateral completed Christin Alexus [facility] 04/17/2020 16:15:17 11/16/19 18 Electromyography (EMG) with Nerve Conduction Study (NCV) completed Christin Valladares (Nicky) [facility] 11/15/2017 14:16:02 Appendectomy completed URI OLIVEIRA MD [address] [place], [address], [facility] 10/24/2024 14:31:15 Nipple/areola reconstruction completed URI OLIVEIRA MD [address] [place] [address], [address], [facility] 10/24/2024 14:31:25 Other completed Hannah Crawford [facility] 11/02/2017 09:25:56 procedure on gallbladder completed URI OLIVEIRA MD [address] [place] [address], [address] [place] [address], [facility] 10/24/2024 14:31:07 Total Hysterectomy completed ANJALI OLIVEIRA MD [address] [place] [address], [address] [place] [address], [facility] 10/24/2024 14:30:54 colonoscopy completed URI OLIVEIRA MD [address] [place] [address], [address] [place] [address], [facility] 10/24/2024 14:31:37 suture of eyelid completed URI OLIVEIRA MD [address] [place] [address], [address] [place] [address], [facility] 10/24/2024 14:32:09 Imaging Results None recorded. Procedure Notes None recorded. Medical Equipment None Reported. Allergies Allergen ID Allergen Name Allergen Category Reaction Reaction Severity Criticality Documentation Date Start Date Code Code System Note Provider Name and Address Organization Details Recorded Time 175722 acetamino phen / oxycodone medicatio n itching Not available Not available 07/16/20162010 3 RxNorm React ion: ITCHI NG; Comme nt: Creat ed By: Owen desir Date: 2010 2:24: 41 PM; Not Available [facility] 6 11:47:26 [id number] E-Mycin medicatio n Not available Not available Not available 07/17/2016200660 8 RxNorm Comme nt: Creat ed By: Kimberlee Campos ed Date: 2006 1:55: 10 PM; Not Available [facility] 6 03:43:01 [id number] acetamino phen / hydrocodo ne medicatio n Not available Not available Not available 11/02/201731996 2 RxNorm Hannah Ty [facility] 8 09:26:40 [id number] Substance with sulfonami de structure and antibacte rial mechanism of action (substanc e) medicatio n Not available Not available Not available 11/02/2017 57455 8003 SNOMED Hannah Crawford [facility] 8 09:26:49 [id number] Bactrim medicatio n Not available Not available Not available 06/02/2024 43356 9 RxNorm Alex Sellers [facility] 4 11:11:10 Medications Name Sig Start Date Stop Date Status Note LastModified by Organization Details LastModified Time compounded medication APPLY TO WART AT NIGHT WITH QTIP AND OCCLUDE WITH BANDAID, WASH OFF IN AM 2024 active Not Available Not Available Not Avai lable eye allergy itch rel 0.2% ophth iva [...] ne-DM 6.25 mg-15 mg/5 mL oral syrup TAKE 5 ML BY MOUTH EVERY 4 TO 6 HOURS NEEDED FOR COUGH active Not Available Not Available No t Available neomycin-p olymyxin-h ydrocort 3.5 mg/mL-10,0 00 [...] 1 TABLET ORALLY DAILY FOR 30 DAYS 11/15 completed Not Available Not Available Not Available fluconazol e 150 mg tablet TAKE 1 TABLET BY MOUTH EVERY 3 DAYS FOR 2 DOSES active dc Not Available Not Available No t Available benzonatat e 200 mg capsule 11/15 completed Not Available Not Available Not Available cephalexin 250 mg capsule TAKE 3 CAPSULES BY MOUTH TWICE A DAY FOR 7 DAYS 05/22 completed Not Available Not Available Not Available hydrocodon e 5 mg-acetami nophen 325 mg tablet TAKE 1 TABLET BY MOUTH EVERY 6 HOURS NEEDED 11/25 completed Not Available Not Available Not Available tretinoin 0.025 % topical cream APPLY A PEA SIZED AMOUNT TOPICALL Y TO CLEAN [...] Available tretinoin 0.05 % topical cream APPLY TO THE AFFECTED AREA(S) BY TOPICAL ROUTE ONCE DAILY AT BEDTIME active Not Available Not Available No t Available ciprofloxa yung 500 mg tablet TAKE 1 TABLET BY MOUTH TWICE DAILY FOR 7 DAYS 05/28 completed Not Available Not Available Not Available amoxicilli n 500 mg tablet TAKE 2 TABLETS BY MOUTH TWICE DAILY FOR 10 DAYS 04/17 completed Not Available Not Available Not Available ondansetro n 8 mg disintegra ting tablet DISSLOVE 1 TABLET ON THE TONGUE EVERY 4 TO 6 HOURS NEEDED active Not Available Not Available No t Available meloxicam 7.5 mg tablet TAKE 1 TABLET BY MOUTH TWICE DAILY 01/21 completed Not Available Not Available Not Available neomycin-b acitracin- polymyxn 3.5 mg-400 unit-10,00 0 unit/gram eye oint 11/15 completed Not Available Not Available Not Available [...] MOUTH THREE TIMES DAILY NEEDED FOR ANXIETY active Not Available Not Available No t Available estradiol 1 mg tablet TAKE 1 AND 1/2 TABLET BY MOUTH EVERY OTHER NIGHT THEN TAKE 1 TABLET ON ALTERNAT E NIGHTS active Not Available Not Available No t Available hydrocorti sone-aceti c acid 1 %-2 % ear drops 04/17 completed Not Available Not Available Not Available betamethas one valerate 0.1 % topical cream APPLY TO BOTH EAR CANALS 1 TO 2 TIMES A WEEK NEEDED active Not Available Not Available No t Available Ear Wax Removal Drops 6.5 % PLACE 5 DROPS INTO AFFECTED EAR TWICE A DAY FOR 4 DAYS 04/17 completed Not Available Not Available Not Available cephalexin 500 mg capsule TAKE 1 CAPSULE BY MOUT 4 TIMES A DAY FOR 10 DAYS 11/15 completed Not Available Not Available Not Available oseltamivi r 75 mg capsule TAKE 1 CAPSULE BY MOUTH DAILY 04/17 completed Not Available Not Available Not Available triamcinol one acetonide 0.1 % topical ointment APPLY A THIN LAYER TO THE AFFECTED AREA(S) BY TOPICAL ROUTE ONCE PER DAY X 7 DAYS, THEN ONCE WEEKLY active Not Available Not Available No t Available clotrimazo le-betamet hasone 1 %-0.05 % topical cream APPLY TOPICALL Y TO THE AFFECTED AREA TWICE DAILY FOR 10 DAYS 01/21 completed Not Available Not Available Not Available albendazol e 200 mg tablet TAKE 2 TABLETS BY MOUTH NOW AND REPEAT DOSING IN 2 WEEKS 11/15 completed Not Available Not Available Not Available hyoscyamin e 0.125 mg sublingual tablet [...] APPLY 1 PATCH TRANSDER GERTRUDE DAILY active dc Not Available Not Available No t Available gabapentin 300 mg capsule Three times a day 04/17 completed Not Available Not Available Not Available buspirone 7.5 mg tablet TAKE 1 TABLET BY MOUTH TWICE DAILY 11/25 completed Not Available Not Available Not Available omeprazole 20 mg capsule,de layed release TAKE 1 CAPSULE BY MOUTH DAILY active Not Available Not Available No t Available budesonide 0.5 mg/2 mL suspension for nebulizati [...] t Available hydrochlor othiazide 25 mg tablet TAKE 1 TABLET BY MOUTH DAILY active Not Available Not Available No t Available mupirocin 2 % topical ointment APPLY SMALL AMOUNT TOPICALL Y TO THE AFFECTED AREA THREE TIMES DAILY FOR 7 DAYS active Not Available Not Available No t Available gabapentin 100 mg capsule 04/17 completed Not Available Not Available Not Available lotepredno l etabonate 0.5 % eye drops,susp ension PLEASE SEE ATTACHED FOR DETAILED DIRECTIO NS 12/29 completed Not Available Not Available Not Available azelastine 137 mcg (0.1 %) nasal spray INHALE 1 TO 2 PUFFS IN EACH NOSTRIL TWICE A DAY DIRECTED active Not Available Not Available No t Available cefuroxime axetil 500 mg tablet TAKE 1 TABLET BY MOUTH TWICE A DAY FOR 7 DAYS 11/15 completed Not Available Not Available Not Available estradiol 0.01% (0.1 mg/gram) vaginal cream INSERT 2 GRAMS VAGINALL Y AT BEDTIME FOR 2 WEEKS THEN INSERT 2 GRAMS VAGINALL Y TWICE WEEKLY THEREAFT ER active Not Available Not Available No t Available methylpred nisolone 4 mg tablets in a dose pack FOLLOW PACKAGE DIRECTIO NS active dc Not Available Not Available No t Available ipratropiu m bromide 42 mcg (0.06 %) nasal spray USE 2 SPRAYS IN EACH NOSTRIL TWICE DAILY 11/15 completed Not Available Not Available Not Available ondansetro n 4 mg disintegra ting tablet DISSOLVE ONE TABLET BY MOUTH EVERY 6 HOURS NEEDED FOR NAUSEA 11/15 completed Not Available Not Available Not Available [...] TAKE 1 TABLET BY MOUTH TWICE DAILY active dc Not Available Not Available No t Available amoxicilli n 500 mg-potassi um clavulanat [...] TAKE 1 TABLET BY MOUTH EVERY DAY 11/15 completed Not Available Not Available Not Available levocetiri zine 5 mg tablet TAKE 1 TABLET BY MOUTH EVERY DAY 10/07 completed Not Available Not Available Not Available Xyzal 12/29 completed Not Available Not Available Not Available nebivolol 10 mg tablet TAKE 1 TABLET BY [...] completed Not Available Not Available Not Available tirzepatid e 11/15 completed Not Available Not Available Not Available Vitals None Recorded Social History Question Answer Notes LastModified by Organization Details LastModified Time Tobacco Smoking Status Former Smoker Not Available [employer] 10/24/2024 10:49:50 Do You Have An Advance Directive? No Information not available 11/25/2021 Do You Wear A Helmet When Biking? [...] Or The Highest Degree You Have Received? [id number] 2 Degrees Information not available 11/25/2021 When Did You Quit Smoking? 1-5yearssincel juliet [email or web address] Information not available 10/24/2024 Are There Any Guns Present In Your Home? No Information not available 11/25/2021 What Was The Date Of Your Most Recent Tobacco Screening? 05/15/2025 [email or web address] Information not available 05/15/2025 How Many Children Do You Have? 3 Information not available 11/25/2021 Do You Use Protection During Sex? No Information not available 11/25/2021 What Is Your Relationship Status? 6 Grandchildren [email or web address] Information not available 10/24/2024 Do You Use Your Seat Belt Or Car Seat Routinely? Yes Information not available 11/25/2021 Are You Sexually Active? Yes Information not available 11/25/2021 Do You Have Smoke And Carbon Monoxide Detectors In Your Home? Yes Information not available 11/25/2021 At What Age Did You Start Smoking Tobacco? 37 [email or web address] Information not available 10/24/2024 Are There Any Smokers In Your House? Yes Information not available 11/25/2021 How Much Tobacco Do You Smoke? 0.5 PPD Information not available 04/17/2020 Do You Use Sunscreen Routinely? Yes Information not available 11/25/2021 How Many Years Have You Smoked Tobacco? 20 [email or web address] Information not available 10/24/2024 Have You Recently Traveled Abroad? No [email or web address] Information not available 05/27/2021 Sex: Female Functional Status Question Answer Note LastModified by Organizat ion Details LastModified Time Do you use any illicit or recreational drugs? No [email or web address] Information not available 05/27/2021 Do you or have you ever used any other forms of tobacco or nicotine? Yes [email or web address] Information not available 09/21/2022 What is your level of alcohol consumption? None Information not available 04/17/2020 Are you currently employed? No [email or web address] Information not available 10/24/2024 Are you able to care for yourself independently? Yes Information not available 11/25/2021 What is your exercise level? Moderate Information not available 11/25/2021 Mental Status Question Answer Note LastModified by Organization D etails LastModified Time Do you feel stressed (tense, restless, nervous, or anxious, or unable to sleep at night)? [id number] Information not available 11/25/2021 Family History Relationship Description Onset Age of this Age Resolved Age Notes LastModified by Organization Details LastModified Time Father Lazy eye [email or web address] Not available 0 10/24/2024 10:49:49 Father Heart disease [email or web address] Not available 2024 10:49:49 Father Hypertensive disorder [email or web address] Not available 2024 10:49:49 Father Diabetes mellitus [email or web address] Not available 2024 10:49:49 Father Myocardial infarction [email or web address] Not available 10/24 10:49:49 Father Hypercholest erolemia [email or web address] Not available 2024 10:49:49 Father Mental disorder [email or web address] Not available 2024 10:49:49 Father Disorder of stomach [email or web address] Not available 2024 10:49:49 Father Acute stroke [email or web address] Not availab le 10/24/2024 10:49:49 Mother Disorder of thyroid gland [email or web address] Not available 2024 10:49:49 Mother Family history of Thyroid disorder [email or web address] Not available 2024 10:49:49 Unspecified Relation Glaucoma cousin [email or web address] Not available 10/25/19 10:49:49 Unspecified Relation Family history of malignant neoplasm [email or web address] Not available 2024 10:49:49 Medical History Condition Response Emphysema N COPD N Anxiety Disorder Y Arthritis Y Acid Reflux (GERD) Y Cancer N Rheumatoid Arthritis N Headaches Y Bleeding Disorder N Asthma N Glaucoma Y Anesthesia Complications N High Cholesterol Y Allergies/Hayfever Y Diabetes N Heart Disease N Hypertension Y Gynecological History Statement/Question Response Female Hormone Problem N # of Pregnancies 4 Abnormal Pap N Date of Last Mammogram 01/21/2021 Regular Cycles N # of Births 3 STIs/STDs N Current Control Method Hysterectom y If Post Menopausal, Age at Menopause 52 Abnormal Periods N Could you be now? N Sexually Active? Y Menses Monthly N Date of Last Pap Smear 03/24/2021 Uterus/Ovaries Problem N Desired Control Method None Ovarian Cancer Screening? N Hormone Replacement Therapy Y Obstetrics History GPAL:G 4 P 3 0 1 3 Type Value Full Term 3 Spontaneous 1 Living 3 Total 4 Immunizations Vaccine Type Date Status Note Provider Nam e and Address Organization Details Recorded Time Influenza, MDCK, quadrivalent, PF 3 completed Not Available [facility] 05/15/2025 13:48:34 Pneumococcal conjugate PCV20, polysaccharide REA003 conjugate, adjuvant, PF 4 completed Not Available [facility] 05/15/2025 13:48:34 Influenza, split virus, trivalent, PF 4 completed Not Available [facility] 05/15/2025 13:48:34 Tdap 5 completed Not Available [facility] 05/15/2025 13:48:34 Influenza, MDCK, quadrivalent, PF 2 completed Mary Ellen Llanos [facility] 09/01/2022 12:31:10 Influenza, split virus, trivalent, PF 7 completed Mary Ellen Llanos [facility] 09/01/2022 12:31:10 Influenza, split virus, quadrivalent, PF 0 completed Mary Ellen Llanos [facility] 09/01/2022 12:31:10 COVID-19, mRNA, LNP-S, PF, 30 mcg/0.3 mL dose 1 completed Mary Ellen Llanos [facility] 09/01/2022 12:31:10 COVID-19, mRNA, LNP-S, PF, 30 mcg/0.3 mL dose 1 completed Mary Ellen Llanos [facility] 09/01/2022 12:31:10 Influenza, split virus, quadrivalent, preservative 1 completed Mary Ellen Llanos [facility] 09/01/2022 12:31:10 Influenza, split virus, trivalent, PF 6 completed Mary Ellen Llanos [facility] 09/01/2022 12:31:10 COVID-19, mRNA, LNP-S, PF, 30 mcg/0.3 mL dose 1 completed Mary Ellen Llanos [facility] 09/01/2022 12:31:11 COVID-19, mRNA, LNP-S, PF, 30 mcg/0.3 mL dose, sriram-sucrose 2 completed Mary Ellen Llanos [facility] 09/01/2022 12:31:11 pneumococcal polysaccharide PPV23 7 completed Mary Ellen Llanos [facility] 09/01/2022 12:31:11 Tdap 3 completed Gregoria Ac [facility] 08/03/2023 16:00:18 Past Encounters Encounter ID Performer Location Encounter Start Date Encounter Closed Date Diagnosis/Indication Diagnosis SNOMED-CT Code Diagnosis ICD10 Code Diagnosis IMO Codes Diagnosis Note [id number] RYAN SANCHEZ APRN [facility] [address] [place] [address] 04/24/2025 14:39:47 04/24/2025 15:17:08 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 [id number] RECOMMEND SUN PROTECTIVE CLOTHING AND EQUATE SPORT SUNSCREEN AND CERAVE AM SUNSCREEN LOTION OTC DAILYDISCU SSED RISKS INHERENT TO CHEMICAL SUNSCREENS INCLUDING PHOTOALLER GIC, PHOTOTOXIC , ALLERGIC CONTACT AND IRRITANT CONTACT DERMATITIS .BENIGN APPEARANCE , PT REASSURED & ADVISED TO RTC WITH ANY CHANGES Multiple b enign melanocytic nevi 920114622 D22.9 [id number] BENIGN APPEARANCE , PT REASSURED & ADVISED TO RTC WITH ANY CHANGES Raised nohemy orrheic keratosis 7217434001 69895 L82.0 [id number] BENIGN APPEARANCE , PT REASSURED Dermatofibroma 786127921 D23.9 [id number] BENIGN APPEARANCE , PT REASSURED Solar degeneration 57629 006 L57.8 766 INCREASE TO TRETINOIN CREAM 0.05 CREAM NIGHLTY PT REQUEST Verruca vulgaris 5770390 3 B07.9 31328 DISCUSSED [place] OPTIONSPAT IENT IS REQUESTING CANTHARIDI N 1% TODAY X 4HOURS THEN WASH OFF EXPECTED REACTION DISCUSSED WORKED WELL IN PASTRISKS DISCUSSED; POST OP CARE INSTRUCTIO NS PROVIDED. VERBAL CONSENT TO TREAT GIVEN BY PATIENT.ST ART WART PASTE - 70% SALICYLIC ACID WITH 5% FLUOROURIC IL IF PERSISTING APPLY TO WART AT NIGHT WITH QTIP AND OCCLUDE WITH BANDAID, WASH OFF IN AM DISCUSSED LETHAL TO ANIMALS PRECAUTION S GIVENDISCU SSED CAN TREAT FURTHER IF PERSISTING Milia [id number] L72.0 51271 BENIGN APPEARANCE , PT REASSURED Generalize d essential telangiectasia [id number] I78.8 [id number] BENIGN APPEARANCE , PT REASSURED Hemangioma of skin 37793 006 D18.01 [id number] BENIGN APPEARANCE , PT REASSURED Health Concerns Section Related Observation LastModified by Organization Detai ls LastModified Time None Recorded Concern Status LastModified by Organization Details LastModified Time None Recorded Payers Encounter Date Sequence Insurance Name Policy Number Policy Watkins Covered Member ID Watkins Member ID Guarantor Name 04/24/2025 1 [place] [id number] Jose Figueroa [id number] Aleja Figueroa Notes Date Note Type Note Provider Name and Address Organization Details Recorded Time 04/24/2025 text/html ESTABLISHED PT OF [facility]AK- 1) PT IS REQUESTING FSE 2) PT C/O POSSIBLE WART ON L HAND X (-)ITCH/BLEED/HORTENCIA N. NO [place] 3) PT C/O LESION ON CHEST 4) PT IS REQUESTING INCREASE OF TRETINOIN Denies any other new, changing, or bleeding lesions, or other rashes, feels well, in a good mood, and has no family history of melanoma. RYAN SANCHEZ, BETTING AGENCY COUNTER CLERK [address], [place], [address], [facility] 04/24/2025 16:53:18 OBGyn Episode No OBEpisode recorded.
--- OUTSIDE RECORDS SUMMARY | 2025-06-18 10:48 | XMS_ITS | Encounter Summary ---
[facility] Address [address] [place] [address] Care Team Providers Care Cashier Clerk Name Role Phone Layne Munroe APRN Primary Care Provider [phone] Reason for Visit * Reason Comments Med Refill Encounter Details Date Type Department Care Team (Late st Contact Info) Description 06/24/2024 Refill [facility] OBGYN [address] [place] [address] [place] [address] [place] [address] Hormone replacement therapy (HRT) Social History Tobacco [...] (HRT) documented in this encounter Care Teams Cashier Clerk Relationship Specialty Start Date End Date Layne Munroe APRN [id number] [place] [address] [place] [id number] PCP - General Internal Medicine 05/23/24 documented as of this encounter
--- OUTSIDE RECORDS SUMMARY | 2025-06-18 10:48 | XMS_ITS | Clinical Summary ---
Author Organization [facility] Address [address] [place] [address] Care Team Providers Care Area Operations Manager Name Role Phone Layne Munroe ALYSSA [...] 1 tablet by mouth Daily. 1 Active hydroCHLOROthiaz candace (HYDRODIURIL) 25 MG tablet Take 1 tablet by mouth 2 (Two) Times a Day. 1 Active Acetaminophen (TYLENOL ARTHRITIS EXT RELIEF PO) Tylenol Arthritis Pain 650 mg tablet,extended release Daily Active desvenlafaxine (PRISTIQ) 50 MG 24 hr tablet Take 1 tablet by mouth Daily. 3 Active nebivolol (BYSTOLIC) 5 MG tablet Take 1 tablet by mouth Daily. 4 Active hydrOXYzine (ATARAX) 25 MG tablet Take 1 tablet by mouth 2 (Two) Times a Day As Needed. for anxiety 4 Active Tirzepatide (Mounjaro) 10 MG/0.5ML solution auto-injector Inject 10 mg under the skin into the appropriate area as directed Every 7 (Seven) Days. Active estradiol (ESTRACE) 1 MG tabletIndication s:Hormone replacement therapy (HRT) TAKE 1 AND 1/2 TABLET BY MOUTH EVERY OTHER NIGHT THEN TAKE 1 TABLET ON ALTERNATE NIGHTS 112 tablet 1 5 Active estradiol (ESTRACE) 0.1 MG/GM vaginal creamIndications :Vaginal atrophy INSERT 2 GRAMS VAGINALLY AT BEDTIME FOR 2 WEEKS THEN INSERT 2 GRAMS VAGINALLY TWICE WEEKLY THEREAFTER 42.5 g 2 5 Active Active Problems No known active problems Encounters Date Type Department Care Team Description 03/22/2025 Refill [facility] OBGYN [address] [facility] [address] [place] [address] Shayy Mike MD Vaginal atrophy from Last 3 Months Family History Medical [...] 11/07/2020 HEPATITIS C SCREENING 11/07/2020 INFLUENZA VACCINE 03/23/2025 05/01/2022, , 05/03/2020, Additional history exists PAP SMEAR 05/03/2025 05/03/2023, 08/2021, 03/20/2021, Additional history exists Annual Gynecologic Pelvic an d Breast Exam 07/18/2025 07/17/2024 MAMMOGRAM 06/09/2026 06/09/2024, 04/24, 05/12/2023, Additional history exists TDAP/TD VACCINES (2 - Td or Tdap) [...] (05/12/2023) Anatomical Region Laterality Modality Other us Shayy Mike MD CHART REVIEW TABS Final Resul t * LIQUID-BASED PAP SMEAR WITH HPV GENOTYPING IF ASCUS (DANY,COR,MAD) (05/03/2023 11:01 AM EDT) Pathologist [facility] Report [facility] [address] [place] [address] or [phone] Kristopher Zamorano M.D., Stull Hewer PATIENT NAME LABORATORY NO. [id number] ALE[address]OP[address]. [id number] AGE SEX SSN CLIENT REF # [id number] 62 1960 F [id number] [facility] YAMEL KRISHNAMURTHY REQUESTING Domenica ATTEND[place] [address] SHAYY MIKE DATE COLLECTED DATE RECEIVED DATE REPORTED 05/03/2023 05/03/2023 05/10/2023 ThinPrep Pap with Cytyc Imaging DIAGNOSIS: Nondiagnostic specimen. No charge has been made for this test. Professional interpretation rendered by Kristopher Zamorano M.D., F.C.A.P. at [facility] [place], [address] [place] [address]. RECOMMENDATION: Follow up as clinically appropriate SPECIMEN ADEQUACY: UNSATISFACTORY FOR EVALUATION Specimen processed and examined, but unsatisfactory for evaluation of epithelial abnormality due to insufficient squamous cells. SOURCE OF SPECIMEN: VAGINAL CUFF THIN PREP SLIDES: 1 CLINICAL HISTORY: Encounter for gynecological examination without abnormal finding Post Menopausal, HRT NCA CERTIFIED CONCIERGE: LICHA RAMOS (ASCP) REVIEWED, DIAGNOSED AND ELECTRONICALLY SIGNED BY: Kristopher Zamorano M.D., F.C.A.P. CPT CODES: [id number], [id number] 05/10/2023 5:34 AM EDT [facility] ThinPrep Vial Collection / Unknown 05/03/2023 11:01 AM EDT 05/03/2023 11:01 AM EDT us Shayy Mike MD PATHOLOGY/CYTOLOGY ORDERABLES nal Result [facility]
[address] [place] [address], from Last 3 Months or Most Recently Relevant to Health Maintenance Insurance [facility] PPO Care Teams Area Operations Manager Relationship Specialty Start Date End Date Layne Munroe APRN [address] [place] [address] [place] [id number] PCP - General Internal Medicine 05/23/24
--- OUTSIDE RECORDS SUMMARY | 2025-06-18 10:48 | XMS_ITS | Encounter Summary ---
[facility] Address [address] [place] [address] Care Team Providers Care Laser/Electro Optics Technician Name Role Phone Layne Munroe APRN Primary Care Provider [phone] Reason for Visit * Reason Comments Med Refill Encounter Details Date Type Department Care Team (Late st Contact Info) Description 05/23/2024 Refill [facility] OBGYN [address] [place] [address] Shayy Shin MD [address] [place] [address] Hormone replacement therapy (HRT) Social History Tobacco [...] (HRT) documented in this encounter Care Teams Laser/Electro Optics Technician Relationship Specialty Start Date End Date Layne Munroe APRN [facility] [place] [address] [place] [address] PCP - General Internal Medicine 05/23/24 documented as of this encounter
--- OUTSIDE RECORDS SUMMARY | 2025-06-18 10:49 | XMS_ITS | Encounter Summary ---
[facility] [address] [place] [address] Care Team Providers Care Net Wpf Developer Name Role Phone Layne Munroe ADULT BASIC EDUCATION MANAGER Primary Care Provider Encounter Details Date Type Department Care Team (Late st Contact Info) Description 10/30/2024 Results Follow-Up [facility] OBGYN [address] [address] Shayy Shin MD [address] [place] [address] Social History Tobacco Use Types Packs/Day Years [...] on filedocumented in this encounter Care Teams Net Wpf Developer Relationship Specialty Start Date End Date Layne Munroe APRN [facility] [place] [address] [place] [address] PCP - General Internal Medicine 05/23/24 documented as of this encounter
--- OUTSIDE RECORDS SUMMARY | 2025-06-18 10:49 | XMS_ITS | Encounter Summary ---
Author Organization [employer] ([place], [place], [place], [place]) Address [address] [place] [address] Care Team Providers Care Bandmill Operator Name Role Phone Unavailable Primary Care Provider Unavailabl e Encounter Details Date Type Department Care Team (Late st Contact Info) Description 11/03/2018 Transcribed Document [facility] [place] Family Medicine [facility] [place] [address] ProviderZoey MD [address] [place] [address] Social History Tobacco Use Types [...] Complaint 11/03/2018 13:44 EDT Chief Complaint from [facility] w.c/o lower back pain since Wed., [...] EDT Height Source Stated Height Entry Format [place] Height/Length, HUNGARIAN (ft) 5 ft Height/Length HUNGARIAN 5 Inch CLINICALHEIGHT 165.1 cm [place] Body Weight 56.59 kg Weight Source, ED Critical estimated dosing weight Weight Entry Format [place] Weight Upper Sorbian lb 180 lb CLINICALWEIGHT 81.82 kg Body [...] 16:09 EDT, Discharge to: Home. Prescriptions: Prescription Inspector [facility] Pharm[facility]: dextromethorphan-promethazine 15 mg-6.25 mg/5 mL oral [...] please contact the Patient Resource Center at [phone]. Please follow up with Dr. Whitney.; LATHA WHITNEY Within 2 to 3 days, Patient Resource Center Within 2 to 3 days For further assistance with your Primary Care Physician please contact the Patient Resource Center at [phone]. Please follow up with Dr. Whitney.; LATHA WHITNEY Within 2 to 3 days; AARTI RAY Within 1 to 2 weeks. Electronically signed by José Miguel Braswell Conversion Computer Project Manager Cerner at 12/09/2022 8:11 AM CDT documented in this encounter Plan of Treatment Not on file documented as of this encounter Visit Diagnoses Not on filedocumented in this encounter
--- OUTSIDE RECORDS SUMMARY | 2025-06-18 10:49 | XMS_ITS | Encounter Summary ---
Author Organization [employer] ([place], [place], [place], [place]) Address [address] [place] [address] Care Team Providers Care Gold Frame Assembler Name Role Phone Unavailable Primary Care Provider Unavailabl e Encounter Details Date Type Department Care Team (Late st Contact Info) Description 11/03/2018 Transcribed Document [facility] [place] [place] Family Medicine [facility] [place] [address] ProviderZoey MD [facility] [place] [address] Social History Tobacco Use Types [...] Mckeon MD - 11/03/2018 4:27 PM CDT [address] [place] [address] PERSON INFORMATION Name BENJAMIN HOPSON Age 58 Years 1960 Sex Female Language Spanish PCP LATHA WHITNEY MD-[facility] Marital Status Med Service Emergency Medicine Acct# Arrival 11/03/2018 13:35:00 Visit Reason Back pain; LOWER BACK PAIN Acuity 3 - Urgent LOS 000 02:52 Depart Date: 11/03/18 04:27 PM Address: [place] [address] Comment: PROVIDER INFORMATION Provider Role Assigned Unassigned GLENN SILVER MD ED Physician 11/03/2018 13:44:19 Danya Monte PA ED Physician 11/03/2018 13:44:21 11/03/2018 13:44:34 Caterina Medeiros, short haul driver Nurse 11/03/2018 14:16:12 DIAGNOSIS PHYS DOC NOTES [...] Follow up: With: Address: When: AARTI RAY [address] [place] [address], [address] [place] [id number] [place] (1) Within 1 to 2 weeks With: Address: When: Patient Resource Center Within 2 to 3 days Comments: For further assistance with your Primary Care Physician please contact the Patient Resource Center at [phone]. Please follow up with Dr. Whitney. With: Address: When: LATHA WHITNEY [address] [place] [address] [place] (1) Within 2 to 3 days Comment: documented in this encounter Plan of Treatment Not on file documented as of this encounter Visit Diagnoses Not on filedocumented in this encounter
--- OUTSIDE RECORDS SUMMARY | 2025-06-18 10:49 | XMS_ITS | Encounter Summary ---
Author Organization [employer] ([place], [place], [place], [place]) Address [address] [place] [address] Care Team Providers Care Repair Weaver Name Role Phone Unavailable Primary Care Provider Unavailabl e Encounter Details Date Type Department Care Team (Late st Contact Info) Description 11/03/2018 Transcribed Document [facility] [place] Family Medicine [address] [place] [address] ProviderZoey MD [address] [place] [address] Social History Tobacco Use Types [...] On: 11/03/2018 16:25 EDT by Wero Andrade, HAT FINISHING MATERIALS PREPARER Discharge Vital Signs Temperature Source : Oral [...] Electronically signed by José Miguel Braswell Conversion Reduction Furnace Operator Angelica at 12/09/2022 8:21 AM CDT documented in this encounter Plan of Treatment Not on file documented as of this encounter Visit Diagnoses Not on filedocumented in this encounter
--- OUTSIDE RECORDS SUMMARY | 2025-06-18 10:49 | XMS_ITS | Encounter Summary ---
Author Organization [employer] ([place], [place], [place], [place]) Address [address] [place] [address] Care Team Providers Care Curbstone Setter Name Role Phone Unavailable Primary Care Provider Unavailabl e Encounter Details Date Type Department Care Team (Late st Contact Info) Description 11/03/2018 Transcribed Document [facility] [place] Family Medicine [address] [place] [address] ProviderZoey MD [address] [place] [address] Social History Tobacco Use Types [...] Zoey ProviderMD - 11/03/2018 4:27 PM CDT [place] [id number] Patient Information Name: BENJAMIN HOPSON Age: 58 Years Date of : 1960 Arrival Time: 11/03/2018 13:35:00 Diagnosis Primary Care Physician: LATHA WHITNEY MD-[facility] Provider Information Primary Provider: Secondary Provider: BENJAMIN HOPSON has been given the following list of patient education materials, prescriptions and follow-up instructions: Follow-up Instructions: With: Address: When: AARTI RAY [address] [place] [address], [address] [place] [address] Business (1) Within 1 to 2 weeks With: Address: When: Patient Resource Center Within 2 to 3 days Comments: For further assistance with your Primary Care Physician please contact the Patient Resource Center at [phone]. Please follow up with Dr. Whitney. With: Address: When: LATHA WHITNEY [address] [place] [address] Business (1) Within 2 to 3 days [...] range between ( 0.0 and 7.0 ) [place] #: 0.42 K/uL -- Normal range between ( 0.16 and 1.00 ) [place] #: 0.29 x10(3)/uL -- Normal range between ( 0.00 and 0.80 ) [place] %: 4.8 % -- Normal range between [...] ) Urine Bilirubin Dipstick: Negative Urine Specific [place]: 1.016 -- Normal range between ( 1.005 [...] verify that BENJAMIN HOPSON was seen at [facility] Emergency Department on ,11/03/2018 16:27:30. This [...] the way. As a healthcare provider, [facility] recommends that you stop smoking. Assistance with quitting is available by contacting 0-009-RIMD-NOW. This is a free resource providing counseling, [...] Electronic Communications Privacy Act 18 U.S.C. ???Sections 0593-5656,?? and contain information intended for the specified [...] sure to sign up for the My [facility] patient portal, which gives you 15/03 access to your medical information ??? including these discharge instructions ??? using your computer, smartphone, or tablet. Just go to [facility] to get started. Questions? Call . Acknowledgment [...] Instructions: Emergency Physician: Electronically signed by Interface, [facility] Conversion Clinical Documentation Improvement Specialist Cerner at 12/09/2022 8:06 AM CDT documented in this encounter Plan of Treatment Not on file documented as of this encounter Visit Diagnoses Not on filedocumented in this encounter
--- OUTSIDE RECORDS SUMMARY | 2025-06-18 10:49 | XMS_ITS | Encounter Summary ---
Author Organization [employer] ([place], [place], [place], [place]) Address [address] [place] [address] Care Team Providers Care Commercial Carpenter Name Role Phone Unavailable Primary Care Provider Unavailabl e Encounter Details Date Type Department Care Team (Late st Contact Info) Description 11/03/2018 Transcribed Document [facility] [place] Family Medicine [address] [place] [address] ProviderZoey MD [address] [place], [place] [id number] Social History Tobacco Use Types Packs/Day Years [...] On: 11/03/2018 16:26 EDT by Wero Andrade handyman Process Patient Disposition : Discharge Personal Belongings [...]
--- OUTSIDE RECORDS SUMMARY | 2025-06-18 10:49 | XMS_ITS | Data Portability ---
Author Organization [facility] Cole JOHNATHAN Tejada [place] [facility] Address [address] [place] [address] Care Team Providers Care Special Education Teacher Name Role Phone HEAVENLY DAO Box Strapper ARGENTINA CUI Primary Care Provider ROD VALLES Math And Physics Instructor Assessment No assessment recorded. Plan of Treatment [...] . Imaging None recorded . Medication Orders mupiroci n 2 % topical ointment 2024 025 [facility] #[id number], [address], [id number], 05/15/2025 14:14:44 betameth asone valerate 0.1 % topical cream 2024 025 [facility] #[id number], [address], [id number], 05/15/2025 14:14:50 compound ed medicati on 2024 025 [facility], [address], [place], [place], [id number], 04/24/2025 16:57:52 tretinoi n 0.05 % topical cream 2024 025 [facility] #[id number], [address], [place], [place], [id number], 04/24/2025 16:52:05 Patient TargetsNo targets recorded. Patient Instructions Encounter Date Encounter Id Patient Instructions Last Modified By Organization Details Last Modified Time 10/24/2024 [id number] She will be seei ng her COMPUTER APPLICATIONS ENGINEER later this week. She asks about trying a pessary, and I advised her to discuss with her COMPUTER APPLICATIONS ENGINEER. May benefit from pelvic floor PT. Not available 10/24/2024 14:36:55 11/15/2024 [id number] 1. Right cerumenectomy performed under microscopy 2. Begin Betamethasone cream to bilateral ears at least twice weekly 3. After area of prior mold in house is dry, begin running an air purifier in the room for 2 months 4. OTC Flonase spray QAM and Zyrtec PO QPM for 2 months 5. RTO in 12 months for annual ear cleaning [place] [facility] - [facility] torres Not available 11/15/2024 10:19:35 12/05/2024 [id number] stable exam woul d recc'd she increase her systane drops to 3-4 times a day reviewed findings with pt if she notes an increase in floaters,flashes of light or decreased vision she is to call at that time recheck 1 yr dkbill Not available 12/05/2024 14:51:15 04/24/2025 [id number] Risks/Benefits/O pt ions/Side Effects of diagnosis and treatment discussed. UV protection and signs of skin cancer discussed mpircher Not available 04/24/2025 08:24:16 05/15/2025 [id number] 1. Bilateral cerumenectomy performed in office today. Full risks, complications, and benefits of non-operative intervention have been thoroughly discussed. Understanding was expressed, informed consent given, and we will proceed with the discussed treatment plan. There were no questions for me at the end of the office visit. 2. Refilled Betamethasone cream for ears 3. Rx- Mupirocin ointment in nostrils TID x 7 days 4. Follow up in 6 months for routine ear cleaning [place] [facility] - Aj senior Not available 05/15/2025 14:15:27 Reason for Referral None Reported. Results Created Date Observation Date Name Description Value Unit Range Abnormal Flag Note LastModifiedBy Organization Detail LastModifiedTime 10/02/19 25 09/25/2024 ophth almos copy (PROC ) No observ ation record ed. BARCODE Not Available 2024 13:28:38 Result Notes None recorded. Problems Name Problem SNOMED Code Status Onset Date Resolution Date Notes Provider Name and Address Organization Details Recorded Time Headache 54698963 Active 2021 [facility] 12:14[facility]17 Environment al allergy 010256940 Active 2021 CARMELLA WOOD DO [address] [place], [address], [facility] 2 11:03:45 Pain of joint 10610778 Active 2021 CARMELLA WOOD DO [address] [place], [address], [facility] 2 11:03:57 Gastroesoph ageal reflux disease 366138043 Active 2021 CARMELLA WOOD DO [address] [place], [address], [facility] 2 11:03:52 Hypertensiv e disorder 81005962 Active 2021 CARMELLA WOOD DO [address] [place], [address], [facility] 2 11:03:39 Suspected bilateral glaucoma 6455712966104 9102 Active 2021 CARMELLA WOOD DO [address] [place], [address], [facility] 2 11:03:55 Acute dermatitis 36430249 Active 2021 TYLER SIFUENTES MD [address] [place] [address], [address], [facility] 2 09:16:01 Diverticulo sis of colon 679248541 Active 2022 CARMELLA WOOD, DO [address] [place], [address], [facility] 3 13:07:50 Essential hypertensio n 22143410 Active 2022 CARMELLA WOOD, DO [address] [place], [address], [facility] 3 16:30:24 Has a sore throat 504873703 Active 2022 CARMELLA WOOD, DO [address] [place], [address], [facility] 3 08:05:32 Posterior rhinorrhea 85733407 Active 2022 CARMELLA WOOD, DO [address] [place], [address], [facility] 3 08:05:40 Excess skin of bilateral eyelids 3012017366683 9106 Active 2023 HEAVENLY DAO MD [address] [place] [address], [address], [facility] 4 11:56:58 Presbyopia 22808493 Active 2023 HEAVENLY DAO MD [address] [place] [address], [address], [facility] 4 11:56:54 Posterior vitreous detachment 560501217 Active 2024 HEAVENLY DAO MD [address] [place] [address], [address], [facility] 5 16:33:01 Bilateral age-related nuclear cataracts 9371660869037 00 Active 2024 HEAVENLY DAO MD [address] [place] [address], [address], [facility] 14:50:11 Problem Notes None recorded. Procedures Surgical History Date Name Laterality Status Provider Name and Address Organization Details Recorded Time 04/24/20 25 Destruction BN Lesions completed Jackelin Rodriguez [facility] 04/24/2025 15:08:26 11/16/19 25 Cerumen removal - Instruments, Unilateral completed DEANNA RICO, HOME HEALTH CARE CASE MANAGER [address] [place], [address], [facility] 11/15/2024 10:18:12 09/25/19 25 Ophthalmoscopy, Ext Retinal completed HEAVENLY DAO MD [address] [place], [address], [facility] 09/25/2024 16:32:56 02/01/20 24 Cerumen removal - Instruments, Bilateral completed Christin Alexus [facility] 01/31/2024 08:05:55 09/24/19 24 Cerumen removal - Instruments, Bilateral completed Christin Alexus [facility] 09/24/2023 11:01:25 08/24/19 24 Destruction Premalignant Lesion(s) completed Carie Shell [facility] 08/24/2023 15:07:27 08/24/19 24 Destruction BN Lesions completed Carie Shell [facility] 08/24/2023 15:04:54 05/28/20 23 Cerumen removal - Instruments, Bilateral completed Christin Alexus [facility] 05/28/2023 15:21:27 01/22/20 23 OCT/Nerve completed HEAVENLY DAO MD [address] [place], [address], [facility] 01/21/2023 09:43:25 01/13/20 23 Cerumen removal - Instruments, Bilateral completed RUBI SOL MD [address] [place], [address], [facility] 01/12/2023 15:11:53 09/21/19 23 Tympanogram completed GER ONTIVEROS, HALLEY [address] [place], [address], [facility] 09/21/2022 12:27:39 09/21/19 23 Audiogram completed GER ONTIVEROS, AUD [address] [place], [address], [facility] 09/21/2022 12:27:37 09/21/19 23 Cerumen removal - Instruments, Bilateral completed Brit Cesariooele [facility] 09/21/2022 12:08:24 06/23/20 22 Cerumen removal - Instruments, Bilateral completed Asia Person [facility] 06/23/2022 11:27:41 03/17/20 22 Cerumen removal - Instruments, Bilateral completed María Curtis [facility] 03/17/2022 15:36:36 11/26/19 22 Cerumen removal - Instruments, Unilateral completed María Curtis [facility] 11/25/2021 13:09:30 05/27/20 21 Cerumen removal - Instruments, Bilateral completed María Curtis [facility] 05/27/2021 14:50:18 03/24/20 21 Date of Last Pap Smear completed Gregoria Ray [facility] 11/25/2021 12:15:49 02/05/20 21 Cerumen removal - Instruments, Bilateral completed Christin Alexus [facility] 02/04/2021 16:55:01 01/22/20 21 Date of Last Mammogram completed Gregoria Ray [facility] 11/25/2021 12:16:08 09/11/19 21 Cerumen removal - Instruments, Bilateral completed María Curtis [facility] 09/11/2020 15:13:57 04/17/20 20 Tympanogram completed MAYRA EDWARDS, AUD [address] [place], [address], [facility] 04/17/2020 15:26:48 04/17/20 20 Audiogram completed MAYRA EDWARDS, AUD [address] [place], [address], [facility] 04/17/2020 15:26:46 04/17/20 20 Cerumen removal - Instruments, Bilateral completed Christin Alexus [facility] 04/17/2020 16:15:17 11/16/19 18 Electromyography (EMG) with Nerve Conduction Study (NCV) completed Christin ChachaKaren Valladares [facility] 11/15/2017 14:16:02 Appendectomy completed URI OLIVEIRA MD [address] [place] [address], [facility] 10/24/2024 14:31:15 Nipple/areola reconstruction completed URI OLIVEIRA MD [address] [place] [address] 10/24/2024 14:31:25 Other completed Hannah Crawford [facility] 11/02/2017 09:25:56 procedure on gallbladder completed URI OLIVEIRA MD [address] [place] [address] 10/24/2024 14:31:07 Total Hysterectomy completed ANJALI OLIVEIRA MD [address] [place] [address], [facility] 10/24/2024 14:30:54 colonoscopy completed URI OLIVEIRA MD [address] [place] [address] 10/24/2024 14:31:37 suture of eyelid completed URI OLIVEIRA MD [address] [place] [address], [address] [place] [address] 10/24/2024 14:32:09 Imaging Results None recorded. Procedure Notes None recorded. Medical Equipment None Reported. Allergies Allergen ID Allergen Name Allergen Category Reaction Reaction Severity Criticality Documentation Date Start Date Code Code System Note Provider Name and Address Organization Details Recorded Time 074583 acetamino phen / oxycodone medicatio n itching Not available Not available 07/16/20162010 11129 3 RxNorm React ion: ITCHI NG; Comme nt: Creat ed By: Owen desir Date: 2010 2:24: 41 PM; Not Available [facility] 6 11:47:26 480801 E-Mycin medicatio n Not available Not available Not available 07/17/2016200660 8 RxNorm Comme nt: Creat ed By: Kimberlee Ramires; Creat ed Date: 2006 1:55: 10 PM; Not Available [facility] 6 03:43:01 446693 acetamino phen / hydrocodo ne medicatio n Not available Not available Not available 11/02/2017 50342 2 RxNorm Hannah Crawford [facility] 8 09:26:40 116283 Substance with sulfonami de structure and antibacte rial mechanism of action (substanc e) medicatio n Not available Not available Not available 11/02/2017 78152 8003 SNOMED Hannah Crawford [facility] 8 09:26:49 164046 Bactrim medicatio n Not available Not available Not available 06/02/2024 50352 9 RxNorm Urealyssa Sellers [facility] 4 11:11:10 Medications Name Sig Start [...] height Body mass index (BMI) Body weight Provider Name and Address Organization Details Last Updated DateTime 10/24/2024 165.1 cm 21.8 kg/m2 78976.6 g Jewell Stone [facility] 10/24/2024 11:10:23 Date Recorded Body height Body mass index (BMI) Body weight Body temperature Heart rate Systolic And Diastolic Provider Name and Address Organization Details Last Updated DateTime 165.1 cm 22.7 kg/m2 34921.9 6 g 97.5 [degF] 73 /min 123/68 mm[Hg] Bri Boston [facility] 09:03:42 Date Recorded Body height Provider Name an d Address Organization Details Last Updated DateTime 12/05/2024 165.1 cm Shima Magnus [facility] 12/05/2024 14:10:54 Date Recorded Body height Body mass index (BMI) Body weight Body temperature Heart rate Systolic And Diastolic Provider Name and Address Organization Details Last Updated DateTime 165.1 cm 21.9 kg/m2 75396.7 g 97.7 [degF] 69 /min 107/67 mm[Hg] Vandana Shelton [facility] 13:54:44 Social History Question Answer Notes LastModified by [...] Or The Highest Degree You Have Received? [id number] 2 Degrees Information not available 11/25/2021 When Did You Quit Smoking? 1-5yearssincel [email or web address] Information not available 10/24/2024 Are There Any Guns Present In Your Home? No Information not available 11/25/2021 What Was The Date Of Your Most Recent Tobacco Screening? 05/15/2025 [email or web address] Information not available 05/15/2025 How Many Children Do You Have? 3 Information not available 11/25/2021 Do You Use Protection During Sex? No Information not available 11/25/2021 What Is Your Relationship Status? 6 Grandchildren Information not available 10/24/2024 Do You Use [...] 10/24/2024 Have You Recently Traveled Abroad? No [email or web address] Information not available 05/27/2021 Sex: Female Functional Status Question Answer Note LastModified by Organizat ion Details LastModified Time Do you use any illicit or recreational drugs? No [email or web address] Information not available 05/27/2021 Do you or [...] anxious, or unable to sleep at night)? [id number] Information not available 11/25/2021 Family History Relationship [...] available 2024 10:49:49 Medical History Condition Response Diabetes N Anxiety Disorder Y Allergies/Hayfever Y Bleeding Disorder N Arthritis Y Emphysema N Acid Reflux (GERD) Y Cancer N COPD N Asthma N Glaucoma Y High Cholesterol Y Anesthesia Complications N Heart Disease N Rheumatoid Arthritis N Headaches Y Hypertension Y Gynecological History Statement/Question Response Female [...] MDCK, quadrivalent, PF 3 completed Not Available [facility] 05/15/2025 13:48:34 Pneumococcal conjugate PCV20, polysaccharide XND765 conjugate, adjuvant, PF 4 completed Not Available [facility] 05/15/2025 13:48:34 Influenza, split virus, trivalent, PF 4 completed Not Available [facility] 05/15/2025 13:48:34 Tdap 5 completed Not Available [facility] 05/15/2025 13:48:34 Influenza, MDCK, quadrivalent, PF 2 completed Mary Ellen Llanos [facility] 09/01/2022 12:31:10 Influenza, split virus, trivalent, PF 7 completed Mary Ellen Llanos [facility] 09/01/2022 12:31:10 Influenza, split virus, quadrivalent, PF 0 completed Mary Ellen Llanos [facility] 09/01/2022 12:31:10 COVID-19, mRNA, LNP-S, PF, 30 mcg/0.3 mL dose 1 completed Mary Ellenlovely Llanos [facility] 09/01/2022 12:31:10 COVID-19, mRNA, LNP-S, PF, 30 mcg/0.3 mL dose 1 completed Mary Ellen Llanos [facility] 09/01/2022 12:31:10 Influenza, split virus, quadrivalent, preservative 1 completed Mary Ellen Llanos [facility] 09/01/2022 12:31:10 Influenza, split virus, trivalent, PF 6 completed Mary Ellen Llanos [facility] 09/01/2022 12:31:10 COVID-19, mRNA, LNP-S, PF, 30 mcg/0.3 mL dose 1 completed Mary Ellenlovely Llanos [facility] 09/01/2022 12:31:11 COVID-19, mRNA, LNP-S, PF, 30 mcg/0.3 mL dose, sriram-sucrose 2 completed Mary Ellen Llanos [facility] 09/01/2022 12:31:11 pneumococcal polysaccharide PPV23 7 completed Mary Ellen Llanos [facility] 09/01/2022 12:31:11 Tdap 3 completed Gregoria Shen [facility] 08/03/2023 16:00:18 Past Encounters Encounter ID Performer Location Encounter Start Date Encounter Closed Date Diagnosis/Indication Diagnosis SNOMED-CT Code Diagnosis ICD10 Code Diagnosis IMO Codes Diagnosis Note [id number] QM_[place] [address] 11/23/2016 16:24:11 11/23/2016 16:24:11 [id number] AARTI RAY MD NEUROSURG [facility] [address] [place] [address] 11/02/2017 09:06:09 11/02/2017 10:14:59 Lumbar spondylosis 497296244 M47.445 [id number] SONNY MAR MD NEUROLOGY [facility] [address] [place] [address] 11/15/2017 12:04:56 11/15/2017 15:25:54 Skin sensation disturbance 78808540 R20.9 Low back pain 332140413 M54.5 Pain in left knee 155697 7167 42611 M25.195 [id number] HEAVENLY DAO MD OPHTHALMO [address] [address] 02/09/2019 14:51:22 02/10/2019 11:41:36 Myopia 71508359 H52.13 Regular astigmatism 6890 5002 H52.223 Presbyopia 42078737 H52. 4 [id number] RUBI SOL MD [place] [facility] [address] [place] [address] 04/17/2020 14:46:59 04/17/2020 16:37:57 Hearing examination 410330430 Z01.10 Dysfunctio n of eustachian tube 58557492 H69.92 Impacted c erumen of bilateral ears 8108552927 268283 H61.23 Nasal muco sa edematous 37408126 R60.0 Hypertroph y of nasal turbinates 77184259 J34.3 Allergic rhinitis 149318 04 J30.9 Ear pressu re sensation 253132504 H93.8X9 Retraction of tympanic membrane 94253867 H73.498 [id number] HALLEY LAO [place] [facility] [employer] [place] [address] 04/17/2020 15:26:25 04/17/2020 15:39:54 Otalgia 11523920 H92.03 Bilateral tinnitus 34175 82765 102 H93.13 Dysfunctio n of eustachian tube 47552986 H69.92 [id number] RUBI SOL MD [place] [facility] [address] [place] [address] 05/15/2020 15:30:08 05/15/2020 16:50:09 Dysfunction of eustachian tube 68682713 H69.92 - improving Ear pressu re sensation 024053498 H93.8X9 - improving Retraction of tympanic membrane 95438457 H73.899 - improving Nasal muco sa edematous 31355392 R60.0 Hypertroph y of nasal turbinates 43466484 J34.3 Allergic rhinitis 439537 04 J30.9 [id number] RUBI SOL MD [facility] [address] [place] [address] 09/11/2020 14:58:07 09/11/2020 15:45:07 Dysfunction of eustachian tube 40930207 H69.92 - improving Ear pressu re sensation 756863691 H93.8X9 - improving Retraction of tympanic membrane 24127958 H73.899 - improving Nasal muco sa edematous 56288443 R60.0 Hypertroph y of nasal turbinates 42984369 J34.3 Allergic rhinitis 486470 04 J30.9 Impacted c erumen of bilateral ears 0227579989 751634 H61.23 Eczema of external auditory canal 82647147 H60.191 [id number] MADDY SALES III, MD [place] [facility] [address] [place] [address] 02/04/2021 15:04:06 02/05/2021 15:31:20 Impacted cerumen of bilateral ears 1620870097 873050 H61.23 [id number] SHIMA GORMAN MD [place] [facility] [address] [place] [address] 05/27/2021 13:56:55 05/27/2021 15:47:24 Impacted cerumen of bilateral ears 9015861118 288819 H61.23 Eczema of external auditory canal 08949975 H60.549 Hypertroph y of nasal turbinates 78917881 J34.3 [id number] CARMELLA WOOD, FAMILY MEDICINE [facility] CLOSED [address] [place] [address] 11/25/2021 11:33:21 12/03/2021 14:51:29 Obesity 317510284 E66.9 work on steady and sustained weight loss to mitigate the developmen t of chronic conditions related to unhealthy lifestyles Gastroesop hageal reflux disease without esophagitis 489994627 K21.9 continue with omeprazole as prescribed Hypertensive disorder 38 428353 I10 continue with medication as prescribed will check labs as orderedwat ch added salt in diet Screening for malignant neoplasm of breast 374321823 Z12.39 currently UTD; next routine screening mammogram ordered by different provider as per patient Screening for malignant neoplasm of colon 121922062 Z12.11 currently UTD; next routine screening colonoscop y ordered by different provider as per patient Adult heal th examination 745936957 Z00.00 -61 y/o WNWD female-Stacie ntain healthy lifestyle - discussed hyperlipid emia and other risk factors for cardiovasc ular and diet-relat ed chronic disease. Decrease daily intake of saturated fat, cholestero l, sodium, and added sugar. Increase physical activity as tolerated- will check labs as ordered below and f/u with patient [id number] MD MADELEINE PERDOMO ENT [facility] CLOS[facility] [address] [place] [address] 11/25/2021 11:47:32 12/01/2021 14:03:37 Hypertrophy of nasal turbinates 81384357 J34.3 Impacted c erumen in right ear 1530806756 517745 H61.21 Chronic rhinitis 3033880 6 J31.0 Retraction of tympanic membrane 86354517 H73.899 - right sided Dysfunctio n of bilateral eustachian tubes 3419641211 127091 H69.93 [id number] DANIELA RIVERA MD RHE[facility]ATOL [address] [place] [address] 12/23/2021 09:25:37 12/23/2021 12:28:13 Bilateral osteoarthritis of knees 1800629457 54713 M17.0 Mild bilateral knee osteoarthr itis without any evidence of knee joint instabilit y. No effusions noted. No synovitis noted. Positive medial joint line tenderness . We discussed the diagnosis of osteoarthr itis and the mechanical pains. Importance of weight loss discussed. Suggested to discontinu e over-the-c ounter NSAIDs. Start physical therapy. We also discussed the weight loss target, and dietary program. Start sulindac 150 mg every 12 hours only as needed. She was comfortabl e with the discussion Chronic low back pain 27 8186447 M54.50 Chronic mechanical lower back pain along with mechanical strain lumbosacra l region. No radiculopa thy noted. No myelopathy noted. Importance of good posture, exercise and weight loss reviewed. Patient is referred to physical therapy. I will reassess her in 3 months. All questions were answered and she was comfortabl e with the discussion . [id number] HEAVENLY DAO MD O[facility]TH[facility]MO [facility] [address] [place] [address] ,[address] [address] 12/29/2021 14:33:38 12/29/2021 15:33:02 Allergic conjunctivitis 663387602 H10.12 Suspected bilateral glaucoma 6175885931 2568131 H40.023 increased iop [id number] CARMELLA WOOD [facility] CL[facility] [address] [place] [address] 02/26/2022 13:02:46 03/19/2022 09:05:47 Hypertensive disorder 33014673 I10 Although BP is not within goal, patient does have contributi ng lifestyle habits that she is trying to improve, We will continue with medication as prescribed for now, but if elevations are persistent will make changes as indicated at next follow-upw ill check labs as orderedwat added salt in diet [id number] HEAVENLY DAO MD [facility]TH[facility] [address] [place] [address] DR,[address] [address] 03/02/2022 13:39:15 03/02/2022 15:50:51 Suspected bilateral glaucoma 9481226310 2782082 H40.023 stable iop [id number] RUBI SOL MD [place] E[facility] CLOSED [address] [place] [address] 03/17/2022 15:17:01 03/17/2022 16:00:37 Impacted cerumen of bilateral ears 8981475436 447815 H61.23 Eczema of external auditory canal 18737299 H60.543 Chronic rhinitis 5700135 6 J31.0 Dysfunctio n of bilateral eustachian tubes 0321147548 995286 H69.93 [id number] CARMELLA WOOD DO [facility] CL[facility] [address] [place] [address] 05/22/2022 11:01:15 05/22/2022 12:00:06 Acute sinusitis 42720698 J01.90 rx as prescribed belowtylen ol/ibuprof en PRN, warm facial compress, nasal saline spray prn RTC if symptoms worsen or do not improve within 4-5 days [id number] RUBI SOL MD [place] ENT [facility] CLOSED [address] [place] [address] 06/23/2022 11:13:25 06/23/2022 11:37:07 Impacted cerumen of bilateral ears 9431083937 773483 H61.23 Eczema of external auditory canal 95443595 H60.543 -Much improved. 06/23/2022. Chronic rhinitis 7620866 6 J31.0 Dysfunctio n of bilateral eustachian tubes 3221917309 295556 H69.93 [id number] HEAVENLY DAO MD OPHTHALMO [facility] [address] [place], [place] [address],[address] [place] [address] 07/03/2022 11:10:58 07/03/2022 12:00:22 Suspected bilateral glaucoma [id number] 2321679 H40.023 stable iop [id number] MD MADELEINE HECTOR ENT [facility] CLOSED [address] [address] 09/21/2022 11:13:25 09/21/2022 15:15:29 Impacted cerumen of bilateral ears 9635402326 577576 H61.23 Eczema of external auditory canal 13844214 H60.543 -Much improved. 06/23/2022. Chronic rhinitis 8922693 6 J31.0 Bilateral earache 341103 003 H92.03 [id number] HALLEY ZAMARRIPA ENT [facility] CLOSED [address] [place] [address] 09/21/2022 12:13:18 09/21/2022 12:28:22 Bilateral earache 036468619 H92.03 Impacted c erumen of bilateral ears 1903251630 566151 H61.23 [id number] ANGIE DAVID APRN RHEUMATOL OGY [address] [place] [address] 09/21/2022 15:47:03 09/24/2022 12:46:06 Bilateral osteoarthritis of knees [id number] 64082 M17.0 Mild bilateral knee osteoarthr itis without any evidence of knee joint instabilit y. No effusions noted. No synovitis noted. Positive medial joint tenderness . She did not schedule PT as recommende d Importance of weight loss discussed. Suggested to discontinu e over-the-c ounter NSAIDs. Start physical therapy. Xray ordered to evaluate She has tried meloxicam in the past with improvemen t. Starting low dose and increase if tolerated. Avoid NSAIDS with this medication Pain of mu ltiple joints 89008250 M25.50 We discussed osteoarthr itis and treatments Labs and xray ordered today Follow up in 1 month Pain of bi lateral knee joints 4400680626 66912 M25.561 M25.562 chronic pain xray ordered Neck pain 54241491 M54.2 chronic pain xray ordered today Alternate ice and heat Gentle stretching exercises [id number] CARMELLA WOOD, [facility] CLOSED [address] [facility] [address] [facility] [place] [address] 10/12/2022 13:33:42 10/12/2022 15:45:22 Abdominal pain 74139679 R10.9 Symptoms are slowly improving If symptoms worsen or new symptoms develop inform provider/r eturn to clinic 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 She is also likely need a prior authorizat ion. If able to obtain, would like to follow-up with patient in 4 to 6 weeks of starting medication Body mass index 30+ - obesity 229465834 Z68.30 Obesity 760996356 E66.9 work on steady and sustained weight loss to mitigate the developmen t of chronic conditions related to unhealthy lifestyles [id number] ELVIA MITCHELL MD PAIN MEDICINE CLOSED [address] [place] [address] 11/10/2022 14:53:47 11/11/2022 04:58:26 Osteoarthritis of multiple joints 378323418 M15.9 Pain of bi lateral knee joints 9584589537 31008 M25.561 M25.562 Bilateral shoulder joint pain 2044499788 6500999 M25.511 M25.512 Pain of bi lateral hip joints 6951011010 1752513 M25.551 M25.552 Chronic low back pain 27 2114235 M54.50 Lumbar spondylosis 21256 0009 M47.896 [id number] CARMELLA WOOD DO [facility] MEDICINE [facility] CLOSED [address] [place] [address] 11/18/2022 11:10:57 11/19/2022 04:09:29 Mixed anxiety and depressive disorder 802647405 F41.8 patient agreeable to try desvenlafa xine, she will keep provider informed of any unwanted side effectswil l f/u in 4-6 weeks or sooner if needed [id number] CARMELLA WOOD, DO FAMILY MEDICINE [facility] CLOSED [address] [place] [address] 01/04/2023 10:58:42 01/04/2023 13:23:34 Dysuria 47487448 R30.0 start cipro x 3 days (understan ds risks associated with use), may use pyridium as needed for symptomati c relief Ensure adequate hydration, regular emptying of the bladder and void shortly after sexual intercours e If symptoms worsen/do not improve RTC or inform provider Insomnia 525207343 G47.0 0 start trazodone as rxnotify provider of any unwanted side effects [id number] MD MADELEINE PERDOMO ENT [facility] CLOSED [address] [place] [address] 01/12/2023 14:38:56 01/12/2023 15:14:19 Impacted cerumen of bilateral ears 6035477276 804859 H61.23 Allergic rhinitis 688322 04 J30.9 [id number] HEAVENLY DAO MD OPHTHALMO LOGY [address] [address] 01/21/2023 08:52:02 01/21/2023 11:09:24 Suspected bilateral glaucoma 9643398667 3098038 H40.023 stable [id number] RUBI SOL MD [place] [facility] [address] [place] [address] 05/28/2023 14:46:01 05/28/2023 16:15:20 Impacted cerumen of bilateral ears 9507859760 057048 H61.23 Chronic rhinitis 0259438 6 J31.0 [id number] CARMELLA WOOD, DO PRIMARY CARE [facility] [address] [place] [address] 08/03/2023 15:38:36 08/03/2023 16:31:49 Has a sore throat 365272645 J02.9 POC testing negativere commend symptomati c treatment at this timeif symptoms worsen or there is no improvemen t RTC/inform provider Essential hypertension 40134387 I10 BP seems to be controlled at this timecontin ue with antihypert ensive as prescribed watch added salt in dietincrea se physical activity as toleratedw ill continue to monitor Posterior rhinorrhea 758 19363 R09.82 recommend OTC allergy med suck as zyrtec or claritin [id number] NIRMAL BLACKBURN MD [facility] [address] [place] [address] 08/24/2023 14:42:54 08/26/2023 14:10:30 Multiple benign melanocytic nevi 914990767 D22.5 - Benign lesions seen on exam today- SPF 30 or higher broad-spec trum sunscreen recommende d with re-applica tion every 2 hours- Discussed sun protection measures, including wide-brimm ed hat, sun-protec tive clothing, and avoidance of sun during peak hours of 10am-4pm- Avoid tanning beds as these can increase the chances of all 3 types of skin cancer- Instructed to monitor for changes and to call us for appointmen t with any changing or worrisome lesions Seborrheic keratosis 394 150175 L82.1 - Benign overgrowth s of skin - Hereditary Senile angioma 7554183 I 78.1 - Benign blood vessel growths - Hereditary Solar lentigo 09636551 L 81.4 - Benign brown spots - Sun-induce d Actinic keratosis 007 L57.0 Ln2 today, no wound careFup with change or concerns Inflamed s eborrheic keratosis 422631485 L82.0 Ln2 today, no wound careFup with change or concerns Dermatofibroma 471489231 D23.71 Nature of the diagnosis discussedF up with change or concerns Solar degeneration 28936 006 L57.8 Nature of the diagnosis discussedR x tretinoin refilled [id number] RUBI SOL MD [place] E[facility] [address] [place] [address] 09/24/2023 10:13:59 09/24/2023 11:11:37 Impacted cerumen of bilateral ears 4671323645 570269 H61.23 Chronic rhinitis 8763094 6 J31.0 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 236988893 H60.8X3 [id number] RUBI SOL MD [place] ENT [facility] [address] [place] [address] 02/01/2024 15:00:34 02/01/2024 15:33:15 Impacted cerumen of bilateral ears 3176404887 076506 H61.23 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 4 Posterior vitreous detachment 772680497 H43.813 stable Bilateral age-related nuclear cataracts 3403603295 24041 H25.13 trace [id number] RYAN SANCHEZ APRN DERMATOLO GY [address] [address] [place] [address] 04/24/2025 14:39:47 04/24/2025 15:17:08 Solar lentiginosis 517761135 L81.4 0656061 RECOMMEND SUN PROTECTIVE CLOTHING AND EQUATE SPORT SUNSCREEN AND CERAVE AM SUNSCREEN LOTION OTC DAILYDISCU SSED RISKS INHERENT TO CHEMICAL SUNSCREENS INCLUDING PHOTOALLER GIC, PHOTOTOXIC , ALLERGIC CONTACT AND IRRITANT CONTACT DERMATITIS .BENIGN APPEARANCE , PT REASSURED & ADVISED TO RTC WITH ANY CHANGES Multiple b enign melanocytic nevi 103650513 D22.9 [id number] BENIGN APPEARANCE , PT REASSURED & ADVISED TO RTC WITH ANY CHANGES Raised noheym orrheic keratosis 9824553839 05297 L82.8 4216441299 BENIGN APPEARANCE , PT REASSURED Dermatofibroma 412689770 D23.9 94260 BENIGN APPEARANCE , PT REASSURED Solar degeneration 59023 006 L57.8 766 INCREASE TO TRETINOIN CREAM 0.05 CREAM NIGHLTY PT REQUEST Verruca vulgaris 1411304 3 B07.9 06214 DISCUSSED [place] OPTIONSPAT IENT IS REQUESTING CANTHARIDI [...] SSED CAN TREAT FURTHER IF PERSISTING Milia 081850731 L72.0 47116 BENIGN APPEARANCE , PT REASSURED Generalize d essential telangiectasia 562098965 I78.8 13501764 BENIGN APPEARANCE , PT REASSURED Hemangioma of skin 20164 006 D18.01 326521 BENIGN APPEARANCE , PT REASSURED [id number] JIA HOLLIS ENT [address] [place] [address] 05/15/2025 13:46:36 05/15/2025 14:38:28 Impacted cerumen of bilateral ears 9614890228 142030 H61.23 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 313901396 H60.8X3 Vasomotor rhinitis 15600 03 J30.0 Chronic rhinitis 9421552 6 J31.0 Nasal vestibulitis 67712 000 J34.89 357857 Health Concerns Section Related Observation LastModified by Organization Allison contreras LastModified Time None Recorded Concern Status LastModified by Organization Details LastModified Time None Recorded Advance Directives Directive N: Payers Insurance Date Sequence Insurance Name Policy Number Policy Watkins Covered Member ID Watkins Member ID Guarantor Name 11/03/2018 1 [facility] Aarti Figueroa [id number] Aleja Figueroa 04/24/2020 PAYMENT PLAN Aleja Figueroa 07/17/2020 1 [employer] (POS II) [id number] Aarti Figueroa [id number] Aleja Figueroa 05/14/2025 1 [place] [id number] Aarti Figueroa [id number] Aleja Figueroa 11/02/2017 1 [facility] (O) [id number] Aarti Figueroa [id number] Aleja Figueroa Notes Date Note Type Note Provider Name and Address Organization Details Recorded Time 10/24/2024 text/html Aleja is a 64yo new female who was in good health until 4 days ago. After straining at commode, she felt a soft mass at introitus, which she reduced and it caused her some pelvic pressure. He has no AJAY or stones, and rarely has a UTI. She has some urge incontinence, but wears no pads. patient complains or urinary incontinence. URI OLIVEIRA MD [address] [place] [address], [phone], [facility] 10/24/2024 14:37:12 11/15/2024 text/html Aleja Figueroa is seen today for routine ear cleaning. She says her ears have been itching intermittently. They feel a little full recently. She denies pain, discharge, or infection. She uses Betamethasone cream occasionally. Mrs. Figueroa reports having a pipe/water leak in her house over the last 6 weeks and caused an area of mold development. She has just now thoroughly cleaned the mold with bleach and drying it out with fans. DEANNA RICO, HOME HEALTH CARE CASE MANAGER [address] [place] [address], [phone], [facility] 11/15/2024 10:20:00 12/05/2024 text/html ROS as noted in the HPI HEAVENLY DAO MD [address] [place] [address], [phone] 12/05/2024 14:51:38 04/24/2025 text/html ESTABLISHED PT OF [facility]- 1) PT IS REQUESTING FSE 2) PT C/O POSSIBLE WART ON L HAND X (-)ITCH/BLEED/PAIN. NO TX 3) PT C/O LESION ON CHEST 4) PT IS REQUESTING INCREASE OF TRETINOIN Denies any other new, changing, or bleeding lesions, or other rashes, feels well, in a good mood, and has no family history of melanoma. RYAN SANCHEZ, HOME HEALTH CARE CASE MANAGER [address] [place], [address], [facility] 04/24/2025 16:53:18 05/15/2025 text/html ROS as noted in the HPI Aleja presents to clinic for evaluation of cerumen impaction. She typically gets her ears cleaned once a year, however her ears have felt more clogged and itchy lately. She uses Betamethasone cream in her ears once a week. Additionally, she has noticed sores around the opening of her nostrils that scab up occasionally. ROD VALLES PA-C [address] [place], [address], [facility] 05/15/2025 14:17:55 OBGyn Episode No OBEpisode recorded.
--- OUTSIDE RECORDS SUMMARY | 2025-06-18 10:49 | XMS_ITS | Continuity of Care Document ---
Author Organization [facility] MADELEINE mccauley [address] Address [address] [place] [address] Care Team Providers Care Flexible Nanny Name Role Phone HEAVENLY DAO Dredge Pipe Installer ARGENTINA CUI Primary Care Provider [phone] ROD VALLES Metal Cabinet Finisher Assessment No assessment recorded. Plan of Treatment [...] n 2 % topical ointment 2024 025 [employer] #[id number], [address], [id number], 05/15/2025 14:14:44 betameth asone valerate 0.1 % topical cream 2024 025 [employer] #[id number], [address], [id number], 05/15/2025 14:14:50 Patient TargetsNo targets recorded. Patient Instructions Encounter Date Encounter Id Patient Instructions Last Modified By Organization Details Last Modified Time 05/15/2025 [id number] 1. Bilateral cerumenectomy performed in office today. [...] in 6 months for routine ear cleaning [place] [facility] - Aj senior Not available 05/15/2025 14:15:27 Reason for Referral None Reported. Problems Name Problem SNOMED Code Status Onset Date Resolution Date Notes Provider Name and Address Organization Details Recorded Time Headache 68388287 Active 2021 [facility] 12:14:17 Environment al allergy 561326217 Active 2021 CARMELLA WOOD, DO [address] [place], [address], [facility] 2 11:03:45 Pain of joint 67756239 Active 2021 CARMELLA WOOD DO [address] [place], [address], [facility] 2 11:03:57 Gastroesoph ageal reflux disease 871920545 Active 2021 CARMELLA WOOD DO [address] [place], [address], [facility] 2 11:03:52 Hypertensiv e disorder 92843653 Active 2021 CARMELLA WOOD DO [address] [place], [address], [facility] 2 11:03:39 Suspected bilateral glaucoma 4823327821028 9102 Active 2021 CARMELLA WOOD DO [address] [place], [address], [facility] 2 11:03:55 Acute dermatitis 66160075 Active 2021 TYLER SIFUENTES MD [address] [place] [address], [address], [facility] 2 09:16:01 Diverticulo sis of colon 319485616 Active 2022 [place] [address] [place] [address], [address], [facility] 3 13:07:50 Essential hypertensio n 46047177 Active 2022 CARMELLA WOOD, DO [address] [place], [address], [facility] 3 16:30:24 Has a sore throat 967864947 Active 2022 [place] [address] [place] [address], [address], [facility] 3 08:05:32 Posterior rhinorrhea 42712738 Active 2022 CARMELLA WOOD, DO [address] [place], [address], [facility] 3 08:05:40 Excess skin of bilateral eyelids 0760325773418 9106 Active 2023 HEAVENLY DAO MD [address] [place] [address], [address], [facility] 4 11:56:58 Presbyopia 50296066 Active 2023 HEAVENLY DAO MD [address] [place] [address], [address], [facility] 4 11:56:54 Posterior vitreous detachment 100887085 Active 2024 HEAVENLY DAO MD [address] [place] [address], [address], [facility] 5 16:33:01 Bilateral age-related nuclear cataracts 1024963441484 00 Active 2024 HEAVENLY DAO MD [address] [place] [address], [address], [facility] 14:50:11 Problem Notes None recorded. Procedures Surgical History Date Name Laterality Status Provider Name and Address Organization Details Recorded Time 04/24/20 25 Destruction BN Lesions completed Jackelin Rodriguez [facility] 04/24/2025 15:08:26 11/16/19 25 Cerumen removal - Instruments, Unilateral completed DEANNA RICO, QUALITY ASSURANCE ASSISTANT [address] [place], [address], [facility] 11/15/2024 10:18:12 09/25/19 25 Ophthalmoscopy, Ext Retinal completed HEAVENLY DAO MD [address] [place], [address], [facility] 09/25/2024 16:32:56 02/01/20 24 Cerumen removal - Instruments, Bilateral completed Christin Alexus [facility] 01/31/2024 08:05:55 09/24/19 24 Cerumen removal - Instruments, Bilateral completed Christin Alexus [facility] 09/24/2023 11:01:25 08/24/19 24 Destruction Premalignant Lesion(s) completed Carie Shell [facility] 08/24/2023 15:07:27 08/24/19 24 Destruction BN Lesions completed Carie Shell [facility] 08/24/2023 15:04:54 05/28/20 23 Cerumen removal - Instruments, Bilateral completed Christin Alexus [facility] 05/28/2023 15:21:27 01/22/20 23 OCT/Nerve completed HEAVENLY DAO MD [address] [place], [address], [facility] 01/21/2023 09:43:25 01/13/20 23 Cerumen removal - Instruments, Bilateral completed RUBI SOL MD [address] [place], [address], [facility] 01/12/2023 15:11:53 09/21/19 23 Tympanogram completed GER ONTIVEROS, HALLEY [address] [place], [address], [facility] 09/21/2022 12:27:39 09/21/19 23 Audiogram completed GER ONTIVEROS, AUD [address] [place], [address], [facility] 09/21/2022 12:27:37 09/21/19 23 Cerumen removal - Instruments, Bilateral completed Brit Nassaroele [facility] 09/21/2022 12:08:24 06/23/20 22 Cerumen removal - Instruments, Bilateral completed Asia Person [facility] 06/23/2022 11:27:41 03/17/20 22 Cerumen removal - Instruments, Bilateral completed María Curtis [facility] 03/17/2022 15:36:36 11/26/19 22 Cerumen removal - Instruments, Unilateral completed María Curtis [facility] 11/25/2021 13:09:30 05/27/20 21 Cerumen removal - Instruments, Bilateral completed María Curtis [facility] 05/27/2021 14:50:18 03/24/20 21 Date of Last Pap Smear completed Gregoria Ray [facility] 11/25/2021 12:15:49 02/05/20 21 Cerumen removal - Instruments, Bilateral completed Christin Alexus [facility] 02/04/2021 16:55:01 01/22/20 21 Date of Last Mammogram completed Gregoria Ray [facility] 11/25/2021 12:16:08 09/11/19 21 Cerumen removal - Instruments, Bilateral completed María Curtis [facility] 09/11/2020 15:13:57 04/17/20 20 Tympanogram completed MAYRA EDWARDS, AUD [address] [place], [address], [facility] 04/17/2020 15:26:48 04/17/20 20 Audiogram completed MAYRA EDWARDS AUD [address] [place], [address], [facility] 04/17/2020 15:26:46 04/17/20 20 Cerumen removal - Instruments, Bilateral completed Christin Alexus [facility] 04/17/2020 16:15:17 11/16/19 18 Electromyography (EMG) with Nerve Conduction Study (NCV) completed Christin ChachaKaren Valladares [facility] 11/15/2017 14:16:02 Appendectomy completed URI OLIVEIRA MD [address] [place] [address], [address] [place] [address], [facility] 10/24/2024 14:31:15 Nipple/areola reconstruction completed URI OLIVEIRA MD [address] [place] [address] 10/24/2024 14:31:25 Other completed Hannah Ty [facility] 11/02/2017 09:25:56 procedure on gallbladder completed URI OLIVEIRA MD [address] [place] [address] 10/24/2024 14:31:07 Total Hysterectomy completed ANJALI OLIVEIRA MD [address] [place] [address] 10/24/2024 14:30:54 colonoscopy completed URI OLIVEIRA MD [address] [place] [address] 10/24/2024 14:31:37 suture of eyelid completed URI OLIVEIRA MD [address] [place] [address], [address] [place] [address] 10/24/2024 14:32:09 Imaging Results None recorded. Procedure Notes None recorded. Medical Equipment None Reported. Allergies Allergen ID Allergen Name Allergen Category Reaction Reaction Severity Criticality Documentation Date Start Date Code Code System Note Provider Name and Address Organization Details Recorded Time 032796 acetamino phen / oxycodone medicatio n itching Not available Not available 07/16/20162010 58839 3 RxNorm React ion: ITCHI NG; Comme nt: Creat ed By: Owen desir Date: 2010 2:24: 41 PM; Not Available [facility] 6 11:47:26 549485 E-Mycin medicatio n Not available Not available Not available 07/17/2016200660 8 RxNorm Comme nt: Creat ed By: Kimberlee Ramires; Creat ed Date: 2006 1:55: 10 PM; Not Available [facility] 6 03:43:01 667135 acetamino phen / hydrocodo ne medicatio n Not available Not available Not available 11/02/2017 37829 2 RxNorm Hannah Crawford [facility] 8 09:26:40 115119 Substance with sulfonami de structure and antibacte rial mechanism of action (substanc e) medicatio n Not available Not available Not available 11/02/2017 72713 8003 SNOMED Hannah Crawford [facility] 8 09:26:49 257128 Bactrim medicatio n Not available Not available Not available 06/02/2024 55559 9 RxNorm Urealyssa Sellers [facility] 4 11:11:10 Medications Name Sig Start [...] and Address Organization Details Last Updated DateTime 5 165.1 cm 21.9 kg/m2 01907.7 g 97.7 [degF] 69 /min 107/67 mm[Hg] Vandana Shelton [facility] 13:54:44 Social History Question Answer Notes LastModified [...] Or The Highest Degree You Have Received? [id number] 2 Degrees Information not available 11/25/2021 When Did You Quit Smoking? 1-5yearssincel [email or web address] [email or web address] Information not available 10/24/2024 Are There Any Guns Present In Your Home? No Information not available 11/25/2021 What Was The Date Of Your Most Recent Tobacco Screening? 05/15/2025 [email or web address] Information not available 05/15/2025 How Many Children [...] 10/24/2024 Have You Recently Traveled Abroad? No [email or web address] Information not available 05/27/2021 Sex: Female Functional Status Question Answer Note LastModified by Organizat ion Details LastModified Time Do you use any illicit or recreational drugs? No [email or web address] Information not available 05/27/2021 Do you or [...] anxious, or unable to sleep at night)? [id number] Information not available 11/25/2021 Family History Relationship [...] available 2024 10:49:49 Medical History Condition Response Anxiety Disorder Y Allergies/Hayfever Y Diabetes N Bleeding Disorder N Arthritis Y Emphysema N [...] MDCK, quadrivalent, PF 3 completed Not Available [facility] 05/15/2025 13:48:34 Pneumococcal conjugate PCV20, polysaccharide JXU386 conjugate, adjuvant, PF 4 completed Not Available [facility] 05/15/2025 13:48:34 Influenza, split virus, trivalent, PF 4 completed Not Available [facility] 05/15/2025 13:48:34 Tdap 5 completed Not Available [facility] 05/15/2025 13:48:34 Influenza, MDCK, quadrivalent, PF 2 completed Mary Ellen shi [facility] 09/01/2022 12:31:10 Influenza, split virus, trivalent, PF 7 completed Mary Ellen Llanos [facility] 09/01/2022 12:31:10 Influenza, split virus, quadrivalent, PF 0 completed Mary Ellen Llanos [facility] 09/01/2022 12:31:10 COVID-19, mRNA, LNP-S, PF, 30 mcg/0.3 mL dose 1 completed Mary Ellen Llanos [facility] 09/01/2022 12:31:10 COVID-19, mRNA, LNP-S, PF, 30 mcg/0.3 mL dose 1 completed Mary Ellen Llanos [facility] 09/01/2022 12:31:10 Influenza, split virus, quadrivalent, preservative 1 completed Mary Ellen Llanos [facility] 09/01/2022 12:31:10 Influenza, split virus, trivalent, PF 6 completed Mary Ellen Llanos [facility] 09/01/2022 12:31:10 COVID-19, mRNA, LNP-S, PF, 30 mcg/0.3 mL dose 1 completed Mary Ellen Llanos [facility] 09/01/2022 12:31:11 COVID-19, mRNA, LNP-S, PF, 30 mcg/0.3 mL dose, sriram-sucrose 2 completed Mary Ellen Llanos [facility] 09/01/2022 12:31:11 pneumococcal polysaccharide PPV23 7 completed Mary Ellen Llanos [facility] 09/01/2022 12:31:11 Tdap 3 completed Gregoria Shen [facility] 08/03/2023 16:00:18 Past Encounters Encounter ID Performer Location Encounter Start Date Encounter Closed Date Diagnosis/Indication Diagnosis SNOMED-CT Code Diagnosis ICD10 Code Diagnosis IMO Codes Diagnosis Note [id number] RYAN SANCHEZ APRN [facility] [address] [place] [address] 04/24/2025 14:39:47 04/24/2025 15:17:08 Solar lentiginosis 696509012 L81.4 1269917 RECOMMEND SUN PROTECTIVE CLOTHING AND EQUATE SPORT SUNSCREEN AND CERAVE AM SUNSCREEN LOTION OTC DAILYDISCU SSED RISKS INHERENT TO CHEMICAL SUNSCREENS INCLUDING PHOTOALLER GIC, PHOTOTOXIC , ALLERGIC CONTACT AND IRRITANT CONTACT DERMATITIS .BENIGN APPEARANCE , PT REASSURED & ADVISED TO RTC WITH ANY CHANGES Multiple b enign melanocytic nevi 715911949 D22.9 [id number] BENIGN APPEARANCE , PT REASSURED & ADVISED TO RTC WITH ANY CHANGES Raised nohemy orrheic keratosis 5530478310 41261 L82.2 [id number] BENIGN APPEARANCE , PT REASSURED Dermatofibroma 098017803 D23.9 72850 BENIGN APPEARANCE , PT REASSURED Solar degeneration 12006 006 L57.8 766 INCREASE TO TRETINOIN CREAM 0.05 CREAM NIGHLTY PT REQUEST Verruca vulgaris 0757661 3 B07.9 85972 DISCUSSED [place] OPTIONSPAT IENT IS REQUESTING CANTHARIDI [...] SSED CAN TREAT FURTHER IF PERSISTING Milia 595873099 L72.0 44195 BENIGN APPEARANCE , PT REASSURED Generalize d essential telangiectasia 305416548 I78.8 [id number] BENIGN APPEARANCE , PT REASSURED Hemangioma of skin 73195 006 D18.01 541043 BENIGN APPEARANCE , PT REASSURED [id number] JIA HOLLIS [address] [place] [address] 05/15/2025 13:46:36 05/15/2025 14:38:28 Impacted cerumen of bilateral ears 6413268250 450098 H61.23 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 800414944 H60.8X3 Vasomotor rhinitis 32916 03 J30.0 Chronic rhinitis 4206627 6 J31.0 Nasal vestibulitis 79630 000 J34.89 265508 Health Concerns Section Related Observation LastModified by Organization Detai ls LastModified Time None Recorded Concern Status LastModified by Organization Details LastModified Time None Recorded Payers Encounter Date Sequence Insurance Name Policy Number Policy Watkins Covered Member ID Watkins Member ID Guarantor Name 05/15/2025 1 [place] [id number] Jose No Figueroa [id number] Aleja Márquez Henry Notes Date Note Type Note Provider Name and Address Organization Details Recorded Time 05/15/2025 text/html ROS as noted in the [...] scab up occasionally. ROD VALLES PA-C [address] [place], [address], [facility] 05/15/2025 14:17:55 OBGyn Episode No OBEpisode recorded.
--- OUTSIDE RECORDS SUMMARY | 2025-06-18 10:49 | XMS_ITS | Encounter Summary ---
Author Organization [employer] ([place], [place], [place], [place]) Address [address] [place] [address] Care Team Providers Care Research Professor Of Biostatistics Name Role Phone Unavailable Primary Care Provider Unavailabl e Encounter Details Date Type Department Care Team (Late st Contact Info) Description 11/03/2018 Transcribed Document [facility] Family Medicine [facility] [place] [address] ProviderZoey [place] [address] Social History Tobacco Use Types [...] Communication Barrier : None Primary Language : Pashto Any Spiritual/Cultural Needs or Requests : No [...] Medeiros Rn - 11/03/2018 13:50 EDT] ) Cateirna Medeiros Rn - 11/03/2018 13:50 EDT Neurologic ASMT, ED Neurologic Assessment WDL : WDCaterina Quinn Rn - 11/03/2018 13:50 EDT documented in this encounter Plan of Treatment Not on file documented as of this encounter Visit Diagnoses Not on filedocumented in this encounter
--- OUTSIDE RECORDS SUMMARY | 2025-06-18 10:49 | XMS_ITS | Encounter Summary ---
Author Organization [facility] ([place], [place], [place], [place]) Address [address] [place] [address] Care Team Providers Care Icer Machine Operator Name Role Phone Unavailable Primary Care Provider Unavailabl e Encounter Details Date Type Department Care Team (Late st Contact Info) Description 11/03/2018 Transcribed Document [facility] [place] [facility] [place] [address] ProviderZoey MD [facility] [place] [address] Social History Tobacco Use Types [...] 11/03/2018 13:44 EDT Chief Complaint : from [facility] w.c/o lower back pain since Wed., when pt bent over and was unable to straighten; reports new stress incontinence; has been seen by in the past, last MRI @16mo ago; Hx HTN, chronic back pain ALANIS ORNELAS RN - 11/03/2018 13:44 EDT DCP GENERIC CODE Tracking Acuity : 3 - Urgent Tracking Group : [facility] ED ALANIS ORNELAS RN - [...] Problems(Active) Chronic low back pain (SNOMED CT :836275434 ) Name of Problem: Chronic low back pain ; Recorder: ALIE DELANEY MD; Confirmation: Confirmed ; Classification: Medical ; Code: [id number] ; Contributor System: iWelcome ; Last Updated: 10/19/2017 17:35 EST ; Life Cycle Date: 10/19/2017 ; Life Cycle Status: Active ; Responsible Provider: ALIE DELANEY MD; Vocabulary: SNOMED CT HTN (hypertension) (SNOMED CT :9011643043 ) Name of Problem: HTN (hypertension) ; Recorder: DANI SANCHEZ RN; Confirmation: Confirmed ; Classification: Medical ; Code: [id number] ; Contributor System: iWelcome ; Last Updated: 10/19/2017 13:39 EST ; Life Cycle Date: 10/19/2017 ; Life Cycle Status: Active ; Vocabulary: SNOMED CT Diagnoses(Active) Back pain Date: 11/03/2018 ; Diagnosis Type: Reason For Visit ; Confirmation: Complaint of ; Clinical Dx: Back pain ; Classification: Medical ; Clinical Service: Emergency medicine ; Code: PNED ; Probability: 0 ; Diagnosis Code: [id number] ED Height and Weight Height Source : Stated Height Entry Format : [place] Height, Feet : 5 ft(Converted to: 152 cm, 60 Inch) Height, Inches : 5 Inch(Converted to: 0 ft 5 Inch, 12.70 cm) Clinical Height : 165.1 cm Weight Source, ED : Critical estimated dosing weight Weight Entry Format : [place] Weight, Pounds : 180 lb Clinical Dosing Weight : 81.82 kg Body Surface Area (BSA) : 1.89 m2 Body Mass Index : 30 kg/m2 (HI) [place] Body Weight (IBW) : 56.59 kg ALANIS ORNELAS RN - 11/03/2018 13:44 EDT Electronically signed by José Miguel Braswell [facility] Owner Cerner at 12/09/2022 8:14 AM CDT documented in this encounter Plan of Treatment Not on file documented as of this encounter Visit Diagnoses Not on filedocumented in this encounter
--- OUTSIDE RECORDS SUMMARY | 2025-06-18 10:49 | XMS_ITS | Encounter Summary ---
[facility] Address [address] [place] [address] Care Team Providers Care Human Services Worker Name Role Phone LudwigElizabethLaynezheng SHAH Primary Care Provider Reason for Visit * Reason Comments Med Refill Encounter Details Date Type Department Care Team (Late st Contact Info) Description 09/21/2024 Refill [facility] OBGYN [address] [place] [address] Hannah Corral METAL DRESSER [address] [facility] [address] [place] [address] Hormone replacement therapy (HRT) Social History Tobacco [...] (HRT) documented in this encounter Care Teams Human Services Worker Relationship Specialty Start Date End Date Layne Munroe APRN [facility] [place] [address] MADELEINE MELENDEZ [facility] PCP - General Internal Medicine 05/23/24 documented as of this encounter
--- OUTSIDE RECORDS SUMMARY | 2025-06-18 10:49 | XMS_ITS | Encounter Summary ---
Author Organization [employer] ([place], [place], [place], [place]) Address [address] [place] [address] Care Team Providers Care Infection Prevention Specialist Name Role Phone Unavailable Primary Care Provider Unavailabl e Encounter Details Date Type Department Care Team (Late st Contact Info) Description 11/03/2018 Transcribed Document [facility] [place] [address] [place] [address] ProviderZoey MD [address] [place] [address] Social History Tobacco Use Types [...] PM CDT Electronically signed by [facility] Conversion Oil Well Directional Surveyor Cerner at 12/09/2022 8:12 AM CDT documented in this encounter Plan of Treatment Not on file documented as of this encounter Visit Diagnoses Not on filedocumented in this encounter
== END 2025-06-15 23:59 ==
LOC: LAB.DROPOF 06-18 10:37
PROVIDERS: PCP Nurse Practitioner Family; Visit Provider Nurse Practitioner
DX: J06.9 Acute upper respiratory infection, unspecified (principal); N39.0 Urinary tract infection, site not specified
CPT/HCPCS: 87086; 87631